=== PATIENT | male | born 1945 | race Caucasian/White ===

== ENCOUNTER 2020-06-06 07:36 | Outpatient (REF) | payer MEDICARE, SELFPAY ==
[2020-06-06 11:37] LABS: Alanine Aminotransferase 30 U/L (0-40); Albumin Level 4.1 g/dL (3.5-5.0); Alkaline Phosphatase 127 U/L (39-117); Aspartate Amino Transferase 24 U/L (5-37); Bilirubin Direct 0.3 mg/dL (0.0-0.5); Bilirubin Total 0.7 mg/dL (0.0-1.0); Cholesterol 111 mg/dL; HDL Cholesterol 28 mg/dL; LDL Cholesterol Calculated 51 mg/dl; Total Protein 6.4 g/dL (6.5-8.0); Triglycerides 160 mg/dL
== END 2020-06-06 07:37 | disposition home or self-care (01) ==
LOC: HO.HMGCLDS 07:36
PROVIDERS: PCP Internal Medicine; Visit Provider Internal Medicine
DX: E78.1 Pure hyperglyceridemia (principal)
CPT/HCPCS: 80061; 80076

== ENCOUNTER 2020-06-23 07:04 | Outpatient (REF) | payer MEDICARE, SELFPAY | END 2020-06-23 07:05 | disposition home or self-care (01) | LOC: HO.LAB 07:04 | PROVIDERS: Visit Provider Internal Medicine | DX: Z20.828 Contact with and (suspected) exposure to other viral communicable diseases (principal) | CPT/HCPCS: C9803; U0003 ==

== ENCOUNTER → 2020-07-23 07:27 | Outpatient (BNVA) | payer MEDICARE, SELFPAY | PROVIDERS: PCP Internal Medicine; Visit Provider Internal Medicine Endocrinology, Diabetes & Metabolism | DX: E13.9 Other specified diabetes mellitus without complications (principal); Z79.4 Long term (current) use of insulin; E78.5 Hyperlipidemia, unspecified; I10 Essential (primary) hypertension; E55.9 Vitamin D deficiency, unspecified | CPT/HCPCS: 82947; 99212 ==

== ENCOUNTER 2020-08-28 08:19 | Outpatient (REF) | payer MEDICARE, SELFPAY ==
[2020-08-28 11:57] LABS: Alanine Aminotransferase 35 U/L (0-40); Anion Gap 12 (12-20); Aspartate Amino Transferase 32 U/L (5-37); Blood Urea Nitrogen 12 mg/dL (9-16); Calcium 9.1 mg/dL (8.4-10.2); Carbon Dioxide 28 mmol/L (22-29); Chloride 106 mmol/L (96-108); Cholesterol 116 mg/dL; Estimated Glomerular Filt Rate > 60; Glucose Fasting 146 mg/dL (60-99); HDL Cholesterol 26 mg/dL; LDL Cholesterol Calculated 42 mg/dl; Potassium 4.3 mmol/L (3.3-5.1); Sodium 142 mmol/L (135-145); Triglycerides 242 mg/dL
== END 2020-08-28 08:20 | disposition home or self-care (01) ==
LOC: HO.HMGCLDS 08:19
PROVIDERS: PCP Internal Medicine; Visit Provider Internal Medicine
DX: I10 Essential (primary) hypertension (principal); E78.5 Hyperlipidemia, unspecified
CPT/HCPCS: 36415; 80048; 80061; 84450; 84460

== ENCOUNTER 2020-09-15 10:02 | Day surgery (SDC) | payer MEDICARE, SELFPAY ==
[2020-09-08 10:57] VITALS: BMI 24.8
--- NOTE | 2020-09-10 16:48 | MHC.SHP ---
Pre-Procedural Eval Section A The patient is an INPATIENT: No The History & Physical has been completed within 30 days and I have reviewed it.: Yes Section B Chief Complaint: Cataract left eye Allergies: Allergies Allergy/AdvReac Type Severity Reaction Status Date / Time codeine [CODEINE] Allergy Intermediate RASH Verified 08/27/20 13:29 nicotine Allergy Intermediate NICOTINE Verified 08/27/20 13:29 PATCH- RASH, hives Penicillins Allergy Intermediate HIVES Verified 08/27/20 13:29 oxycodone [Percocet] Allergy Unknown rash, Verified 08/27/20 13:29 itching meperidine Allergy Itching Verified 09/08/20 10:50 Plan Diagnosis/Plan: Unchanged I have reviewed the history and physical and performed a pertinent physical examination on my patient. No changes have occurred unless specified.
--- NOTE | 2020-09-12 09:16 | P.CONAN_ITS ---
Documented by User: Darcy Ricardo 09/12/20 09:19 HPI - Anesthesia Eval Consult details Narrative: 75yo M for Left Cataract Extraction IOL Insertion No previous cataract PCP cleared PMFSH Active Problems Active Problems: All Active Problems (Updated 09/08/20 @ 10:56 by Becky David) Peripheral vascular disease (Acute) Degenerative disc disease, cervical (Acute) Vitamin D deficiency (Acute) Hypertension (Acute) Dyslipidemia (Acute) long-term (current) use of insulin (Acute) Diabetes-pancreatic exocrine dysfunction syndrome (Acute) Past Medical History Medical History (Updated 09/15/20 @ 11:45 by Lucina Hendrix) Degenerative disc disease, cervical Diabetes-pancreatic exocrine dysfunction syndrome Dizziness of unknown etiology Dyslipidemia 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 Surgical History Surgical History History of endoscopic retrograde cholangiopancreatography History of pancreatic surgery Hx of deep venous thrombosis Hx of hemorrhoidectomy Hx of hernia repair Hx of tonsillectomy Stented coronary artery Social History Social History Alcohol intake: former Smoking Status: Current every day smoker Tobacco Type: Cigarette Cigarettes Per Day: 10 Years Smoked: 50+ Use of substances other than those prescribed or required for medical reasons: No Advance Directives: No Advance Directives Information Provided: No Advance Directives on File: No Meds Allergies Allergy/AdvReac Type Severity Reaction Status Date / Time codeine [CODEINE] Allergy Intermediate RASH Verified 08/27/20 13:29 nicotine Allergy Intermediate NICOTINE Verified 08/27/20 13:29 PATCH- RASH, hives Penicillins Allergy Intermediate HIVES Verified 08/27/20 13:29 oxycodone [Percocet] Allergy Unknown rash, Verified 08/27/20 13:29 itching meperidine Allergy Itching Verified 09/08/20 10:50 Home Medications Medication Instructions Recorded Confirmed Last Taken Type atorvastatin 40 mg tablet 40 mg PO .ONCE A WEEK tab 06/11/20 09/08/20 Unknown History cholecalciferol (vitamin D3) 50 50 mcg PO DAILY 06/11/20 09/08/20 Unknown History mcg (2,000 unit) capsule flu vacc [id number](65yr up)-PF 240 ml IM ONCE 06/11/20 08/27/20 Unknown History mcg/0.7 mL intramuscular syringe fluticasone propionate 50 1 spray INTRANASAL DAILY 06/11/20 09/08/20 Unknown History mcg/actuation nasal spray,suspension lancets #100 ea 06/11/20 08/27/20 Unknown History mifxyp-ldhncngh-baalawz 0 cap PO 06/11/20 08/27/20 Unknown History 24,000-76,000-120,000 unit capsule,delayed rel pen needle, diabetic 32 gauge x #50 ea 06/11/20 08/27/20 Unknown History sucralfate 1 gram tablet 1 g PO TID 06/11/20 09/08/20 Unknown History varicella-zoster glycoE [id number] IM 06/11/20 08/27/20 Unknown History adj(PF) 50 mcg/0.5 mL IM susp, kit aspirin [Aspir-81] 81 mg PO DAILY 09/11/20 09/11/20 Unknown History Exam Exam Date and Time: September 12, 2020 0916 Height,Weight and Vital Signs: Height 5 ft 6 in Weight 69.853 kg Pertinent Lab Results Pertinent Lab Results: Laboratory Tests 12/07/19 08/28/20 07:40 08:23 WBC 7.8 Hgb 14.1 Hct 42.9 Plt Count 291 Sodium 142 Potassium 4.3 Chloride 106 Carbon Dioxide 28 BUN 12 Creatinine 0.87 Assessment and Plan Assessment Anesthesia Assessment: Chart Reviewed Documented by User: Lucian Hendrix 09/15/20 11:45 [facility] Past Medical History Medical History (Updated 09/15/20 @ 11:45 by Lucina Hendrix) Degenerative disc disease, cervical Diabetes-pancreatic exocrine dysfunction syndrome Dizziness of unknown etiology Dyslipidemia 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 Family history of problems with anesthesia: No Surgical History Surgical History History of endoscopic retrograde cholangiopancreatography History of pancreatic surgery Hx of deep venous thrombosis Hx of hemorrhoidectomy Hx of hernia repair Hx of tonsillectomy Stented coronary artery History of Problems with Anesthesia: No Social History Social History Alcohol intake: former Smoking Status: Current every day smoker Tobacco Type: Cigarette Cigarettes Per Day: 10 Years Smoked: 50+ Use of substances other than those prescribed or required for medical reasons: No Advance Directives: No Advance Directives Information Provided: No Advance Directives on File: No Meds Allergies Allergy/AdvReac Type Severity Reaction Status Date / Time codeine [CODEINE] Allergy Intermediate RASH Verified 08/27/20 13:29 nicotine Allergy Intermediate NICOTINE Verified 08/27/20 13:29 PATCH- RASH, hives Penicillins Allergy Intermediate HIVES Verified 08/27/20 13:29 oxycodone [Percocet] Allergy Unknown rash, Verified 08/27/20 13:29 itching meperidine Allergy Itching Verified 09/08/20 10:50 Home Medications Medication Instructions Recorded Confirmed Last Taken Type atorvastatin 40 mg tablet 40 mg PO .ONCE A WEEK tab 06/11/20 09/08/20 Unknown History cholecalciferol (vitamin D3) 50 50 mcg PO DAILY 06/11/20 09/08/20 Unknown History mcg (2,000 unit) capsule flu vacc [id number](65yr up)-PF 240 ml IM ONCE 06/11/20 08/27/20 Unknown History mcg/0.7 mL intramuscular syringe fluticasone propionate 50 1 spray INTRANASAL DAILY 06/11/20 09/08/20 Unknown History mcg/actuation nasal spray,suspension lancets #100 ea 06/11/20 08/27/20 Unknown History xnnkwa-llhngcgg-stscpzh 0 cap PO 06/11/20 08/27/20 Unknown History 24,000-76,000-120,000 unit capsule,delayed rel pen needle, diabetic 32 gauge x #50 ea 06/11/20 08/27/20 Unknown History 5/32 sucralfate 1 gram tablet 1 g PO TID 06/11/20 09/08/20 Unknown History varicella-zoster glycoE vacc-AS01B IM 06/11/20 08/27/20 Unknown History adj(PF) 50 mcg/0.5 mL IM susp kit aspirin [Aspir-81] 81 mg PO DAILY 09/11/20 09/11/20 Unknown History Exam Height,Weight and Vital Signs: Vital Signs Temp Pulse Resp BP Pulse Ox 09/15/20 11:26 96.8 F 64 18 133/62 99 Pertinent Lab Results Pertinent Lab Results: Lab Results 09/15/20 Range/Units 11:28 POC Glucose 160 H (60-115) mg/dL Airway Mallampati Class: II TM Dist: >3cm Neck ROM: Full Loose/Missing/Broken Teeth: Yes (Edentulous) Heart: RRR Lungs: CTAB Assessment and Plan Assessment Anesthesia Assessment: Anesthesia Plan Discussed and Chart Reviewed Final Anesthetic Review NPO: Yes ASA Class: III Final Preanesthetic Review: No Changes in Pt Med Stat, Meds/Allgs Chart Reviewed, Consent Obtained/Reviewed and Anes Risks/Benef Reviewed Patient Risk: Intermediate Procedure Risk: Low Assessment/Block/Sedation in SS: Assess/Block/Sedation-SS Anesthetic Plan Anesthetic Plan: MAC: Disposition: Standard PACU
[2020-09-15 11:26] VITALS: BP 133/62; PULSE 64; RESP 18; TEMP 36; O2SAT 99
[2020-09-15 11:31] LABS: Glucose, Whole Blood 160 mg/dL (60-115)
[2020-09-15] MEDS: Tetracaine HCl/PF 0.5% Oph Sol 4 ML DROPS 1 DROP EYE-LEFT (11:46)
[2020-09-15] MEDS: Tropicamide 1 % Ophth Sol 3 ML BTL 1 DROP EYE-LEFT ×2 (11:48→11:51)
[2020-09-15] MEDS: Phenylephrine HCL 2.5% Oph SoL 2 ML BOTTLE 1 DROP EYE-LEFT ×2 (11:50→11:52)
--- NOTE | 2020-09-15 11:53 | PC.NURSE ---
Dr alexandra bedside. taking pt informed him only had two sets of drops. took pt to or.
--- NOTE | 2020-09-15 12:17 | HO.PNOPHT ---
Ophthalmology Procedure Procedure Date of Service: 09/15/20 Ophthalmology Viscoelastic: Healon Duet Dual Pack Pro Ophthalmology Lenses: TECNIS [id number] (21.5) Procedure Notes: PREOPERATIVE DIAGNOSIS: Decreased visual acuity left eye secondary to cataract POSTOPERATIVE DIAGNOSIS: Same PROCEDURE: Left cataract extraction with intraocular lens insertion, Malyugin Ring SURGEON: Sav Liang M.D. ANESTHESIA: Topical/MAC ESTIMATED BLOOD LOSS: None COMPLICATIONS: None After obtaining informed consent, the patient was brought to the operation room suite and placed in the supine position. After adequate sedation per anesthesia, topical drops of Tetracaine were given to the left eye. The eye was then prepped and draped in the usual sterile fashion. The operating room microscope was then positioned over the operative eye and a lid speculum placed. A paracentesis was created. Viscoelastic was then instilled into the anterior chamber. A three plane incision was then created temporally, utilizing a 2.85 mm keratome. Poor dilation required 0.5ml of MPF Lidocaine with placement of a Malyugin Ring. Capsulotomy forceps were then utilized to create a circular tear capsulotomy. Hydrodissection and hydrodelineation were carried out until adequate mobilization of the nucleus occurred. Phacoemulsification was then utilized to remove the dense central nucleus followed by removal of the cortical material utilizing the automated aspiration irrigation unit. Viscoat elastic was instilled into the posterior capsular bag followed by placement of a posterior chamber intraocular lens without difficulty. The residual Viscoat elastic was then removed utilizing the automated IA machine. The wound was check and found to be watertight. The patient tolerated the procedure well and the lid speculum was removed. Intracameral injection of Vigamox 0.1 mL followed by a subtenon injection of Kenalog-40 0.2 mL were administered. The patient will be seen in the a.m.
[2020-09-15 12:19] VITALS: BP 107/63; PULSE 58; RESP 16; TEMP 36.1; O2SAT 96
== END 2020-09-15 13:07 | disposition home or self-care (01) ==
PROVIDERS: PCP Internal Medicine; Visit Provider Ophthalmology
PROC: (CPT 66985; principal; 2020-09-15 12:10)
DX: H25.12 Age-related nuclear cataract, left eye (principal); I10 Essential (primary) hypertension; E11.9 Type 2 diabetes mellitus without complications; K86.81 Exocrine pancreatic insufficiency; R42 Dizziness and giddiness; Z79.4 Long term (current) use of insulin; Z79.899 Other long term (current) drug therapy; F17.210 Nicotine dependence, cigarettes, uncomplicated; Z88.0 Allergy status to penicillin; Z88.8 Allergy status to other drugs, medicaments and biological substances
CPT/HCPCS: 66984; 82947; J2250; J3010; J3300; V2632

== ENCOUNTER 2020-12-02 07:31 | Outpatient (REF) | payer MEDICARE, SELFPAY ==
[2020-12-02 09:25] LABS: Alanine Aminotransferase 29 U/L (0-40); Aspartate Amino Transferase 54 U/L (5-37); Cholesterol 106 mg/dL; HDL Cholesterol 33 mg/dL; LDL Cholesterol Calculated 46 mg/dl; Triglycerides 137 mg/dL
[2020-12-02 10:06] LABS: Creatinine Urine 191.08 mg/dL; Microalbum/Creatinine Ratio Ur 47.6 ug/mg cr
== END 2020-12-02 07:32 | disposition home or self-care (01) ==
LOC: HO.LAB 07:31
PROVIDERS: PCP Internal Medicine; Visit Provider Internal Medicine Endocrinology, Diabetes & Metabolism
DX: E13.9 Other specified diabetes mellitus without complications (principal); E78.5 Hyperlipidemia, unspecified; I10 Essential (primary) hypertension; E55.9 Vitamin D deficiency, unspecified; Z79.4 Long term (current) use of insulin; Z79.899 Other long term (current) drug therapy
CPT/HCPCS: 36415; 80061; 82043; 82947; 84450; 84460; 99212

== ENCOUNTER 2020-12-19 07:05 | Outpatient (REF) | payer MEDICARE, SELFPAY ==
[2020-12-19 11:42] LABS: Alanine Aminotransferase 36 U/L (0-40); Albumin Level 4.1 g/dL (3.5-5.0); Alkaline Phosphatase 101 U/L (39-117); Aspartate Amino Transferase 50 U/L (5-37); Bilirubin Direct 0.3 mg/dL (0.0-0.5); Bilirubin Total 0.5 mg/dL (0.0-1.0); Total Protein 6.5 g/dL (6.5-8.0)
== END 2020-12-19 07:06 | disposition home or self-care (01) ==
LOC: HO.HMGCLDS 07:05
PROVIDERS: PCP Internal Medicine; Visit Provider Internal Medicine
DX: E78.1 Pure hyperglyceridemia (principal)
CPT/HCPCS: 36415; 80076

== ENCOUNTER → 2021-04-07 07:36 | Outpatient (BNVA) | payer MEDICARE, SELFPAY | PROVIDERS: PCP Internal Medicine; Visit Provider Nurse Practitioner Gerontology | DX: E13.9 Other specified diabetes mellitus without complications (principal); E78.5 Hyperlipidemia, unspecified; E55.9 Vitamin D deficiency, unspecified; I10 Essential (primary) hypertension; Z79.4 Long term (current) use of insulin | CPT/HCPCS: 82947; 99212 ==

== ENCOUNTER 2021-04-17 07:25 | Outpatient (REF) | payer MEDICARE, SELFPAY ==
[2021-04-17 11:25] LABS: MANUAL DIFF FLAG NO
[2021-04-17 11:36] LABS: Basophils Percent Auto 0.4 % (0-2); Eosinophils Absolute Auto 0.1 X10*3/uL (0.0-0.4); Eosinophils Percent Auto 1.4 % (0-4); Hematocrit 35.8 % (42-52); Hemoglobin 11.4 g/dl (14.0-18.0); Imm Gran Abs Auto 0.04 X10*3/uL (0.00-0.03); Imm Gran Pct Auto 0.5 % (0.0-0.4); Lymphocytes Absolute Auto 1.5 X10*3/uL (1.2-4.9); Lymphocytes Percent Auto 20.4 % (20-40); Mean Corpuscular HGB Conc 31.8 g/dl (31.0-36.0); Mean Corpuscular Hemoglobin 30.8 pg (27.0-33.0); Mean Corpuscular Volume 96.8 fL (80-98); Mean Platelet Volume 11.4 fL (9.4-12.4); Monocytes Absolute Auto 0.7 X10*3/uL (0.1-1.2); Monocytes Percent Auto 9.5 % (2-11); NRBC Pct Auto 0.5 /100WBC (0.0-0.2); Neutrophils Percent Auto 67.8 % (45-73); Platelet Count 250 X10*3/uL (160-400); Red Cell Distribution Width 17.8 % (11.0-16.0); White Blood Count 7.4 X10*3/uL (4.8-10.8)
[2021-04-17 12:02] LABS: TSH reflex Free T4 3.24 uIU/mL (0.32-4.0); Vitamin D 25-OH Total 39.5 ng/mL (>30)
[2021-04-17 12:06] LABS: Alanine Aminotransferase 26 U/L (0-40); Aspartate Amino Transferase 31 U/L (5-37); Cholesterol 99 mg/dL; HDL Cholesterol 32 mg/dL; LDL Cholesterol Calculated 41 mg/dl; Triglycerides 131 mg/dL
[2021-04-17 12:35] LABS: Folate 19.2 ng/mL (> or = 4.0); Vitamin B12 803 pg/mL (200-900)
== END 2021-04-17 07:26 | disposition home or self-care (01) ==
LOC: HO.HMGCLDS 07:25
PROVIDERS: PCP Internal Medicine; Visit Provider Internal Medicine
DX: E55.9 Vitamin D deficiency, unspecified (principal); E78.5 Hyperlipidemia, unspecified; R53.83 Other fatigue; T50.B95A Adverse effect of other viral vaccines, initial encounter
CPT/HCPCS: 36415; 80061; 82306; 82607; 82746; 84443; 84450; 84460; 85025

== ENCOUNTER 2021-07-15 07:22 | Outpatient (REF) | payer MEDICARE, SELFPAY ==
[2021-07-15 11:20] LABS: MANUAL DIFF FLAG NO
[2021-07-15 11:30] LABS: Basophils Percent Auto 0.3 % (0-2); Eosinophils Absolute Auto 0.1 X10*3/uL (0.0-0.4); Eosinophils Percent Auto 0.9 % (0-4); Hematocrit 36.2 % (42.0-52.0); Hemoglobin 11.1 g/dl (14.0-18.0); Imm Gran Abs Auto 0.03 X10*3/uL (0.00-0.03); Imm Gran Pct Auto 0.5 % (0.0-0.4); Lymphocytes Absolute Auto 1.5 X10*3/uL (1.2-4.9); Lymphocytes Percent Auto 23.4 % (20-40); Mean Corpuscular HGB Conc 30.7 g/dl (31.0-36.0); Mean Corpuscular Hemoglobin 30.7 pg (27.0-33.0); Mean Corpuscular Volume 100.3 fL (80.0-98.0); Mean Platelet Volume 10.9 fL (9.4-12.4); Monocytes Absolute Auto 0.8 X10*3/uL (0.1-1.2); Monocytes Percent Auto 11.4 % (2-11); NRBC Pct Auto 0.3 /100WBC (0.0-0.2); Neutrophils Absolute Auto 4.2 x10*3/uL (2.0-8.3); Neutrophils Percent Auto 63.5 % (45-73); Platelet Count 200 X10*3/uL (160-400); Red Blood Count 3.61 X10*6/uL (4.60-5.80); Red Cell Distribution Width 18.9 % (11.0-16.0); White Blood Count 6.6 X10*3/uL (4.8-10.8)
[2021-07-15 11:57] LABS: Alanine Aminotransferase 32 U/L (0-40); Albumin Level 3.7 g/dL (3.5-5.0); Alkaline Phosphatase 105 U/L (39-117); Anion Gap 11 (12-20); Aspartate Amino Transferase 40 U/L (5-37); Bilirubin Total 0.5 mg/dL (0.0-1.0); Blood Urea Nitrogen 13 mg/dL (9-16); Carbon Dioxide 26 mmol/L (22-29); Chloride 110 mmol/L (96-108); Cholesterol 104 mg/dL; Estimated Glomerular Filt Rate > 60; Glucose Fasting 120 mg/dL (60-99); HDL Cholesterol 38 mg/dL; Iron 115 mcg/dL (45-160); LDL Cholesterol Calculated 33 mg/dl; Percent Iron Saturation 47 % (15-50); Potassium 4.4 mmol/L (3.3-5.1); Sodium 143 mmol/L (135-145); Total Iron Binding Capacity 244 mcg/dL (228-428); Total Protein 6.1 g/dL (6.5-8.0); Triglycerides 165 mg/dL; Unsaturated Iron Binding 129 ug/dL
[2021-07-15 12:08] LABS: Vitamin D 25-OH Total 23.6 ng/mL (>30)
== END 2021-07-15 07:23 | disposition home or self-care (01) ==
LOC: HO.HMGCLDS 07:22
PROVIDERS: Referring Provider Nurse Practitioner Gerontology; Visit Provider Internal Medicine
DX: E13.9 Other specified diabetes mellitus without complications (principal); E55.9 Vitamin D deficiency, unspecified; D64.9 Anemia, unspecified
CPT/HCPCS: 36415; 80053; 80061; 82306; 83540; 85025

== ENCOUNTER → 2021-07-30 07:18 | Outpatient (BNVA) | payer MEDICARE, SELFPAY | PROVIDERS: PCP Internal Medicine; Visit Provider Nurse Practitioner Gerontology | DX: E13.649 Other specified diabetes mellitus with hypoglycemia without coma (principal); E78.5 Hyperlipidemia, unspecified; I10 Essential (primary) hypertension; E55.9 Vitamin D deficiency, unspecified; R59.0 Localized enlarged lymph nodes; Z79.4 Long term (current) use of insulin | CPT/HCPCS: 82947; 99212 ==

== ENCOUNTER → 2021-08-31 08:04 | Outpatient (BNVA) | payer MEDICARE, SELFPAY | PROVIDERS: PCP Internal Medicine; Visit Provider Registered Nurse Diabetes Educator | DX: E13.9 Other specified diabetes mellitus without complications (principal) | CPT/HCPCS: 99211 ==

== ENCOUNTER 2021-09-01 08:32 | Outpatient (REF) | payer MEDICARE, SELFPAY ==
--- NOTE | ~2021-09-01 | US_ITS ---
EXAMINATION: US SOFT TISSUE NECK CLINICAL INFORMATION: Enlarged lymph nodes COMPARISON: None TECHNIQUE: Ultrasound of the neck soft tissues is performed with high- frequency bravo-scale imaging and color Doppler. FINDINGS: No enlarged lymph nodes are seen. There are small bilateral cervical lymph nodes. Largest lymph node is a left level 2 lymph node. This is normal in size and measures 0.7 cm in transverse dimension. This demonstrates normal ultrasound morphology. There is atherosclerotic disease. US/US soft tiss head and/or neck IMPRESSION: No enlarged lymph nodes seen.
== END 2021-09-01 08:33 | disposition home or self-care (01) ==
LOC: HO.HMGCX 08:32
PROVIDERS: PCP Internal Medicine; Visit Provider Internal Medicine
DX: R59.0 Localized enlarged lymph nodes (principal)
CPT/HCPCS: 76536

== ENCOUNTER 2021-09-03 11:12 | Outpatient (REF) | payer MEDICARE, SELFPAY ==
[2021-09-03 13:57] LABS: Blood Urea Nitrogen 12 mg/dL (9-16); Estimated Glomerular Filt Rate > 60
== END 2021-09-03 11:13 | disposition home or self-care (01) ==
LOC: HO.HMGCLDS 11:12
PROVIDERS: Visit Provider Internal Medicine
DX: R51.9 Headache, unspecified (principal)
CPT/HCPCS: 36415; 82565; 84520

== ENCOUNTER → 2021-09-28 07:59 | Outpatient (BNVA) | payer MEDICARE, SELFPAY | PROVIDERS: PCP Internal Medicine; Visit Provider Registered Nurse Diabetes Educator | DX: E13.9 Other specified diabetes mellitus without complications (principal) | CPT/HCPCS: 99211 ==

== ENCOUNTER → 2021-10-02 07:57 | Outpatient (BNVA) | payer MEDICARE, SELFPAY | PROVIDERS: PCP Internal Medicine; Visit Provider Registered Nurse Diabetes Educator | DX: E13.9 Other specified diabetes mellitus without complications (principal) | CPT/HCPCS: 99211 ==

== ENCOUNTER → 2021-11-03 07:58 | Outpatient (BNVA) | payer MEDICARE, SELFPAY | PROVIDERS: PCP Internal Medicine; Visit Provider Registered Nurse Diabetes Educator | DX: E13.9 Other specified diabetes mellitus without complications (principal) | CPT/HCPCS: 99211 ==

== ENCOUNTER → 2021-11-12 07:23 | Outpatient (BNVA) | payer MEDICARE, SELFPAY | PROVIDERS: PCP Internal Medicine; Visit Provider Nurse Practitioner Gerontology | DX: E10.42 Type 1 diabetes mellitus with diabetic polyneuropathy (principal); E13.9 Other specified diabetes mellitus without complications; E78.5 Hyperlipidemia, unspecified; E55.9 Vitamin D deficiency, unspecified; I10 Essential (primary) hypertension; Z79.4 Long term (current) use of insulin | CPT/HCPCS: 82947; 99212 ==

== ENCOUNTER 2021-12-01 07:17 | Outpatient (REF) | payer MEDICARE, SELFPAY ==
[2021-12-01 11:35] LABS: MANUAL DIFF FLAG NO
[2021-12-01 11:39] LABS: Basophils Percent Auto 0.4 % (0-2); Eosinophils Absolute Auto 0.1 X10*3/uL (0.0-0.4); Eosinophils Percent Auto 1.5 % (0-4); Hematocrit 29.3 % (42.0-52.0); Hemoglobin 9.1 g/dl (14.0-18.0); Imm Gran Abs Auto 0.07 X10*3/uL (0.00-0.03); Lymphocytes Absolute Auto 1.3 X10*3/uL (1.2-4.9); Lymphocytes Percent Auto 18.4 % (20-40); Mean Corpuscular HGB Conc 31.1 g/dl (31.0-36.0); Mean Corpuscular Hemoglobin 30.5 pg (27.0-33.0); Mean Corpuscular Volume 98.3 fL (80.0-98.0); Mean Platelet Volume 11.2 fL (9.4-12.4); Monocytes Absolute Auto 0.8 X10*3/uL (0.1-1.2); NRBC Pct Auto 0.4 /100WBC (0.0-0.2); Neutrophils Absolute Auto 4.9 x10*3/uL (2.0-8.3); Neutrophils Percent Auto 67.7 % (45-73); Platelet Count 241 X10*3/uL (160-400); Red Blood Count 2.98 X10*6/uL (4.60-5.80); Red Cell Distribution Width 19.9 % (11.0-16.0); White Blood Count 7.2 X10*3/uL (4.8-10.8)
[2021-12-01 11:53] LABS: Alanine Aminotransferase 13 U/L (0-40); Anion Gap 12 (12-20); Aspartate Amino Transferase 20 U/L (5-37); Blood Urea Nitrogen 12 mg/dL (9-16); Calcium 8.5 mg/dL (8.4-10.2); Carbon Dioxide 22 mmol/L (22-29); Chloride 111 mmol/L (96-108); Cholesterol 95 mg/dL; Estimated Glomerular Filt Rate > 60; Glucose Fasting 157 mg/dL (60-99); HDL Cholesterol 23 mg/dL; LDL Cholesterol Calculated 47 mg/dl; Potassium 4.3 mmol/L (3.3-5.1); Sodium 141 mmol/L (135-145); Triglycerides 129 mg/dL
[2021-12-01 12:02] LABS: Alanine Aminotransferase 14 U/L (0-40); Albumin Level 3.6 g/dL (3.5-5.0); Alkaline Phosphatase 101 U/L (39-117); Aspartate Amino Transferase 19 U/L (5-37); Bilirubin Direct 0.3 mg/dL (0.0-0.5); Bilirubin Total 0.6 mg/dL (0.0-1.0); Lipase < 4 U/L (8-78); Total Protein 5.7 g/dL (6.5-8.0)
[2021-12-01 12:06] LABS: Amylase 66 U/L (28-100)
[2021-12-01 12:14] LABS: Vitamin D 25-OH Total 35.4 ng/mL (>30)
[2021-12-01 12:30] LABS: Folate 17.8 ng/mL (> or = 4.0); Vitamin B12 588 pg/mL (200-900)
[2021-12-03 11:36] LABS: Alpha Fetoprotein 1.8 ng/mL (<6.1)
== END 2021-12-01 07:18 | disposition home or self-care (01) ==
LOC: HO.HMGCLDS 07:17
PROVIDERS: Absent Provider Internal Medicine; PCP Internal Medicine; Visit Provider Internal Medicine
DX: Z13.89 Encounter for screening for other disorder (principal)
CPT/HCPCS: 36415; 80048; 80061; 80076; 82105; 82150; 82306; 82607; 82746; 83690; 84450; 84460; 85025

== ENCOUNTER 2021-12-01 07:42 | Outpatient (REF) | payer MEDICARE, SELFPAY ==
--- NOTE | ~2021-12-01 | US_ITS ---
EXAMINATION: US ABDOMEN COMPLETE CLINICAL INFORMATION: Right upper quadrant pain. Pancreas insufficiency. COMPARISON: Ultrasound abdomen complete 10/05/2013. CT of the abdomen and pelvis September 2013 TECHNIQUE: Real-time imaging of the abdominal viscera. FINDINGS: PANCREAS: The body and tail of pancreas are normal. The head of pancreas is not seen. ABDOMINAL AORTA: There is evidence of atherosclerotic disease. There is mild dilatation of the distal abdominal aorta measuring 2.8 x 2.9 cm. The proximal and mid abdominal aorta are normal in caliber. INFERIOR VENA CAVA: Visualized portions are normal. LIVER: The liver is normal in size. The liver contour is normal. Liver echotexture is increased. No focal hepatic lesion. There is mild central intrahepatic biliary duct dilatation. GALLBLADDER: Surgically absent. COMMON BILE DUCT: Normal in caliber measuring 0.3 cm in diameter. RIGHT KIDNEY: Normal. No hydronephrosis. No renal calculi or focal parenchymal lesions. The kidney measures 10.8 cm in maximum dimension. LEFT KIDNEY: Normal. No hydronephrosis. No renal calculi or focal parenchymal lesions. The kidney measures 10.4 cm in maximum dimension. SPLEEN: Normal. The spleen measures 11.0 cm in maximum dimension. FREE FLUID: None. US/US abdomen complete IMPRESSION: Echogenic liver. Mild intrahepatic biliary duct dilatation. Normal-appearing body and tail the pancreas. The head of the pancreas is not seen. Previous exams indicate history of prior Whipple procedure. Atherosclerotic disease and dilatation of the distal abdominal aorta measuring 2.8 x 2.9 cm.
== END 2021-12-01 07:43 | disposition home or self-care (01) ==
LOC: HO.HMGCX 07:42
PROVIDERS: PCP Internal Medicine; Visit Provider Internal Medicine
DX: K86.89 Other specified diseases of pancreas (principal); R10.11 Right upper quadrant pain; D64.9 Anemia, unspecified; E55.9 Vitamin D deficiency, unspecified; I10 Essential (primary) hypertension; E78.5 Hyperlipidemia, unspecified
CPT/HCPCS: 36415; 76700; 80048; 80061; 80076; 82105; 82150; 82306; 82607; 82746; 83690; 84450; 84460; 85025

== ENCOUNTER 2021-12-02 09:41 | Outpatient (RCR) | payer MEDICARE, SELFPAY ==
[2021-12-02 09:45] VITALS: BP 178/90; PULSE 82; O2SAT 98
--- NOTE | 2021-12-02 11:37 | MHC.PT.EP ---
[facility] [place] [facility] [place] [facility] [place] Office [address] Leanne Choi [address] [phone] F: [phone] F: [phone] F: [phone] F: [phone] Physical Therapy Plan of Care Date of Evaluation: Date of Surgery: Diagnosis: This is a 76 yo male presenting to skilled PT with a script for vertigo Assessment: This is a 76 yo male presenting to skilled PT with a script for vertigo. Patient reporting that he has been getting dizzy for 16 years since getting his wipple surgery. Dizziness occurs all the time, some days are worst than others. He has not fallen. He describes his symptoms are floating and tipping , blurry vision. He was recently at [facility] where he lost his vision, had increased pains in his head. He reports that he had a recent MRI that he reports was normal. He also reports recent onset of numbness on the L TMJ into the neck. He has hearing aides but they have not been working. He has been on meclizine for 3 months. He has had PT for vertigo 4 times, once he states that they reported he had vertigo, the second time he did not, the third time they dx'd him with orthostatic HTN (none were helpful). He also reports a number of other aliments including aortic claudication which patient reports needs surgery, BLE claudication, change in BP medication which he reports has made him more dizzy; list continues. Examination shows normal oculomotor tests except for ? horizontal saccades, ? head thrust but patient having a hard time with cues to relax during test and impaired cervical ROM. He was (-) for BPPV with on the L edmond-hallpike and then I held the rest of assessment due to symptoms, PT concerns and BP. He demos + for orthostatic hypotension from supine to sit. PT did not have enough time to assess balance at [facility] due to lengthy PMHx however at this time I called PCP to report BP numbers, lac of vestibular correlation with history and assessment and will be placing him on PT hold I recommended follow up with core baker and spoke with his about PT concerns. Frequency and Duration: The patient will be seen Short Term Goals: Custodial Goals: Treatment Plan: Modalities to reduce pain, spasms and effusion. Manual therapy to restore motion and function. Therapeutic exercise to improve strength and flexibility. Neuromuscular re-education for posture and balance. Therapeutic activities to return to functional activities of daily living. Electronically signed by: Reena Metcalf PT Please sign and return to therapist. Thank you for your referral.
--- NOTE | 2022-01-04 17:48 | MHC.PT.DC ---
[facility] [place] Office [place] Office [place] Office [address] Leanne Choi [address] [phone] F: [phone] F: [phone] F: [phone] F: [phone] Physical Therapy Discharge Report Diagnosis: This is a 76 yo male presenting to skilled PT with a script for vertigo Date of Surgery: Date of Evaluation: 12/02/21 Date of Discharge: 01/04/22 Treatments to Date: 1 Cancellations to Date: 0 No Shows to Date: 0 Discharge Status: Discharge Summary: This is a 76 yo male presenting to skilled PT with a script for vertigo. Patient reporting that he has been getting dizzy for 16 years since getting his wipple surgery. Dizziness occurs all the time, some days are worst than others. He has not fallen. He describes his symptoms are floating and tipping , blurry vision. He was recently at [facility] where he lost his vision, had increased pains in his head. He reports that he had a recent MRI that he reports was normal. He also reports recent onset of numbness on the L TMJ into the neck. He has hearing aides but they have not been working. He has been on meclizine for 3 months. He has had PT for vertigo 4 times, once he states that they reported he had vertigo, the second time he did not, the third time they dx'd him with orthostatic HTN (none were helpful). He also reports a number of other aliments including aortic claudication which patient reports needs surgery, BLE claudication, change in BP medication which he reports has made him more dizzy; list continues. Examination shows normal oculomotor tests except for ? horizontal saccades, ? head thrust but patient having a hard time with cues to relax during test and impaired cervical ROM. He was (-) for BPPV with on the L edmond-hallpike and then I held the rest of assessment due to symptoms, PT concerns and BP. He demos + for orthostatic hypotension from supine to sit. PT did not have enough time to assess balance at [facility] due to lengthy PMHx however at this time I called PCP to report BP numbers, lac of vestibular correlation with history and assessment and will be placing him on PT hold I recommended follow up with vocational nurse and spoke with his about PT concerns. Electronically signed by: Reena Metcalf PT Please sign and return to therapist. Thank you for your referral.
== END 2022-01-04 17:49 | disposition home or self-care (01) ==
LOC: HO.PTCHIC 09:41
PROVIDERS: PCP Internal Medicine; Visit Provider Internal Medicine
DX: R42 Dizziness and giddiness (principal)
CPT/HCPCS: 97110; 97162; 97163

== ENCOUNTER → 2022-01-05 08:59 | Outpatient (BNV) | payer MEDICARE, SELFPAY | PROVIDERS: PCP Internal Medicine; Referring Provider Internal Medicine; Visit Provider Internal Medicine | DX: D47.1 Chronic myeloproliferative disease (principal); D64.9 Anemia, unspecified | CPT/HCPCS: 38222; 99204; 99213; 99214; G2211 ==

== ENCOUNTER 2022-01-12 08:44 | Outpatient (REF) | payer MEDICARE, SELFPAY ==
--- NOTE | ~2022-01-12 | CT_ITS ---
EXAMINATION: CT CHEST WITH CONTRAST CLINICAL INFORMATION: Weight loss, cough and smoker. COMPARISON: None TECHNIQUE: Multidetector volumetric CT imaging of the chest was obtained after the administration of 50 mL of Omnipaque 350 intravenous contrast without immediate adverse reactions. Axial MIP volume rendering provided. Sagittal and coronal reformatted images were obtained. This CT examination was performed using dose optimization techniques as appropriate, variously including the following: *Automated exposure control *Adjustment of mA and/or kV according to patient size (this includes techniques or standardized protocols for targeted exams where dose is matched to indication/reason for exam; i.e. extremities or head) *Use of iterative reconstruction technique DLP: 117 mGy-cm FINDINGS: CARBURETOR MECHANIC: Well-inflated lungs. LUNGS: The lungs are well-expanded and clear of acute pneumonic process. Minimal atelectatic changes are seen in the lateral basal segment right lower lobe. There is a subpleural 2 mm nodule right lower lobe axial image 140/9, 2 mm subpleural nodular density left upper lobe axial image 62/9. No additional nodules seen. MEDIASTINUM: Heart size and the great vessels are normal caliber. There is no pericardial effusion. There are coronary artery calcifications present. No abnormal size mediastinal or hilar lymph nodes seen. The central trachea and the bronchi are widely patent. The thyroid lobes are symmetrical and normal. PLEURA: There is no pleural effusion. No pleural mass or thickening. AXILLA : No lymphadenopathy. UPPER ABDOMEN: Visualized liver, spleen, pancreas and adrenal glands unremarkable. OSSEOUS STRUCTURES: Bone windows reveal no lytic or sclerotic process. There is mild ventral spondylosis dorsal spine. CT/CT chest w con IMPRESSION: Small punctate pulmonary nodules as described above. No acute consolidation or mass. No abnormal lymphadenopathy. Minimal atelectatic changes right lower lobe lateral basal segment. Fleischner guidelines were followed.
[2022-01-12] MEDS: iohexoL 350 MG/ML 100 ML INFUS..BTL IV (09:43)
== END 2022-01-12 08:45 | disposition home or self-care (01) ==
LOC: HO.CT 08:44
PROVIDERS: PCP Internal Medicine; Visit Provider Internal Medicine
DX: D64.9 Anemia, unspecified (principal)
CPT/HCPCS: 71260; Q9967

== ENCOUNTER 2022-04-02 09:05 | Outpatient (REF) | payer MEDICARE, SELFPAY | END 2022-04-02 09:06 | disposition home or self-care (01) | LOC: HO.LAB 09:05 | PROVIDERS: PCP Internal Medicine; Visit Provider Internal Medicine Endocrinology, Diabetes & Metabolism | DX: E13.9 Other specified diabetes mellitus without complications (principal); D64.9 Anemia, unspecified | CPT/HCPCS: 82043 ==

== ENCOUNTER 2022-04-20 11:24 | Outpatient (REF) | payer MEDICARE, SELFPAY ==
--- NOTE | ~2022-04-20 | XR_ITS ---
EXAMINATION: XR CHEST CLINICAL INFORMATION: Heart failure COMPARISON: Previous chest CT December 2021 and chest x-ray from 2006 TECHNIQUE: 2 views of the chest were obtained. FINDINGS: The cardiac silhouette is enlarged. There is pulmonary venous redistribution and increased perihilar markings and small bilateral pleural effusions, left greater than right. Findings are suggestive of mild CHF. No pneumothorax. Degenerative changes of the spine. XR/XR chest 2V IMPRESSION: Mild CHF.
== END 2022-04-20 11:25 | disposition home or self-care (01) ==
LOC: HO.HMGCX 11:24
PROVIDERS: PCP Internal Medicine; Visit Provider Internal Medicine
DX: I50.9 Heart failure, unspecified (principal)
CPT/HCPCS: 71046

== ENCOUNTER 2022-04-21 08:00 | Outpatient (REF) | payer MEDICARE, SELFPAY ==
[2022-04-21 14:04] LABS: Hematocrit 29.2 % (42.0-52.0); Hemoglobin 9.2 g/dl (14.0-18.0); Mean Corpuscular HGB Conc 31.5 g/dl (31.0-36.0); Mean Corpuscular Hemoglobin 30.7 pg (27.0-33.0); Mean Corpuscular Volume 97.3 fL (80.0-98.0); Mean Platelet Volume 11.4 fL (9.4-12.4); NRBC Pct Auto 0.2 /100WBC (0.0-0.2); Platelet Count 387 X10*3/uL (160-400); Red Cell Distribution Width 20.5 % (11.0-16.0)
[2022-04-21 14:24] LABS: Alanine Aminotransferase 15 U/L (0-40); Albumin Level 3.4 g/dL (3.5-5.0); Alkaline Phosphatase 96 U/L (39-117); Anion Gap 16 (12-20); Aspartate Amino Transferase 21 U/L (5-37); Bilirubin Direct 0.3 mg/dL (0.0-0.5); Bilirubin Total 0.3 mg/dL (0.0-1.0); Blood Urea Nitrogen 10 mg/dL (9-16); Calcium 8.7 mg/dL (8.4-10.2); Carbon Dioxide 24 mmol/L (22-29); Chloride 106 mmol/L (96-108); Estimated Glomerular Filt Rate 55; Glucose Random 299 mg/dL (60-115); Sodium 141 mmol/L (135-145); Total Protein 5.5 g/dL (6.5-8.0)
[2022-04-21 14:26] LABS: B Type Natriuretic Peptide 1881 pg/mL (<100)
== END 2022-04-21 08:01 | disposition home or self-care (01) ==
LOC: HO.HMGCLDS 08:00
PROVIDERS: PCP Internal Medicine; Visit Provider Internal Medicine
DX: E13.9 Other specified diabetes mellitus without complications (principal); I50.9 Heart failure, unspecified
CPT/HCPCS: 36415; 80048; 80076; 82947; 83880; 85027; 99212

== ENCOUNTER 2022-04-25 13:01 | Inpatient (IN) | payer MEDICARE, SELFPAY ==
--- NOTE | ~2022-04-25 | XR_ITS ---
EXAMINATION: XR CHEST CLINICAL INFORMATION: Shortness of breath COMPARISON: 04/20/2022 TECHNIQUE: 2 views of the chest were obtained. FINDINGS: Lung volumes are symmetric. There are small pleural effusions with adjacent relatively mild bibasilar opacities. Central vasculature is also mildly prominent. Overall appearance of the lungs is similar to 04/20/2022. No appreciable pneumothorax. Cardiac size is within normal limits. Calcification is present at the aortic arch. No acute osseous findings are seen. XR/XR chest 2V IMPRESSION: Small pleural effusions with adjacent mild bibasilar opacities and mild prominence of the central vasculature, similar to 04/20/2022 and suggesting edema in the proper clinical setting.
[2022-04-25 13:07] VITALS: BP 158/79; PULSE 86; RESP 17; TEMP 36.5; O2SAT 97; BMI 23.6
--- NOTE | 2022-04-25 13:13 | ECG_ITS ---
Test Reason : DIFFICULTY BREATHING Blood Pressure : / mmHG Vent. Rate : 082 BPM Atrial Rate : 082 BPM P-R Int : 220 ms QRS Dur : 110 ms QT Int : 424 ms P-R-T Axes : 064 -36 095 degrees QTc Int : 495 ms Poor data quality Sinus rhythm with 1st degree A-V block Left axis deviation Minimal voltage criteria for LVH, may be normal variant ( Dhaval product ) Nonspecific T wave abnormality Abnormal ECG When compared with ECG of 05-JUL-2014 12:54, Nonspecific T wave abnormality now evident in Anterolateral leads QT has lengthened Referred By: Generic ED Physician Electronically Signed By:JOSE PACHECO MD
[2022-04-25 14:31] VITALS: BP 161/81; PULSE 88; RESP 18; O2SAT 97
--- NOTE | 2022-04-25 14:43 | ED.SOB ---
HPI - SOB/Dyspnea General Chief Complaint: Dyspnea Stated Complaint: diff breathing Time Seen by Provider: 04/25/22 14:26 Source: patient Mode of arrival: ambulatory Limitations: no limitations History of Present Illness HPI Narrative: Patient is a 77-year-old male who presents to the emergency department for evaluation of shortness of breath. Patient states he was 1st evaluated at urgent care earlier this week, he was contacted by his primary care provider today who expressed concerns about new onset congestive heart failure and patient was advised to come to the emergency department for evaluation. Overall, he reports that his shortness of breath has been increasingly worsening throughout the week. Reports significant orthopnea, dyspnea on exertion, dry cough. Denies any chest pain, fevers, chills. Patient does report that he was started on a new blood pressure medication approximately 1 week ago, he believes that he started this medication before he started experiencing shortness of breath, does not recall the name of it. Related Data Home Medications Medication Instructions Recorded Confirmed atorvastatin 40 mg tablet 40 mg PO MO 06/11/20 04/25/22 lancets #100 ea 06/11/20 04/02/22 aspirin 81 mg tablet,delayed 81 mg PO DAILY 09/11/20 04/25/22 release jjemap-pwxdsypj-lctbqef 1 cap PO TIDAC 12/01/21 04/25/22 24,000-76,000-120,000 unit capsule,delayed rel (Creon) bisoprolol fumarate 5 mg tablet 2.5 mg PO DAILY 04/02/22 04/25/22 losartan 25 mg tablet 25 mg PO DAILY 04/20/22 04/25/22 flash glucose scanning reader 04/21/22 (FreeStyle Ramiro 2 [place]) flash glucose sensor (FreeStyle 04/21/22 Ramiro 2 Sensor kit) fluticasone propionate 50 1 spray intranasal DAILY PRN 04/25/22 04/25/22 mcg/actuation nasal Allergy Symptoms spray,suspension insulin aspart U-100 100 unit/mL 5 unit subcut BID@1130,1730 04/25/22 04/25/22 (3 mL) subcutaneous pen (Novolog Flexpen U-100 Insulin aspart) insulin aspart U-100 100 unit/mL 8 unit subcut DAILY@0730 04/25/22 04/25/22 (3 mL) subcutaneous pen (Novolog Flexpen U-100 Insulin aspart) insulin degludec 100 unit/mL (3 5 unit subcut DAILY 04/25/22 04/25/22 mL) subcutaneous pen Previous Rx's Medication Instructions Recorded blood sugar diagnostic #300 ea 07/23/20 Diabetic shoes & 3 pair inserts #1 ea 04/07/21 lorazepam 1 mg tablet 0.5 mg PO DAILY PRN anxiety #10 07/29/21 tabs lancets 28 gauge (FreeStyle #200 ea 09/29/21 Lancets) blood sugar diagnostic (FreeStyle #100 ea 10/02/21 Lite Strips) blood-glucose meter (FreeStyle #1 ea 10/02/21 Lite Meter kit) cholecalciferol (vitamin D3) 50 50 mcg PO DAILY #90 caps 10/08/21 mcg (2,000 unit) capsule omeprazole 40 mg capsule,delayed 40 mg PO DAILY #90 caps 01/26/22 release danazol 200 mg capsule 200 mg PO BID #60 caps 03/09/22 albuterol sulfate 90 mcg/actuation 2 puff inhalation Q4H PRN for 04/20/22 aerosol inhaler muscle spasm #18 ea Allergies Allergy/AdvReac Type Severity Reaction Status Date / Time codeine [CODEINE] Allergy Intermediate RASH Verified 04/21/22 08:11 nicotine Allergy Intermediate NICOTINE Verified 04/21/22 08:11 PATCH- RASH, hives Penicillins Allergy Intermediate HIVES Verified 04/21/22 08:11 oxycodone [Percocet] Allergy Unknown rash, Verified 04/21/22 08:11 itching meperidine Allergy Itching Verified 04/21/22 08:11 Review of Systems Review of Systems: Constitutional : No Fever, No Chills ENT/Mouth : No sore throat, No Rhinorrhea, No Swallowing Difficulty Eyes: No Eye Pain, No Swelling, No Redness Cardiovascular : No Chest Pain, positive SOB, positive Orthopnea, no Edema Respiratory : Positive Cough, No Sputum, No Wheezing, positive dyspnea Gastrointestinal : No Nausea, No Vomiting, No Diarrhea, No abdominal Pain, No Hematochezia, No Melena Genitourinary : No Dysuria, No Urinary Frequency, No Hematuria Musculoskeletal : No joint pain, No Myalgias Skin : No Skin Lesions, No rash Neuro : No Weakness, No Numbness, No Dizziness, No Headache Psych : No Anxiety/Panic, No Depression Heme/Lymph: No Bruising, No Lymphadenopathy Endocrine : No Polyuria, No Polydipsia Yes all other systems are reviewed and are negative [facility] Past Medical History Attestation statement: The following information was validated with the patient. 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 Dyslipidemia Eczema of left external ear Fatigue after COVID-19 vaccination GERD (gastroesophageal reflux disease) Headache Hypertension [facility] (current) use of insulin Macrocytic anemia Peripheral vascular disease Positional lightheadedness Tubular adenoma of colon Type 1 diabetes mellitus with diabetic polyneuropathy Visual changes Vitamin D deficiency Surgical History History of endoscopic retrograde cholangiopancreatography History of pancreatic surgery Hx of cataract removal with insertion of prosthetic lens Hx of deep venous thrombosis Hx of hemorrhoidectomy Hx of hernia repair Hx of tonsillectomy Stented coronary artery Family History Family History Father Coronary artery disease Diabetes mellitus Mother No problems noted. Social History Social History Household Members: Spouse Housing: House Alcohol intake: former Patient Tobacco Use Status: Current everyday Tobacco user Tobacco use type: Cigarette Cigarette Packs Per Day: 1 Years Smoked: 50+ e-Cigarette/Vaping Use: Never Used Advance Directives: No Advance Directives Information Provided: No service: No Current occupational status: retired Cognitive needs: No Hearing needs: Yes Vision needs: No Physical Exam Vital Signs: Vital Signs: Last Vital Signs Temp 97.7 F 04/25/22 13:07 Pulse 88 04/25/22 14:31 Resp 18 04/25/22 14:31 BP 161/81 H 04/25/22 14:31 Pulse Ox 97 04/25/22 14:31 O2 Del Method 04/25/22 14:31 BMI result Body Mass Index 23.6 Appearance: Alert.?Oriented to person, place and time. No acute distress.?Normal affect. Eyes: Pupils equal, round and reactive to light.? ENT: Pharynx normal.?? Neck: Normal inspection.? Neck supple.?? CVS: Heart sounds normal. Normal heart rate and rhythm.? Pulses normal.?? Respiratory: No respiratory distress.? Lung sounds with rales bilaterally, diminished at the right lower lobe posteriorly.?? Abdomen: Soft and non-tender. Normoactive bowel sounds. Skin: Skin warm and dry.? Normal skin color.? Extremities: No lower extremity edema.? No calf ttp? Neuro: Moves all extremities spontaneously. Sensation intact bilaterally. CN II-XII intact. No focal neuro deficits. Ambulates with normal steady gait. Course Course Course Narrative: Patient is a 77-year-old male with a past medical history of BPH, type 1 diabetes, dyslipidemia, GERD, hypertension, peripheral vascular disease presenting to the emergency department for evaluation of shortness of breath. Advised by PCP to come to the emergency department with concerns for new onset CHF. Patient was evaluated at urgent care 6 days ago, he was ultimately discharged on prednisone as well as antibiotic and inhalers advised to return with worsening symptoms. Chest x-ray from that visit reveals mild CHF with small bilateral pleural effusions left greater than the right, had BNP 1,881 and leukocytosis of 17.0 Review of patient's medical record indicates new prescription for losartan 04/14/2022 which was to replace the lisinopril, when asked, patient states that he believes this medication switch was due to a cough that he was experiencing with lisinopril. 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 At the time of examination, he has no increased work of breathing while at rest, he is able to speak in short brief sentences. Rales present bilaterally, lung sounds diminished at the right lower lobe. No hypoxia on room air at rest, he is afebrile no tachycardia. Will obtain CBC to evaluate for leukocytosis/ anemia, CMP to evaluate for abnormal electrolytes /abnormal renal function/ abnormal hepatic function, EKG and troponin to evaluate for ischemia/ACS, BNP, Chest x-ray to evaluate for comparisson pulmonary congestion, patient to receive furosemide 40 mg IV. He is likely going to require hospital admission for new onset congestive heart failure. Reevaluation(s) Reevaluation #1: CBC reveals persistent leukocytosis, however improved when compared to prior, currently 15.4, stable anemia. CMP overall unremarkable. Chest x-ray reveals small pleural effusions with mild bibasilar opacities similar to prior obtained 04/20/2022, no significant change. Troponin 36.4, EKG reveals sinus rhythm with first-degree AV block and prolonged QT. BNP 1,541. Spoke with hospitalist Service, Dr. Valdez, patient accepted for admission medicine service for new onset acute congestive heart failure of unknown etiology. Patient and updated on plan of care and agreeable for admission. Time: 15:36 MDM - SOB/Dyspnea Medical Records Attestation: I reviewed the patient's medical records. Lab Data Attestation: I reviewed the patient's lab results. Result diagrams: 04/25/22 15:16 04/25/22 15:16 Labs: Lab Results 04/25/22 04/25/22 04/25/22 Range/Units 15:16 15:16 15:16 WBC 15.4 H (4.8-10.8) X10*3/uL RBC 3.02 L (4.60-5.80) X10*6/uL Hgb 9.1 L (14.0-18.0) g/dl Hct 29.1 L (42.0-52.0) % MCV 96.4 (80.0-98.0) fL MCH 30.1 (27.0-33.0) pg MCHC 31.3 (31.0-36.0) g/dl RDW 19.9 H (11.0-16.0) % Plt Count 294 (160-400) X10*3/uL MPV 10.7 (9.4-12.4) fL Immature Gran % (Auto) 0.8 H (0.0-0.4) % Neut % (Auto) 82.0 H (45-73) % Lymph % (Auto) 7.3 L (20-40) % [place] % (Auto) 9.3 (2-11) % Eos % (Auto) 0.5 (0-4) % Baso % (Auto) 0.1 (0-2) % Lymph # (Auto) 1.1 L (1.2-4.9) X10*3/uL [place] # (Auto) 1.4 H (0.1-1.2) X10*3/uL Eos # (Auto) 0.1 (0.0-0.4) X10*3/uL Baso # (Auto) 0.0 (0.0-0.2) X10*3/uL Abs Immat Gran (auto) 0.13 H (0.00-0.03) X10*3/uL Absolute Neuts (auto) 12.6 H (2.0-8.3) x10*3/uL Absolute Nucleated RBC 0.000 (0.0-0.012) X10*3/uL Nucleated RBC % (auto) 0.0 (0.0-0.2) /100WBC Sodium 140 (135-145) mmol/L Potassium 4.0 (3.3-5.1) mmol/L Chloride 109 H (96-108) mmol/L Carbon Dioxide 23 (22-29) mmol/L Anion Gap 12 (12-20) BUN 18 H D (9-16) mg/dL Creatinine 1.10 (0.5-1.4) mg/dL Estim Creat Clear Calc 52.3 Estimated GFR > 60 Random Glucose 287 H (60-115) mg/dL Calcium 8.2 L (8.4-10.2) mg/dL Total Bilirubin (0.0-1.0) mg/dL Direct Bilirubin (0.0-0.5) mg/dL AST (5-37) U/L ALT (0-40) U/L Alkaline Phosphatase (39-117) U/L Troponin I High Sens 36.4 H (<3.5-35.0) ng/L B-Natriuretic Peptide 1541 H (<100) pg/mL Total Protein (6.5-8.0) g/dL Albumin (3.5-5.0) g/dL Lipase (8-78) U/L COVID-19 (SERG) (Negative) COVID-19 Clin Com Influenza Type A (SAIMA) (Negative) Influenza Type B (SAIMA) (Negative) Influenza A & B Note 04/25/22 04/25/22 04/25/22 Range/Units 15:16 15:16 15:16 WBC (4.8-10.8) X10*3/uL RBC (4.60-5.80) X10*6/uL Hgb (14.0-18.0) g/dl Hct (42.0-52.0) % MCV (80.0-98.0) fL MCH (27.0-33.0) pg MCHC (31.0-36.0) g/dl RDW (11.0-16.0) % Plt Count (160-400) X10*3/uL MPV (9.4-12.4) fL Immature Gran % (Auto) (0.0-0.4) % Neut % (Auto) (45-73) % Lymph % (Auto) (20-40) % [place] % (Auto) (2-11) % Eos % (Auto) (0-4) % Baso % (Auto) (0-2) % Lymph # (Auto) (1.2-4.9) X10*3/uL [place] # (Auto) (0.1-1.2) X10*3/uL Eos # (Auto) (0.0-0.4) X10*3/uL Baso # (Auto) (0.0-0.2) X10*3/uL Abs Immat Gran (auto) (0.00-0.03) X10*3/uL Absolute Neuts (auto) (2.0-8.3) x10*3/uL Absolute Nucleated RBC (0.0-0.012) X10*3/uL Nucleated RBC % (auto) (0.0-0.2) /100WBC Sodium (135-145) mmol/L Potassium (3.3-5.1) mmol/L Chloride (96-108) mmol/L Carbon Dioxide (22-29) mmol/L Anion Gap (12-20) BUN (9-16) mg/dL Creatinine (0.5-1.4) mg/dL Estim Creat Clear Calc Estimated GFR Random Glucose (60-115) mg/dL Calcium (8.4-10.2) mg/dL Total Bilirubin 0.6 (0.0-1.0) mg/dL Direct Bilirubin 0.3 (0.0-0.5) mg/dL AST 26 (5-37) U/L ALT 23 (0-40) U/L Alkaline Phosphatase 89 (39-117) U/L Troponin I High Sens (<3.5-35.0) ng/L B-Natriuretic Peptide (<100) pg/mL Total Protein 5.3 L (6.5-8.0) g/dL Albumin 3.3 L (3.5-5.0) g/dL Lipase < 4 L (8-78) U/L COVID-19 (SERG) Negative (Negative) COVID-19 Clin Com See Note Influenza Type A (SAIMA) Negative (Negative) Influenza Type B (SAIMA) Negative (Negative) Influenza A & B Note See Note Imaging Data Chest x-ray: Radiologist's impression: XR/XR chest 2V IMPRESSION: Small pleural effusions with adjacent mild bibasilar opacities and mild prominence of the central vasculature, similar to 04/20/2022 and suggesting edema in the proper clinical setting. ? ECG Data Attestation: I personally reviewed and interpreted this ECG as follows: ECG interpretation date: 04/25/22 Prior ECG tracings: available for review Interpretation: Rate: 82 Rhythm:? Sinus rhythm with first-degree AV block Moore:? Left axis deviation Normal P waves.? Prolonged ENRIQUE.?? Normal QRS complex.?? ST T wave :??No ST elevation, no ST depression qTC: Prolonged; 495 prior studies:? June 2014 The study has been interpreted contemporaneously by me. Discharge Plan Discharge Clinical Impression: Acute congestive heart failure Patient Disposition: Admitted As Inpatient
[2022-04-25 15:20] LABS: MANUAL DIFF FLAG NO
[2022-04-25] MEDS: Furosemide 40 MG/4 ML VIAL IVPUSH ×2 (15:20→18:10)
[2022-04-25 15:30] LABS: Basophils Percent Auto 0.1 % (0-2); Eosinophils Absolute Auto 0.1 X10*3/uL (0.0-0.4); Eosinophils Percent Auto 0.5 % (0-4); Hematocrit 29.1 % (42.0-52.0); Hemoglobin 9.1 g/dl (14.0-18.0); Imm Gran Abs Auto 0.13 X10*3/uL (0.00-0.03); Imm Gran Pct Auto 0.8 % (0.0-0.4); Lymphocytes Absolute Auto 1.1 X10*3/uL (1.2-4.9); Lymphocytes Percent Auto 7.3 % (20-40); Mean Corpuscular HGB Conc 31.3 g/dl (31.0-36.0); Mean Corpuscular Hemoglobin 30.1 pg (27.0-33.0); Mean Corpuscular Volume 96.4 fL (80.0-98.0); Mean Platelet Volume 10.7 fL (9.4-12.4); Monocytes Absolute Auto 1.4 X10*3/uL (0.1-1.2); Monocytes Percent Auto 9.3 % (2-11); Neutrophils Absolute Auto 12.6 x10*3/uL (2.0-8.3); Platelet Count 294 X10*3/uL (160-400); Red Blood Count 3.02 X10*6/uL (4.60-5.80); Red Cell Distribution Width 19.9 % (11.0-16.0); White Blood Count 15.4 X10*3/uL (4.8-10.8)
[2022-04-25 15:34] LABS: Anion Gap 12 (12-20); Blood Urea Nitrogen 18 mg/dL (9-16); Calcium 8.2 mg/dL (8.4-10.2); Carbon Dioxide 23 mmol/L (22-29); Chloride 109 mmol/L (96-108); Creatinine Clr Calc Pharmacy 52.3; Estimated Glomerular Filt Rate > 60; Glucose Random 287 mg/dL (60-115); Sodium 140 mmol/L (135-145)
[2022-04-25 15:39] LABS: Alanine Aminotransferase 23 U/L (0-40); Albumin Level 3.3 g/dL (3.5-5.0); Alkaline Phosphatase 89 U/L (39-117); Aspartate Amino Transferase 26 U/L (5-37); Bilirubin Direct 0.3 mg/dL (0.0-0.5); Bilirubin Total 0.6 mg/dL (0.0-1.0); Lipase < 4 U/L (8-78); Total Protein 5.3 g/dL (6.5-8.0)
[2022-04-25 15:43] LABS: B Type Natriuretic Peptide 1541 pg/mL (<100); Troponin-I High Sensitivity 36.4 ng/L (<3.5-35.0)
[2022-04-25 15:57] LABS: COVID-19 Test Negative (Negative); IDNOW Serial# 16C4AD1C
[2022-04-25 16:01] LABS: Influenza A Negative (Negative); Influenza B2 Negative (Negative)
--- NOTE | 2022-04-25 16:02 | PM.IMHP ---
History of Present Illness Date of Service: 04/25/22 Chief Complaint: shortness of breath 77-year-old man presented to the ER with complaints of worsening shortness of breath. Proximally a week ago he presented to urgent care clinic and at that time was treated for a respiratory illness and was sent with steroids and inhalers. However it appears that he has had worsening shortness breath since then with orthopnea, dyspnea on exertion and dry cough. He denies chest pain, nausea, vomiting, diarrhea. Chest x-ray showed small pleural effusions with prominence of the central vasculature, BNP 1541, no hypoxia noted. New patient was given IV Lasix in the ER. He be admitted for further management and treatment of acute congestive heart failure with no history in the past. Review of Systems Review of Systems: Denies any recent fever chills or decrease in appetite respiratory see HPI cardiovascular denied chest pain gastrointestinal denies any dysphagia abdominal pain nausea vomiting or diarrhea genitourinary denies any dysuria frequency or hematuria musculoskeletal denies any joint pain or swelling neuropsych denies any weakness or seizures all other systems reviewed are negative [facility] Medical History (Updated 04/26/22 @ 10:32 by Frandy Conti MD) Atherosclerotic cardiovascular disease Benign prostatic hyperplasia Degenerative disc disease, cervical Depression, major, recurrent, moderate 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 Surgical History History of endoscopic retrograde cholangiopancreatography History of pancreatic surgery Hx of cataract removal with insertion of prosthetic lens Hx of deep venous thrombosis Hx of hemorrhoidectomy Hx of hernia repair Hx of tonsillectomy Stented coronary artery Social History Household Members: Spouse Housing: House Alcohol intake: former Patient Tobacco Use Status: Current everyday Tobacco user Tobacco use type: Cigarette Cigarette Packs Per Day: 1 Years Smoked: 50+ e-Cigarette/Vaping Use: Never Used service: No Current occupational status: retired Cognitive needs: No Hearing needs: Yes Vision needs: No Meds Allergies Allergy/AdvReac Type Severity Reaction Status Date / Time codeine [CODEINE] Allergy Intermediate RASH Verified 04/21/22 08:11 nicotine Allergy Intermediate NICOTINE Verified 04/21/22 08:11 PATCH- RASH, hives Penicillins Allergy Intermediate HIVES Verified 04/21/22 08:11 oxycodone [Percocet] Allergy Unknown rash, Verified 04/21/22 08:11 itching meperidine Allergy Itching Verified 04/21/22 08:11 Active Medications: Current Medications Acetaminophen (Acetaminophen 325 Mg Tablet) 650 mg PO Q6H PRN PRN Reason: Pain, Mild (Pain Scale 1-3) Enoxaparin Sodium (Enoxaparin Sodium 40 Mg/0.4 Ml Syringe) 40 mg SUBCUT Q24H KAM Furosemide (Furosemide 40 Mg/4 Ml Vial) 40 mg IVPUSH BID@0900,1800 KAM; Protocol Ondansetron HCl (Ondansetron Hcl 4 Mg/2 Ml Vial) 4 mg IVPUSH Q8H PRN PRN Reason: Nausea and Vomiting Pharmacy Consult (Consult Rx Perform Med Rec) 1 each MISCELLANE ONCE PRN PRN Reason: Consult order Sodium Chloride (0.9 % Sodium Chloride Flush 3 Ml Syringe) 3 ml IVFLUSH QSHIFT [facility] Home Medications Medication Instructions Recorded Confirmed Last Taken Type atorvastatin 40 mg tablet 40 mg PO MO 06/11/20 04/25/22 Unknown History lancets #100 ea 06/11/20 04/02/22 Unknown History aspirin 81 mg tablet,delayed 81 mg PO DAILY 09/11/20 04/25/22 09/14/20 08:00 History release clipip-swrkclvg-frfaxxo 1 cap PO TIDAC 12/01/21 04/25/22 Unknown History 24,000-76,000-120,000 unit capsule,delayed rel (Creon) losartan 25 mg tablet 50 mg PO DAILY 04/20/22 04/26/22 Unknown History flash glucose scanning reader 04/21/22 Unknown History (FreeStyle Ramiro 2 [place]) flash glucose sensor (FreeStyle 04/21/22 Unknown History Ramiro 2 Sensor kit) fluticasone propionate 50 1 spray intranasal DAILY PRN 04/25/22 04/25/22 Unknown History mcg/actuation nasal Allergy Symptoms spray,suspension insulin aspart U-100 100 unit/mL 5 unit subcut BID@1130,1730 04/25/22 04/25/22 Unknown History (3 mL) subcutaneous pen (Novolog Flexpen U-100 Insulin aspart) insulin aspart U-100 100 unit/mL 8 unit subcut DAILY@0730 04/25/22 04/25/22 Unknown History (3 mL) subcutaneous pen (Novolog Flexpen U-100 Insulin aspart) insulin degludec 100 unit/mL (3 5 unit subcut DAILY 04/25/22 04/25/22 Unknown History mL) subcutaneous pen Physical Exam Vital Signs and Narrative: Vital Signs: Last Vital Signs Temp 97.7 F 04/25/22 13:07 Pulse 88 04/25/22 14:31 Resp 18 04/25/22 14:31 BP 161/81 H 04/25/22 14:31 Pulse Ox 97 04/25/22 14:31 O2 Del Method 04/25/22 14:31 BMI result Body Mass Index 23.6 Appearing in no acute distress head is normocephalic atraumatic eyes pupils are PERRLA sclera is anicteric mouth throat mucous membranes are intact and moist neck is supple no lymphadenopathy, no JVD noted lung sounds Mild rales heart regular rate rhythm, clear S1, S2 positive bowel sounds, abdomen is soft, nontender neuro patient is alert x3, no focal deficits Results Labs CBC and Chem 7: 04/26/22 05:49 04/26/22 05:49 Labs: Laboratory Results - last 24 hr 04/25/22 04/25/22 04/25/22 15:16 15:16 15:16 MCV 96.4 MCH 30.1 MCHC 31.3 RDW 19.9 H Plt Count 294 MPV 10.7 Immature Gran % (Auto) 0.8 H Neut % (Auto) 82.0 H Lymph % (Auto) 7.3 L [place] % (Auto) 9.3 Eos % (Auto) 0.5 Baso % (Auto) 0.1 Lymph # (Auto) 1.1 L [place] # (Auto) 1.4 H Eos # (Auto) 0.1 Baso # (Auto) 0.0 Abs Immat Gran (auto) 0.13 H Absolute Neuts (auto) 12.6 H Absolute Nucleated RBC 0.000 Nucleated RBC % (auto) 0.0 Anion Gap 12 Estim Creat Clear Calc 52.3 Estimated GFR > 60 Random Glucose 287 H Calcium 8.2 L Total Bilirubin Direct Bilirubin AST ALT Alkaline Phosphatase Troponin I High Sens 36.4 H B-Natriuretic Peptide 1541 H Total Protein Albumin Lipase COVID-19 (SERG) COVID-19 Clin Com Influenza Type A (SAIMA) Influenza Type B (SAIMA) Influenza A & B Note 04/25/22 04/25/22 04/25/22 15:16 15:16 15:16 MCV MCH MCHC RDW Plt Count MPV Immature Gran % (Auto) Neut % (Auto) Lymph % (Auto) [place] % (Auto) Eos % (Auto) Baso % (Auto) Lymph # (Auto) [place] # (Auto) Eos # (Auto) Baso # (Auto) Abs Immat Gran (auto) Absolute Neuts (auto) Absolute Nucleated RBC Nucleated RBC % (auto) Anion Gap Estim Creat Clear Calc Estimated GFR Random Glucose Calcium Total Bilirubin 0.6 Direct Bilirubin 0.3 AST 26 ALT 23 Alkaline Phosphatase 89 Troponin I High Sens B-Natriuretic Peptide Total Protein 5.3 L Albumin 3.3 L Lipase < 4 L COVID-19 (SERG) Negative COVID-19 Clin Com See Note Influenza Type A (SAIMA) Negative Influenza Type B (SAIMA) Negative Influenza A & B Note See Note Imaging Radiologist's Impressions: Impressions Chest X-Ray 04/25/22 13:52 IMPRESSION: Small pleural effusions with adjacent mild bibasilar opacities and mild prominence of the central vasculature, similar to 04/20/2022 and suggesting edema in the proper clinical setting. Assessment and Plan (1) Atherosclerotic cardiovascular disease: Status: Acute Plan 77-year-old man presented to the ER with complaints shortness breath and dyspnea. Admitted with acute congestive heart failure Acute congestive heart failure, unspecified Unknown etiology at this time BNP 1541 Does not appear to have a history of heart failure Will treat with IV Lasix 40 mg twice daily Cardiology consultation Echocardiogram Monitor on telemetry Strict intake and output, daily weights Leukocytosis Possibly secondary to recent steroid use for presumed respiratory illness Chest x-ray negative for consolidation, symptoms most likely secondary to acute congestive heart failure sign monitor Diabetes mellitus Sliding scale, ADA diet Hypertension Stable blood pressure Continue lisinopril, losartan GERD Continue PPI History of macrocytic anemia Stable Myelofibrosis Follows with Hematology as outpatient DVT prophylaxis with Lovejolenex Attending Dr. Valdez Full code The patient will likely need 2 midnights with treatment of acute congestive heart failure requiring IV diuretics and cardiac follow-up Quality Stroke Does the patient have a stroke diagnosis?: No VTE Prior VTE?: No VTE Risk Level:: Medical - moderate - high VTE Device Contraindication: Treatment Not Indicated VTE Drug Contraindication: N/A - Med Ordered
--- NOTE | 2022-04-25 16:22 | PC.NURSE ---
Pt alert and oriented. IV established, labs drawn and sent. at bedside.
--- NOTE | 2022-04-25 16:38 | PHA.MEDREC ---
Addendum entered by Antonina Davalos RPh 04/26/22 10:49: Spoke with [facility] balance weigher. Patient no longer on bisporolol. The history is patient was put on carvedilol but did not tolerate so he was switched to bisoprolol in February. Patient reported difficulty breathing on the bisoprolol therefore the cardiolgost stopped all beta blockers as he could not tolerate. RN also reports that as of 04/21/22 his losartan dose was increased from 25 mg to 50 mg. Original Note: Pharmacy Consult ? Medication Reconciliation Pharmacy has completed the medication reconciliation. Patient reports he is finished with azithromycin and prednisone. Family member reports both carvedilol and bisoprolol were stopped however bisprolol was more recently filled 03/22/22 Reports lisinopril was replaced with losartan. They also report that danazol was stopped but per Dr. Olivera's most recent note, patient is suppose to be on medication. Will call balance weigher in the morning to determine if patient is still on bisoprolol, as well as confirm all cardiac medicaitons. Antonina Davalos, FloD
[2022-04-25] MEDS: 0.9 % Sodium Chloride Flush 3 ML SYRINGE IVFLUSH (18:09)
[2022-04-25] MEDS: Enoxaparin Sodium 40 MG/0.4 ML SYRINGE SUBCUT (18:09)
[2022-04-25 18:12] VITALS: BP 172/84; PULSE 88; RESP 20; O2SAT 96
[2022-04-25 23:48] VITALS: BP 169/90; PULSE 80; RESP 18; TEMP 36.7; O2SAT 97
[2022-04-26 06:04] LABS: Basophils Percent Auto 0.2 % (0-2); Eosinophils Absolute Auto 0.1 X10*3/uL (0.0-0.4); Eosinophils Percent Auto 1.2 % (0-4); Hematocrit 27.5 % (42.0-52.0); Hemoglobin 8.9 g/dl (14.0-18.0); Imm Gran Abs Auto 0.09 X10*3/uL (0.00-0.03); Imm Gran Pct Auto 0.7 % (0.0-0.4); Lymphocytes Absolute Auto 1.4 X10*3/uL (1.2-4.9); Lymphocytes Percent Auto 11.6 % (20-40); MANUAL DIFF FLAG NO; Mean Corpuscular HGB Conc 32.4 g/dl (31.0-36.0); Mean Corpuscular Volume 92.6 fL (80.0-98.0); Mean Platelet Volume 10.1 fL (9.4-12.4); Monocytes Absolute Auto 1.2 X10*3/uL (0.1-1.2); NRBC Pct Auto 0.3 /100WBC (0.0-0.2); Neutrophils Absolute Auto 9.2 x10*3/uL (2.0-8.3); Neutrophils Percent Auto 76.3 % (45-73); Platelet Count 244 X10*3/uL (160-400); Red Blood Count 2.97 X10*6/uL (4.60-5.80); Red Cell Distribution Width 19.4 % (11.0-16.0); White Blood Count 12.1 X10*3/uL (4.8-10.8)
[2022-04-26 06:33] LABS: Anion Gap 13 (12-20); Blood Urea Nitrogen 14 mg/dL (9-16); Carbon Dioxide 26 mmol/L (22-29); Chloride 107 mmol/L (96-108); Creatinine Clr Calc Pharmacy 63.9; Estimated Glomerular Filt Rate > 60; Glucose Random 116 mg/dL (60-115); Potassium 3.3 mmol/L (3.3-5.1); Sodium 143 mmol/L (135-145)
[2022-04-26 06:39] LABS: B Type Natriuretic Peptide 1930 pg/mL (<100)
--- NOTE | 2022-04-26 07:00 | CA_ITS ---
Transthoracic Echocardiogram Patient (Last, First, Middle): Stuart Mcleod O Gender: Male Date of : 1945 Age: 77 Procedure Date: 04/26/2022 Procedure Type: Transthoracic Echocardiogram Location: ER Height: 167.64 cm Weight: 66.23 kg BSA: 1.75 m2 Heart Rate: 83 bpm BP: 139 / 76 mmHg Block Out Machine Operator: SB Referring MD: Eden Moyer NP Symptoms: CHF Study Quality: Fair ECG Rhythm: Sinus Conclusions: - The left ventricular systolic function is moderately decreased. The visually estimated ejection fraction is between 35-40%. - The inferolateral wall, the apical anterior, apical inferior, and mid anterior segments are hypokinetic. - The basal inferior, apical lateral, and mid anterolateral segments are akinetic. - There is mild calcification of the aortic valve. - There is mild mitral annular calcification. - Mild pulmonary hypertension is present. - There is mild dilatation of the sinuses of Valsalva measuring 4.50 cm and moderate dilatation of the ascending aorta measuring 4.70 cm. Findings Left Ventricle Moderately increased left ventricular cavity size. There is normal left ventricular wall thickness. The left ventricular systolic function is moderately decreased. The visually estimated ejection fraction is between 35 40%. There is evidence of regional wall motion abnormalities. E/E prime ratio is >15, consistent with elevated filling pressures. Evidence suggests grade I (mild) diastolic dysfunction. There is moderate septal and moderate basal asymmetric hypertrophy. LV peak GLS -10.9% (diminished). Wall Motion Rest Echo Findings The inferolateral wall, the apical anterior, apical inferior, and mid anterior segments are hypokinetic. The basal inferior, apical lateral, and mid anterolateral segments are akinetic. Right Ventricle Normal right ventricular cavity size. There is mildly decreased right ventricular systolic function. Atria Both atria are normal in size. Aortic Valve There is a normal trileaflet aortic valve. There is mild calcification of the aortic valve. There is no aortic valve stenosis. There is mild aortic valve regurgitation. Mitral Valve There is mild mitral annular calcification. There is trace mitral valve regurgitation. There is no mitral valve stenosis. Pulmonic Valve The pulmonic valve is likely normal. Tricuspid Valve There is trace tricuspid valve regurgitation. The right ventricular systolic pressure is 40 mmHg. Mild pulmonary hypertension is present. Great Vessels There is mild dilatation of the sinuses of Valsalva measuring 4.50 cm and moderate dilatation of the ascending aorta measuring 4.70 cm. Venous The inferior vena cava is normal in size and collapses greater than 50% with inspiration. Pericardium/Pleural There is no evidence of pericardial effusion. Prior Study Comparison Changes noted compared to prior study dated: 11/26/2010. Decrease in LVEF; new wall motion abnormalities; slight increase in ascending aortic size. Measurements 2D Linear Measurements IVSd: 1.02 0.6-0.9/0.6-1.0 cm LVIDd: 6.32 3.9-5.3/4.2-5.9 cm LVIDd Index: 3.61 2.4-3.2/2.2-3.1 cm/m2 LVIDs: 5.32 2.0-3.6 cm LVPWd: 0.94 0.7-1.1 cm LA Diam: 3.90 2.7-3.8/3.0-4.0 cm LAIDs Index: 2.23 1.5-2.3 cm/m2 LV Mass: 328.69 67-162/88-224 g LV Mass Index: 187.82 43-95/49-115 g/m2 LVOT Diam: 2.40 3.0+(-)1.3 cm 2D Systolic Function EF 4C: 34.30 >55% EF 2C: 39.70 >55% EF BiP: 34.20 >55% Mitral Valve MV Pk E: 1.17 MV PK A: 1.35 MV Decel Time: 149.00 E/A: 0.90 E'Lateral: 11.50 E'Medial: 3.15 E/E' Med: 37.10 E/E' Lat: 10.20 PHT: 44.00 MVA PHT: 5.00 Decel Darke: 7.89 Aortic Valve AoV Pk Woody: 1.89 AoV Mn Woody: 1.20 AoV VTI: 0.35 AoV Pk Grad: 14.00 Aov Mn Grad: 7.00 GARETT Cont.VTI: 2.61 AI Pk Woody: 4.09 AI Darke: 1.70 LVOT LVOT Pk Woody: 1.03 LVOT Mn Woody: 0.66 LVOT VTI: 0.20 LVOT Pk Grad: 4.00 LVOT Mn Grad: 2.00 LVOT Diam: 2.40 LVOT Area: 4.52 Diastolic Function MV Pk E: 1.17 MV Pk A: 1.35 E/A: 0.90 E'Medial: 3.15 E/E' Med: 37.10 E' Laterial: 11.50 E/E' Lat: 10.20 Right Ventricle TAPSE (mm): 30.00 TVS' Woody: 16.20 Tricuspid Valve TR Pk Woody: 3.05 TR Pk Grad: 37.00 RA Press: 3.00 RVSP: 40.00 Great Vessels Aorta Sinus of Valsalva: 4.50 2.0-3.5 cm Ao Asc: 4.70 2.1-3.4 cm Ao Arch: 2.80 Pulmonary Veins Pulm Vein S/D 0.70 Pulmonary Valve PV Pk Woody: 0.72 Peak PV Grad: 2.00 Updated in Other Vendor System with Status of Final Frandy Conti MD electronically signed on 04/26/2022 11:55:07 AM with status of Final
[2022-04-26 07:14] VITALS: BP 176/90; PULSE 85; RESP 19; TEMP 37.1; O2SAT 95
[2022-04-26 07:24] LABS: Glucose, Whole Blood 112 mg/dL (60-115)
[2022-04-26] MEDS: 0.9 % Sodium Chloride Flush 3 ML SYRINGE IVFLUSH ×3 (08:56→23:42)
[2022-04-26] MEDS: Furosemide 40 MG/4 ML VIAL IVPUSH (08:56)
--- NOTE | 2022-04-26 09:03 | PC.NURSE ---
pt alert and oriented, skin pwd, respirations even and unlabored, pt is reporting feeling a little sob, ls diminished on the bases , pt is reporting no pain at this time, vs stable and ns on the monitor
--- NOTE | 2022-04-26 10:26 | PM.CNCAR ---
History of Present Illness History of Present Illness Date of Service: 04/26/22 Chief complaint: CHF Narrative: This is a cardiology consultation regarding shortness of breath. Patient has significant cardiac history generally goes to [facility]. 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 Subsequent stress test from 2017 was abnormal but he is being medically managed. He also has peripheral arterial disease. Ascending aortic aneurysm, 4.5 cm. Autonomic dysfunction. Chronic tobacco use. Not listed to have any congestive heart failure. He states that for the last few days he has not been feeling good. He initially thought he had a flu. [place] congested. Could not cough up as he wanted to. Subsequently, he has been feeling short of breath with any kind of activity. Feels better with rest. No clear anginal-type symptoms. No significant leg swelling. He has since been admitted for further care. Review of Systems Review of Systems: Yes all other systems are reviewed and are negative Constitutional: Constitutional: Reports as per HPI Eyes: Eyes: Reports as per HPI ENT: Reports as per HPI Cardiovascular: Cardiovascular: Reports as per HPI, Denies acrocyanosis, Denies cool extremities, Denies chest pain, Denies leg edema, Denies lightheadedness, Denies palpitations and Reports dyspnea Respiratory: Respiratory: Reports as per HPI, Reports no additional respiratory complaints and Reports dyspnea Gastrointestinal: Gastrointestinal: Reports as per HPI and Reports no additional gastrointestinal complaints Genitourinary: Genitourinary: Reports no additional male genitourinary complaints and Reports as per HPI Musculoskeletal: Musculoskeletal: Reports no additional musculoskeletal complaints and Reports as per HPI Integumentary/Breasts: Skin/Breast: Reports system reviewed and no additional complaints, except as docu Neurologic: Reports system reviewed and no additional complaints, except as documented and Reports as per HPI Psychiatric: Psychiatric: Reports no additional psychiatric complaints and Reports as per HPI Endocrine: Endocrine: Reports no additional endocrine complaints, Reports as per HPI and Denies palpitations Hematologic/Lymphatic: Hematologic/Lymphatic: Reports no additional hematologic/lymphatic complaints and Reports as per HPI Allergic/Immunologic: Allergic/Immunologic: Reports no additional allergic/immunologic complaints and Reports as per HPI [facility] Past Medical History Medical History (Updated 04/26/22 @ 10:32 by Frandy Conti MD) Atherosclerotic cardiovascular disease Benign prostatic hyperplasia Degenerative disc disease, cervical Depression, major, recurrent, moderate 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 Surgical History Surgical History History of endoscopic retrograde cholangiopancreatography History of pancreatic surgery Hx of cataract removal with insertion of prosthetic lens Hx of deep venous thrombosis Hx of hemorrhoidectomy Hx of hernia repair Hx of tonsillectomy Stented coronary artery Social History Social History Household Members: Spouse Housing: House Alcohol intake: former Patient Tobacco Use Status: Current everyday Tobacco user Tobacco use type: Cigarette Cigarette Packs Per Day: 1 Years Smoked: 50+ e-Cigarette/Vaping Use: Never Used Advance Directives: No Advance Directives Information Provided: No service: No Current occupational status: retired Cognitive needs: No Hearing needs: Yes Vision needs: No Meds Allergies Allergy/AdvReac Type Severity Reaction Status Date / Time codeine [CODEINE] Allergy Intermediate RASH Verified 04/21/22 08:11 nicotine Allergy Intermediate NICOTINE Verified 04/21/22 08:11 PATCH- RASH, hives Penicillins Allergy Intermediate HIVES Verified 04/21/22 08:11 oxycodone [Percocet] Allergy Unknown rash, Verified 04/21/22 08:11 itching meperidine Allergy Itching Verified 04/21/22 08:11 Active Medications: Current Medications Acetaminophen (Acetaminophen 325 Mg Tablet) 650 mg PO Q6H PRN PRN Reason: Pain, Mild (Pain Scale 1-3) Enoxaparin Sodium (Enoxaparin Sodium 40 Mg/0.4 Ml Syringe) 40 mg SUBCUT Q24H KAM Last Admin: 04/25/22 18:09 Dose: 40 mg Furosemide (Furosemide 40 Mg/4 Ml Vial) 40 mg IVPUSH BID@0900,1800 KAM; Protocol Last Admin: 04/26/22 08:56 Dose: 40 mg Ondansetron HCl (Ondansetron Hcl 4 Mg/2 Ml Vial) 4 mg IVPUSH Q8H PRN PRN Reason: Nausea and Vomiting Pharmacy Consult (Consult Rx Perform Med Rec) 1 each MISCELLANE ONCE PRN PRN Reason: Consult order Sodium Chloride (0.9 % Sodium Chloride Flush 3 Ml Syringe) 3 ml IVFLUSH QSHIFT [facility] Last Admin: 04/26/22 08:56 Dose: 3 ml Home Medications Medication Instructions Recorded Confirmed Last Taken Type atorvastatin 40 mg tablet 40 mg PO MO 06/11/20 04/25/22 Unknown History lancets #100 ea 06/11/20 04/02/22 Unknown History aspirin 81 mg tablet,delayed 81 mg PO DAILY 09/11/20 04/25/22 09/14/20 08:00 History release [id number] 1 cap PO TIDAC 12/01/21 04/25/22 Unknown History 24,000-76,000-120,000 unit capsule,delayed rel (Creon) bisoprolol fumarate 5 mg tablet 2.5 mg PO DAILY 04/02/22 04/25/22 Unknown History losartan 25 mg tablet 25 mg PO DAILY 04/20/22 04/25/22 Unknown History flash glucose scanning reader 04/21/22 Unknown History (FreeStyle Ramiro 2 Hendricks) flash glucose sensor (FreeStyle 04/21/22 Unknown History Ramiro 2 Sensor kit) fluticasone propionate 50 1 spray intranasal DAILY PRN 04/25/22 04/25/22 Unknown History mcg/actuation nasal Allergy Symptoms spray,suspension insulin aspart U-100 100 unit/mL 5 unit subcut BID@1130,1730 04/25/22 04/25/22 Unknown History (3 mL) subcutaneous pen (Novolog Flexpen U-100 Insulin aspart) insulin aspart U-100 100 unit/mL 8 unit subcut DAILY@0730 04/25/22 04/25/22 Unknown History (3 mL) subcutaneous pen (Novolog Flexpen U-100 Insulin aspart) insulin degludec 100 unit/mL (3 5 unit subcut DAILY 04/25/22 04/25/22 Unknown History mL) subcutaneous pen Physical Exam Vital Signs: Vital Signs: Last Vital Signs Temp 98.7 F 04/26/22 07:14 Pulse 85 10/31/22 07:14 Resp 19 04/26/22 07:14 BP 176/90 H 04/26/22 07:14 Pulse Ox 95 04/26/22 07:14 O2 Del Method 04/26/22 07:14 BMI result Body Mass Index 23.6 Const: General: comfortable and no acute distress Orientation/consciousness: patient oriented x3 HEENT: Other: Unremarkable Head: Yes normal to inspection Neck: Neck: Yes normal visual inspection Chest: Chest palpation & inspection: normal inspection of the chest Resp: Other: Few crackles. Cardio: Palpation: normal PMI Heart sounds: S1 normal heart sound present, S2 normal heart sound present, no gallops, no murmurs and no rubs GI: Palpation (GI): Soft to palpation Back/Spine/Pelvis: Other: unremarkable Skin: General skin exam: no rashes or lesions noted Neuro: General: patient oriented x3 Extrem: General: Yes normal to inspection Psych: Mental Status: mental status grossly normal Objective Labs and Meds Result diagrams: 04/26/22 05:49 04/26/22 05:49 Lab results: Laboratory Results - last 24 hr 04/25/22 04/25/22 04/25/22 15:16 15:16 15:16 WBC 15.4 H RBC 3.02 L Hgb 9.1 L Hct 29.1 L MCV 96.4 MCH 30.1 MCHC 31.3 RDW 19.9 H Plt Count 294 MPV 10.7 Immature Gran % (Auto) 0.8 H Neut % (Auto) 82.0 H Lymph % (Auto) 7.3 L [place] % (Auto) 9.3 Eos % (Auto) 0.5 Baso % (Auto) 0.1 Lymph # (Auto) 1.1 L [place] # (Auto) 1.4 H Eos # (Auto) 0.1 Baso # (Auto) 0.0 Abs Immat Gran (auto) 0.13 H Absolute Neuts (auto) 12.6 H Absolute Nucleated RBC 0.000 Nucleated RBC % (auto) 0.0 Sodium 140 Potassium 4.0 Chloride 109 H Carbon Dioxide 23 Anion Gap 12 BUN 18 H D Creatinine 1.10 Estim Creat Clear Calc 52.3 Estimated GFR > 60 POC Glucose Random Glucose 287 H Calcium 8.2 L Total Bilirubin Direct Bilirubin AST ALT Alkaline Phosphatase Troponin I High Sens 36.4 H B-Natriuretic Peptide 1541 H Total Protein Albumin Lipase COVID-19 (SERG) COVID-19 Clin Com Influenza Type A (SAIMA) Influenza Type B (SAIMA) Influenza A & B Note 04/25/22 04/25/22 04/25/22 15:16 15:16 15:16 WBC RBC Hgb Hct MCV MCH MCHC RDW Plt Count MPV Immature Gran % (Auto) Neut % (Auto) Lymph % (Auto) [place] % (Auto) Eos % (Auto) Baso % (Auto) Lymph # (Auto) [place] # (Auto) Eos # (Auto) Baso # (Auto) Abs Immat Gran (auto) Absolute Neuts (auto) Absolute Nucleated RBC Nucleated RBC % (auto) Sodium Potassium Chloride Carbon Dioxide Anion Gap BUN Creatinine Estim Creat Clear Calc Estimated GFR POC Glucose Random Glucose Calcium Total Bilirubin 0.6 Direct Bilirubin 0.3 AST 26 ALT 23 Alkaline Phosphatase 89 Troponin I High Sens B-Natriuretic Peptide Total Protein 5.3 L Albumin 3.3 L Lipase < 4 L COVID-19 (SERG) Negative COVID-19 Clin Com See Note Influenza Type A (SAIMA) Negative Influenza Type B (SAIMA) Negative Influenza A & B Note See Note 04/26/22 04/26/22 04/26/22 05:49 05:49 05:49 WBC 12.1 H RBC 2.97 L Hgb 8.9 L Hct 27.5 L MCV 92.6 MCH 30.0 MCHC 32.4 RDW 19.4 H Plt Count 244 MPV 10.1 Immature Gran % (Auto) 0.7 H Neut % (Auto) 76.3 H Lymph % (Auto) 11.6 L [place] % (Auto) 10.0 Eos % (Auto) 1.2 Baso % (Auto) 0.2 Lymph # (Auto) 1.4 [place] # (Auto) 1.2 Eos # (Auto) 0.1 Baso # (Auto) 0.0 Abs Immat Gran (auto) 0.09 H Absolute Neuts (auto) 9.2 H Absolute Nucleated RBC 0.040 H Nucleated RBC % (auto) 0.3 H Sodium 143 Potassium 3.3 Chloride 107 Carbon Dioxide 26 Anion Gap 13 BUN 14 Creatinine 0.90 Estim Creat Clear Calc 63.9 Estimated GFR > 60 POC Glucose Random Glucose 116 H D Calcium 8.0 L Total Bilirubin Direct Bilirubin AST ALT Alkaline Phosphatase Troponin I High Sens B-Natriuretic Peptide 1930 H Total Protein Albumin Lipase COVID-19 (SERG) COVID-19 Clin Com Influenza Type A (SAIMA) Influenza Type B (SAIMA) Influenza A & B Note 04/26/22 07:20 WBC RBC Hgb Hct MCV MCH MCHC RDW Plt Count MPV Immature Gran % (Auto) Neut % (Auto) Lymph % (Auto) [place] % (Auto) Eos % (Auto) Baso % (Auto) Lymph # (Auto) [place] # (Auto) Eos # (Auto) Baso # (Auto) Abs Immat Gran (auto) Absolute Neuts (auto) Absolute Nucleated RBC Nucleated RBC % (auto) Sodium Potassium Chloride Carbon Dioxide Anion Gap BUN Creatinine Estim Creat Clear Calc Estimated GFR POC Glucose 112 Random Glucose Calcium Total Bilirubin Direct Bilirubin AST ALT Alkaline Phosphatase Troponin I High Sens B-Natriuretic Peptide Total Protein Albumin Lipase COVID-19 (SERG) COVID-19 Clin Com Influenza Type A (SAIMA) Influenza Type B (SAIMA) Influenza A & B Note Imaging Radiologist's impression: Impressions Chest X-Ray 04/25/22 13:52 IMPRESSION: Small pleural effusions with adjacent mild bibasilar opacities and mild prominence of the central vasculature, similar to 04/20/2022 and suggesting edema in the proper clinical setting. Assessment and Plan (1) Acute diastolic (congestive) heart failure: Status: Acute (2) Uncontrolled hypertension: Status: Acute (3) Atherosclerotic cardiovascular disease: Status: Acute Plan Blood pressure seems quite high at 170 6/90 mm Hg. Cardiac BNP is high at 1930. Slight high sensitivity troponin elevation. Chest x-ray reported to have small pleural effusions, mild bibasilar atelectasis and mild prominent central vasculature, possible edema. Overall, possible acute diastolic heart failure. Last available echocardiogram from [facility], 2020 with LVEF of 55-60%, mild diastolic dysfunction and no hemodynamically significant valve issue. Ascending aortic size was 4.5 cm. Overall, can treat for diastolic heart failure. Blood pressure medications will need to be reconciled in optimized. Probably go up on the losartan/bisoprolol and add additional medications like amlodipine as necessary. We will also get an echocardiogram for reassessment. Will follow up with you. Discussed with Eden Moyer. Procedures Date of Service Date of Service: 04/26/22
[2022-04-26 10:59] VITALS: BP 159/84; PULSE 83; RESP 20; TEMP 36.9; O2SAT 95
--- NOTE | 2022-04-26 11:51 | MHC.CM.PN ---
T/W MET WITH PATIENT AND RHODA (WITH PATIENT PERMISSION). HCP REQUESTED PATIENT AND MADE AWARE THAT IF THEY ARE UNABLE TO LOCATE HCP DOCUMENT, ONE CAN BE COMPLETED HERE. PATIENT RELIES ON A CANE FOR AMBULATION AND PROVIDES TRANSPORTATION. HE REPORTS BEING COVID VACCINATED X 4 AND A FLU SHOT RECENTLY. REFERRAL TO NA TO FOLLOW FOR POSSIBLE DC NEEDS. IMM 04/26 PLACED IN EMERGENCY DEPT [facility]
--- NOTE | 2022-04-26 12:04 | P.PNIM_ITS ---
Subjective Subjective Date of Service: 04/26/22 Review of Systems Follow-up acute congestive heart failure Physical Exam Vital Signs: Vital Signs: Last Vital Signs Temp 98.5 F 04/26/22 10:59 Pulse 83 04/26/22 10:59 Resp 20 04/26/22 10:59 BP 159/84 H 04/26/22 10:59 Pulse Ox 95 04/26/22 10:59 O2 Del Method 04/26/22 10:59 BMI result Body Mass Index 23.6 Appearing in no acute distress lung sounds are clear to auscultation heart regular rate rhythm, clear S1, S2 positive bowel sounds, abdomen is soft, nontender neuro patient is alert x3, no focal deficits Objective Data Active Medications Acetaminophen (Acetaminophen 325 Mg Tablet) 650 mg PO Q6H PRN PRN Reason: Pain, Mild (Pain Scale 1-3) Albuterol Sulfate (Albuterol Sulfate 90 Mcg 8 Gm Inhaler) 2 puff INHALE Q4H PRN PRN Reason: for muscle spasm Lipase/Protease/Amylase (Lipase/Prot/Amylase 24/76/120k 1 Cap Capsule.) 1 cap PO TIDAC [facility] Aspirin (Aspirin Enteric Coated 81 Mg Tablet.) 81 mg PO DAILY [facility] Atorvastatin Calcium (Atorvastatin Calcium 40 Mg Tablet) 40 mg PO MO [facility] Enoxaparin Sodium (Enoxaparin Sodium 40 Mg/0.4 Ml Syringe) 40 mg SUBCUT Q24H [facility] Last Admin: 04/25/22 18:09 Dose: 40 mg Documented By: LARISSA Fluticasone Propionate (Fluticasone Propionate Nasal 16 Gm [place]) 1 spray NOSTRIL-B DAILY PRN PRN Reason: Allergy Symptoms Furosemide (Furosemide 40 Mg/4 Ml Vial) 40 mg IVPUSH BID@0900,1800 [facility]; Protocol Last Admin: 04/26/22 08:56 Dose: 40 mg Documented By: ANA Insulin Human Lispro (Insulin Lispro 100 Unit/Ml 3 Ml Vial) 5 unit SUBCUT BID@1130,1730 [facility] Lorazepam (Lorazepam 0.5 Mg Tablet) 0.5 mg PO DAILY PRN PRN Reason: anxiety Losartan Potassium (Losartan Potassium 50 Mg Tablet) 50 mg PO DAILY [facility]; Protocol Non-Formulary Medication (Insulin Aspart U-100 [Novolog Flexpen U-100 Insulin]) 8 unit subcut DAILY@0730 [facility] Non-Formulary Medication (Insulin Degludec) 5 unit SUBCUT DAILY [facility] Omeprazole (Omeprazole 40 Mg Capsule.Dr) 40 mg PO DAILY@629 [facility] Ondansetron HCl (Ondansetron Hcl 4 Mg/2 Ml Vial) 4 mg IVPUSH Q8H PRN PRN Reason: Nausea and Vomiting Pharmacy Consult (Consult Rx Perform Med Rec) 1 each MISCELLANE ONCE PRN PRN Reason: Consult order Sodium Chloride (0.9 % Sodium Chloride Flush 3 Ml Syringe) 3 ml IVFLUSH QSHIFT [facility] Last Admin: 04/26/22 08:56 Dose: 3 ml Documented By: ANA Vitamin D (Cholecalciferol (Vitamin D3) 25 Mcg Tablet) 50 mcg PO DAILY [facility] Labs CBC & Chem 7: 04/26/22 05:49 04/26/22 05:49 Labs: Laboratory Results - last 24 hr 04/25/22 04/25/22 04/25/22 15:16 15:16 15:16 MCV 96.4 MCH 30.1 MCHC 31.3 RDW 19.9 H Plt Count 294 MPV 10.7 Immature Gran % (Auto) 0.8 H Neut % (Auto) 82.0 H Lymph % (Auto) 7.3 L [place] % (Auto) 9.3 Eos % (Auto) 0.5 Baso % (Auto) 0.1 Lymph # (Auto) 1.1 L [place] # (Auto) 1.4 H Eos # (Auto) 0.1 Baso # (Auto) 0.0 Abs Immat Gran (auto) 0.13 H Absolute Neuts (auto) 12.6 H Absolute Nucleated RBC 0.000 Nucleated RBC % (auto) 0.0 Anion Gap 12 Estim Creat Clear Calc 52.3 Estimated GFR > 60 POC Glucose Random Glucose 287 H Calcium 8.2 L Total Bilirubin Direct Bilirubin AST ALT Alkaline Phosphatase Troponin I High Sens 36.4 H B-Natriuretic Peptide 1541 H Total Protein Albumin Lipase COVID-19 ([facility]ERG) COVID-19 Clin Com Influenza Type A (SAIMA) Influenza Type B (SAIMA) Influenza A & B Note 04/25/22 04/25/22 04/25/22 15:16 15:16 15:16 MCV MCH MCHC RDW Plt Count MPV Immature Gran % (Auto) Neut % (Auto) Lymph % (Auto) [place] % (Auto) Eos % (Auto) Baso % (Auto) Lymph # (Auto) [place] # (Auto) Eos # (Auto) Baso # (Auto) Abs Immat Gran (auto) Absolute Neuts (auto) Absolute Nucleated RBC Nucleated RBC % (auto) Anion Gap Estim Creat Clear Calc Estimated GFR POC Glucose Random Glucose Calcium Total Bilirubin 0.6 Direct Bilirubin 0.3 AST 26 ALT 23 Alkaline Phosphatase 89 Troponin I High Sens B-Natriuretic Peptide Total Protein 5.3 L Albumin 3.3 L Lipase < 4 L COVID-19 (SERG) Negative COVID-19 Clin Com See Note Influenza Type A (SAIMA) Negative Influenza Type B (SAIMA) Negative Influenza A & B Note See Note 04/26/22 04/26/22 04/26/22 05:49 05:49 05:49 MCV 92.6 MCH 30.0 MCHC 32.4 RDW 19.4 H Plt Count 244 MPV 10.1 Immature Gran % (Auto) 0.7 H Neut % (Auto) 76.3 H Lymph % (Auto) 11.6 L [place] % (Auto) 10.0 Eos % (Auto) 1.2 Baso % (Auto) 0.2 Lymph # (Auto) 1.4 [place] # (Auto) 1.2 Eos # (Auto) 0.1 Baso # (Auto) 0.0 Abs Immat Gran (auto) 0.09 H Absolute Neuts (auto) 9.2 H Absolute Nucleated RBC 0.040 H Nucleated RBC % (auto) 0.3 H Anion Gap 13 Estim Creat Clear Calc 63.9 Estimated GFR > 60 POC Glucose Random Glucose 116 H D Calcium 8.0 L Total Bilirubin Direct Bilirubin AST ALT Alkaline Phosphatase Troponin I High Sens B-Natriuretic Peptide 1930 H Total Protein Albumin Lipase COVID-19 (SERG) COVID-19 Clin Com Influenza Type A (SAIMA) Influenza Type B (SAIMA) Influenza A & B Note 04/26/22 07:20 MCV MCH MCHC RDW Plt Count MPV Immature Gran % (Auto) Neut % (Auto) Lymph % (Auto) [place] % (Auto) Eos % (Auto) Baso % (Auto) Lymph # (Auto) [place] # (Auto) Eos # (Auto) Baso # (Auto) Abs Immat Gran (auto) Absolute Neuts (auto) Absolute Nucleated RBC Nucleated RBC % (auto) Anion Gap Estim Creat Clear Calc Estimated GFR POC Glucose 112 Random Glucose Calcium Total Bilirubin Direct Bilirubin AST ALT Alkaline Phosphatase Troponin I High Sens B-Natriuretic Peptide Total Protein Albumin Lipase COVID-19 (SERG) COVID-19 Clin Com Influenza Type A (SAIMA) Influenza Type B (SAIMA) Influenza A & B Note Assessment and Plan (1) Atherosclerotic cardiovascular disease: Status: Acute Plan 77-year-old man presented to the ER with complaints shortness breath and dyspn ea.? Admitted with acute congestive heart failure Acute congestive heart failure, unspecified Unknown etiology at this time BNP 1541 Does not appear to have a history of heart failure initially on Lasix IV 40 mg b.i.d., decrease to 20 mg b.i.d. Echocardiogram EF 35-40% with wma, seen and evaluated by Cardiology, possible plan for transfer to [facility] for cardiac catheterization emily orrow Monitor on telemetry Strict intake and output, daily weights Leukocytosis Possibly secondary to recent steroid use for presumed respiratory illness Chest x-ray negative for consolidation, symptoms most likely secondary to acute congestive heart failure sign monitor Diabetes mellitus Sliding scale, mealtime insulin, ADA diet Hypertension. Elevated blood pressure Losartan increased to 50 mg daily GERD Continue PPI History of macrocytic anemia Stable Myelofibrosis Follows with Hematology as outpatient History of Whipple procedure Continue Creon DVT prophylaxis with Lovenox Attending Dr. Palomino Full code The patient will likely need 2 midnights with treatment of acute congestive heart failure requiring IV diuretics and cardiac follow-up Quality Stroke Does the patient have a stroke diagnosis?: No VTE Prior VTE?: No VTE Risk Level:: Medical - moderate - high VTE Device Contraindication: Treatment Not Indicated VTE Drug Contraindication: N/A - Med Ordered
[2022-04-26 12:32] VITALS: BP 158/83; PULSE 71; RESP 18; O2SAT 96
[2022-04-26] MEDS: Aspirin Enteric Coated 81 MG TABLET.DR PO (12:35)
[2022-04-26] MEDS: Atorvastatin Calcium 40 MG TABLET PO (12:42)
[2022-04-26] MEDS: Losartan Potassium 50 MG TABLET 100 MG PO (12:42)
[2022-04-26 14:34] VITALS: BP 156/73; PULSE 75; RESP 19; TEMP 36.7; O2SAT 96
--- NOTE | 2022-04-26 16:59 | PC.NURSE ---
pt is currently asleep, respirations even and unlabored, in no apparent distress at this time
[2022-04-26] MEDS: Enoxaparin Sodium 40 MG/0.4 ML SYRINGE SUBCUT (17:32)
[2022-04-26 17:35] VITALS: BP 171/89; PULSE 75; RESP 20; O2SAT 96
[2022-04-26 17:43] LABS: Glucose, Whole Blood 230 mg/dL (60-115)
--- NOTE | 2022-04-26 17:46 | PC.NURSE ---
called to give report but no answer at this time
--- NOTE | 2022-04-26 18:07 | PC.NURSE ---
report given to imc rn
[2022-04-26 18:47] VITALS: BP 170/86; PULSE 76; RESP 19; TEMP 37.2
[2022-04-26 19:31] LABS: Glucose, Whole Blood 201 mg/dL (60-115)
[2022-04-26 21:00] VITALS: BMI 23.1
[2022-04-26] MEDS: Furosemide 40 MG/4 ML VIAL 20 MG IVPUSH (21:41)
[2022-04-26] MEDS: Insulin Lispro 100 UNIT/ML 3 ML VIAL SUBCUT (21:42)
[2022-04-26] MEDS: Acetaminophen 325 MG TABLET 650 MG PO (21:42)
[2022-04-27] VITALS: BP 159/79; PULSE 76; RESP 20; TEMP 36.7; O2SAT 94
[2022-04-27 03:46] VITALS: BP 156/79; PULSE 70; RESP 18; TEMP 36.4; O2SAT 97
[2022-04-27 07:17] VITALS: BP 165/94; PULSE 73; RESP 20; TEMP 36.7; O2SAT 93
[2022-04-27 07:18] LABS: Glucose, Whole Blood 124 mg/dL (60-115)
[2022-04-27] MEDS: Cholecalciferol (Vitamin D3) 25 MCG TABLET 50 MCG PO (07:20)
[2022-04-27] MEDS: Losartan Potassium 50 MG TABLET 100 MG PO (07:20)
[2022-04-27] MEDS: Aspirin Enteric Coated 81 MG TABLET.DR PO (07:20)
[2022-04-27] MEDS: Omeprazole 40 MG CAPSULE.DR PO (07:20)
[2022-04-27] MEDS: Lipase/Prot/Amylase 24/76/120K 1 CAP CAPSULE.DR PO ×2 (07:20→11:34)
[2022-04-27] MEDS: Furosemide 40 MG/4 ML VIAL 20 MG IVPUSH (07:20)
[2022-04-27] MEDS: Insulin Glargine,Hum.rec.anlog 100 UNIT/ML 10 ML VIAL SUBCUT (07:29)
--- NOTE | 2022-04-27 09:40 | P.PNCA_ITS ---
Subjective Subjective Date of Service: 04/27/22 Interval history: He states he still feels short of breath. No anginal-type symptoms. Review of Systems Review of Systems Yes all other systems are reviewed and are negative Constitutional: Reports as per HPI Eyes: Reports as per HPI Reports as per HPI Cardiovascular: Reports as per HPI, Denies acrocyanosis, Denies cool extremities, Denies chest pain, Denies leg edema, Denies lightheadedness, Denies palpitations and Denies dyspnea Respiratory: Reports as per HPI, Reports no additional respiratory complaints and Denies dyspnea Gastrointestinal: Reports as per HPI and Reports no additional gastrointestinal complaints Genitourinary: Reports no additional male genitourinary complaints and Reports as per HPI Musculoskeletal: Reports no additional musculoskeletal complaints and Reports as per HPI Skin/Breast: Reports system reviewed and no additional complaints, except as docu Reports system reviewed and no additional complaints, except as documented and Reports as per HPI Psychiatric: Reports no additional psychiatric complaints and Reports as per HPI Endocrine: Reports no additional endocrine complaints, Reports as per HPI and Denies palpitations Hematologic/Lymphatic: Reports no additional hematologic/lymphatic complaints and Reports as per HPI Allergic/Immunologic: Reports no additional allergic/immunologic complaints and Reports as per HPI Physical Exam Vital Signs: Last Vital Signs Temp 98.0 F 04/27/22 07:17 Pulse 73 04/27/22 07:17 Resp 20 04/27/22 07:17 BP 165/94 H 04/27/22 07:17 Pulse Ox 93 04/27/22 07:17 O2 Del Method 04/27/22 07:17 FiO2 95 04/26/22 18:47 BMI result Body Mass Index 23.1 Const General: comfortable and no acute distress Orientation/consciousness: patient oriented x3 HEENT Other: Unremarkable Head: Yes normal to inspection Neck Neck: Yes normal visual inspection Chest Chest palpation & inspection: normal inspection of the chest Resp Auscultation: clear to auscultation bilaterally Cardio Palpation: normal PMI Heart sounds: S1 normal heart sound present, S2 normal heart sound present, no gallops, no murmurs and no rubs GI Palpation (GI): Soft to palpation Back/Spine/Pelvis Other: unremarkable Skin General skin exam: no rashes or lesions noted Neuro General: patient oriented x3 Extrem General: Yes normal to inspection Psych Mental Status: mental status grossly normal Objective Labs and Meds Result diagrams: 04/26/22 05:49 04/26/22 05:49 Lab results: Laboratory Results - last 24 hr 04/25/22 04/26/22 04/26/22 21:12 17:38 19:23 POC Glucose 230 H 201 H Urine Color Cancelled Urine Appearance Cancelled Urine pH Cancelled Ur Specific [place] Cancelled Urine Protein Cancelled Urine Glucose (UA) Cancelled Urine Ketones Cancelled Urine Blood Cancelled Urine Nitrite Cancelled Ur Leukocyte Esterase Cancelled 04/27/22 07:14 POC Glucose 124 H Urine Color Urine Appearance Urine pH Ur Specific [place] Urine Protein Urine Glucose (UA) Urine Ketones Urine Blood Urine Nitrite Ur Leukocyte Esterase Progress Note: A&P Assessment and plan (1) Acute diastolic (congestive) heart failure: Status: Acute (2) Uncontrolled hypertension: Status: Acute (3) Atherosclerotic cardiovascular disease: Status: Acute (4) Ascending aortic aneurysm: Status: Acute Plan Blood pressure seems quite high at 170 6/90 mm Hg. Cardiac BNP is high at 1930. Slight high sensitivity troponin elevation. Chest x-ray reported to have small pleural effusions, mild bibasilar atelectasis and mild prominent central vasculature, possible edema. Echocardiogram from yesterday shows LVEF of 35-40%. Wall motion abnormalities as well as mild pulmonary hypertension. Ascending aortic size was 4.7 cm. Overall, he seems to be new compared to a prior [facility] echocardiogram from last year. Can continue gentle diuretics as long as renal function is stable. He will need to be transferred to [facility] for diagnostic cardiac catheterization. Discussed about this with patient and he is agreeable. Blood pressure is still on the higher side. Losartan dose has been increased. May need additional medications like amlodipine but there is also a history of orthostatic hypotension/syncope with autonomic dysfunction. There is mention of beta-leesa intolerance in [facility] records. Discussed with Eden Moyer. Total time spent including review of data, counseling, documentation, coordination of care including transfer to [facility]-40 minutes. Time Spent With Patient Time: Total time spent is greater than 50% in coordination of care (as documented) at patient's floor/unit and/or counseling patient: 40min. Progress Note: Quality Stroke Does the patient have a stroke diagnosis?: No Procedures Date of Service Date of Service: 04/27/22
[2022-04-27 10:28] LABS: Anion Gap 14 (12-20); Blood Urea Nitrogen 13 mg/dL (9-16); Calcium 8.7 mg/dL (8.4-10.2); Carbon Dioxide 31 mmol/L (22-29); Chloride 102 mmol/L (96-108); Creatinine Clr Calc Pharmacy 59.3; Estimated Glomerular Filt Rate > 60; Glucose Random 158 mg/dL (60-115); Potassium 3.9 mmol/L (3.3-5.1); Sodium 143 mmol/L (135-145)
[2022-04-27 10:35] LABS: B Type Natriuretic Peptide 1838 pg/mL (<100)
[2022-04-27 11:21] VITALS: BP 156/83; PULSE 74; RESP 20; TEMP 36.7; O2SAT 95
[2022-04-27 11:25] LABS: Glucose, Whole Blood 243 mg/dL (60-115)
[2022-04-27] MEDS: Insulin Lispro 100 UNIT/ML 3 ML VIAL SUBCUT ×2 (11:33)
--- NOTE | 2022-04-27 11:34 | PM.DS ---
DS: Providers Provider Date of Service: 04/27/22 Date of admission: 04/25/22 15:58 Primary care physician: Keiry Keller MD Consults: 04/25/22 15:58 Consult to Cardiology Routine Consulting Provider: Davion Fernandez Reason for consultation: CHF Attending physician on discharge: Jaden Palomino Discharging clinician: Eden Moyer DS: Diagnosis Discharge Diagnosis (1) Acute diastolic (congestive) heart failure: Status: Acute (2) Uncontrolled hypertension: Status: Acute (3) Atherosclerotic cardiovascular disease: Status: Acute (4) Ascending aortic aneurysm: Status: Acute DS: Summary Hospital Course Hospital Course: 77-year-old man presented to the ER with complaints of worsening shortness of breath.? Proximally a week ago he presented to urgent care clinic and at that time was treated for a respiratory illness and was sent with steroids and inhalers.? However it appears that he has had worsening shortness breath since then with orthopnea, dyspnea on exertion and dry cough.? He denies chest pain, nausea, vomiting, diarrhea.? Chest x-ray showed small pleural effusions with prominence of the central vasculature, BNP 1541, no hypoxia noted.? New patient was given IV Lasix in the ER.? He be admitted for further management and treatment of acute congestive heart failure with no history in the past. Acute congestive heart failure with reduced ejection fraction BNP 1541 Does not appear to have a history of heart failure initially on Lasix IV 40 mg b.i.d., decrease to 20 mg b.i.d. Echocardiogram EF 35-40% with wma, seen and evaluated by Cardiology, transferred to [facility] for cardiac catheterization Leukocytosis Possibly secondary to recent steroid use for presumed respiratory illness Chest x-ray negative for consolidation, symptoms most likely secondary to acute congestive heart failure Diabetes mellitus with hyperglycemia treated with Sliding scale, mealtime insulin, ADA diet Hypertension.? Elevated blood pressure Losartan increased to 50 mg daily GERD Continue PPI History of macrocytic anemia Stable Myelofibrosis Follows with Hematology as outpatient History of Whipple procedure Continue Creon Time Spent with Patient Time attestation: Total time spent providing and/or coordinating discharge services: Discharge coordination time: Greater than 30 minutes Quality: Safe Use of Opioids Does Pt have an Active Cancer Diagnosis on the Problem List?: No Quality: Stroke Does the patient have a stroke diagnosis?: No Physical Exam Vital Signs: Vital Signs: Last Vital Signs Temp 98.0 F 04/27/22 11:21 Pulse 74 04/27/22 11:21 Resp 20 04/27/22 11:21 BP 156/83 H 04/27/22 11:21 Pulse Ox 95 04/27/22 11:21 O2 Del Method 04/27/22 11:21 FiO2 95 04/26/22 18:47 BMI result Body Mass Index 23.1 Appearing in no acute distress head is normocephalic atraumatic eyes pupils are PERRLA sclera is anicteric mouth throat mucous membranes are intact and moist neck is supple no lymphadenopathy, no JVD noted lung sounds are clear to auscultation heart regular rate rhythm, clear S1, S2 positive bowel sounds, abdomen is soft, nontender neuro patient is alert x3, no focal deficits DS: Data Data Completed and Pending Labs on day of discharge: Laboratory Results - last 24 hr 04/25/22 04/26/22 04/26/22 21:12 17:38 19:23 Sodium Potassium Chloride Carbon Dioxide Anion Gap BUN Creatinine Estim Creat Clear Calc Estimated GFR POC Glucose 230 H 201 H Random Glucose Calcium B-Natriuretic Peptide Urine Color Cancelled Urine Appearance Cancelled Urine pH Cancelled Ur Specific [place] Cancelled Urine Protein Cancelled Urine Glucose (UA) Cancelled Urine Ketones Cancelled Urine Blood Cancelled Urine Nitrite Cancelled Ur Leukocyte Esterase Cancelled 04/27/22 04/27/22 04/27/22 07:14 09:11 09:11 Sodium 143 Potassium 3.9 Chloride 102 Carbon Dioxide 31 H Anion Gap 14 BUN 13 Creatinine 0.97 Estim Creat Clear Calc 59.3 Estimated GFR > 60 POC Glucose 124 H Random Glucose 158 H D Calcium 8.7 D B-Natriuretic Peptide 1838 H Urine Color Urine Appearance Urine pH Ur Specific [place] Urine Protein Urine Glucose (UA) Urine Ketones Urine Blood Urine Nitrite Ur Leukocyte Esterase 04/27/22 11:20 Sodium Potassium Chloride Carbon Dioxide Anion Gap BUN Creatinine Estim Creat Clear Calc Estimated GFR POC Glucose 243 H Random Glucose Calcium B-Natriuretic Peptide Urine Color Urine Appearance Urine pH Ur Specific [place] Urine Protein Urine Glucose (UA) Urine Ketones Urine Blood Urine Nitrite Ur Leukocyte Esterase Discharge Plan Discharge Anticipated Discharge Date/Time: 04/27/22 11:27 Patient Disposition: [facility] Discharge Diagnosis: Acute heart failure with reduced ejection fraction Leukocytosis Referrals: Keiry Keller MD [Primary Care Provider] - 1 Week Discharge Medications: New furosemide 10 mg/mL Solution 20 mg IVPUSH BID@0900,1800 Qty: 40 0RF Protocol: Hold for SBP< HOLD for SBP < : 90 Continued lorazepam 1 mg tablet 0.5 mg PO DAILY PRN (Reason: anxiety) Qty: 10 0RF (DME) lancets [FreeStyle Lancets] 28 gauge misc See Rx Instructions .ROUTE .MEDSUPPLY Qty: 200 11RF Rx Instructions: 4 times a day (DME) FreeStyle Lite Strips Strip See Rx Instructions .ROUTE .MEDSUPPLY Qty: 100 11RF Rx Instructions: As directed three times a day (DME) blood-glucose meter [FreeStyle Lite Meter] Kit See Rx Instructions .ROUTE .MEDSUPPLY Qty: 1 0RF Rx Instructions: As directed 3x/day cholecalciferol (vitamin D3) 50 mcg (2,000 unit) capsule 50 mcg PO DAILY Qty: 90 3RF omeprazole 40 mg capsule,delayed release(DR/EC) 40 mg PO DAILY Qty: 90 0RF (DME) pen needle, diabetic [BD Nydia 2nd Gen Pen Needle] 32 gauge x 5/32 needle See Rx Instructions .Route Qty: 100 5RF Rx Instructions: As directed injects 4X/day aspirin 81 mg Tablet,Delayed Release (Dr/Ec) 81 mg PO DAILY danazol 200 mg Capsule 200 mg PO BID Qty: 60 3RF insulin aspart U-100 [Novolog Flexpen U-100 Insulin] 100 unit/mL (3 mL) insulin pen 5 unit subcut BID@1130,1730 fluticasone propionate 50 mcg/actuation spray,suspension 1 spray intranasal DAILY PRN (Reason: Allergy Symptoms) insulin aspart U-100 [Novolog Flexpen U-100 Insulin] 100 unit/mL (3 mL) insulin pen 8 unit subcut DAILY@0730 insulin degludec 100 unit/mL (3 mL) insulin pen 5 unit subcut DAILY (DME) lancets Misc See Rx Instructions topical TID Qty: 100 Rx Instructions: As directed atorvastatin 40 mg tablet 40 mg PO MO Creon 24,000-76,000 -120,000 unit capsule,delayed release(DR/EC) 1 cap PO TIDAC Rx Instructions: administer with meals and/or snacks losartan 25 mg tablet 50 mg PO DAILY albuterol sulfate 90 mcg/actuation HFA aerosol inhaler 2 puff inhalation Q4H PRN (Reason: for muscle spasm) Qty: 18 2RF (DME) blood sugar diagnostic Strip See Rx Instructions Not Applicable TID Qty: 300 3RF Rx Instructions: 3 times a day (DME) Diabetic shoes & 3 pair inserts Diabetic shoes & 3 pair insert kit See Rx Instructions .ROUTE .MEDSUPPLY Qty: 1 0RF Rx Instructions: as directed (DME) FreeStyle [place]ami[place] 2 Sensor Kit See Rx Instructions .ROUTE Rx Instructions: As directed (DME) FreeStyle Ramiro 2 [place] Misc See Rx Instructions .ROUTE Rx Instructions: As directed Diet: Advance to usual diet Activity on Discharge: As tolerated Stand Alone Forms: Patient Portal Discharge page Care Plan Goals: treatment at tertiary care facility Health Concerns: Acute heart failure with reduced ejection fraction Leukocytosis Plan of Treatment: Transfer to [facility] for cardiac catheterization Assessment: see discharge summary
== END 2022-04-27 13:48 | disposition short-term general hospital (02) | DRG 291 ==
LOC: HO.ED 16:14 → HO.EDOVER 16:29 → HO.IMC 04-26 17:16
PROVIDERS: Nurse Practitioner Family; Admitting Provider Nurse Practitioner Acute Care; Emergency Provider Emergency Medicine; PCP Internal Medicine; Visit Provider Nurse Practitioner Acute Care
DX: I11.0 Hypertensive heart disease with heart failure (principal); I50.31 Acute diastolic (congestive) heart failure; D75.81 Myelofibrosis; I25.10 Atherosclerotic heart disease of native coronary artery without angina pectoris; I71.21 Aneurysm of the ascending aorta, without rupture; E11.65 Type 2 diabetes mellitus with hyperglycemia; F17.210 Nicotine dependence, cigarettes, uncomplicated; Z71.6 Tobacco abuse counseling; Z20.822 Contact with and (suspected) exposure to COVID-19; Z95.1 Presence of aortocoronary bypass graft; Z79.4 Long term (current) use of insulin; Z79.51 Long term (current) use of inhaled steroids; Z79.82 Long term (current) use of aspirin; Z79.899 Other long term (current) drug therapy
CPT/HCPCS: 36415; 71046; 80048; 80076; 82947; 83690; 83880; 84484; 85025; 87502; 87635; 93005; 93306; 99285; J1650; J1940

== ENCOUNTER 2022-05-05 10:03 | Outpatient (REF) | payer MEDICARE, SELFPAY ==
[2022-05-05 11:39] LABS: Appearance Urine Clear; Color Urine Yellow; Glucose Urine UA Negative (Negative); Leukocyte Esterase Urine Negative (Negative); Nitrite Urine Negative (Negative); PH 5.5 (5.0-9.0); UMIC TRIGGER UA YES; Urine Blood Negative (Negative); Urine Ketones Negative (Negative); Urine Protein 30 (1+) mg/dL (Neg-Trace)
[2022-05-05 11:46] LABS: Bacteria Urine None Seen (None Seen); Hyaline Casts Urine 0-2 /LPF (0-2); RBC Urine 0-2 /HPF (0-2); Squamous Epithelial Cell Urine 0-2 /HPF (0-2); WBC Urine 0-5 /HPF (0-5)
[2022-05-05 12:24] LABS: Creatinine Urine 35.89 mg/dL; Microalbum/Creatinine Ratio Ur 955.6 ug/mg cr; Protein/Creatinine Ratio, Ur 1.17 (<0.2); Total Protein Urine Random 42 mg/dL (<12)
[2022-05-05 12:27] LABS: Anion Gap 16 (12-20); Blood Urea Nitrogen 14 mg/dL (9-16); Calcium 8.9 mg/dL (8.4-10.2); Carbon Dioxide 25 mmol/L (22-29); Chloride 108 mmol/L (96-108); Estimated Glomerular Filt Rate > 60; Potassium 4.8 mmol/L (3.3-5.1); Sodium 144 mmol/L (135-145)
[2022-05-05 12:51] LABS: HBS Num1 2.07 mIU/mL (0-7.99); HBc Num1 0.04 S/CO (0.00-0.79); HBsAGNum1 0.24 S/CO (0.00-0.99); Hepatitis B Core Antibody Nonreactive (Nonreactive); Hepatitis B Surface Antigen Negative (Negative); ~HepC Num1 0.08 S/CO (0.00-0.79); ~Hepatitis B Surface Antibody NONREACTIVE (Nonreactive); ~Hepatitis C Antibody Nonreactive (Nonreactive)
[2022-05-06 13:46] LABS: Complement C3 47 mg/dL (82-185)
[2022-05-07 12:31] LABS: Anti Nuclear Antibody Screen NEGATIVE (NEGATIVE)
[2022-05-11 12:36] LABS: Prot Elec - Albumin 3.6 g/dL (3.8-4.8); Prot Elec - Alpha1 0.3 g/dL (0.2-0.3); Prot Elec - Alpha2 0.6 g/dL (0.5-0.9); Prot Elec - Beta 1 0.4 g/dL (0.4-0.6); Prot Elec - Beta 2 0.2 g/dL (0.2-0.5); Prot Elec - Gamma 0.7 g/dL (0.8-1.7); Prot Elec - Total Protein 5.7 g/dL (6.1-8.1)
[2022-05-12 17:37] LABS: Kappa, Serum 159 mg/dL (176-443); Kappa/Lambda Ratio, Serum 1.75 (1.29-2.55); Lambda, Serum 91 mg/dL (91-240)
== END 2022-05-05 10:04 | disposition home or self-care (01) ==
LOC: HO.HMGCLDS 10:03
PROVIDERS: PCP Internal Medicine; Visit Provider Internal Medicine Nephrology
DX: E11.22 Type 2 diabetes mellitus with diabetic chronic kidney disease (principal); N18.31 Chronic kidney disease, stage 3a; R80.1 Persistent proteinuria, unspecified
CPT/HCPCS: 36415; 80051; 81001; 82043; 82310; 82565; 83883; 84156; 84165; 84520; 86038; 86039; 86160; 86704; 86706; 86803; 87340

== ENCOUNTER 2022-08-09 09:29 | Outpatient (REF) | payer MEDICARE, SELFPAY ==
--- NOTE | ~2022-08-09 | US_ITS ---
EXAMINATION: US VENOUS ULTRASOUND WITH DOPPLER LOWER EXTREMITY, RIGHT CLINICAL INFORMATION: Swelling right lower extremity. Assess for occult DVT. Prior history Whipple procedure. Prior history right popliteal and peroneal DVT, 2012. COMPARISON: Right leg venous ultrasound with Doppler 07/10/2012, CT pelvis 10/10/2013. TECHNIQUE: Ultrasound of the deep veins is performed from the hip to the calf with compression sonography and color and pulse Doppler assessment. Spectral analysis with color-flow imaging is performed. FINDINGS: There is normal venous compression and respiratory variation and augmented flow. The visualized common femoral vein, superficial femoral vein, profunda femoral vein, popliteal vein, and the trifurcation region shows no evidence of deep venous thrombosis. There are chronic atherosclerotic calcifications in region of common femoral vein similar to prior imaging. No popliteal fossa cyst. US/US venous duplex LE RT IMPRESSION: No DVT demonstrated in the right lower extremity.
== END 2022-08-09 09:30 | disposition home or self-care (01) ==
LOC: HO.US 09:29
PROVIDERS: PCP Internal Medicine; Visit Provider Internal Medicine
DX: C44.629 Squamous cell carcinoma of skin of left upper limb, including shoulder (principal); R60.0 Localized edema; I82.401 Acute embolism and thrombosis of unspecified deep veins of right lower extremity
CPT/HCPCS: 11402; 11603; 88305; 93971; 99202

== ENCOUNTER 2022-08-09 15:46 | Outpatient (REF) | payer MEDICARE, SELFPAY | END 2022-08-09 15:47 | disposition home or self-care (01) | LOC: HO.LNP 15:46 | PROVIDERS: Visit Provider Surgery | DX: Z13.89 Encounter for screening for other disorder (principal) | CPT/HCPCS: 88305 ==

== ENCOUNTER → 2022-08-19 07:52 | Outpatient (BNVA) | payer MEDICARE, SELFPAY | PROVIDERS: PCP Internal Medicine; Visit Provider Internal Medicine Endocrinology, Diabetes & Metabolism | DX: E13.9 Other specified diabetes mellitus without complications (principal); I10 Essential (primary) hypertension; E55.9 Vitamin D deficiency, unspecified; Z79.4 Long term (current) use of insulin | CPT/HCPCS: 82947; 83036; 99212 ==

== ENCOUNTER 2022-08-20 08:07 | Outpatient (REF) | payer MEDICARE, SELFPAY ==
[2022-08-20 08:17] LABS: MANUAL DIFF FLAG NO
[2022-08-20 08:34] LABS: Basophils Absolute Auto 0.1 X10*3/uL (0.0-0.2); Basophils Percent Auto 0.6 % (0-2); Eosinophils Absolute Auto 0.3 X10*3/uL (0.0-0.4); Eosinophils Percent Auto 2.2 % (0-4); Hemoglobin 9.4 g/dl (14.0-18.0); Imm Gran Pct Auto 1.5 % (0.0-0.4); Lymphocytes Absolute Auto 2.4 X10*3/uL (1.2-4.9); Lymphocytes Percent Auto 17.4 % (20-40); Mean Corpuscular HGB Conc 31.3 g/dl (31.0-36.0); Mean Corpuscular Hemoglobin 28.8 pg (27.0-33.0); Mean Platelet Volume 11.3 fL (9.4-12.4); Monocytes Absolute Auto 1.5 X10*3/uL (0.1-1.2); Monocytes Percent Auto 11.1 % (2-11); NRBC Pct Auto 0.3 /100WBC (0.0-0.2); Neutrophils Absolute Auto 9.1 x10*3/uL (2.0-8.3); Neutrophils Percent Auto 67.2 % (45-73); Platelet Count 367 X10*3/uL (160-400); Red Blood Count 3.26 X10*6/uL (4.60-5.80); Red Cell Distribution Width 19.6 % (11.0-16.0); White Blood Count 13.5 X10*3/uL (4.8-10.8)
[2022-08-20 09:05] LABS: Cholesterol 85 mg/dL; HDL Cholesterol 25 mg/dL; LDL Cholesterol Calculated 45 mg/dl; Triglycerides 79 mg/dL
== END 2022-08-20 08:08 | disposition home or self-care (01) ==
LOC: HO.LAB 08:07
PROVIDERS: Internal Medicine; PCP Internal Medicine; Visit Provider Internal Medicine Endocrinology, Diabetes & Metabolism
DX: D64.9 Anemia, unspecified (principal); E13.9 Other specified diabetes mellitus without complications
CPT/HCPCS: 36415; 80061; 85025

== ENCOUNTER → 2022-08-25 09:14 | Outpatient (BNVA) | payer MEDICARE, SELFPAY | PROVIDERS: PCP Internal Medicine; Visit Provider Surgery | DX: C44.92 Squamous cell carcinoma of skin, unspecified (principal) | CPT/HCPCS: 99212 ==

== ENCOUNTER 2022-09-03 08:29 | Outpatient (REF) | payer MEDICARE, SELFPAY ==
[2022-09-03 08:39] LABS: MANUAL DIFF FLAG NO
[2022-09-03 08:42] LABS: Basophils Percent Auto 0.3 % (0-2); Eosinophils Absolute Auto 0.2 X10*3/uL (0.0-0.4); Eosinophils Percent Auto 2.3 % (0-4); Hematocrit 31.8 % (42.0-52.0); Hemoglobin 10.3 g/dl (14.0-18.0); Imm Gran Abs Auto 0.09 X10*3/uL (0.00-0.03); Lymphocytes Absolute Auto 1.6 X10*3/uL (1.2-4.9); Lymphocytes Percent Auto 18.4 % (20-40); Mean Corpuscular HGB Conc 32.4 g/dl (31.0-36.0); Mean Corpuscular Hemoglobin 29.5 pg (27.0-33.0); Mean Corpuscular Volume 91.1 fL (80.0-98.0); Mean Platelet Volume 10.3 fL (9.4-12.4); Monocytes Percent Auto 11.7 % (2-11); Neutrophils Absolute Auto 5.8 x10*3/uL (2.0-8.3); Neutrophils Percent Auto 66.3 % (45-73); Platelet Count 218 X10*3/uL (160-400); Red Blood Count 3.49 X10*6/uL (4.60-5.80); Red Cell Distribution Width 20.4 % (11.0-16.0); White Blood Count 8.7 X10*3/uL (4.8-10.8)
== END 2022-09-03 08:30 | disposition home or self-care (01) ==
LOC: HO.LAB 08:29
PROVIDERS: Absent Provider Internal Medicine; PCP Internal Medicine; Visit Provider Internal Medicine
DX: D58.9 Hereditary hemolytic anemia, unspecified (principal)
CPT/HCPCS: 36415; 85025

== ENCOUNTER 2022-09-06 07:45 | Outpatient (REF) | payer MEDICARE, SELFPAY ==
--- NOTE | 2022-09-06 11:05 | PFT_ITS ---
FLOWS: 1. FEV1 90% of predicted at 2.30 L. 2. FVC 88% of predicted at 3.13 L. 3. FEV1 to FVC ratio 0.73. 4. No bronchodilator response. LUNG VOLUMES: 1. Total lung capacity 90% of predicted at 5.63 L. 2. Residual volume 108% of predicted at 2.55 L. 3. Slow vital capacity 78% of predicted at 3.08 L. 4. Expiratory reserve volume 113% of predicted at 1.09 L. 5. Diffusion capacity is moderately decreased. IMPRESSION: No obstructive or restrictive ventilatory defect. No bronchodilator response. An isolated defect in diffusion capacity suggests underlying pulmonary edema. Clinical correlation is advised. Markos Fagan MD AP/MODL / [id number]
== END 2022-09-06 07:46 | disposition home or self-care (01) ==
LOC: HO.RESP 07:45
PROVIDERS: PCP Internal Medicine; Visit Provider Internal Medicine
DX: Z87.891 Personal history of nicotine dependence (principal)
CPT/HCPCS: 94060; 94727; 94729

== ENCOUNTER → 2022-11-23 08:33 | Outpatient (BNVA) | payer MEDICARE, SELFPAY | PROVIDERS: PCP Internal Medicine; Visit Provider Internal Medicine Endocrinology, Diabetes & Metabolism | DX: E13.9 Other specified diabetes mellitus without complications (principal); Z79.4 Long term (current) use of insulin | CPT/HCPCS: 82947; 83036; 99212 ==

== ENCOUNTER 2022-11-30 08:20 | Outpatient (REF) | payer MEDICARE, SELFPAY ==
[2022-11-30 12:12] LABS: Alanine Aminotransferase 45 U/L (0-40); Anion Gap 12 (12-20); Aspartate Amino Transferase 61 U/L (5-37); Blood Urea Nitrogen 24 mg/dL (9-16); Calcium 8.4 mg/dL (8.4-10.2); Carbon Dioxide 25 mmol/L (22-29); Chloride 107 mmol/L (96-108); Cholesterol 66 mg/dL; Estimated Glomerular Filt Rate 49; Glucose Fasting 325 mg/dL (60-99); HDL Cholesterol 19 mg/dL; LDL Cholesterol Calculated 30 mg/dl; Potassium 4.1 mmol/L (3.3-5.1); Sodium 140 mmol/L (135-145); Triglycerides 85 mg/dL
[2022-11-30 12:26] LABS: Vitamin D 25-OH Total 29.7 ng/mL (>30)
== END 2022-11-30 08:21 | disposition home or self-care (01) ==
LOC: HO.HMGCLDS 08:20
PROVIDERS: PCP Internal Medicine; Visit Provider Internal Medicine
DX: E78.5 Hyperlipidemia, unspecified (principal); I71.21 Aneurysm of the ascending aorta, without rupture; I25.10 Atherosclerotic heart disease of native coronary artery without angina pectoris
CPT/HCPCS: 36415; 80048; 80061; 82306; 84450; 84460

== ENCOUNTER 2022-11-30 08:30 | Outpatient (AMB) | payer MEDICARE, SELFPAY ==
--- NOTE | 2022-11-30 08:32 | A.OFFPC_ITS ---
<Statement entered by Keiry Keller MD - 10/31/24 15:16> This note has been administratively?closed. Vital Signs 11/30/22 08:33 Height 5 ft 6 in Weight 141 lb BMI 22.8 BP 158/70 H Blood Pressure Location Lt brachial Position Sitting Pulse 63 Pulse Source Pulse Oximeter Pulse Oximetry (%) 97 Oxygen Delivery Method Room Air Intake Visit Reasons: 3 month follow CHF DM Intake Note: Patient here for follow up on CHF and diabetes. Allergies codeine [CODEINE] Allergy (Intermediate, Verified 11/30/22 08:34) RASH nicotine Allergy (Intermediate, Verified 11/30/22 08:34) NICOTINE PATCH- RASH, hives Penicillins Allergy (Intermediate, Verified 11/30/22 08:34) HIVES oxycodone [Percocet] Allergy (Unknown, Verified 11/30/22 08:34) rash, itching meperidine Allergy (Verified 11/30/22 08:34) Itching Tobacco use date assessed: 08/30/22 Fall risk assessment: No Falls in past year Last assessed Fall Risk: 11/30/22 HPI 3 month follow CHF DM HPI Details 77-year-old male with coronary artery disease, sees vascular surgery for his peripheral artery disease with claudication, ascending aortic aneurysm, followed by endocrine for his diabetes-pancreatic exocrine dysfunction syndrome, sees 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 Complains of nocturnal Leg cramps, currently on. magnesium supplements.? 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 Laboratory Tests 10/15/22 11/23/22 11/23/22 10:07 08:45 08:54 WBC Hgb Hct MCV MCH RDW Plt Count Sodium 142 Potassium 4.4 Chloride 112 H Carbon Dioxide 22 Anion Gap 12 BUN 25 H Creatinine 1.61 H Estim Creat Clear Calc 35.2 Estimated GFR 42 Glucose (Clinic) 127 H Random Glucose 201 H Hgb A1c (Clinic) 8.4 H Calcium 8.6 Phosphorus 4.1 Magnesium 1.9 Total Bilirubin 0.5 AST 73 H ALT 60 H Alkaline Phosphata se 82 Lactate Dehydrogen ase 571 H Total Protein 5.9 L Albumin 4.0 11/25/22 08:15 WBC 9.5 Hgb 9.3 L Hct 30.0 L MCV 91.7 MCH 28.4 RDW 21.0 H Plt Count 245 Sodium Potassium Chloride Carbon Dioxide Anion Gap BUN Creatinine Estim Creat Clear Calc Estimated GFR Glucose (Clinic) Random Glucose Hgb A1c (Clinic) Calcium Phosphorus Magnesium Total Bilirubin AST ALT Alkaline Phosphata se Lactate Dehydrogen ase Total Protein Albumin PFSH Medical History (Updated 11/30/22 @ 09:22 by Keiry Keller MD) Acute diastolic (congestive) heart failure Ascending aortic aneurysm Atherosclerotic cardiovascular disease Benign prostatic hyperplasia Cigarette smoker one half pack a day or less Congestive heart failure Degenerative disc disease, cervical Depression, major, recurrent, moderate Diabetes-pancreatic exocrine dysfunction syndrome Dyslipidemia Eczema of left external ear Fatigue after COVID-19 vaccination GERD (gastroesophageal reflux disease) Hemolytic anemia Hypertension detention (current) use of insulin Macrocytic anemia Peripheral vascular disease Positional lightheadedness Squamous cell carcinoma of skin Tubular adenoma of colon Surgical History History of endoscopic retrograde cholangiopancreatography History of pancreatic surgery Hx of cataract removal with insertion of prosthetic lens Hx of deep venous thrombosis Hx of hemorrhoidectomy Hx of hernia repair Hx of tonsillectomy Stented coronary artery Family History Father Coronary artery disease Diabetes mellitus Mother No problems noted. Social History Household Members: Spouse Housing: House Do you presently have visiting nurse or other home services: No Alcohol intake: former Patient Tobacco Use Status: Current someday Tobacco user Tobacco use type: Cigarette Cigarette Packs Per Day: 1 Years Smoked: 50+ Packs Per Year: 0 e-Cigarette/Vaping Use: Never Used service: No Current occupational status: retired Cognitive needs: No Hearing needs: Yes Vision needs: No Questionnaire Thrive Questionnaire Date Thrive assessed: 12/23/21 AUDIT C Alcohol Use Questionnaire (AUDIT-C) 1. How often do you have a drink containing alcohol?: Never 3. How often do you have six or more drinks on one occasion?: Never Total Score: 0 Score Reviewed/Action Taken: No DAVINA-7 AMB Questionnaire DAVINA-7 Date DAVINA - 7 assessed: 04/22/21 Source: Developed by Drs. Noble Lofton, Gali Louise, Hubert Roberts and colleagues, with an educational sabiha from [employer]. Physical exam (Primary Care) Vital Signs: Last Vital Signs Pulse 63 11/30/22 08:33 BP 158/70 H 11/30/22 08:33 Pulse Ox 97 11/30/22 08:33 Oxygen Delivery Method Room Air 11/30/22 08:33 BMI result Body Mass Index 22.8 Tobacco/Smoking Status: Tobacco use Status Tobacco use date assessed 08/30/22 11/30/22 08:37 Patient Tobacco Use Status Current someday Tobacco 11/30/22 08:37 Tobacco use type Cigarette 11/30/22 08:37 e-Cigarette/Vaping Use Never Used 11/30/22 08:37 Thrive Assessment: Date of Thrive Assessment Date Thrive assessed 12/23/21 11/30/22 08:37 Assessment and Plan Assessment & Plan (1) Hemolytic anemia: Comment: Gage negative Code(s): D58.9 - Hereditary hemolytic anemia, unspecified Plan: Followed by hematology (2) Dyslipidemia: Code(s): E78.5 - Hyperlipidemia, unspecified Plan: Continue atorvastatin 40 mg daily (3) Ascending aortic aneurysm: Code(s): I71.21 - Aneurysm of the ascending aorta, without rupture Plan: Followed by vascular surgery (4) Peripheral vascular disease: Comment: Followed by [facility] vascular surgery. Paresthesias lower extremities. Code(s): I73.9 - Peripheral vascular disease, unspecified Plan: Followed by vascular surgery at [facility] (5) Myelofibrosis: Comment: JAK2 mutation positive Code(s): D75.81 - Myelofibrosis Plan: Followed by hematology (6) Diabetes-pancreatic exocrine dysfunction syndrome: Comment: Followed at endocrine clinic Code(s): E13.9 - Other specified diabetes mellitus without complications Plan: Followed by Dr. Huang, reinforced again compliance with taking his medication, advised check his blood sugar before meals, and follow sliding scale coverage showed his insulin, currently on Tresiba decreased to 6 units daily. Advised to reschedule appointment with prosthodontist/educator for follow-up. Reminded that he has an appointment with fur finisher in February 2023 (7) Cigarette smoker one half pack a day or less: Code(s): F17.210 - Nicotine dependence, cigarettes, uncomplicated Plan: Patient strongly advised to quit smoking. Coding Level of Care Code Est Pt Level 4 (32639) Diagnoses Hemolytic anemia D58.9 Dyslipidemia E78.5 Ascending aortic aneurysm I71.21 Peripheral vascular disease I73.9 Myelofibrosis D75.81 Diabetes-pancreatic exocrine dysfunction syndrome E13.9 Cigarette smoker one half pack a day or less F17.210
[2022-11-30 08:33] VITALS: BP 158/70; PULSE 63; O2SAT 97; BMI 22.8
== END 2022-11-30 09:28 | disposition home or self-care (01) ==
LOC: HO.HMGC 08:30
PROVIDERS: PCP Internal Medicine; Visit Provider Internal Medicine
DX: D58.9 Hereditary hemolytic anemia, unspecified (principal); E78.5 Hyperlipidemia, unspecified; I71.21 Aneurysm of the ascending aorta, without rupture; I73.9 Peripheral vascular disease, unspecified; D75.81 Myelofibrosis; E13.9 Other specified diabetes mellitus without complications; F17.210 Nicotine dependence, cigarettes, uncomplicated
CPT/HCPCS: 99499

== ENCOUNTER 2023-01-10 08:08 | Outpatient (AMB) | payer MEDICARE, SELFPAY ==
--- NOTE | 2023-01-10 08:21 | A.OFFVIS_ITS ---
Intake Intake Visit Reasons: DM Allergies codeine [CODEINE] Allergy (Intermediate, Verified 12/30/22 08:12) RASH nicotine Allergy (Intermediate, Verified 12/30/22 08:12) NICOTINE PATCH- RASH, hives Penicillins Allergy (Intermediate, Verified 12/30/22 08:12) HIVES oxycodone [Percocet] Allergy (Unknown, Verified 12/30/22 08:12) rash, itching meperidine Allergy (Verified 12/30/22 08:12) Itching HPI Comprehensive Diabetes Asmnt Most Recent Diabetes Results: Cholesterol 66 mg/dL 11/30/22 HDL Cholesterol 19 mg/dL 11/30/22 Triglycerides 85 mg/dL 11/30/22 Creatinine 1.42 mg/dL (0.5-1.4) H 11/30/22 Blood Urea Nitrogen 24 mg/dL (9-16) H 11/30/22 Sodium 140 mmol/L (135-145) 11/30/22 Potassium 4.1 mmol/L (3.3-5.1) 11/30/22 Chloride 107 mmol/L (96-108) 11/30/22 Carbon Dioxide 25 mmol/L (22-29) 11/30/22 Calcium 8.4 mg/dL (8.4-10.2) 11/30/22 AST 61 U/L (5-37) H 11/30/22 ALT 45 U/L (0-40) H 11/30/22 Total Protein 5.9 g/dL (6.5-8.0) L 10/15/22 Albumin 4.0 g/dL (3.5-5.0) 10/15/22 [facility] Medical History (Updated 11/30/22 @ 09:22 by Keiry Keller MD) Acute diastolic (congestive) heart failure Ascending aortic aneurysm Atherosclerotic cardiovascular disease Benign prostatic hyperplasia Cigarette smoker one half pack a day or less Congestive heart failure Degenerative disc disease, cervical Depression, major, recurrent, moderate Diabetes-pancreatic exocrine dysfunction syndrome Dyslipidemia Eczema of left external ear Fatigue after COVID-19 vaccination GERD (gastroesophageal reflux disease) Hemolytic anemia Hypertension MCC (current) use of insulin Macrocytic anemia Peripheral vascular disease Positional lightheadedness Squamous cell carcinoma of skin Tubular adenoma of colon Surgical History History of endoscopic retrograde cholangiopancreatography History of pancreatic surgery Hx of cataract removal with insertion of prosthetic lens Hx of deep venous thrombosis Hx of hemorrhoidectomy Hx of hernia repair Hx of tonsillectomy Stented coronary artery Family History Father Coronary artery disease Diabetes mellitus Mother No problems noted. Social History Household Members: Spouse Housing: House Do you presently have visiting nurse or other home services: No Alcohol intake: former Patient Tobacco Use Status: Current someday Tobacco user Tobacco use type: Cigarette Cigarette Packs Per Day: 1 Years Smoked: 50+ e-Cigarette/Vaping Use: Never Used service: No Current occupational status: retired Cognitive needs: No Hearing needs: Yes Vision needs: No Assessment & Plan Assessment & Plan (1) Diabetes-pancreatic exocrine dysfunction syndrome: Comment: Followed at endocrine clinic Code(s): E13.9 - Other specified diabetes mellitus without complications Plan: Diabetes self-management education and support participation record Assessment/scale: 1= needs instructed? 2= needs review? 3= comprehend keep point? 4= demonstrates understanding/ competent? NC= Not Covered Topics Learning Objective: Initial visit Initial or post srvc Initial or post srvc Initial or post srvc Initial or post srvc Initial or post srvc Post srvc Comments Pre Edu-assessment/plan Outcome or reassess Outcome or reassess Outcome or reassess Outcome or reassess Outcome or reassess Outcome or reassess Diabetes pathophysiology 1 Healthy eating 2 Being active Taking medication 2 Monitoring glucose 2 Acute complication Chronic complicated Lifestyle and healthy coping 1 Diabetes distress in support 2 ?Diabetes pathophysiology: ?Defined diabetes med identify own type of diabetes; list 3 options for treating diabetes Healthy eating: ?Described effect of type, amount and ?timing of food on blood glucose; list 3 methods for planning meal Being active: ?State effect of exercise on blood glucose level Taking medication: ?State effect of diabetes medications on diabetes; name diabetes medications taking, action and side effects Monitoring glucose: ?Identify recommended blood glucose targets and personal target Acute complication: ?List symptoms and treatment of hyper and hypoglycemia, DKA, sick day guidelines and guidelines for severe weather or situations of crisis and diabetes supply manage Chronic complication: ?To find the relationship of blood glucose levels to long- term complications of diabetes in screening and preventative measures Lifestyle and healthy coping: ?Described lifestyle and healthy coping strategies to rule out diabetes self-management Diabetes to stress and support: ?Recognize Diabetes to stress and be able to identified support options Learning objectives: The patient was provided with verbal and written education on the following topics as outlined below. The patient met all learning objectives and was able to verbalize understanding and provide teach back of education topics discussed . The patient was provided with the opportunity to ask questions and all questions were answered. Patient Assessment Assess patient education level/literacy/barriers Patient questions/concerns, patient lives at home with his , is currently dealing with multiple medical issues which at times reports he finds overwhelming. Patient is currently taking Tresiba 8 units daily NovoLog 6-7 units for large meals 3 units for small meals plus sliding correction scale Patient reports he frequently takes NovoLog dose 30 minutes before meals What is Diabetes? Pathophysiology How the body produces and uses insulin Identify type of DM Risk factors Signs of Diabetes Brief overview of Diabetes Management Monitoring blood sugar Following a meal plan Regular exercise Maintaining a healthy weight Taking medication as needed Members of the care team (PCP, RN, MA, RD, CDE, production machine tender) Blood glucose monitoring When/how often to test Target blood sugar ranges Patient using freestyle Ramiro 2 to test blood sugar Patient's average glucose for the past 2 weeks 260 mg/dL Patient above target 75% Patient at target 24 % Patient below target 1% Introduction to Nutrition Importance of healthy diet in managing DM Diet is personalized to individual preference Review patient?s regular diet/food preferences Who prepares meals/does food shopping/ Dining out?/ Barriers? How diet effects glucose Eating 3 balanced meals a day with small, healthy snacks between meals Review food groups Carbohydrates: What is a carbohydrate/Which food/food groups are considered carbohydrates Effect of carbohydrates on blood glucose Portion sizes Reading food labels Basic carb counting (if applicable per nursing assessment) Plate method Meal planning Recommendations: Follow plate method, consistent carbs and read nutritional labels. Smart Goal:Pt will take Novolog dose 15 mins before meals Patient Response to instructions: Comprehension of Instructions: Fair Readiness to make changes: Contemplation How confident they feel about making changes: fair Patient Instructions: Take Novolog 15 minutes before meals NovoLog 6-7 units for large meals and 3 units for small meals. Novolog Correction scale: 251-300 1 extra units 301-350 2 extra units 351- or more 3 extra units follow up with nurse educator in one month Bring food labels of foods that you eat frequently to next visit Coding Level of Care Code Est Pt Level 1 (26758) Diagnoses Diabetes-pancreatic exocrine dysfunction syndrome E13.9
== END 2023-01-10 09:02 | disposition home or self-care (01) ==
PROVIDERS: PCP Internal Medicine; Visit Provider Registered Nurse Diabetes Educator
DX: E13.9 Other specified diabetes mellitus without complications (principal)

== ENCOUNTER → 2023-01-10 08:08 | Outpatient (BNVA) | payer MEDICARE, SELFPAY | PROVIDERS: PCP Internal Medicine; Visit Provider Registered Nurse Diabetes Educator | DX: E13.9 Other specified diabetes mellitus without complications (principal); K86.81 Exocrine pancreatic insufficiency; Z79.85 Long-term (current) use of injectable non-insulin antidiabetic drugs | CPT/HCPCS: 99211 ==

== ENCOUNTER 2023-02-10 07:59 | Outpatient (AMB) | payer MEDICARE, SELFPAY ==
--- NOTE | 2023-02-10 08:42 | A.OFFVIS_ITS ---
Intake Intake Visit Reasons: DM Allergies codeine [CODEINE] Allergy (Intermediate, Verified 12/30/22 08:12) RASH nicotine Allergy (Intermediate, Verified 12/30/22 08:12) NICOTINE PATCH- RASH, hives Penicillins Allergy (Intermediate, Verified 12/30/22 08:12) HIVES oxycodone [Percocet] Allergy (Unknown, Verified 12/30/22 08:12) rash, itching meperidine Allergy (Verified 12/30/22 08:12) Itching HPI Comprehensive Diabetes Asmnt Most Recent Diabetes Results: Cholesterol 66 mg/dL 11/30/22 HDL Cholesterol 19 mg/dL 11/30/22 Triglycerides 85 mg/dL 11/30/22 Creatinine 1.30 mg/dL (0.5-1.4) 01/26/23 Blood Urea Nitrogen 18 mg/dL (9-16) H 01/26/23 Sodium 140 mmol/L (135-145) 01/26/23 Potassium 4.8 mmol/L (3.3-5.1) 01/26/23 Chloride 107 mmol/L (96-108) 01/26/23 Carbon Dioxide 23 mmol/L (22-29) 01/26/23 Calcium 8.7 mg/dL (8.4-10.2) 01/26/23 AST 38 U/L (5-37) H 01/26/23 ALT 30 U/L (0-40) 01/26/23 Total Protein 5.6 g/dL (6.5-8.0) L 01/26/23 Albumin 3.4 g/dL (3.5-5.0) L 01/26/23 [facility] Medical History Acute diastolic (congestive) heart failure Ascending aortic aneurysm Atherosclerotic cardiovascular disease Benign prostatic hyperplasia Cigarette smoker one half pack a day or less Congestive heart failure Degenerative disc disease, cervical Depression, major, recurrent, moderate Diabetes-pancreatic exocrine dysfunction syndrome Dyslipidemia Eczema of left external ear Fatigue after COVID-19 vaccination GERD (gastroesophageal reflux disease) Hemolytic anemia Hypertension 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 Social History Household Members: Spouse Housing: House Do you presently have visiting nurse or other home services: No Alcohol intake: former Patient Tobacco Use Status: Current someday Tobacco user Tobacco use type: Cigarette Cigarette Packs Per Day: 1 Years Smoked: 50+ e-Cigarette/Vaping Use: Never Used service: No Current occupational status: retired Cognitive needs: No Hearing needs: Yes Vision needs: No Assessment & Plan Assessment & Plan (1) Diabetes-pancreatic exocrine dysfunction syndrome: Comment: Followed at endocrine clinic Code(s): E13.9 - Other specified diabetes mellitus without complications Plan: Diabetes self-management education and support participation record Assessment/scale: 1= needs instructed? 2= needs review? 3= comprehend keep point? 4= demonstrates understanding/ competent? NC= Not Covered Topics Learning Objective: Initial visit Initial or post srvc Initial or post srvc Initial or post srvc Initial or post srvc Initial or post srvc Post srvc Comments Pre Edu-assessment/plan Outcome or reassess Outcome or reassess Outcome or reassess Outcome or reassess Outcome or reassess Outcome or reassess Diabetes pathophysiology 1 3 Healthy eating 2 3 Being active 2 Taking medication 2 3 Monitoring glucose 2 3 Acute complication 1 Chronic complicated 1 Lifestyle and healthy coping 1 Diabetes distress in support 2 ?Diabetes pathophysiology: ?Defined diabetes med identify own type of diabetes; list 3 options for treating diabetes Healthy eating: ?Described effect of type, amount and ?timing of food on blood glucose; list 3 methods for planning meal Being active: ?State effect of exercise on blood glucose level Taking medication: ?State effect of diabetes medications on diabetes; name diabetes medications taking, action and side effects Monitoring glucose: ?Identify recommended blood glucose targets and personal target Acute complication: ?List symptoms and treatment of hyper and hypoglycemia, DKA, sick day guidelines and guidelines for severe weather or situations of crisis and diabetes supply manage Chronic complication: ?To find the relationship of blood glucose levels to long- term complications of diabetes in screening and preventative measures Lifestyle and healthy coping: ?Described lifestyle and healthy coping strategies to rule out diabetes self-management Diabetes to stress and support: ?Recognize Diabetes to stress and be able to identified support options Blood glucose monitoring When/how often to test Target blood sugar ranges Patient using freestyle Ramiro 2 to test blood sugar Patient's average glucose for the past 2 weeks 233 mg/dL Patient above target 70% Patient at target 30% Patient below target 0% Learning objectives: The patient was provided with verbal and written education on the following topics as outlined below. Assess patient education level/literacy/barriers Patient questions/concerns The patient met all learning objectives and was able to verbalize understanding and provide teach back of education topics discussed . The patient was provided with the opportunity to ask questions and all questions were answered. Patient have visit his spouse, reports he is still sometimes waiting till after meals to take mealtime insulin. Especially if pre meal glucose is within target range. Reviewed with patient action of Glad [employer] Have You in the importance of taking before meals. Patient brought in food labels from [employer], reviewed with patient how to read food labels Topics covered in today?s session included: Medications (If applicable) ? Name of medication? Dosing/administration instructions? Mechanism of action? Potential side effects? Potential adverse reaction and appropriate treatment? Review onset, peak, duration Assess for concerns re: insurance coverage, cost, barriers to compliance Insulin/Injectables (If applicable) ? Storage/care of insulin? Injection sites? Site rotation? Onset, peak, duration ? Drawing up insulin? Injecting insulin/other injectables? Sharps disposal Continuous blood glucose monitoring (if applicable) Hypoglycemia and Hyperglycemia ? Signs and symptoms? Causes? Treatment? Preventing hypoglycemia? When to seek medical attention ?Blood glucose targets and how you feel when your blood glucose is in and out of your target ranges. ?Monitoring and knowing your A1C. ?What can make blood glucose go up and down and preventing high and low blood glucose. ?Review of blood sugar targets in expected goal range and outside of expected goal range. ?Problem solving and preventing hyper/hypoglycemia. ?Sick day management of diabetes. ?Using blood sugar results in decision making process in managing diabetes. ?Patient was receptive to information provided and participated in the discussion. Asked?appropriate questions and demonstrated good understanding of the topics discussed.? ? Educational Materials: The patient was provided with the following written educational materials: Target Goal handout Smart Goal Assessment:? Patient will take mealtime insulin 15 minutes before meal ? Pt met goal 50% Continue Smart Goal:Patient will take mealtime insulin 15 minutes before meal Patient Response to instructions: Comprehension of Instructions: Fair Readiness to make changes:? Contemplation How confident they feel about making changes: Fair Patient Instructions: Take Novolog 15 minutes before meals NovoLog 6-7 units for large meals and 3 units for small meals. Novolog Correction scale: 251-300 1 extra units 301-350 2 extra units 351- or more 3 extra units Follow-up with Diabetes Education nurse in 2 months Coding Level of Care Code Est Pt Level 1 (74217) Diagnoses Diabetes-pancreatic exocrine dysfunction syndrome E13.9
== END 2023-02-10 08:46 | disposition home or self-care (01) ==
PROVIDERS: PCP Internal Medicine; Visit Provider Registered Nurse Diabetes Educator
DX: E13.9 Other specified diabetes mellitus without complications (principal)

== ENCOUNTER → 2023-02-10 07:59 | Outpatient (BNVA) | payer MEDICARE, SELFPAY | PROVIDERS: PCP Internal Medicine; Visit Provider Registered Nurse Diabetes Educator | DX: E13.9 Other specified diabetes mellitus without complications (principal); Z79.4 Long term (current) use of insulin | CPT/HCPCS: 99211 ==

== ENCOUNTER 2023-03-17 09:27 | Outpatient (AMB) | payer MEDICARE, SELFPAY ==
--- NOTE | 2023-03-17 09:45 | A.OFFPC_ITS ---
Vital Signs 03/17/23 09:50 Height 5 ft 6 in Weight 139 lb BMI 22.4 BP 145/78 H Blood Pressure Location Lt brachial Position Sitting Pulse 60 Pulse Source Pulse Oximeter Pulse Oximetry (%) 98 Oxygen Delivery Method Room Air Intake Visit Reasons: 3 month follow up Intake Note: patient is here today for his 3 month f/u Allergies codeine [CODEINE] Allergy (Intermediate, Verified 03/22/23 08:34) RASH nicotine Allergy (Intermediate, Verified 03/22/23 08:34) NICOTINE PATCH- RASH, hives Penicillins Allergy (Intermediate, Verified 03/22/23 08:34) HIVES oxycodone [Percocet] Allergy (Unknown, Verified 03/22/23 08:34) rash, itching meperidine Allergy (Verified 03/22/23 08:34) Itching Medication List - Last Reconciled 03/17/23 by Keiry Keller MD albuterol sulfate 90 mcg/actuation 2 puffs inhalation Q4H PRN aspirin 81 mg PO DAILY B [id number] 106 mg iron- 1 mg 1 tab PO DAILY blood sugar diagnostic 3 times a day blood sugar diagnostic (FreeStyle Lite Strips) As directed three times a day blood-glucose meter (FreeStyle Lite Meter kit) As directed 3x/day carvedilol 1 tab PO BID cholecalciferol (vitamin D3) 50 mcg PO DAILY danazol 200 mg PO BID [Diabetic shoes & 3 pair inserts as directed] diphenhydramine HCl 12.5 mg PO BEDTIME PRN flash glucose scanning reader (FreeStyle Ramiro 2 [place]) As directed flash glucose sensor (FreeStyle Ramiro 2 Sensor kit) As directed change every 14 days fluticasone propionate 50 mcg/actuation 1 spray intranasal DAILY PRN insulin aspart U-100 (Novolog FlexPen U-100 Insulin aspart) 3 - 7 units (0.03 - 0.07 mL) subcut TID insulin degludec 8 units (0.08 mL) subcut DAILY lancets As directed [id number] 24,000-76,000 -120,000 unit (Creon) 1 cap PO TIDAC loratadine 10 mg PO DAILY PRN lorazepam 0.5 mg (1/2 x 1 mg) PO DAILY PRN metoprolol succinate ER 12.5 mg PO DAILY omeprazole 40 mg PO DAILY pen needle, diabetic (BD Ultra-Fine Nydia Pen Needle) USE TO INJECT 4 TIMES A DAY DIRECTED torsemide 20 mg PO DAILY valsartan 40 mg PO BID Tobacco use date assessed: 03/17/23 Fall risk assessment: No Falls in past year Last assessed Fall Risk: 03/17/23 Dental Screening Dental Screen Date: 03/17/23 Did you have a dental visit in the last 12 months?: No Did you have a dental problem in the last 6 months where you did not have access to dental care?: No Was dental information given to patient?: No HPI HPI Comments History of Present Illness Details 78-year-old male with peripheral artery disease with claudication, followed by vascular surgery , has coronary artery disease with ascending aortic aneurysm, followed by cardiology, and is being followed by endocrine for his diabetes-pancreatic exocrine dysfunction syndrome, sees 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 Patient states that he has been feeling very anxious lately, unable to relax. [facility] Medical History (Updated 03/17/23 @ 10:15 by Keiry Keller MD) Generalized anxiety disorder Cigarette smoker one half pack a day or less Hemolytic anemia Squamous cell carcinoma of skin Ascending aortic aneurysm Atherosclerotic cardiovascular disease Acute diastolic (congestive) heart failure Congestive heart failure Eczema of left external ear Macrocytic anemia Positional lightheadedness Depression, major, recurrent, moderate Benign prostatic hyperplasia Fatigue after COVID-19 vaccination Tubular adenoma of colon GERD (gastroesophageal reflux disease) Peripheral vascular disease Degenerative disc disease, cervical Hypertension 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 Social History Household Members: Spouse Housing: House Do you presently have visiting nurse or other home services: No Alcohol intake: former Patient Tobacco Use Status: Current someday Tobacco user Tobacco use type: Cigarette Cigarette Packs Per Day: 1 Years Smoked: 50+ e-Cigarette/Vaping Use: Never Used service: No Current occupational status: retired Cognitive needs: No Hearing needs: Yes Vision needs: No Questionnaire PHQ-9 Over the last 2 weeks, how often have you been bothered by any of the following problems? 1. Little interest or pleasure in doing things: not at all 2. Feeling down, depressed, or hopeless: not at all 3. Trouble falling or staying asleep, or sleeping too much: more than half the days 4. Feeling tired or having little energy: several days 5. Poor appetite or overeating: not at all 6. Feeling bad about yourself - or that you are a failure or have let yourself or your family down: not at all 7. Trouble concentrating on things, such as reading the newspaper or watching television: several days 8. Moving or speaking so slowly that other people could have noticed. Or the opposite - being so fidgety or restless that you have been moving around a lot more than usual: several days 9. Thoughts that you would be better off or of hurting yourself in some way: not at all Total score: 5 Depression Screening Interpretation: Negative 42614 - PHQ-9 Billing: Yes Source: Developed by Drs. Noble Lofton, Gali Louise, Hubert Roberts and colleagues, with an educational sabiha from [employer] Thrive Questionnaire Date Thrive assessed: 03/17/23 I am a: Patient What is your living situation today?: I have a steady place to live Within the past 12 months, did the food you bought not last and you didn't have the money to get more?: Never true Within the past 12 months, did you worry whether your food would run out before you got money to buy more?: Never true Do you have trouble paying for medicines?: No Do you have trouble getting transportation to medical appointments?: No Do you have trouble paying your heating and electricity bill?: No Do you have trouble taking care of your child, family member or friend?: No Do you have trouble with day-to-day activities such as bathing, preparing meals, shopping, managing finances, etc.?: No Are you currently unemployed and looking for a job?: No Are you interested in more education?: No Please select the resources that you would like help with: None AUDIT C Alcohol Use Questionnaire (AUDIT-C) 1. How often do you have a drink containing alcohol?: Never Total Score: 0 DAVINA-7 AMB Questionnaire DAVINA-7 Date DAVINA - 7 assessed: 04/22/21 Feeling nervous, anxious, or on edge: 3 = Nearly every day Not being able to stop or control worryin = Nearly every day Worrying too much about different things: 3 = Nearly every day Trouble relaxin = More than half the days Being so restless that it is hard to sit still: 2 = More than half the days Becoming easily annoyed or irritable: 2 = More than half the days Feeling afraid as if something awful might happen: 1 = Several days Total DAVINA-7 score (0-4 normal; 5-9 mild; 10-14 moderate; 15-21 severe): 16 Source: Developed by Drs. Noble Lofton, Gali Louise, Hubert Roberts and colleagues, with an educational sabiha from [employer] DAVINA-7 Assessment Billing DAVINA-7 Assessment Tool: DAVINA-7 Assessment 50425 Review of Systems Const Reports fatigue, Denies headache(s), Reports malaise, Denies weight gain and Denies weight loss Eyes Denies change in vision ENT Denies dysphagia, Reports dizziness (Position), Denies headache(s), Reports hearing loss, Denies nasal congestion, Denies post nasal drip, Denies sinus pain and Denies sore throat Card Denies chest pain, Denies syncope, Denies rapid heart rate, Denies edema, Denies irregular heart rhythm, Reports lightheadedness (Positional) and Reports dyspnea on exertion Resp Denies chest congestion, Denies excessive phlegm production, Denies pain on inspiration, Denies pain with cough and Reports dyspnea on exertion GI Denies abdominal pain, Denies melena, Denies bloating, Denies hematochezia, Denies change in bowel habits, Denies dysphagia, Denies heartburn and Denies nausea Reports no additional complaints Musc Denies joint swelling, Reports stiffness and Denies tingling Neuro Reports burning sensations, Reports dizziness (Position), Denies syncope, Denies headache(s), Denies focal weakness and Denies tingling Psych Reports as per HPI Endo Reports fatigue, Denies polyphagia, Denies polydipsia and Denies polyuria Aaron/Lymph Denies easy bleeding and Denies easy bruising Aller/Immun Reports no additional complaints Physical exam (Primary Care) Vital Signs: Last Vital Signs Pulse 60 03/17/23 09:50 BP 145/78 H 03/17/23 09:50 Pulse Ox 98 03/17/23 09:50 Oxygen Delivery Method Room Air 03/17/23 09:50 BMI result Body Mass Index 22.4 Tobacco/Smoking Status: Tobacco use Status Tobacco use date assessed 03/17/23 03/17/23 09:55 Patient Tobacco Use Status Current someday Tobacco 03/17/23 09:55 Tobacco use type Cigarette 03/17/23 09:55 e-Cigarette/Vaping Use Never Used 03/17/23 09:55 PHQ-9: PHQ-9 Score PHQ-9: Total score 5 03/17/23 10:25 Depression Screening Interpretation: Negative Thrive Assessment: Date of Thrive Assessment Date Thrive assessed 03/17/23 03/17/23 10:25 Const Other: Alert oriented x3, no acute distress noted ambulatory with assistance of a cane Orientation/consciousness: patient oriented x3 HENMT Ears: external ears normal, TM's normal bilaterally, EAC's normal and hearing grossly impaired General nose exam: Normal external nose present and No nasal discharge present Face and sinus: Yes sinuses nontender and Yes face symmetric Mouth: Normal oral and palatal mucosa present and moist mucous membranes Teeth and gingiva: edentulous Eyes General: appearance normal, both eyes and all related structures Neck Other: Supple, no lymphadenopathy, no carotid bruits, thyroid gland nonpalpable Resp Effort & Inspection: normal respiratory effort and able to speak in complete sentences Auscultation: clear to auscultation bilaterally Cardio Other: S1-S2 present regular rate and rhythm Bruits: no abdominal aortic bruits GI Palpation (GI): No Abdominal aortic bruit present, Soft to palpation, nontender, no guarding and no masses Auscultation: normal bowel sounds General: Yes no CVA tenderness Back/Spine/Pelvis Back: no CVA tenderness and No back tenderness Skin General skin exam: no rashes or lesions noted Neuro General: patient oriented x3, moves all extremities, Normal light touch and pain sensation, no focal motor deficits and CN's II-XI intact bilaterally Extrem General: Yes full ROM, Yes no joint enlargement and Yes no clubbing, cyanosis or edema Psych Appearance: grossly normal and well kempt Mental Status: mental status grossly normal Speech and movement: Normal speech and movement present Affect: normal affect Attitude: cooperative Results Reviewed Results Reviewed: SPEC : [id number] TERESA: 11/30/22 STATUS: COMP REQ : [id number] RECD: 11/30/[address]: Keiry Keller MD COMP: 11/30/22 ENTERED: 11/30/[address]: ORDERED: Met Prof Fast, AST, ALT, Lipid Panel, Vitamin D 25-OH Test Result Flag Reference Site Sodium 140 135-145 mmol/L Potassium 4.1 3.3-5.1 mmol/L CL 107 96-108 mmol/L CO2 25 22-29 mmol/L Gap 12 12-20 BUN 24 H 9-16 mg/dL Creat 1.42 H 0.5-1.4 mg/dL EGFR 49 NOTE: For -[place] individuals, multiply the result by 1.210. Chronic Kidney Disease: Estimated GFR < 60 mL/min/1.73m2 Severe Kidney Disease: Estimated GFR < 15 mL/min/1.73m2 FBS 325 H 60-99 mg/dL A fasting glucose of 126 mg/dl or greater on more than one occasion is considered diagnostic of diabetes. CA 8.4 8.4-10.2 mg/dL AST (GOT) 61 H 5-37 U/L ALT (GPT) 45 H 0-40 U/L Triglyceride 85 mg/dL Desirable Triglyceride: less than 150 mg/dL Borderline High Triglyceride 150-199 mg/dL High Triglyceride: 200-499 mg/dL Very High Triglyceride: greater than or equal to 5OO mg/dL Chol 66 mg/dL Desirable Cholesterol: less than 200 mg/dL Borderline High Cholesterol: 200-239 mg/dL High Cholesterol: greater than 239 mg/dL LDL Calculated 30 mg/dl Desirable LDL: less than 100 mg/dL Near Optimal/Above Optimal LDL: 110-129 mg/dL Borderline High LDL: 130-159 mg/dL High LDL: 160-189 mg/dL Very High LDL: greater than or equal to 190 mg/dL HDL 19 mg/dL Desirable HDL: greater than 40 mg/dL Note: This HDL assay may give artificially low results in patients with liver disease. Vit D 25-OH Tot 29.7 >30 ng/mL Health Based Reference Values* < 20 ng/mL Deficient 20-30 ng/mL Insufficient > 30 ng/mL Sufficient Assessment and Plan Assessment & Plan (1) Generalized anxiety disorder: Code(s): F41.1 - Generalized anxiety disorder Plan: Started on buspirone 5 mg per tablet to take 1 tablet twice a day. Discussed symptoms of anxiety. Discussed other ways to relieve stress including : exercise or a massage, Get enough rest, Avoid alcohol, caffeine, nicotine, and illegal drugs which can increase your anxiety level and cause sleep problems. Medications: New buspirone 5 mg PO BID 60 tabs 1RF F41.1 - Generalized anxiety disorder Refilled cholecalciferol (vitamin D3) 50 mcg PO DAILY 90 caps 1RF Coding Level of Care Code Est Pt Level 3 (01015) Diagnoses Generalized anxiety disorder F41.1 Additional Codes DAVINA-7 Assessment Billing - DAVINA-7 Assessment Tool: DAVINA-7 Assessment 62485 ([id number])
[2023-03-17 09:50] VITALS: BP 145/78; PULSE 60; O2SAT 98; BMI 22.4
== END 2023-03-17 12:51 | disposition home or self-care (01) ==
PROVIDERS: PCP Internal Medicine; Visit Provider Internal Medicine
DX: F41.1 Generalized anxiety disorder (principal)
CPT/HCPCS: 99213

== ENCOUNTER 2023-03-22 08:26 | Outpatient (AMB) | payer MEDICARE, SELFPAY ==
--- NOTE | 2023-03-22 08:27 | MHC.OFFVIS ---
Intake Vital Signs 03/22/23 08:30 Height 5 ft 6 in Weight 141 lb 8.588 oz BMI 22.8 BP 142/62 H Blood Pressure Location Lt brachial Position Sitting Pulse 71 Pulse Source Pulse Oximeter Intake Visit Reasons: f/u pancreolytic diabetes/Confirmed Intake Note: Patient presents today to follow up for Pancreolyic Diabetes. 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 Accompanied by: Spouse Allergies codeine [CODEINE] Allergy (Intermediate, Verified 03/22/23 08:34) RASH nicotine Allergy (Intermediate, Verified 03/22/23 08:34) NICOTINE PATCH- RASH, hives Penicillins Allergy (Intermediate, Verified 03/22/23 08:34) HIVES oxycodone [Percocet] Allergy (Unknown, Verified 03/22/23 08:34) rash, itching meperidine Allergy (Verified 03/22/23 08:34) Itching Medication List - Last Reconciled 03/22/23 by Noble Huang MD albuterol sulfate 90 mcg/actuation 2 puffs inhalation Q4H PRN aspirin 81 mg PO DAILY B [id number]-FA 106 mg iron- 1 mg 1 tab PO DAILY blood sugar diagnostic 3 times a day blood sugar diagnostic (FreeStyle Lite Strips) As directed three times a day blood-glucose meter (FreeStyle Lite Meter kit) As directed 3x/day buspirone 5 mg PO BID carvedilol 1 tab PO BID cholecalciferol (vitamin D3) 50 mcg PO DAILY [Diabetic shoes & 3 pair inserts as directed] diphenhydramine HCl 12.5 mg PO BEDTIME PRN flash glucose scanning reader (FreeStyle Ramiro 2 [place]) As directed flash glucose sensor (FreeStyle Ramiro 2 Sensor kit) As directed change every 14 days fluticasone propionate 50 mcg/actuation 1 spray intranasal DAILY PRN insulin aspart U-100 (Novolog FlexPen U-100 Insulin aspart) 3 - 7 units (0.03 - 0.07 mL) subcut TID insulin degludec 8 units (0.08 mL) subcut DAILY lancets As directed [id number] 24,000-76,000 -120,000 unit (Creon) 1 cap PO TIDAC loratadine 10 mg PO DAILY PRN lorazepam 0.5 mg (1/2 x 1 mg) PO DAILY PRN metoprolol succinate ER 12.5 mg PO DAILY omeprazole 40 mg PO DAILY pen needle, diabetic (BD Ultra-Fine Nydia Pen Needle) USE TO INJECT 4 TIMES A DAY DIRECTED torsemide 20 mg PO DAILY valsartan 40 mg PO BID HPI HPI Comments History of Present Illness Details Patient is a 78-year-old male with 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 , HTN, HTN, vitamin-D deficiency. Question of dementia. Micro and macrovascular complications: +neuropathy, +CAD, +PVD Diabetes medications: Tresiba 6 units. NovoLog 6-7 units for large meals and 3 units for small meals. Novolog Correction scale: 251-300 1 extra units 301-350 2 extra units 351- or more 3 extra units Continuous glucose monitoring: C GM is active 97%. Average blood glucose . GM I 8.2 %. Glucose in target range of 70-180, 46%. 53% above range. 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 Complain of spasms in upper and lower extremity Laboratory Tests 12/02/20 04/17/21 07/15/21 08:45 07:32 07:32 Creatinine Estimated GFR Hgb A1c (Clinic) Triglycerides 165 Cholesterol 104 LDL Cholesterol, C alc 33 HDL Cholesterol 38 Vitamin B12 803 25-OH Vitamin D To [place] Microalb/Creat Rat io 47.6 07/15/21 07/30/21 09/03/21 07:32 07:36 11:24 Creatinine 0.91 Estimated GFR > 60 Hgb A1c (Clinic) 6.5 H Triglycerides Cholesterol LDL Cholesterol, C alc HDL Cholesterol Vitamin B12 25-OH Vitamin D To [place] 23.6 Microalb/Creat Rat io 11/12/21 07:44 Creatinine Estimated GFR Hgb A1c (Clinic) 6.8 H Triglycerides Cholesterol LDL Cholesterol, C alc HDL Cholesterol Vitamin B12 25-OH Vitamin D To [place] Microalb/Creat Rat io [facility] Medical History (Updated 03/17/23 @ 10:15 by Keiry Keller MD) Generalized anxiety disorder Cigarette smoker one half pack a day or less Hemolytic anemia Squamous cell carcinoma of skin Ascending aortic aneurysm Atherosclerotic cardiovascular disease Acute diastolic (congestive) heart failure Congestive heart failure Eczema of left external ear Macrocytic anemia Positional lightheadedness Depression, major, recurrent, moderate Benign prostatic hyperplasia Fatigue after COVID-19 vaccination Tubular adenoma of colon GERD (gastroesophageal reflux disease) Peripheral vascular disease Degenerative disc disease, cervical Hypertension Dyslipidemia 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 Social History Household Members: Spouse Housing: House Do you presently have visiting nurse or other home services: No Alcohol intake: former Patient Tobacco Use Status: Current someday Tobacco user Tobacco use type: Cigarette Cigarette Packs Per Day: 1 Years Smoked: 50+ e-Cigarette/Vaping Use: Never Used service: No Current occupational status: retired Cognitive needs: No Hearing needs: Yes Vision needs: No Physical Exam Vital Signs: Last Vital Signs Pulse 71 03/22/23 08:30 BP 142/62 H 03/22/23 08:30 BMI result Body Mass Index 22.8 Absence of Cushingoid features. Absence of acromegalic features. Neck exam reveals nl size thyroid about 15 gms. No thyroid nodules palpable. No carotid bruits present. Lungs CTA. Heart S1 S2, Reg R/R. No M/R/ G. Skin exam reveals absence of vitiligo or acanthosis nigricans. Abdominal exam reveals Soft NT/ND with NA BS. No organomegaly present. Neck Other: . Extrem Other: Visual exam of foot performed. No ulcerations or open lesions. No onchomycosis, no callouses.Pulses 2 + distally Sensation intact to monofilament exam. Vibratory sensation sensed is decreased with 128 Hz tuning fork Results AMB Hemoglobin A1c AMB Hemoglobin A1c 7.3 % Last Edit by Yolanda Reich on 03/22/23 08:56 Results Reviewed Results Reviewed: 03/22/23 08:38 Glucose, Whole Blood Routine Laboratory Last Values Glucose (Clinic) 244 mg/dL (60-115) H 03/22/23 08:38 Assessment & Plan Assessment & Plan (1) Diabetes-pancreatic exocrine dysfunction syndrome: Comment: Followed at endocrine clinic Code(s): E13.9 - Other specified diabetes mellitus without complications Plan: This 78-year-old white male with a history of diabetes status post Whipple procedure being treated with basal-bolus insulin with poor deterioated glycemic control a. He has known microvascular and macrovascular complications namely neuropathy, micro albuminuria, CAD and PVD. HbA1c may not be reflective glycemic control considering anemia. Deteriorated control could be multifactorial including omission of insulin due to memory problems. The plan is to reinforce the patient to take the log insulin 10-15 minutes prior to breakfast. Will increase the NovoLog by 2 units before breakfast and dinner . Patient's ability to manage his blood sugars are somewhat limited by his cognitive ability. His is very helpful but She was not present for the visit today Ideally considering the presence of pancreo lytic diabetes as well as wide fluctuations of blood sugars, patient would benefit from insulin pump like Omnipod or tandem in combination with Dexcom. However, patient is not candidate for pump. He should follow-up with the asthma educator and bring his to future appointments Orders: Orders AMB Hemoglobin A1c Today E13.9 - Other specified diabetes mellitus without complications Coding Level of Care Code Est Pt Level 4 (28080) Diagnoses Diabetes-pancreatic exocrine dysfunction syndrome E13.9
[2023-03-22 08:30] VITALS: BP 142/62; PULSE 71; BMI 22.8
[2023-03-22 08:43] LABS: Glucose, Whole Blood 244 mg/dL (60-115)
== END 2023-03-22 08:55 | disposition home or self-care (01) ==
PROVIDERS: PCP Internal Medicine; Visit Provider Internal Medicine Endocrinology, Diabetes & Metabolism
DX: E13.9 Other specified diabetes mellitus without complications (principal)
CPT/HCPCS: 99214

== ENCOUNTER → 2023-03-22 08:26 | Outpatient (BNVA) | payer MEDICARE, SELFPAY | PROVIDERS: Visit Provider Internal Medicine Endocrinology, Diabetes & Metabolism | DX: E13.9 Other specified diabetes mellitus without complications (principal) | CPT/HCPCS: 82947; 83036; 99212 ==

== ENCOUNTER 2023-05-11 11:11 | Outpatient (AMB) | payer MEDICARE, SELFPAY ==
--- NOTE | 2023-05-11 11:42 | MHC.PC.OV ---
Vital Signs 05/11/23 11:43 Height 5 ft 6 in Weight 133 lb 8 oz BMI 21.5 BP 120/72 Blood Pressure Location Lt brachial Position Sitting Pulse 72 Pulse Source Pulse Oximeter Pulse Oximetry (%) 99 Oxygen Delivery Method Room Air Intake Visit Reasons: 4W FU FOLLOW-UP ANXIETY AFTER STARTING MEDICATION Intake Note: pt is here for a 4 week follow up for anxiety and stopped meds he is not feeling well today and is having a hard time hearing me to go over meds but he did stop buspirone Allergies codeine [CODEINE] Allergy (Intermediate, Verified 12/15/23 11:05) RASH nicotine Allergy (Intermediate, Verified 12/15/23 11:05) NICOTINE PATCH- RASH, hives Penicillins Allergy (Intermediate, Verified 12/15/23 11:05) HIVES oxycodone [Percocet] Allergy (Unknown, Verified 12/15/23 11:05) rash, itching meperidine Allergy (Verified 12/15/23 11:05) Itching Medication List - Last Reconciled 05/11/23 by Keiry Keller MD albuterol sulfate 90 mcg/actuation 2 puffs inhalation Q4H PRN aspirin 81 mg PO DAILY B vikpnga-Q-ntq-Fe-FA 106 mg iron- 1 mg 1 tab PO DAILY blood sugar diagnostic 3 times a day blood sugar diagnostic (FreeStyle Lite Strips) As directed three times a day blood-glucose meter (FreeStyle Lite Meter kit) As directed 3x/day carvedilol 1 tab PO BID cholecalciferol (vitamin D3) 50 mcg PO DAILY cyanocobalamin (vitamin B-12) (Vitamin B-12) 500 mcg PO DAILY [Diabetic shoes & 3 pair inserts as directed] diphenhydramine HCl 12.5 mg PO BEDTIME PRN flash glucose scanning reader (FreeStyle Ramiro 2 [place]) As directed flash glucose sensor (FreeStyle Ramiro 2 Sensor kit) As directed change every 14 days fluticasone propionate 50 mcg/actuation 1 spray intranasal DAILY PRN insulin aspart U-100 (Novolog FlexPen U-100 Insulin aspart) 3 - 7 units (0.03 - 0.07 mL) subcut TID insulin degludec 8 units (0.08 mL) subcut DAILY lancets As directed sdkpeb-xbjjbneq-wonghbv 24,000-76,000 -120,000 unit (Creon) 1 cap PO TIDAC loratadine 10 mg PO DAILY PRN lorazepam 0.5 mg (1/2 x 1 mg) PO DAILY PRN metoprolol succinate ER 12.5 mg PO DAILY omeprazole 40 mg PO DAILY pen needle, diabetic (BD Nydia 2nd Gen Pen Needle) USE TO INJECT 4 TIMES A DAY torsemide 20 mg PO DAILY valsartan 40 mg PO BID Tobacco use date assessed: 03/17/23 Last assessed Fall Risk: 05/11/23 HPI 4W FU FOLLOW-UP ANXIETY AFTER STARTING MEDICATION HPI Details Stuart is here today for follow-up on his generalized anxiety disorder. He started taking buspirone prescribed on last visit 5 mg 1 tablet twice a day, but patient states that he felt dizzy and lightheaded after taking buspirone for several days and stop taking the medication. Patient states his symptoms has resolved. Anxiety attacks comes and goes, states that he has good days and bad days . Does not want to start taking any medicines for it at present time. He also has been complaining of frequent burping and intermittent episodes of nausea over the last several days. [facility] Medical History (Updated 12/18/23 @ 23:40 by Keiry Keller MD) History of upper gastrointestinal bleeding Peripheral neuropathy Iron deficiency anemia Dyspepsia Generalized anxiety disorder Cigarette smoker one half pack a day or less Hemolytic anemia Squamous cell carcinoma of skin Skin lesion of left arm Ascending aortic aneurysm Atherosclerotic cardiovascular disease Acute diastolic (congestive) heart failure Congestive heart failure Eczema of left external ear Macrocytic anemia Positional lightheadedness Depression, major, recurrent, moderate Benign prostatic hyperplasia Fatigue after COVID-19 vaccination Tubular adenoma of colon GERD (gastroesophageal reflux disease) Peripheral vascular disease Degenerative disc disease, cervical Hypertension 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 Social History Household Members: Spouse Housing: House Do you presently have visiting nurse or other home services: No Alcohol intake: former Patient Tobacco Use Status: Current someday Tobacco user Tobacco use type: Cigarette Cigarette Packs Per Day: 1 Years Smoked: 50+ e-Cigarette/Vaping Use: Never Used service: No Current occupational status: retired Cognitive needs: No Hearing needs: Yes Vision needs: No Questionnaire PHQ-9 Over the last 2 weeks, how often have you been bothered by any of the following problems? Depression Screening Interpretation: Negative Depression Screening Done: Yes Source: Developed by Drs. Noble Lofton, Hubert Shirley and colleagues, with an educational sabiha from [employer]. Thrive Questionnaire Date Thrive assessed: 03/17/23 DAVINA-7 AMB Questionnaire DAVINA-7 Date DAVINA - 7 assessed: 05/11/23 Feeling nervous, anxious, or on edge: 1 = Several days Not being able to stop or control worryin = Not at all Worrying too much about different things: 1 = Several days Trouble relaxin = More than half the days Being so restless that it is hard to sit still: 0 = Not at all Becoming easily annoyed or irritable: 0 = Not at all Feeling afraid as if something awful might happen: 0 = Not at all Total DAVINA-7 score (0-4 normal; 5-9 mild; 10-14 moderate; 15-21 severe): 4 Source: Developed by Drs. Noble Lofton, Hubert Shirley and colleagues, with an educational sabiha from [employer]. DAVINA-7 Assessment Billing DAVINA-7 Assessment Tool: DAVINA-7 Assessment 77219 Review of Systems Const Reports fatigue, Denies headache(s) and Reports malaise ENT Denies headache(s), Reports hearing loss, Denies nasal congestion and Denies post nasal drip Card Denies chest pain, Denies syncope, Denies rapid heart rate, Denies edema, Denies irregular heart rhythm and Reports lightheadedness (Positional) Resp Denies chest congestion GI Reports as per HPI, Denies abdominal pain, Denies melena, Denies hematochezia, Denies change in bowel habits and Denies vomiting Reports no additional complaints Musc Reports muscle weakness (In both lower extremities), Reports stiffness and Reports tingling Neuro Denies syncope, Denies headache(s), Reports tingling and Reports paresthesias (in lower extremities ) Psych Reports as per HPI Endo Reports fatigue, Denies polyphagia, Denies polydipsia and Denies polyuria Aaron/Lymph Denies easy bleeding and Denies easy bruising Aller/Immun Reports no additional complaints Physical exam (Primary Care) Vital Signs: Last Vital Signs Pulse 72 05/11/23 11:43 BP 120/72 05/11/23 11:43 Pulse Ox 99 05/11/23 11:43 Oxygen Delivery Method Room Air 05/11/23 11:43 BMI result Body Mass Index 21.5 Tobacco/Smoking Status: Tobacco use Status Tobacco use date assessed 03/17/23 05/11/23 11:51 Patient Tobacco Use Status Current someday Tobacco 05/11/23 11:51 Tobacco use type Cigarette 05/11/23 11:51 e-Cigarette/Vaping Use Never Used 05/11/23 11:51 Depression Screening Interpretation: Negative Thrive Assessment: Date of Thrive Assessment Date Thrive assessed 03/17/23 05/11/23 11:51 Const Other: Alert oriented x 3, accompanied by , no acute distress noted ambulatory with assistance of a cane Orientation/consciousness: patient oriented x3 HENMT Ears: external ears normal and hearing grossly impaired General nose exam: Normal external nose present Face and sinus: Yes face symmetric Mouth: Normal oral and palatal mucosa present and moist mucous membranes Teeth and gingiva: edentulous Eyes General: appearance normal, both eyes and all related structures Neck Other: Supple, no lymphadenopathy, no carotid bruits, thyroid gland nonpalpable Resp Effort & Inspection: normal respiratory effort and able to speak in complete sentences Auscultation: clear to auscultation bilaterally Cardio Other: S1-S2 present regular rate and rhythm Peripheral pulses: other (Unable to palpate dorsalis pedis or posterior tibial pulses in both extremi) GI Palpation (GI): Soft to palpation, nontender, no guarding and no masses Auscultation: normal bowel sounds General: Yes no CVA tenderness Back/Spine/Pelvis Back: no CVA tenderness and No back tenderness Skin General skin exam: no rashes or lesions noted Neuro General: patient oriented x3, moves all extremities, no focal motor deficits and CN's II-XI intact bilaterally Gait exam (Neuro): Antalgic gait present and Assistive device used (cane) Extrem General: Yes full ROM, Yes no joint enlargement and Yes no clubbing, cyanosis or edema Psych Appearance: grossly normal and well kempt Mental Status: mental status grossly normal Speech and movement: Normal speech and movement present Affect: normal affect Attitude: cooperative Assessment and Plan Assessment & Plan (1) Dyspepsia: Code(s): R10.13 - Epigastric pain Plan: Advised to take continue taking Creon and omeprazole. May take an occasional Maalox 10 mL 4 times a day as needed. Prescription also sent for ondansetron 4 mg per tablet to take once a day as needed for episodes of nausea. Going to bland diet, strongly advised to stop smoking cigarettes. Advised follow-up if symptoms persists (2) Generalized anxiety disorder: Code(s): F41.1 - Generalized anxiety disorder Plan: Will hold off on starting any medications for anxiety at present time, patient states at his anxiety comes and goes Medications: New alum-mag hydroxide-simeth 200-200-20 mg/5 mL (Maalox Advanced) administer between meals and at bedtime 10 mL PO QID PRN 3,000 mL 0RF indigestion/nausea ondansetron HCl 4 mg PO Q8H PRN 20 tabs 0RF nausea and vomiting Coding Level of Care Code Est Pt Level 3 (62139) Diagnoses Dyspepsia R10.13 Generalized anxiety disorder F41.1 Additional Codes DAVINA-7 Assessment Billing - DAVINA-7 Assessment Tool: DAVINA-7 Assessment 19985 ([id number])
[2023-05-11 11:43] VITALS: BP 120/72; PULSE 72; O2SAT 99; BMI 21.5
== END 2023-05-11 14:34 | disposition home or self-care (01) ==
PROVIDERS: PCP Internal Medicine; Visit Provider Internal Medicine
DX: R10.13 Epigastric pain (principal); F41.1 Generalized anxiety disorder
CPT/HCPCS: 99213

== ENCOUNTER 2023-07-07 11:32 | Outpatient (REF) | payer SELFPAY ==
--- NOTE | 2023-07-07 12:49 | MHC.AU.HA3 ---
Hearing Instrument Follow-Up- Binaural Date of Visit: 07/07/23 Right Ear: Adarsh, Model, Color, Serial Number: Anne Marie Cannon [id number] SN: [id number] Color: Ronagne Workday Manager Repair Warranty: 10/10/2015 Workday Manager Loss and Damage Warranty: 10/10/2015 Battery Size: 13 Earmold/Dome/CShell/SlimTip:Microsonic Burpg-w-pkqf skeleton Dispensed By: [facility] Date of Fittin07/19/2013 Left Ear: Adarsh, Model, Color, Serial Number: Anne Marie Cannon [id number] SN: [id number] Color: Ronagne Workday Manager Repair Warranty: 10/10/2015 Workday Manager Loss and Damage Warranty: 10/10/2015 Battery Size: 13 Earmold/Dome/CShell/SlimTip: Microsonic Izneq-a-oqdg skeleton Dispensed By: [facility] Date of Fittin07/19/2013 Follow-Up Summary: Stuart reported for the past month his hearing aids have sounded muffled. Tubing extremely hard, discolored, and full of debris. Debris also noted in tone hooks and microphones. Cleaned hearing aids and ear molds. Replaced tone hooks and tubing. Vacuumed microphones. Ran through dehumidifier. Lots of wax/debris also noted in battery compartments - difficulty fully cleaning but able to clean out some build up. A listening check demonstrated hearing aids are amplifying clearly. Stuart noticed immediate improvement in sound quality. Advised of periodic tubing changes as it has been several years since he had an appointment. Also discussed age of his current devices and possibility of upgrading technology. Due to financial concerns, Stuart reported that he cannot pursue new hearing aids at this time. He also reported he has had an updated hearing test at Dr. Holt's office within the past year. Recommendations: Hearing instrument follow-up or maintenance as needed. Please contact our clinic with any questions or concerns. Diagnosis Code(s): Primary Diagnosis: H90.3 Bilateral Sensorineural Hearing Loss Signature: Provider: Karen Martini, [facility]
== END 2023-07-07 11:33 | disposition home or self-care (01) ==
LOC: HO.HAP 11:32
PROVIDERS: Visit Provider Internal Medicine
DX: Z46.1 Encounter for fitting and adjustment of hearing aid (principal); H90.3 Sensorineural hearing loss, bilateral
CPT/HCPCS: 92593; V5267

== ENCOUNTER 2023-07-21 15:14 | Outpatient (AMB) | payer MEDICARE, SELFPAY ==
--- NOTE | 2023-07-21 15:19 | A.OFFVIS_ITS ---
Intake Vital Signs 07/21/23 15:28 Height 5 ft 6 in Weight 137 lb BMI 22.1 BP 173/79 H Blood Pressure Location Rt brachial Position Sitting Pulse 65 Intake Visit Reasons: growth on arm, ? cancer Intake Note: This patient presents for an assessment for growth on arm, rule out carcinoma. Pt c/o; referred by Dr. Olivera, reports x2 growth left arm, reports increasing in size, reports pain and discomfort. Director Marketing Communications Required: No Accompanied by: Spouse Allergies codeine [CODEINE] Allergy (Intermediate, Verified 07/21/23 15:29) RASH nicotine Allergy (Intermediate, Verified 07/21/23 15:29) NICOTINE PATCH- RASH, hives Penicillins Allergy (Intermediate, Verified 07/21/23 15:29) HIVES oxycodone [Percocet] Allergy (Unknown, Verified 07/21/23 15:29) rash, itching meperidine Allergy (Verified 07/21/23 15:29) Itching Medication List - Last Reconciled 07/21/23 by Mo Ceja MD albuterol sulfate 90 mcg/actuation 2 puffs inhalation Q4H PRN alum-mag hydroxide-simeth 200-200-20 mg/5 mL (Maalox Advanced) 10 mL PO QID PRN aspirin 81 mg PO DAILY B ibvjtlb-M-qcd-Fe-FA 106 mg iron- 1 mg 1 tab PO DAILY blood sugar diagnostic 3 times a day blood sugar diagnostic (FreeStyle Lite Strips) As directed three times a day blood-glucose meter (FreeStyle Lite Meter kit) As directed 3x/day carvedilol 1 tab PO BID cholecalciferol (vitamin D3) 50 mcg PO DAILY cyanocobalamin (vitamin B-12) (Vitamin B-12) 500 mcg PO DAILY [Diabetic shoes & 3 pair inserts as directed] diphenhydramine HCl 12.5 mg PO BEDTIME PRN flash glucose scanning reader (FreeStyle Ramiro 2 [place]) As directed flash glucose sensor (FreeStyle Ramiro 2 Sensor kit) As directed change every 14 days fluticasone propionate 50 mcg/actuation 1 spray intranasal DAILY PRN insulin aspart U-100 (Novolog FlexPen U-100 Insulin aspart) 3 - 7 units (0.03 - 0.07 mL) subcut TID insulin degludec 8 units (0.08 mL) subcut DAILY lancets As directed tgueft-pnggtsiv-cxlgloa 24,000-76,000 -120,000 unit (Creon) 1 cap PO TIDAC lisinopril 5 mg PO DAILY loratadine 10 mg PO DAILY PRN lorazepam 0.5 mg (1/2 x 1 mg) PO DAILY PRN metoprolol succinate ER 12.5 mg PO DAILY omeprazole 40 mg PO DAILY ondansetron HCl 4 mg PO Q8H PRN pen needle, diabetic (BD Nydia 2nd Gen Pen Needle) USE TO INJECT 4 TIMES A DAY torsemide 20 mg PO DAILY HPI growth on arm, ? cancer HPI Details He is here because of a skin lesion on the left forearm. He has noticed this for over a month now. He says he tends to scratches and this bleeds easily. He has known chronic anemia and myelofibrosis. [facility] Medical History (Updated 07/21/23 @ 15:37 by Mo Ceja MD) Skin lesion of left arm Former cigarette smoker Dyspepsia Generalized anxiety disorder Cigarette smoker one half pack a day or less Hemolytic anemia Squamous cell carcinoma of skin Ascending aortic aneurysm Atherosclerotic cardiovascular disease Acute diastolic (congestive) heart failure Congestive heart failure Eczema of left external ear Macrocytic anemia Positional lightheadedness Depression, major, recurrent, moderate Benign prostatic hyperplasia Fatigue after COVID-19 vaccination Tubular adenoma of colon GERD (gastroesophageal reflux disease) Peripheral vascular disease Degenerative disc disease, cervical Hypertension 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 Social History Household Members: Spouse Housing: House Do you presently have visiting nurse or other home services: No Alcohol intake: former Patient Tobacco Use Status: Current someday Tobacco user Tobacco use type: Cigarette Cigarette Packs Per Day: 1 Years Smoked: 50+ e-Cigarette/Vaping Use: Never Used service: No Current occupational status: retired Cognitive needs: No Hearing needs: Yes Vision needs: No Review of Systems Const Denies chills and Denies fever(s) Card Denies chest pain and Reports dyspnea on exertion Resp Reports dyspnea on exertion GI Denies abdominal pain Denies difficulty urinating Musc Reports abnormal gait, Reports myalgias and Reports arthralgias Neuro Reports abnormal gait Physical Exam Vital Signs: Last Vital Signs Pulse 65 07/21/23 15:28 BP 173/79 H 07/21/23 15:28 BMI result Body Mass Index 22.1 Const Other: Frail looking, walks with a cane General: comfortable and no acute distress Resp Effort & Inspection: normal respiratory effort Cardio Rate: regular rate GI Palpation (GI): Soft to palpation and not firm Extrem Other: Left forearm with note of a 7 mm elevated skin lesion, with pearly edges, irregular Assessment & Plan Assessment & Plan (1) Skin lesion of left arm: Code(s): L98.9 - Disorder of the skin and subcutaneous tissue, unspecified Plan: This is probably a basal cell carcinoma. He wants to proceed with excision. I explained the technique of excision under local anesthesia. I reviewed the risks including but not limited to bleeding and infections, as well as the benefits and alternatives. He wants to proceed This will be done here in the office on his next visit. Coding Level of Care Code Est Pt Level 3 (10592) Diagnoses Skin lesion of left arm L98.9
[2023-07-21 15:28] VITALS: BP 173/79; PULSE 65; BMI 22.1
== END 2023-07-21 15:48 | disposition home or self-care (01) ==
PROVIDERS: PCP Internal Medicine; Visit Provider Surgery
DX: L98.9 Disorder of the skin and subcutaneous tissue, unspecified (principal)
CPT/HCPCS: 99213

== ENCOUNTER → 2023-07-21 15:14 | Outpatient (BNVA) | payer MEDICARE, SELFPAY | PROVIDERS: PCP Internal Medicine; Visit Provider Surgery | DX: L98.9 Disorder of the skin and subcutaneous tissue, unspecified (principal) | CPT/HCPCS: 99212 ==

== ENCOUNTER 2023-08-01 07:57 | Outpatient (AMB) | payer MEDICARE, SELFPAY ==
[2023-08-01 08:03] VITALS: BP 128/68; PULSE 64; BMI 22.6
--- NOTE | 2023-08-01 08:03 | MHC.OFFVIS ---
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 Patient receives DME supplies through: [employer] Last Diabetic Eye exam: 08/2023 Last Podiatry Visit: 06/2023 Random Glucose: 204 mg/dl HgA1C:7.2% Spinning Doffer Required: No Accompanied by: Self / Same As Patient Allergies codeine [CODEINE] Allergy (Intermediate, Verified 08/01/23 08:06) RASH nicotine Allergy (Intermediate, Verified 08/01/23 08:06) NICOTINE PATCH- RASH, hives Penicillins Allergy (Intermediate, Verified 08/01/23 08:06) HIVES oxycodone [Percocet] Allergy (Unknown, Verified 08/01/23 08:06) rash, itching meperidine Allergy (Verified 08/01/23 08:06) Itching HPI HPI Comments History of Present Illness Details Patient is a 78-year-old male with 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 , HTN, HTN, vitamin-D deficiency. Question of dementia. Micro and macrovascular complications: +neuropathy, +CAD, +PVD Diabetes medications: Tresiba 6 units. NovoLog 8-9 units for large meals and 3 units for small meals. Novolog Correction scale: 251-300 1 extra units 301-350 2 extra units 351- or more 3 extra units Continuous glucose monitoring: C GM is active 96%. Average blood glucose 200. GM I 8.1 %. Glucose in target range of 70-180, 47%. 53% above range. 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 [employer]: goes regularly saw 2 wks ago Dental exam: edentulous Ophthalmology evaluation: has appt in few wks Other specialists: warehouse specialist, vascular surgery, cardiology Complain of spasms in upper and lower extremity Laboratory Tests 12/02/20 04/17/21 07/15/21 08:45 07:32 07:32 Creatinine Estimated GFR Hgb A1c (Clinic) Triglycerides 165 Cholesterol 104 LDL Cholesterol, C alc 33 HDL Cholesterol 38 Vitamin B12 803 25-OH Vitamin D To [place] Microalb/Creat Rat io 47.6 07/15/21 07/30/21 09/03/21 07:32 07:36 11:24 Creatinine 0.91 Estimated GFR > 60 Hgb A1c (Clinic) 6.5 H Triglycerides Cholesterol LDL Cholesterol, C alc HDL Cholesterol Vitamin B12 25-OH Vitamin D To [place] 23.6 Microalb/Creat Rat io 11/12/21 07:44 Creatinine Estimated GFR Hgb A1c (Clinic) 6.8 H Triglycerides Cholesterol LDL Cholesterol, C alc HDL Cholesterol Vitamin B12 25-OH Vitamin D To [place] Microalb/Creat Rat io [facility] Medical History (Updated 07/21/23 @ 15:37 by Mo Ceja MD) Skin lesion of left arm Former cigarette smoker Dyspepsia Generalized anxiety disorder Cigarette smoker one half pack a day or less Hemolytic anemia Squamous cell carcinoma of skin Ascending aortic aneurysm Atherosclerotic cardiovascular disease Acute diastolic (congestive) heart failure Congestive heart failure Eczema of left external ear Macrocytic anemia Positional lightheadedness Depression, major, recurrent, moderate Benign prostatic hyperplasia Fatigue after COVID-19 vaccination Tubular adenoma of colon GERD (gastroesophageal reflux disease) Peripheral vascular disease Degenerative disc disease, cervical Hypertension Dyslipidemia intermediate (current) use of insulin Diabetes-pancreatic exocrine dysfunction syndrome Surgical History Hx of cataract removal with insertion of prosthetic lens Stented coronary artery History of pancreatic surgery Hx of hemorrhoidectomy Hx of deep venous thrombosis Hx of tonsillectomy Hx of hernia repair History of endoscopic retrograde cholangiopancreatography Family History Father Coronary artery disease Diabetes mellitus Mother No problems noted. Social History Household Members: Spouse Housing: House Do you presently have visiting nurse or other home services: No Alcohol intake: former Patient Tobacco Use Status: Current someday Tobacco user Tobacco use type: Cigarette Cigarette Packs Per Day: 1 Years Smoked: 50+ e-Cigarette/Vaping Use: Never Used service: No Current occupational status: retired Cognitive needs: No Hearing needs: Yes Vision needs: No Physical Exam Absence of Cushingoid features. Absence of acromegalic features. Neck exam reveals nl size thyroid about 15 gms. No thyroid nodules palpable. No carotid bruits present. Lungs CTA. Heart S1 S2, Reg R/R. No M/R/ G. Skin exam reveals absence of vitiligo or acanthosis nigricans. Abdominal exam reveals Soft NT/ND with NA BS. No organomegaly present. Neck Other: . Extrem Other: Visual exam of foot performed. No ulcerations or open lesions. No onchomycosis, no callouses.Pulses 2 + distally Sensation intact to monofilament exam. Vibratory sensation sensed is decreased with 128 Hz tuning fork Assessment & Plan Assessment & Plan (1) Diabetes-pancreatic exocrine dysfunction syndrome: Comment: Followed at endocrine clinic Code(s): E13.9 - Other specified diabetes mellitus without complications Plan: This 78-year-old white male with a history of diabetes status post Whipple procedure being treated with basal-bolus insulin with poor deterioated glycemic control a. He has known microvascular and macrovascular complications namely neuropathy, micro albuminuria, CAD and PVD. HbA1c may not be reflective glycemic control considering anemia. Deteriorated control could be multifactorial including omission of insulin due to memory problems. The plan is to reinforce the patient to take the log insulin 10-15 minutes prior to breakfast. Will increase the NovoLog by 2 units before breakfast and dinner . Patient's ability to manage his blood sugars are somewhat limited by his cognitive ability. Ideally considering the presence of pancreo lytic diabetes as well as wide fluctuations of blood sugars, patient would benefit from insulin pump like Omnipod or tandem in combination with Dexcom. However, patient is not candidate for pump. Although his A1c is not optimal, his HbA1c may be at goal considering his comorbidities and age. At this point, patient returned to the care of his primary care provider and returned back to endocrinology should his HbA1c deteriorate to>8.5-9 Coding Level of Care Code Est Pt Level 4 (69653) Diagnoses Diabetes-pancreatic exocrine dysfunction syndrome E13.9
[2023-08-01 08:13] LABS: Glucose, Whole Blood 204 mg/dL (60-115)
== END 2023-08-01 08:23 | disposition home or self-care (01) ==
PROVIDERS: PCP Internal Medicine; Visit Provider Internal Medicine Endocrinology, Diabetes & Metabolism
DX: E13.9 Other specified diabetes mellitus without complications (principal)
CPT/HCPCS: 99214

== ENCOUNTER → 2023-08-01 07:57 | Outpatient (BNVA) | payer MEDICARE, SELFPAY | PROVIDERS: PCP Internal Medicine; Visit Provider Internal Medicine Endocrinology, Diabetes & Metabolism | DX: E13.9 Other specified diabetes mellitus without complications (principal); Z90.411 Acquired partial absence of pancreas | CPT/HCPCS: 82947; 83036; 99212 ==

== ENCOUNTER 2023-08-08 09:33 | Outpatient (REF) | payer MEDICARE, SELFPAY | END 2023-08-08 09:34 | disposition home or self-care (01) | LOC: HO.LNP 09:33 | PROVIDERS: PCP Internal Medicine; Visit Provider Surgery | DX: L98.9 Disorder of the skin and subcutaneous tissue, unspecified (principal) | CPT/HCPCS: 11401; 11402; 88304; 88305 ==

== ENCOUNTER 2023-08-08 09:33 | Outpatient (AMB) | payer MEDICARE, SELFPAY ==
--- NOTE | 2023-08-08 09:36 | MHC.OFFVIS ---
Intake Intake Visit Reasons: Exc skin lesion left forearm Intake Note: This patient presents for in office procedure for excision of skin lesion of the forearm. Pt c/o; reports no changes at this time. Electronic Publications Specialist Required: No Accompanied by: Spouse Allergies codeine [CODEINE] Allergy (Intermediate, Verified 08/08/23 09:58) RASH nicotine Allergy (Intermediate, Verified 08/08/23 09:58) NICOTINE PATCH- RASH, hives Penicillins Allergy (Intermediate, Verified 08/08/23 09:58) HIVES oxycodone [Percocet] Allergy (Unknown, Verified 08/08/23 09:58) rash, itching meperidine Allergy (Verified 08/08/23 09:58) Itching [facility] Medical History (Updated 08/08/23 @ 09:58 by Mo Ceja MD) Skin lesion of left arm Former cigarette smoker Dyspepsia Generalized anxiety disorder Cigarette smoker one half pack a day or less Hemolytic anemia Squamous cell carcinoma of skin Ascending aortic aneurysm Atherosclerotic cardiovascular disease Acute diastolic (congestive) heart failure Congestive heart failure Eczema of left external ear Macrocytic anemia Positional lightheadedness Depression, major, recurrent, moderate Benign prostatic hyperplasia Fatigue after COVID-19 vaccination Tubular adenoma of colon GERD (gastroesophageal reflux disease) Peripheral vascular disease Degenerative disc disease, cervical Hypertension 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 Social History Household Members: Spouse Housing: House Do you presently have visiting nurse or other home services: No Alcohol intake: former Patient Tobacco Use Status: Current someday Tobacco user Tobacco use type: Cigarette Cigarette Packs Per Day: 1 Years Smoked: 50+ e-Cigarette/Vaping Use: Never Used service: No Current occupational status: retired Cognitive needs: No Hearing needs: Yes Vision needs: No Office Procedures Excision Details: He was placed supine. Consent had been given by the patient. The area of the lesion on the left forearm was prepped and draped. Lidocaine 1% was used for local anesthesia. The lesion measured about 8 mm in widest dimension. I made an elliptical incision around the lesion using blade 15. We included grossly negative margins. We carried down the incision through the full-thickness of the skin and subcutaneous fat to excise this entire lesion to include the full-thickness of the skin. I closed the incision with simple interrupted nylon 3-0 sutures. Dressings were applied. The procedure was completed. He tolerated procedure well. There were no immediate complications. There was minimal blood loss. He was given wound care instructions. [id number]/arms/legs 0.6-1cm Procedure code (CPT) selection complete Assessment & Plan Assessment & Plan (1) Skin lesion of left arm: Code(s): L98.9 - Disorder of the skin and subcutaneous tissue, unspecified Plan: Excision was done without complications. He will be seen in the office for removal sutures. Discharge instructions were given. Coding Level of Care Code Procedure Only Diagnoses Skin lesion of left arm L98.9 CPT Codes Trunk/Arms/Legs - CPT: 56820-hsyyz/arms/legs 0.6-1cm ([id number])
== END 2023-08-08 09:58 | disposition home or self-care (01) ==
PROVIDERS: PCP Internal Medicine; Visit Provider Surgery
DX: L28.1 Prurigo nodularis (principal)
CPT/HCPCS: 11402

== ENCOUNTER 2023-08-17 09:19 | Outpatient (AMB) | payer MEDICARE, SELFPAY ==
--- NOTE | 2023-08-17 09:21 | A.OFFVIS_ITS ---
Intake Intake Visit Reasons: S/p exc skin lesion left forearm-in office Intake Note: This patient presents for a post-op follow-up assessment status post excision of skin lesion left forearm. Patient c/o; reports pain left arm, limited ROM. Contractor General Engineering Required: No Accompanied by: Other Relationship Allergies codeine [CODEINE] Allergy (Intermediate, Verified 08/17/23 09:29) RASH nicotine Allergy (Intermediate, Verified 08/17/23 09:29) NICOTINE PATCH- RASH, hives Penicillins Allergy (Intermediate, Verified 08/17/23 09:29) HIVES oxycodone [Percocet] Allergy (Unknown, Verified 08/17/23 09:29) rash, itching meperidine Allergy (Verified 08/17/23 09:29) Itching HPI S/p exc skin lesion left forearm-in office HPI Details He underwent excision of a skin lesion from the left forearm under local anesthesia in the office last 08/08/2023. He tolerated procedure well. He currently denies significant complaints with regards to this. [facility] Medical History Skin lesion of left arm Former cigarette smoker Dyspepsia Generalized anxiety disorder Cigarette smoker one half pack a day or less Hemolytic anemia Squamous cell carcinoma of skin Ascending aortic aneurysm Atherosclerotic cardiovascular disease Acute diastolic (congestive) heart failure Congestive heart failure Eczema of left external ear Macrocytic anemia Positional lightheadedness Depression, major, recurrent, moderate Benign prostatic hyperplasia Fatigue after COVID-19 vaccination Tubular adenoma of colon GERD (gastroesophageal reflux disease) Peripheral vascular disease Degenerative disc disease, cervical Hypertension 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 Social History Household Members: Spouse Housing: House Do you presently have visiting nurse or other home services: No Alcohol intake: former Patient Tobacco Use Status: Current someday Tobacco user Tobacco use type: Cigarette Cigarette Packs Per Day: 1 Years Smoked: 50+ e-Cigarette/Vaping Use: Never Used service: No Current occupational status: retired Cognitive needs: No Hearing needs: Yes Vision needs: No Review of Systems Const Denies chills and Denies fever(s) Physical Exam Const General: comfortable and no acute distress Resp Effort & Inspection: normal respiratory effort Extrem Other: Excision site on the left forearm is well healed, not infected, sutures intact Assessment & Plan Assessment & Plan (1) Skin lesion of left arm: Code(s): L98.9 - Disorder of the skin and subcutaneous tissue, unspecified Plan: Status post excision. His incision is well healed. His sutures were removed. His path report shows prurigo nodularis. I explained to him the benign nature of this pathology. He can follow up on a p.r.n. basis. Coding Level of Care Code Global (35187) Diagnoses Skin lesion of left arm L98.9
== END 2023-08-17 09:34 | disposition home or self-care (01) ==
PROVIDERS: PCP Internal Medicine; Visit Provider Surgery
DX: L98.9 Disorder of the skin and subcutaneous tissue, unspecified (principal)
CPT/HCPCS: 99024

== ENCOUNTER → 2023-08-17 09:19 | Outpatient (BNVA) | payer MEDICARE, SELFPAY | PROVIDERS: PCP Internal Medicine; Visit Provider Surgery | DX: Z48.817 Encounter for surgical aftercare following surgery on the skin and subcutaneous tissue (principal); Z98.890 Other specified postprocedural states | CPT/HCPCS: 99212 ==

== ENCOUNTER 2023-09-12 06:55 | Outpatient (REF) | payer MEDICARE, SELFPAY ==
[2023-09-12 11:06] LABS: Appearance Urine Clear; Color Urine Yellow; Glucose Urine UA Negative (Negative); Leukocyte Esterase Urine Negative (Negative); Nitrite Urine Negative (Negative); Urine Blood Negative (Negative); Urine Ketones Negative (Negative); Urine Protein Negative (Neg-Trace)
[2023-09-12 11:10] LABS: MANUAL DIFF FLAG NO
[2023-09-12 11:12] LABS: Bacteria Urine None Seen (None Seen); Hyaline Casts Urine 0-2 /LPF (0-2); RBC Urine 0-2 /HPF (0-2); Squamous Epithelial Cell Urine 0-2 /HPF (0-2); WBC Urine 0-5 /HPF (0-5)
[2023-09-12 11:28] LABS: Basophils Absolute Auto 0.1 X10*3/uL (0.0-0.2); Basophils Percent Auto 0.5 % (0-2); Eosinophils Absolute Auto 0.1 X10*3/uL (0.0-0.4); Eosinophils Percent Auto 1.3 % (0-4); Hematocrit 35.6 % (42.0-52.0); Hemoglobin 11.3 g/dl (14.0-18.0); Imm Gran Abs Auto 0.29 X10*3/uL (0.00-0.03); Lymphocytes Absolute Auto 1.9 X10*3/uL (1.2-4.9); Lymphocytes Percent Auto 18.9 % (20-40); Mean Corpuscular HGB Conc 31.7 g/dl (31.0-36.0); Mean Corpuscular Hemoglobin 29.1 pg (27.0-33.0); Mean Corpuscular Volume 91.8 fL (80.0-98.0); Mean Platelet Volume 10.7 fL (9.4-12.4); Monocytes Absolute Auto 1.2 X10*3/uL (0.1-1.2); Monocytes Percent Auto 12.2 % (2-11); NRBC Pct Auto 0.3 /100WBC (0.0-0.2); Neutrophils Absolute Auto 6.3 x10*3/uL (2.0-8.3); Neutrophils Percent Auto 64.1 % (45-73); Platelet Count 223 X10*3/uL (160-400); Red Blood Count 3.88 X10*6/uL (4.60-5.80); Red Cell Distribution Width 20.3 % (11.0-16.0); White Blood Count 9.8 X10*3/uL (4.8-10.8)
[2023-09-12 11:46] LABS: Creatinine Urine 69.83 mg/dL; Microalbum/Creatinine Ratio Ur 88.7 ug/mg cr (<30); Protein/Creatinine Ratio, Ur 0.19 (<0.2); Total Protein Urine Random 13 mg/dL (<12)
[2023-09-12 11:54] LABS: Albumin Level 3.1 g/dL (3.5-5.0); Anion Gap 13 (12-20); Blood Urea Nitrogen 13 mg/dL (9-16); Calcium 8.4 mg/dL (8.4-10.2); Carbon Dioxide 27 mmol/L (22-29); Chloride 104 mmol/L (96-108); Estimated Glomerular Filt Rate > 60; Magnesium 1.8 mg/dL (1.6-2.6); Phosphorus 3.8 mg/dL (2.7-4.5); Potassium 4.7 mmol/L (3.3-5.1); Sodium 139 mmol/L (135-145)
[2023-09-12 12:00] LABS: Vitamin D 25-OH Total 15.9 ng/mL (>30)
== END 2023-09-12 06:56 | disposition home or self-care (01) ==
LOC: HO.HMGCLDS 06:55
PROVIDERS: PCP Internal Medicine; Visit Provider Internal Medicine Nephrology
DX: E11.22 Type 2 diabetes mellitus with diabetic chronic kidney disease (principal); N18.31 Chronic kidney disease, stage 3a; R80.1 Persistent proteinuria, unspecified
CPT/HCPCS: 36415; 80051; 81001; 82040; 82043; 82306; 82310; 82565; 82570; 83735; 83970; 84100; 84156; 84520; 85025; 87086

== ENCOUNTER 2023-09-30 09:55 | Outpatient (AMB) | payer MEDICARE, SELFPAY ==
--- NOTE | 2023-09-30 10:00 | A.OFFPC_ITS ---
Vital Signs 09/30/23 10:01 Height 5 ft 6 in Weight 137 lb BMI 22.1 BP 116/64 Blood Pressure Location Rt brachial Position Sitting Pulse 82 Pulse Source Pulse Oximeter Pulse Oximetry (%) 98 Oxygen Delivery Method Room Air Intake Visit Reasons: [facility] HDF bleeding ulcer Allergies codeine [CODEINE] Allergy (Intermediate, Verified 09/30/23 10:40) RASH nicotine Allergy (Intermediate, Verified 09/30/23 10:40) NICOTINE PATCH- RASH, hives Penicillins Allergy (Intermediate, Verified 09/30/23 10:40) HIVES oxycodone [Percocet] Allergy (Unknown, Verified 09/30/23 10:40) rash, itching meperidine Allergy (Verified 09/30/23 10:40) Itching Medication List - Last Reconciled 09/30/23 by Keiry Keller MD albuterol sulfate 90 mcg/actuation 2 puffs inhalation Q4H PRN alum-mag hydroxide-simeth 200-200-20 mg/5 mL (Maalox Advanced) 10 mL PO QID PRN B coyubog-P-rjr-Fe-FA 106 mg iron- 1 mg 1 tab PO DAILY blood sugar diagnostic 3 times a day blood sugar diagnostic (FreeStyle Lite Strips) As directed three times a day blood-glucose meter (FreeStyle Lite Meter kit) As directed 3x/day carvedilol 1 tab PO BID cholecalciferol (vitamin D3) 50 mcg PO DAILY cyanocobalamin (vitamin B-12) (Vitamin B-12) 500 mcg PO DAILY [Diabetic shoes & 3 pair inserts as directed] diphenhydramine HCl 12.5 mg PO BEDTIME PRN flash glucose scanning reader (FreeStyle Ramiro 2 [place]) As directed flash glucose sensor (FreeStyle Ramiro 2 Sensor kit) As directed change every 14 days fluticasone propionate 50 mcg/actuation 1 spray intranasal DAILY PRN insulin aspart U-100 (Novolog FlexPen U-100 Insulin aspart) 3 - 7 units (0.03 - 0.07 mL) subcut TID insulin degludec 8 units (0.08 mL) subcut DAILY lancets As directed ksyrly-[id number]-dninvyi 24,000-76,000 -120,000 unit (Creon) 1 cap PO TIDAC lisinopril 5 mg PO DAILY loratadine 10 mg PO DAILY PRN metoprolol succinate ER 12.5 mg PO DAILY omeprazole 40 mg PO DAILY ondansetron HCl 4 mg PO Q8H PRN pen needle, diabetic (BD Nydia 2nd Gen Pen Needle) USE TO INJECT 4 TIMES A DAY torsemide 20 mg PO DAILY Tobacco use date assessed: 09/30/23 Fall risk assessment: No Falls in past year Last assessed Fall Risk: 09/30/23 Dental Screening Dental Screen Date: 09/30/23 Did you have a dental visit in the last 12 months?: No Was dental information given to patient?: Patient declined HPI [facility] HDF bleeding ulcer HPI Details 78-year-old male with history of chronic alcoholic pancreatitis s/p Whipple, has IDDM, GERD, CAD s/p CONCEPCIÓN to the LAD , with chronic total occlusion of the RCA, HFrEF ( EF 35-40%), ascending aortic aneurysm 4.8 cm stable by echocardiogram as of March 2023, PAD , Peripheral neuropathy, Alcohol use, cigarette smoker, recently admitted at [facility] complaining of abdominal pain and 1 day of melena. Hemoglobin initially was 7.6, received blood transfusion with 1 unit packed RBC. EGD showed marginal ulcer on small- bowel side , visible vessels adjusting recent bleeding, multiple superficial ulcers were also seen. Per GI recommendation to call Interventional Radiology for consult for possible need for embolization, which can be done at as outpatient if state. He was continued on omeprazole and Creon. , continue monitoring hemoglobin hematocrit and transfuse for hemoglobin less than 7. Patient advised to stop smoking , aspirin was held due to high bleeding risk. He has an appointment for follow-up with GI, Dr. Manzo, 11/29/2019, and has a follow-up appointment with Cardiology Dr. Loera on 11/14/2023 at 12:45 pm. With regards to his diabetes mellitus, his latest hemoglobin A1c drawn at endocrine clinic was 7.2% last July 2023, which may not be reflective of glycemic control considering his anemia. Currently on Tresiba 7 units at night, and on sliding scale of NovoLog 3 times a day before meals, and reinforced to take his insulin 10-15 minutes prior to the meal. He has been checking his blood sugar using his freestyle Ramiro and it has usually been running higher in the morning from between 150-170 mg/dL and but would drop to a low of 55 mid morning, only to go up again to the 200s the late afternoon and that before supper. Patient's ability to manage his blood sugars her somewhat limited by his cognitive ability. As per his astronomy teacher, with presence of pancreatic diabetes as well as wide fluctuations of blood sugars, patient would benefit from insulin pump like Omnipod or tandem in combination with Dexcom, however she is not a candidate for the palm. Although his A1c is not optimal his [id number] may be at goal considering his comorbidities and age. He has peripheral neuropathy which he states is better since he started taking gabapentin 100 mg at bedtime. [facility] Medical History History of upper gastrointestinal bleeding Peripheral neuropathy Iron deficiency anemia Skin lesion of left arm Dyspepsia Generalized anxiety disorder Cigarette smoker one half pack a day or less Hemolytic anemia Squamous cell carcinoma of skin Ascending aortic aneurysm Atherosclerotic cardiovascular disease Acute diastolic (congestive) heart failure Congestive heart failure Eczema of left external ear Macrocytic anemia Positional lightheadedness Depression, major, recurrent, moderate Benign prostatic hyperplasia Fatigue after COVID-19 vaccination Tubular adenoma of colon GERD (gastroesophageal reflux disease) Peripheral vascular disease Degenerative disc disease, cervical Hypertension Dyslipidemia 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 Social History Household Members: Spouse Housing: House Do you presently have visiting nurse or other home services: No Alcohol intake: former Patient Tobacco Use Status: Current someday Tobacco user Tobacco use type: Cigarette Cigarette Packs Per Day: 1 Years Smoked: 50+ e-Cigarette/Vaping Use: Never Used service: No Current occupational status: retired Cognitive needs: No Hearing needs: Yes Vision needs: No Questionnaire PHQ-9 Over the last 2 weeks, how often have you been bothered by any of the following problems? 1. Little interest or pleasure in doing things: not at all 2. Feeling down, depressed, or hopeless: not at all 3. Trouble falling or staying asleep, or sleeping too much: more than half the days 4. Feeling tired or having little energy: several days 5. Poor appetite or overeating: not at all 6. Feeling bad about yourself - or that you are a failure or have let yourself or your family down: not at all 7. Trouble concentrating on things, such as reading the newspaper or watching television: several days 8. Moving or speaking so slowly that other people could have noticed. Or the opposite - being so fidgety or restless that you have been moving around a lot more than usual: several days 9. Thoughts that you would be better off or of hurting yourself in some way: not at all Total score: 5 Depression Screening Interpretation: Negative Depression Screening Done: Yes 87366 - PHQ-9 Billing: Yes Source: Developed by Drs. Noble Lofton, Gali Louise, Hubert Roberts and colleagues, with an educational sabiha from [employer]. Thrive Questionnaire Date Thrive assessed: 09/30/23 I am a: Patient What is your living situation today?: I have a steady place to live Within the past 12 months, did the food you bought not last and you didn't have the money to get more?: Never true Within the past 12 months, did you worry whether your food would run out before you got money to buy more?: Never true Do you have trouble paying for medicines?: No Do you have trouble getting transportation to medical appointments?: No Do you have trouble paying your heating and electricity bill?: No Do you have trouble taking care of your child, family member or friend?: No Do you have trouble with day-to-day activities such as bathing, preparing meals, shopping, managing finances, etc.?: No Are you currently unemployed and looking for a job?: No Are you interested in more education?: No Please select the resources that you would like help with: None THRIVE Score: 0 AUDIT C Alcohol Use Questionnaire (AUDIT-C) 1. How often do you have a drink containing alcohol?: Never Total Score: 0 DAVINA-7 AMB Questionnaire DAVINA-7 Date DAVINA - 7 assessed: 09/30/23 Feeling nervous, anxious, or on edge: 1 = Several days Not being able to stop or control worryin = Not at all Worrying too much about different things: 1 = Several days Trouble relaxin = More than half the days Being so restless that it is hard to sit still: 0 = Not at all Becoming easily annoyed or irritable: 0 = Not at all Feeling afraid as if something awful might happen: 0 = Not at all Total DAVINA-7 score (0-4 normal; 5-9 mild; 10-14 moderate; 15-21 severe): 4 Source: Developed by Drs. Noble Lofton, Gali Louise, Hubert Roberts and colleagues, with an educational sabiha from [employer]. DAVINA-7 Assessment Billing DAVINA-7 Assessment Tool: DAVINA-7 Assessment 67156 Review of Systems Const Reports fatigue, Denies headache(s) and Reports malaise Eyes Denies change in vision ENT Denies dysphagia, Denies headache(s), Reports hearing loss, Denies nasal congestion, Denies post nasal drip, Denies sinus pain and Denies sore throat Card Denies chest pain, Denies syncope, Denies rapid heart rate, Denies edema, Denies irregular heart rhythm, Reports lightheadedness (Positional) and Reports dyspnea on exertion Resp Denies chest congestion, Denies excessive phlegm production, Denies pain on inspiration, Denies pain with cough and Reports dyspnea on exertion GI Denies abdominal pain, Denies melena, Denies bloating, Denies hematochezia, Denies change in bowel habits, Denies dysphagia, Denies heartburn and Denies nausea Reports no additional complaints Musc Denies joint swelling, Reports stiffness and Denies tingling Neuro Denies syncope, Denies headache(s), Denies focal weakness, Denies tingling and Reports paresthesias Psych Reports as per HPI Endo Reports fatigue, Denies polyphagia, Denies polydipsia and Denies polyuria Aaron/Lymph Denies easy bleeding and Denies easy bruising Aller/Immun Reports no additional complaints Physical exam (Primary Care) Vital Signs: Last Vital Signs Pulse 82 09/30/23 10:01 BP 116/64 04/05/24 10:01 Pulse Ox 98 09/30/23 10:01 Oxygen Delivery Method Room Air 09/30/23 10:01 BMI result Body Mass Index 22.1 Tobacco/Smoking Status: Tobacco use Status Tobacco use date assessed 09/30/23 09/30/23 10:14 Patient Tobacco Use Status Current someday Tobacco 09/30/23 10:01 Tobacco use type Cigarette 09/30/23 10:01 e-Cigarette/Vaping Use Never Used 09/30/23 10:01 Depression Screening Interpretation: Negative Thrive Assessment: Date of Thrive Assessment Date Thrive assessed 03/17/23 09/30/23 10:01 Const Other: Alert oriented x 3, accompanied by , no acute distress noted ambulatory with assistance of a cane Orientation/consciousness: patient oriented x3 HENMT Ears: external ears normal and hearing grossly impaired General nose exam: Normal external nose present Face and sinus: Yes face symmetric Mouth: Normal oral and palatal mucosa present and moist mucous membranes Teeth and gingiva: edentulous Eyes General: appearance normal, both eyes and all related structures Neck Other: Supple, no lymphadenopathy, no carotid bruits, thyroid gland nonpalpable Resp Effort & Inspection: normal respiratory effort and able to speak in complete sentences Auscultation: clear to auscultation bilaterally Cardio Other: S1-S2 present regular rate and rhythm GI Palpation (GI): Soft to palpation, nontender, no guarding and no masses Auscultation: normal bowel sounds General: Yes no CVA tenderness Back/Spine/Pelvis Back: no CVA tenderness and No back tenderness Skin General skin exam: no rashes or lesions noted Neuro General: patient oriented x3, moves all extremities, Normal light touch and pain sensation, no focal motor deficits and CN's II-XI intact bilaterally Extrem General: Yes full ROM, Yes no joint enlargement and Yes no clubbing, cyanosis or edema Psych Appearance: grossly normal and well kempt Mental Status: mental status grossly normal Speech and movement: Normal speech and movement present Affect: normal affect Attitude: cooperative Assessment and Plan Assessment & Plan (1) Iron deficiency anemia: Code(s): D50.9 - Iron deficiency anemia, unspecified Qualifiers: Iron deficiency anemia type: chronic blood loss Qualified Code(s): D50.0 - Iron deficiency anemia secondary to blood loss (chronic) Plan: Started on ferrous sulfate 325 mg taken once a day. Continue omeprazole, strongly advised to quit smoking. Repeat another CBC and iron profile. Has an appointment for follow-up with Dr. Manzo in November 2023 (2) Peripheral vascular disease: Comment: Followed by [facility] vascular surgery. Paresthesias lower extremities. Code(s): I73.9 - Peripheral vascular disease, unspecified Plan: Followed by [facility] vascular surgery aspirin currently on hold due to GI bleed. Reinforced with patient importance of smoking cessation (3) Hypertension: Code(s): I10 - Essential (primary) hypertension Plan: Continue lisinopril, carvedilol metoprolol and torsemide (4) GERD (gastroesophageal reflux disease): Code(s): K21.9 - Gastro-esophageal reflux disease without esophagitis Plan: Continue with omeprazole 40 mg daily. Follow-up with Dr. Manzo appointment already made for 12/01/2023 (5) Ascending aortic aneurysm: Code(s): I71.21 - Aneurysm of the ascending aorta, without rupture Plan: Followed by cardiology, has an appointment Dr. Crawford (6) Diabetes-pancreatic exocrine dysfunction syndrome: Comment: Followed at endocrine clinic Code(s): E13.9 - Other specified diabetes mellitus without complications Plan: Continue Creon. Latest hemoglobin A1c at 7.2%. Advised to increase Tresiba by 1 unit every 2 days until a maximum of 10 units at bedtime, continue with sliding scale NovoLog insulin with meals. Reinforced importance smoking cessation and following recommended diet. Continue checking blood sugar using freestyle ramiro. (7) Peripheral neuropathy: Code(s): G62.9 - Polyneuropathy, unspecified Plan: Currently on gabapentin 100 mg per capsule taken 1 at bedtime (8) History of upper gastrointestinal bleeding: Code(s): Z87.19 - Personal history of other diseases of the digestive system Plan: Started on ferrous sulfate 325 mg 1 tablet daily. Continue omeprazole. CBC and iron profile ordered today. Has an appointment already scheduled for Dr. Manzo November 30 Orders: Orders IRON PROFILE 09/30/23 D50.9 - Iron deficiency anemia, unspecified Complete Blood Count Auto Diff 09/30/23 D50.9 - Iron deficiency anemia, un specified Medications: New ferrous sulfate 325 mg PO DAILY 30 tabs 5RF D50.9 - Iron deficiency anemia, unspecified Refilled albuterol sulfate 90 mcg/actuation 2 puffs inhalation Q4H PRN 18 ea 5RF For wheezing and bronchospasm Coding Level of Care Code Est Pt Level 4 (97284) Diagnoses Iron deficiency anemia due to chronic blood loss D50.0 Iron deficiency anemia type: chronic blood loss Peripheral vascular disease I73.9 Hypertension I10 GERD (gastroesophageal reflux disease) K21.9 Ascending aortic aneurysm I71.21 Diabetes-pancreatic exocrine dysfunction syndrome E13.9 Peripheral neuropathy G62.9 History of upper gastrointestinal bleeding Z87.19 Additional Codes DAVINA-7 Assessment Billing - DAVINA-7 Assessment Tool: DAVINA-7 Assessment [id number] ([id number])
[2023-09-30 10:01] VITALS: BP 116/64; PULSE 82; O2SAT 98; BMI 22.1
== END 2023-09-30 13:37 | disposition home or self-care (01) ==
PROVIDERS: PCP Internal Medicine; Visit Provider Internal Medicine
DX: I73.9 Peripheral vascular disease, unspecified (principal); I71.21 Aneurysm of the ascending aorta, without rupture; E13.9 Other specified diabetes mellitus without complications; D50.0 Iron deficiency anemia secondary to blood loss (chronic); I10 Essential (primary) hypertension; K21.9 Gastro-esophageal reflux disease without esophagitis; G62.9 Polyneuropathy, unspecified; Z87.19 Personal history of other diseases of the digestive system
CPT/HCPCS: 99214

== ENCOUNTER 2023-12-15 10:38 | Outpatient (AMB) | payer MEDICARE, SELFPAY ==
--- NOTE | 2023-12-15 10:40 | A.OFFPC_ITS ---
Vital Signs 12/15/23 10:42 Height 5 ft 6 in Weight 145 lb BMI 23.4 BP 134/78 Blood Pressure Location Lt brachial Position Sitting Pulse 71 Pulse Source Pulse Oximeter Pulse Oximetry (%) 98 Oxygen Delivery Method Room Air Intake Visit Reasons: HDF pancreatitis [facility] Intake Note: Patient here for HDF-pancreatitis. Allergies codeine [CODEINE] Allergy (Intermediate, Verified 12/15/23 11:05) RASH nicotine Allergy (Intermediate, Verified 12/15/23 11:05) NICOTINE PATCH- RASH, hives Penicillins Allergy (Intermediate, Verified 12/15/23 11:05) HIVES oxycodone [Percocet] Allergy (Unknown, Verified 12/15/23 11:05) rash, itching meperidine Allergy (Verified 12/15/23 11:05) Itching Medication List - Last Reconciled 12/15/23 by Keiry Keller MD Admelog SoloStar U-100 Insulin (insulin lispro) 3 - 5 units (0.03 - 0.05 mL) subcut TID NS albuterol sulfate 90 mcg/actuation 2 puffs inhalation Q4H PRN alum-mag hydroxide-simeth 200-200-20 mg/5 mL (Maalox Advanced) 10 mL PO QID PRN B [id number]-V-dww-Fe-FA 106 mg iron- 1 mg 1 tab PO DAILY blood sugar diagnostic 3 times a day blood sugar diagnostic (FreeStyle Lite Strips) As directed three times a day blood-glucose meter (FreeStyle Lite Meter kit) As directed 3x/day carvedilol 1 tab PO BID cholecalciferol (vitamin D3) 50 mcg PO DAILY cyanocobalamin (vitamin B-12) (Vitamin B-12) 500 mcg PO DAILY [Diabetic shoes & 3 pair inserts as directed] diphenhydramine HCl 12.5 mg PO BEDTIME PRN ferrous sulfate 325 mg PO DAILY flash glucose scanning reader (FreeStyle Ramiro 2 [place]) As directed flash glucose sensor (FreeStyle Ramiro 2 Sensor kit) As directed change every 14 days fluticasone propionate 50 mcg/actuation 1 spray intranasal DAILY PRN gabapentin mg PO insulin degludec 8 units (0.08 mL) subcut DAILY lancets As directed [id number]-[id number]-[id number] 24,000-76,000 -120,000 unit (Creon) 1 cap PO TIDAC lisinopril 5 mg PO DAILY loratadine 10 mg PO DAILY PRN metoprolol succinate ER 12.5 mg PO DAILY omeprazole 40 mg PO DAILY ondansetron HCl 4 mg PO Q8H PRN pen needle, diabetic (BD Nydia 2nd Gen Pen Needle) USE TO INJECT 4 TIMES A DAY torsemide 20 mg PO DAILY Tobacco use date assessed: 09/30/23 Dental Screening Dental Screen Date: 09/30/23 HPI HDF pancreatitis [facility] HPI Details 78-year-old male with history of chronic alcoholic pancreatitis s/p Whipple, has diabetes pancreatic exocrine dysfunction syndrome, GERD, CAD s/p CONCEPCIÓN to the LAD, peripheral vascular disease with chronic total occlusion of the RCA, ascending aortic aneurysm 4.8 cm, peripheral neuropathy, iron deficiency anemia, history upper GI bleed, myelofibrosis, benign prostatic hyperplasia, and depression, here today for hospital follow-up.. He was admitted recently at [facility] for acute on chronic pancreatitis,. Lipase however was not elevated repeat CT abdomen obtained did not show pancreatitis but showed constipation and it looks like patient's abdominal pain is most likely due to constipation. He was then started on laxatives and subsequently was able to pass a bowel movement. He has history of alcoholism has not had a drink in the last 7 years, but just recently stopped smoking cigarettes 3 weeks ago. He is also here today for a mobility exam. Patient is currently applying for power mobility device. He has great difficulty walking with bilateral leg pain, which is progressively getting worse. He currently is being seen by [facility] vascular surgery for his peripheral vascular disease. He walks with an ataxic gait, and has been unable to walk more than 3 or 4 ft without experiencing pain in both lower extremities which she states is on 9 to 1010 in intensity. He has been having recurrent episodes of swelling in both lower extremities, , and has had recurrent episodes of cellulitis. He needs a PMD to use at home to get from his bedroom to the kitchen or the bathroom. He has tried using a cane and a walker, but has had repeated falls due to weakness in both lower extremities , has peripheral neuropathy, gait instability, and has impaired vibratory sense in both feet as well. 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 It is in my opinion that he can safely operate a power mobility device both mentally and physically and is highly motivated to use it in the home. [facility] Medical History (Updated 12/26/23 @ 02:21 by Keiry Keller MD) History of upper gastrointestinal bleeding Peripheral neuropathy Iron deficiency anemia Dyspepsia Generalized anxiety disorder Cigarette smoker one half pack a day or less Hemolytic anemia Squamous cell carcinoma of skin Skin lesion of left arm Ascending aortic aneurysm Atherosclerotic cardiovascular disease Acute diastolic (congestive) heart failure Congestive heart failure Eczema of left external ear Macrocytic anemia Positional lightheadedness Depression, major, recurrent, moderate Benign prostatic hyperplasia Fatigue after COVID-19 vaccination Tubular adenoma of colon GERD (gastroesophageal reflux disease) Peripheral vascular disease Degenerative disc disease, cervical Hypertension Dyslipidemia longterm (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 Social History (Updated 12/26/23 @ 02:11 by Keiry Keller MD) Household Members: Spouse Housing: House Do you presently have visiting nurse or other home services: No Alcohol intake: former Patient Tobacco Use Status: Former Tobacco user Tobacco use type: Cigarette Cigarette Packs Per Day: 1 Years Smoked: 50+ e-Cigarette/Vaping Use: Never Used service: No Current occupational status: retired Cognitive needs: No Hearing needs: Yes Vision needs: No Questionnaire PHQ-9 Over the last 2 weeks, how often have you been bothered by any of the following problems? Depression Screening Interpretation: Negative Depression Screening Done: Yes Source: Developed by Drs. Noble Lofton, Gali Louise, Hubert Roberts and colleagues, with an educational sabiha from [employer]. Thrive Questionnaire Date Thrive assessed: 09/30/23 AUDIT C Alcohol Use Questionnaire (AUDIT-C) 1. How often do you have a drink containing alcohol?: Never (Sober now for the last 7 years) Total Score: 0 DAVINA-7 AMB Questionnaire DAVINA-7 Date DAVINA - 7 assessed: 09/30/23 Source: Developed by Drs. Noble Lofton, Gali Louise, Hubert Roberts and colleagues, with an educational sabiha from [employer]. Review of Systems Const Reports body aches, Reports fatigue, Denies headache(s), Reports malaise and Reports weakness (In both upper and lower extremities) Eyes Denies change in vision ENT Denies dysphagia, Denies headache(s), Reports hearing loss, Denies nasal congestion, Denies post nasal drip, Denies sinus pain and Denies sore throat Card Denies chest pain, Denies syncope, Denies rapid heart rate, Denies edema, Denies irregular heart rhythm, Reports lightheadedness (Positional) and Reports dyspnea on exertion Resp Denies chest congestion, Denies excessive phlegm production, Denies pain on inspiration, Denies pain with cough and Reports dyspnea on exertion GI Reports as per HPI, Denies abdominal pain, Denies melena, Denies bloating, Denies hematochezia, Denies dysphagia, Denies heartburn and Denies nausea Reports no additional complaints Musc Reports abnormal gait, Reports arthralgias (Polyarthralgia), Reports joint swelling (Intermittent), Reports limited range of motion (Decreased range of motion in bilateral hip, knee and ankle joint), Reports muscle weakness, Reports numbness, Reports radiating pain into limb, Reports stiffness and Denies tingling Skin/Breast Denies rash Neuro Reports abnormal gait, Denies syncope, Denies headache(s), Denies focal weakness, Reports numbness, Denies tingling, Reports paresthesias and Reports weakness (In both upper and lower extremities) Psych Reports as per HPI Endo Reports fatigue, Denies polyphagia, Denies polydipsia and Denies polyuria Aaron/Lymph Denies easy bleeding and Denies easy bruising Aller/Immun Reports no additional complaints Physical exam (Primary Care) Vital Signs: Last Vital Signs Pulse 71 12/15/23 10:42 BP 134/78 12/15/23 10:42 Pulse Ox 98 12/15/23 10:42 Oxygen Delivery Method Room Air 12/15/23 10:42 BMI result Body Mass Index 23.4 Tobacco/Smoking Status: Tobacco use Status Tobacco use date assessed 09/30/23 12/15/23 10:42 Patient Tobacco Use Status Current someday Tobacco 12/15/23 10:42 Tobacco use type Cigarette 12/15/23 10:42 e-Cigarette/Vaping Use Never Used 12/15/23 10:42 Depression Screening Interpretation: Negative Thrive Assessment: Date of Thrive Assessment Date Thrive assessed 09/30/23 12/15/23 10:42 Const Other: Alert oriented x 3, accompanied by , no acute distress noted , antalgic gai t ambulatory with assistance of a cane Orientation/consciousness: patient oriented x3 HENMT Ears: external ears normal and hearing grossly impaired General nose exam: Normal external nose present Face and sinus: Yes face symmetric Mouth: Normal oral and palatal mucosa present and moist mucous membranes Teeth and gingiva: edentulous Eyes General: appearance normal, both eyes and all related structures Neck Other: Supple, no lymphadenopathy, no carotid bruits, thyroid gland nonpalpable Resp Effort & Inspection: normal respiratory effort and able to speak in complete sentences Auscultation: clear to auscultation bilaterally Cardio Other: S1-S2 present regular rate and rhythm GI Palpation (GI): Soft to palpation, nontender, no guarding and no masses Auscultation: normal bowel sounds General: Yes no CVA tenderness Back/Spine/Pelvis Back: no CVA tenderness and No back tenderness Skin General skin exam: no rashes or lesions noted Neuro General: patient oriented x3, moves all extremities, no focal motor deficits, CN's II-XI intact bilaterally and decrease sensation to monofilament Cognition (Neuro): normal cognition Gait exam (Neuro): Antalgic gait present and Assisted gait required Motor exam (neuro): Abnormal motor strength present (4-5/5 in both lower extremity and upper extremity) and Tremors during motor activity present (Resting tremors both hands) Extrem Other: Decreased range of motion of both hip joints especially in abduction extension due to pain General: Yes no joint enlargement, Yes pedal edema and Yes venous stasis dermatitis Psych Appearance: grossly normal and well kempt Mental Status: mental status grossly normal Speech and movement: Normal speech and movement present Affect: normal affect Attitude: cooperative Assessment and Plan Assessment & Plan (1) History of acute pancreatitis: Code(s): Z87.19 - Personal history of other diseases of the digestive system Plan: Advised bowel rest, ordered repeat CBC and basic metabolic panel and lipase level. Continue on Creon (2) Constipation: Code(s): K59.00 - Constipation, unspecified Qualifiers: Constipation type: unspecified constipation type Qualified Code(s): K59.00 - Constipation, unspecified Plan: Advised to stay well-hydrated, may take zuwq-[id number]-vfuotcw docusate sodium 200 mg at night (3) Peripheral neuropathy: Code(s): G62.9 - Polyneuropathy, unspecified Qualifiers: Peripheral neuropathy type: polyneuropathy associated with underlying disease Qualified Code(s): G63 - Polyneuropathy in diseases classified elsewhere Plan: Currently on gabapentin, applying for power mobility device (4) Peripheral vascular disease: Comment: Followed by [facility] vascular surgery. Paresthesias lower extremities. Code(s): I73.9 - Peripheral vascular disease, unspecified Plan: Followed by [facility] vascular Service, anticoagulation currently on hold due to recent history of GI bleed. Reinforced importance of getting diabetes mellitus, hypertension hyperlipidemia the good control (5) Diabetes-pancreatic exocrine dysfunction syndrome: Comment: Followed at endocrine clinic Code(s): E13.9 - Other specified diabetes mellitus without complications Plan: Currently on Admelog Solostar 2-5 units 3 times a day for meals and insulin degludec 80 units daily, continue with Creon (6) Myelofibrosis: Comment: JAK2 mutation positive Code(s): D75.81 - Myelofibrosis Plan: Followed by hematology oncology (7) Hypertension: Code(s): I10 - Essential (primary) hypertension Plan: Blood pressure at goal of less than 130/80. Continue metoprolol succinate ER, lisinopril, torsemide and carvedilol. Reinforced importance of following a low sodium diet, getting regular exercise, and lowering stress levels. (8) Ascending aortic aneurysm: Code(s): I71.21 - Aneurysm of the ascending aorta, without rupture Plan: Currently asymptomatic, followed by vascular surgery Orders: Orders Complete Blood Count Auto Diff 12/15/23 Z87.19 - Personal history of other diseases of the digestive system Basic Metabolic Panel 12/15/23 Z87.19 - Personal history of other diseases of the digestive system Lipase 12/15/23 Z87.19 - Personal history of other diseases of the digestive system Coding Level of Care Code Est Pt Level 5 (44060) Complex EM visit Add On G2211 Diagnoses History of acute pancreatitis Z87.19 Constipation, unspecified constipation type K59.00 Constipation type: unspecified constipation type Polyneuropathy associated with underlying disease G63 Peripheral neuropathy type: polyneuropathy associated with underlying disease Peripheral vascular disease I73.9 Diabetes-pancreatic exocrine dysfunction syndrome E13.9 Myelofibrosis D75.81 Hypertension I10 Ascending aortic aneurysm I71.21 Time Spent (min) 45 Comment Detail mobility exam / review of consult report,completion of form
[2023-12-15 10:42] VITALS: BP 134/78; PULSE 71; O2SAT 98; BMI 23.4
== END 2023-12-15 16:45 | disposition home or self-care (01) ==
PROVIDERS: PCP Internal Medicine; Visit Provider Internal Medicine
DX: I73.9 Peripheral vascular disease, unspecified (principal); G63 Polyneuropathy in diseases classified elsewhere; E13.9 Other specified diabetes mellitus without complications; D75.81 Myelofibrosis; I71.21 Aneurysm of the ascending aorta, without rupture; Z87.19 Personal history of other diseases of the digestive system; K59.00 Constipation, unspecified; I10 Essential (primary) hypertension
CPT/HCPCS: 99215; G2211

== ENCOUNTER 2023-12-15 11:20 | Outpatient (REF) | payer MEDICARE, SELFPAY ==
[2023-12-15 13:19] LABS: Basophils Absolute Auto 0.1 X10*3/uL (0.0-0.2); Basophils Percent Auto 0.8 % (0-2); Eosinophils Absolute Auto 0.2 X10*3/uL (0.0-0.4); Eosinophils Percent Auto 1.1 % (0-4); Hematocrit 34.2 % (42.0-52.0); Hemoglobin 11.1 g/dl (14.0-18.0); Imm Gran Abs Auto 0.43 X10*3/uL (0.00-0.03); Imm Gran Pct Auto 2.9 % (0.0-0.4); Lymphocytes Absolute Auto 1.9 X10*3/uL (1.2-4.9); Lymphocytes Percent Auto 12.8 % (20-40); MANUAL DIFF FLAG SCAN; Mean Corpuscular HGB Conc 32.5 g/dl (31.0-36.0); Mean Corpuscular Volume 89.3 fL (80.0-98.0); Monocytes Absolute Auto 1.6 X10*3/uL (0.1-1.2); Monocytes Percent Auto 10.5 % (2-11); Neutrophils Absolute Auto 10.6 x10*3/uL (2.0-8.3); Neutrophils Percent Auto 71.9 % (45-73); Platelet Count 185 X10*3/uL (160-400); Red Blood Count 3.83 X10*6/uL (4.60-5.80); Red Cell Distribution Width 20.2 % (11.0-16.0); SCAN SMEAR FLAG 1; White Blood Count 14.8 X10*3/uL (4.8-10.8)
[2023-12-15 13:50] LABS: SLIDE REVIEW VERIFIED
[2023-12-15 13:56] LABS: Anion Gap 12 (12-20); Blood Urea Nitrogen 7 mg/dL (9-16); Calcium 8.7 mg/dL (8.4-10.2); Carbon Dioxide 29 mmol/L (22-29); Chloride 107 mmol/L (96-108); Estimated Glomerular Filt Rate > 60; Glucose Random 80 mg/dL (60-115); Iron 89 mcg/dL (45-160); Lipase < 4 U/L (8-78); Percent Iron Saturation 50 % (15-50); Potassium 4.3 mmol/L (3.3-5.1); Sodium 144 mmol/L (135-145); Total Iron Binding Capacity 178 mcg/dL (228-428); Unsaturated Iron Binding 89 ug/dL
--- NOTE | 2023-12-22 09:44 | PM.PNNEP ---
Subjective Subjective Date of Service: 12/19/23 Principal diagnosis: CKD 2, Proteinuria Interval history: RTANE patient for years seen today for CKD 2 and Proteinuria Full note available [id number] or [employer] Labs 12/15/23 11:23 12/15/23 11:23 Procedures Date of Service Date of Service: 12/22/23 Assessment & Plan Time Spent With Patient Time: Total time managing care of this patient today ____ minutes.
== END 2023-12-15 11:21 | disposition home or self-care (01) ==
LOC: HO.HMGCLDS 11:20
PROVIDERS: PCP Internal Medicine; Visit Provider Internal Medicine
DX: D50.9 Iron deficiency anemia, unspecified (principal); Z87.19 Personal history of other diseases of the digestive system
CPT/HCPCS: 36415; 80048; 83540; 83690; 85025

== ENCOUNTER 2024-01-26 09:30 | Outpatient (AMB) | payer MEDICARE, SELFPAY ==
--- NOTE | 2024-01-26 09:38 | AM.OFFWIN_ITS ---
Intake Vital Signs 01/26/24 09:39 Height 5 ft 6 in Weight 132 lb BMI 21.3 BP 114/80 Blood Pressure Location Lt brachial Position Sitting Pulse 87 Pulse Source Pulse Oximeter Temp 98.2 F Temp Source Oral Pulse Oximetry (%) 98 Oxygen Delivery Method Room Air Intake Visit Reasons: stomach ache, dizziness, dizziness Intake Note: pt c/o Stomach ache and dizziness, diarrhea, nausea, denies vomiting. Pt also states confused. Started a week ago Patient Tobacco Use Status: Former Tobacco user Allergies codeine [CODEINE] Allergy (Intermediate, Verified 01/26/24 09:39) RASH nicotine Allergy (Intermediate, Verified 01/26/24 09:39) NICOTINE PATCH- RASH, hives Penicillins Allergy (Intermediate, Verified 01/26/24 09:39) HIVES oxycodone [Percocet] Allergy (Unknown, Verified 01/26/24 09:39) rash, itching meperidine Allergy (Verified 01/26/24 09:39) Itching Do you need a note to return to daycare/school/sports/work: No HPI stomach ache, dizziness, dizziness HPI Details This note is constructed using voice recognition software. While every effort has been made to ensure accuracy, software licensing analyst errors may have been included. The patient is a 72 year old male who presents to the clinic today with multiple complaints. He reports that he has had one-week posterior headache with extreme dizziness, lightheadedness, and confusion. He reports the confusion to be more intermittent in nature, but the dizziness and headache are constant. The headache is in the posterior head. He has also developed some abdominal pain with diarrhea, in his also concern for an infection on his right nipple. He denies fever, chills, cough, shortness of breath. He notes that he is currently being treated for cancer, and is also being considered for surgery for claudication, however he has been told that he has a very poor candidate for surgery. He also reports that he has been treated in the past for depression, but he did not like how the medication made him feel, he wishes he was not alive, but he states that he has no desire to hurt himself. [facility] [place] Medical History History of upper gastrointestinal bleeding Peripheral neuropathy Iron deficiency anemia Dyspepsia Generalized anxiety disorder Cigarette smoker one half pack a day or less Hemolytic anemia Squamous cell carcinoma of skin Skin lesion of left arm Ascending aortic aneurysm Atherosclerotic cardiovascular disease Acute diastolic (congestive) heart failure Congestive heart failure Eczema of left external ear Macrocytic anemia Positional lightheadedness Depression, major, recurrent, moderate Benign prostatic hyperplasia Fatigue after COVID-19 vaccination Tubular adenoma of colon GERD (gastroesophageal reflux disease) Peripheral vascular disease Degenerative disc disease, cervical Hypertension 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 Social History Household Members: Spouse Housing: House Do you presently have visiting nurse or other home services: No Alcohol intake: former Patient Tobacco Use Status: Former Tobacco user Tobacco use type: Cigarette Cigarette Packs Per Day: 1 Years Smoked: 50+ e-Cigarette/Vaping Use: Never Used service: No Current occupational status: retired Cognitive needs: No Hearing needs: Yes Vision needs: No Review of Systems Const All systems reviewed & are unremarkable except as noted in HPI and below Physical Exam Vital Signs: Last Vital Signs Temp 98.2 F 01/26/24 09:39 Pulse 87 01/26/24 09:39 BP 114/80 01/26/24 09:39 Pulse Ox 98 01/26/24 09:39 Oxygen Delivery Method Room Air 01/26/24 09:39 BMI result Body Mass Index 21.3 Const General: cooperative, healthy appearing, comfortable, no acute distress and alert Limitations: no limitations Neck Neck: Yes normal visual inspection, Yes full ROM and Yes no lymphadenopathy Resp Effort & Inspection: normal respiratory effort and able to speak in complete sentences Auscultation: clear to auscultation bilaterally Cardio Jugular venous distension: no JVD Palpation: normal PMI Rate: regular rate Heart sounds: S1 normal heart sound present, S2 normal heart sound present, no click, no gallops, no murmurs and no rubs Neuro Other: Appears to have right-sided facial droop, however alert and oriented x3, able to hold a complete conversation with provider. Hand grasps equal bilaterally. Psych Appearance: grossly normal Mental Status: mental status grossly normal Speech and movement: Normal speech and movement present Affect: normal affect Assessment & Plan Assessment & Plan (1) Confusion: Code(s): R41.0 - Disorientation, unspecified Plan: Concerning feature of a 78-year-old male patient in setting of new onset headache with no previously history of headache. Patient appears to be coherent at visit today. Advised patient to be seen by emergency room. Offered EMS an ambulance transportation to the emergency room, but he declined. We discussed this for several minutes, and he continued to declined transportation efforts to the emergency room. He does agree to contact EMS after getting home. Which his will be picking him up to bring him home. (2) Headache: Code(s): R51.9 - Headache, unspecified Qualifiers: Headache type: unspecified Headache chronicity pattern: acute headache Intractability: intractable Qualified Code(s): R51.9 - Headache, unspecified Plan: Given new onset headache with no previous history of headache, and in setting of history of confusion, advised patient to go to the emergency room for evaluation for consideration of stroke. Patient declined transportation by EMS, and instead plans to have his pick him up from here, and he will call EMS from his home. I reviewed my concern for prompt treatment and evaluation with him in the risk of worsening situation which could involve at worst case scenario . Plan See above for full details and plan. Coding Level of Care Code Est Pt Level 4 (55235) Diagnoses Confusion R41.0 Acute intractable headache, unspecified headache type R51.9 Headache type: unspecified Headache chronicity pattern: acute headache Intractability: intractable
[2024-01-26 09:39] VITALS: BP 114/80; PULSE 87; TEMP 36.8; O2SAT 98; BMI 21.3
== END 2024-01-26 11:17 | disposition home or self-care (01) ==
PROVIDERS: PCP Internal Medicine; Visit Provider Registered Nurse
DX: R51.9 Headache, unspecified (principal); R42 Dizziness and giddiness; R41.0 Disorientation, unspecified
CPT/HCPCS: 99214

== ENCOUNTER 2024-03-12 10:29 | Outpatient (AMB) | payer MEDICARE, SELFPAY ==
[2024-03-12 11:02] VITALS: BP 126/82; PULSE 67; O2SAT 97; BMI 21.9
--- NOTE | 2024-03-12 11:02 | MHC.PC.OV ---
Vital Signs 03/12/24 11:02 Height 5 ft 6 in Weight 136 lb BMI 21.9 BP 126/82 Blood Pressure Location Lt brachial Position Sitting Pulse 67 Pulse Source Pulse Oximeter Pulse Oximetry (%) 97 Oxygen Delivery Method Room Air Intake Visit Reasons: Follow-up lipids and diabetes Intake Note: Pt is here today c/o Rt nipple pain Allergies codeine [CODEINE] Allergy (Intermediate, Verified 03/12/24 11:27) RASH nicotine Allergy (Intermediate, Verified 03/12/24 11:27) NICOTINE PATCH- RASH, hives Penicillins Allergy (Intermediate, Verified 03/12/24 11:27) HIVES oxycodone [Percocet] Allergy (Unknown, Verified 03/12/24 11:27) rash, itching meperidine Allergy (Verified 03/12/24 11:27) Itching Medication List - Last Reconciled 03/12/24 by Keiry Keller MD Admelog SoloStar U-100 Insulin (insulin lispro) 3 - 5 units (0.03 - 0.05 mL) subcut TID NS albuterol sulfate 90 mcg/actuation 2 puffs inhalation Q4H PRN B [id number] 106 mg iron- 1 mg 1 tab PO DAILY blood sugar diagnostic 3 times a day blood sugar diagnostic (FreeStyle Lite Strips) As directed three times a day blood-glucose meter (FreeStyle Lite Meter kit) As directed 3x/day carvedilol 1 tab PO BID cholecalciferol (vitamin D3) 50 mcg PO DAILY cyanocobalamin (vitamin B-12) (Vitamin B-12) 500 mcg PO DAILY [Diabetic shoes & 3 pair inserts as directed] ferrous sulfate 325 mg PO DAILY flash glucose scanning reader (FreeStyle Ramiro 2 [place]) As directed flash glucose sensor (FreeStyle Ramiro 2 Sensor kit) As directed change every 14 days fluticasone propionate 50 mcg/actuation 1 spray intranasal DAILY PRN gabapentin TAKE 1 CAPSULE BY MOUTH 3 TIMES A DAY NEEDED FOR MODERATE PAIN lancets As directed [id number] 24,000-76,000 -120,000 unit (Creon) 1 cap PO TIDAC loratadine 10 mg PO DAILY PRN metoprolol succinate ER 12.5 mg PO DAILY omeprazole 40 mg PO DAILY pen needle, diabetic (BD Nydia 2nd Gen Pen Needle) USE TO INJECT 4 TIMES A DAY sucralfate 1 g PO BID torsemide 20 mg PO Q2D Tresiba FlexTouch U-100 (insulin degludec) 8 units (0.08 mL) subcut DAILY NS Tobacco use date assessed: 03/12/24 Fall risk assessment: No Falls in past year Last assessed Fall Risk: 03/12/24 Dental Screening Dental Screen Date: 03/12/24 Did you have a dental visit in the last 12 months?: No Did you have a dental problem in the last 6 months where you did not have access to dental care?: No Was dental information given to patient?: Patient declined HPI Follow-up lipids and diabetes HPI Details 78-year-old male with history of chronic alcoholic pancreatitis s/p Whipple, has diabetes pancreatic exocrine dysfunction syndrome, GERD, CAD s/p CONCEPCI[place]N to the LAD, peripheral vascular disease with chronic total occlusion of the RCA, ascending aortic aneurysm 4.8 cm, peripheral neuropathy, anemia of chronic disease, history upper GI bleed, myelofibrosis, benign prostatic hyperplasia, and depression, here today for follow-up on his diabetes and lipids. He was last seen by endocrine clinic 08/01/2023 , continued on Tresiba , now at 8 units daily and Insulin Lispro 3-5 units before breakfast and dinner .Patient's ability to manage his blood sugars are somewhat limited by his cognitive ability. Ideally considering the presence of pancreolytic diabetes as well as wide fluctuations of blood sugars, patient would benefit from insulin pump like Omnipod or tandem in combination with Dexcom. However, patient is not candidate for pump. Although his A1c is not optimalat 7.2 % 08/01/23, his HbA1c may be at goal considering his comorbidities and age. His last fasting lipid levels were in November of 2022, with normal findings except for very low HDL cholesterol at 19. He is currently not any medications for this at present. [facility] Medical History (Updated 03/18/24 @ 04:17 by Keiry Keller MD) Anemia in CKD (chronic kidney disease) History of upper gastrointestinal bleeding Peripheral neuropathy Dyspepsia Generalized anxiety disorder Cigarette smoker one half pack a day or less Hemolytic anemia Squamous cell carcinoma of skin Skin lesion of left arm Ascending aortic aneurysm Atherosclerotic cardiovascular disease Acute diastolic (congestive) heart failure Congestive heart failure Eczema of left external ear Macrocytic anemia Positional lightheadedness Depression, major, recurrent, moderate Benign prostatic hyperplasia Fatigue after COVID-19 vaccination Tubular adenoma of colon GERD (gastroesophageal reflux disease) Peripheral vascular disease Degenerative disc disease, cervical Hypertension 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 Social History Household Members: Spouse Housing: House Do you presently have visiting nurse or other home services: No Alcohol intake: former Patient Tobacco Use Status: Former Tobacco user Tobacco use type: Cigarette Cigarette Packs Per Day: 1 Years Smoked: 50+ e-Cigarette/Vaping Use: Never Used service: No Current occupational status: retired Cognitive needs: No Hearing needs: Yes Vision needs: No Questionnaire Thrive Questionnaire Date Thrive assessed: 09/30/23 DAVINA-7 AMB Questionnaire DAVINA-7 Date DAVINA - 7 assessed: 09/30/23 Source: Developed by Drs. Noble Lofton, Gali Louise, Hubert Roberts and colleagues, with an educational sabiha from [employer]. Review of Systems Const Denies headache(s) and Reports malaise Eyes Denies change in vision ENT Denies dysphagia, Denies headache(s), Reports hearing loss, Denies nasal congestion, Denies post nasal drip, Denies sinus pain and Denies sore throat Card Denies chest pain, Denies syncope, Denies rapid heart rate, Denies irregular heart rhythm and Reports lightheadedness (Positional) Resp Denies chest congestion, Denies excessive phlegm production, Denies pain on inspiration and Denies pain with cough GI Denies abdominal pain, Denies melena, Denies bloating, Denies hematochezia, Denies dysphagia, Denies heartburn and Denies nausea Reports no additional complaints Musc Reports abnormal gait, Reports arthralgias (Polyarthralgia), Reports joint swelling (Intermittent), Reports limited range of motion (Decreased range of motion in bilateral hip, knee and ankle joint), Reports numbness, Reports radiating pain into limb, Reports stiffness and Reports tingling Skin/Breast Denies rash Neuro Reports abnormal gait, Denies syncope, Denies headache(s), Denies focal weakness, Reports numbness, Reports tingling and Reports paresthesias Psych Reports as per HPI Endo Denies polyphagia, Denies polydipsia and Denies polyuria Aaron/Lymph Denies easy bleeding and Denies easy bruising Aller/Immun Reports no additional complaints Physical exam (Primary Care) Vital Signs: Last Vital Signs Pulse 67 03/12/24 11:02 BP 126/82 03/12/24 11:02 Pulse Ox 97 03/12/24 11:02 Oxygen Delivery Method Room Air 03/12/24 11:02 BMI result Body Mass Index 21.9 Tobacco/Smoking Status: Tobacco use Status Tobacco use date assessed 03/12/24 03/12/24 11:05 Patient Tobacco Use Status Former Tobacco user 03/12/24 11:05 Tobacco use type Cigarette 03/12/24 11:05 e-Cigarette/Vaping Use Never Used 03/12/24 11:05 Thrive Assessment: Date of Thrive Assessment Date Thrive assessed 09/30/23 03/12/24 11:05 Const Other: Alert oriented x 3, accompanied by , no acute distress noted , antalgic gait ambulatory with assistance of a cane Orientation/consciousness: patient oriented x3 [facility] Ears: external ears normal and hearing grossly impaired General nose exam: Normal external nose present Face and sinus: Yes face symmetric Mouth: Normal oral and palatal mucosa present and moist mucous membranes Teeth and gingiva: edentulous Eyes General: appearance normal, both eyes and all related structures Neck Other: Supple, no lymphadenopathy, no carotid bruits, thyroid gland nonpalpable Resp Effort & Inspection: normal respiratory effort and able to speak in complete sentences Auscultation: clear to auscultation bilaterally Cardio Other: S1-S2 present regular rate and rhythm GI Palpation (GI): Soft to palpation, nontender, no guarding and no masses Auscultation: normal bowel sounds General: Yes no CVA tenderness Back/Spine/Pelvis Back: no CVA tenderness and No back tenderness Skin General skin exam: no rashes or lesions noted Neuro General: patient oriented x3, moves all extremities, no focal motor deficits, CN's II-XI intact bilaterally and decrease sensation to monofilament Cognition (Neuro): normal cognition Gait exam (Neuro): Antalgic gait present and Assisted gait required Motor exam (neuro): Abnormal motor strength present (4-5/5 in both lower extremity and upper extremity) and Tremors during motor activity present (Resting tremors both hands) Extrem Other: Decreased range of motion of both hip joints especially in abduction extension due to pain General: Yes no joint enlargement and Yes pedal edema Psych Appearance: grossly normal and well kempt Mental Status: mental status grossly normal Speech and movement: Normal speech and movement present Affect: normal affect Attitude: cooperative Assessment and Plan Assessment & Plan (1) Diabetes-pancreatic exocrine dysfunction syndrome: Code(s): E13.9 - Other specified diabetes mellitus without complications Plan: Continue with current dose of Tresiba and insulin lispro, reinforced importance of following recommended diet, continued smoking cessation . Fasting labs ordered to recheck hemoglobin A1c, basic metabolic panel and lipid (2) Dyslipidemia: Code(s): E78.5 - Hyperlipidemia, unspecified Plan: Last fasting lipids were within normal limits except for low HDL cholesterol, currently not on statin will repeat another fasting lipid panel (3) Peripheral vascular disease: Comment: Followed by [facility] vascular surgery. Paresthesias lower extremities. Code(s): I73.9 - Peripheral vascular disease, unspecified Plan: Followed by [facility] vascular surgery, Dr Patel, who recently saw patient, and advised no intervention on his blood vessels as it would not improve the leg swelling, and likely would even make it worse. He was scheduled follow-up with her again in 6 months and to have a repeat ERVIN (4) Myelofibrosis: Comment: JAK2 mutation positive Code(s): D75.81 - Myelofibrosis Plan: Currently followed by Hematology Clinic, was tried on danazol 200 mg p.o. b.i.d. for hemolytic anemia. This has been discontinued as he had no response. He is now receiving Procrit every 2-3 weeks. (5) History of upper gastrointestinal bleeding: Comment: seen on recent EGD done 08/2023 at [facility] with normal esophagus and gastric ulcers noted Code(s): Z87.19 - Personal history of other diseases of the digestive system Plan: EGD at [facility] done 08/2023 showed presence of gastric ulcers, patient taken off aspirin and currently on sucralfate 1 g twice a day and omeprazole 40 mg daily Orders: Orders Alanine Aminotransferase 04/27/24 D50.0 - Iron deficiency anemia secondary to blood loss (chronic), D64.9 - Anemia, unspecified, E13.9 - Other specified diabetes mellitus without complications, E78.5 - Hyperlipidemia, unspecified, I73.9 - Peripheral vascular disease, unspecified Aspartate Amino Transferase 04/27/24 D50.0 - Iron deficiency anemia secondary to blood loss (chronic), D64.9 - Anemia, unspecified, E13.9 - Other specified diabetes mellitus without complications, E78.5 - Hyperlipidemia, unspecified, I73.9 - Peripheral vascular disease, unspecified Hemoglobin A1c 04/27/24 D50.0 - Iron deficiency anemia secondary to blood loss (chronic), D64.9 - Anemia, unspecified, E13.9 - Other specified diabetes mellitus without complications, E78.5 - Hyperlipidemia, unspecified, I73.9 - Peripheral vascular disease, unspecified Basic Metabolic Panel Fasting 04/27/24 D50.0 - Iron deficiency anemia secondary to blood loss (chronic), D64.9 - Anemia, unspecified, E13.9 - Other specified diabetes mellitus without complications, E78.5 - Hyperlipidemia, unspecified, I73.9 - Peripheral vascular disease, unspecified Lipid Panel 04/27/24 D50.0 - Iron deficiency anemia secondary to blood loss (chronic), D64.9 - Anemia, unspecified, E13.9 - Other specified diabetes mellitus without complications, E78.5 - Hyperlipidemia, unspecified, I73.9 - Peripheral vascular disease, unspecified Vitamin D 25-OH Total 04/27/24 D50.0 - Iron deficiency anemia secondary to blood loss (chronic), D64.9 - Anemia, unspecified, E13.9 - Other specified diabetes mellitus without complications, E78.5 - Hyperlipidemia, unspecified, I73.9 - Peripheral vascular disease, unspecified Coding Level of Care Code Est Pt Level 4 (81278) Complex EM visit Add On G2211 Diagnoses Diabetes-pancreatic exocrine dysfunction syndrome E13.9 Dyslipidemia E78.5 Peripheral vascular disease I73.9 Myelofibrosis D75.81 History of upper gastrointestinal bleeding Z87.19
== END 2024-03-12 11:58 | disposition home or self-care (01) ==
PROVIDERS: PCP Internal Medicine; Visit Provider Internal Medicine
DX: E13.9 Other specified diabetes mellitus without complications (principal); E78.5 Hyperlipidemia, unspecified; I73.9 Peripheral vascular disease, unspecified; D75.81 Myelofibrosis; Z87.19 Personal history of other diseases of the digestive system

== ENCOUNTER → 2024-03-12 10:29 | Outpatient (BNVA) | payer MEDICARE, SELFPAY | PROVIDERS: PCP Internal Medicine; Visit Provider Internal Medicine | DX: E13.9 Other specified diabetes mellitus without complications (principal); E78.5 Hyperlipidemia, unspecified; I73.9 Peripheral vascular disease, unspecified; D75.81 Myelofibrosis; Z87.19 Personal history of other diseases of the digestive system | CPT/HCPCS: 99212 ==

== ENCOUNTER 2024-05-08 07:19 | Outpatient (REF) | payer MEDICARE, SELFPAY | END 2024-05-08 07:20 | disposition home or self-care (01) | LOC: HO.MRI 07:19 | PROVIDERS: PCP Internal Medicine; Visit Provider Internal Medicine | DX: M54.50 Low back pain, unspecified (principal); G63 Polyneuropathy in diseases classified elsewhere; R26.2 Difficulty in walking, not elsewhere classified | CPT/HCPCS: 72148 ==

== ENCOUNTER 2024-05-09 11:31 | Outpatient (REF) | payer MEDICARE, SELFPAY ==
--- NOTE | ~2024-05-09 | US_ITS ---
EXAMINATION: US ABDOMEN COMPLETE CLINICAL INFORMATION: Question hepatosplenomegaly. COMPARISON: Ultrasound abdomen complete 12/01/2021. CT abdomen and pelvis 10/10/2013. Ultrasound abdomen complete 10/05/2013. TECHNIQUE: Real-time imaging of the abdominal viscera. FINDINGS: PANCREAS: Pancreas not visualized obscured by bowel gas. ABDOMINAL AORTA: Dilatation of the aorta, borderline aneurysmal roughly 3 cm. INFERIOR VENA CAVA: Visualized portions are normal. LIVER: The liver is normal in size. The liver contour is normal. Increased echogenicity of the liver parenchyma, this can be seen in the setting of hepatic steatosis or liver parenchymal disease. No focal hepatic lesion. There is no intrahepatic biliary duct dilatation seen. GALLBLADDER: Surgically absent. COMMON BILE DUCT: Normal in caliber measuring 0.4 cm in diameter. RIGHT KIDNEY: Normal. No hydronephrosis. No renal calculi or focal parenchymal lesions. The kidney measures 11.1 cm in maximum dimension. LEFT KIDNEY: Normal. No hydronephrosis. No renal calculi or focal parenchymal lesions. The kidney measures 11.1 cm in maximum dimension. SPLEEN: Engorged vessels around the splenic hilum likely varices. The spleen enlarged measures 13 cm in maximum dimension. FREE FLUID: None. US/US abdomen complete IMPRESSION: 1. Splenomegaly. 2. Engorged vessels around the splenic hilum likely varices. 3. Increased echogenicity of the liver parenchyma, this can be seen in the setting of hepatic steatosis or liver parenchymal disease. 4. Borderline aneurysmal dilatation of the aorta 3 cm. Follow-up ultrasound in 3 years recommended. 5. Pancreas not visualized obscured by bowel gas. Electronically signed by: Kishore Rios MD 05/13/2024 07:19 PM EST
== END 2024-05-09 11:32 | disposition home or self-care (01) ==
LOC: HO.US 11:31
PROVIDERS: PCP Internal Medicine; Visit Provider Internal Medicine
DX: R16.2 Hepatomegaly with splenomegaly, not elsewhere classified (principal); D75.81 Myelofibrosis
CPT/HCPCS: 76700

== ENCOUNTER 2024-05-14 09:54 | Outpatient (AMB) | payer MEDICARE, SELFPAY ==
[2024-05-14 10:12] VITALS: BP 168/86; PULSE 70; BMI 22.4
--- NOTE | 2024-05-14 10:12 | MHC.OFFVIS ---
Vital Signs 05/14/24 10:12 Height 5 ft 6 in Weight 138 lb 14.259 oz BMI 22.4 BP 168/86 H Blood Pressure Location Rt brachial Position Sitting Pulse 70 Intake Visit Reasons: 2 growths on side of eye Intake Note: This patient presents for x2 skin lesion on side of eye. Pt c/o; reports multiple skin lesion on left side of eye, reports lesions are painful. 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 Accompanied by: Spouse Allergies codeine [CODEINE] Allergy (Intermediate, Verified 05/14/24 10:20) RASH nicotine Allergy (Intermediate, Verified 05/14/24 10:20) NICOTINE PATCH- RASH, hives Penicillins Allergy (Intermediate, Verified 05/14/24 10:20) HIVES oxycodone [Percocet] Allergy (Unknown, Verified 05/14/24 10:20) rash, itching meperidine Allergy (Verified 05/14/24 10:20) Itching Medication List - Last Reconciled 05/14/24 by Mo Ceja MD Admelog SoloStar U-100 Insulin (insulin lispro) 3 - 5 units (0.03 - 0.05 mL) subcut TID NS albuterol sulfate 90 mcg/actuation 2 puffs inhalation Q4H PRN B [id number]-[id number]-Fe-FA 106 mg iron- 1 mg 1 tab PO DAILY blood sugar diagnostic 3 times a day blood sugar diagnostic (FreeStyle Lite Strips) As directed three times a day blood-glucose meter (FreeStyle Lite Meter kit) As directed 3x/day carvedilol 1 tab PO BID cholecalciferol (vitamin D3) 50 mcg PO DAILY cyanocobalamin (vitamin B-12) (Vitamin B-12) 500 mcg PO DAILY [Diabetic shoes & 3 pair inserts as directed] ferrous sulfate 325 mg PO DAILY flash glucose scanning reader (FreeStyle Ramiro 2 [place]) As directed flash glucose sensor (FreeStyle Ramiro 2 Sensor kit) As directed change every 14 days fluticasone propionate 50 mcg/actuation 1 spray intranasal DAILY PRN gabapentin TAKE 1 1 capsule in a.m. and then 1 capsule at noon and then 3 capsules or 300 mg at bedtime lancets As directed [id number] 24,000-76,000 -120,000 unit (Creon) 1 cap PO TIDAC loratadine 10 mg PO DAILY PRN metoprolol succinate ER 12.5 mg PO DAILY omeprazole 40 mg PO DAILY pen needle, diabetic (BD Nydia 2nd Gen Pen Needle) USE TO INJECT 4 TIMES A DAY sucralfate 1 g PO BID torsemide 20 mg PO Q2D Tresiba FlexTouch U-100 (insulin degludec) 8 units (0.08 mL) subcut DAILY NS HPI HPI 2 growths on side of eye: Details: He has 2 lesions on the temporal area into the left eye that he wants removed. He said that he has had this for a few months now and this has been bothering him with discomfort. [facility] Medical History (Updated 05/14/24 @ 10:36 by Mo Ceja MD) Skin lesion of cheek Difficulty walking Anemia in CKD (chronic kidney disease) History of upper gastrointestinal bleeding Peripheral neuropathy Dyspepsia Generalized anxiety disorder Cigarette smoker one half pack a day or less Hemolytic anemia Squamous cell carcinoma of skin Skin lesion of left arm Ascending aortic aneurysm Atherosclerotic cardiovascular disease Acute diastolic (congestive) heart failure Congestive heart failure Eczema of left external ear Macrocytic anemia Positional lightheadedness Depression, major, recurrent, moderate Benign prostatic hyperplasia Fatigue after COVID-19 vaccination Tubular adenoma of colon GERD (gastroesophageal reflux disease) Peripheral vascular disease Degenerative disc disease, cervical Hypertension Dyslipidemia 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 Social History Household Members: Spouse Housing: House Do you presently have visiting nurse or other home services: No Alcohol intake: former Patient Tobacco Use Status: Former Tobacco user Tobacco use type: Cigarette Cigarette Packs Per Day: 1 Years Smoked: 50+ e-Cigarette/Vaping Use: Never Used service: No Current occupational status: retired Cognitive needs: No Hearing needs: Yes Vision needs: No Review of Systems Const Denies chills and Denies fever(s) Card Denies chest pain at rest and Reports dyspnea on exertion Resp Reports dyspnea on exertion GI Denies abdominal pain Physical Exam Vital Signs: Last Vital Signs Pulse 70 05/14/24 10:12 BP 168/86 H 05/14/24 10:12 BMI result Body Mass Index 22.4 Const General: comfortable and no acute distress HEENT Other: On the left temporal area in the left eye is note of 2 lesions adjacent to each other. Once it appears to be cystic induration, about 4 mm. The other 1 is a dermatitic area, with flaking, about 4 mm as well. Assessment & Plan Assessment & Plan (1) Skin lesion of cheek: Code(s): L98.9 - Disorder of the skin and subcutaneous tissue, unspecified Category: Medical Plan: He wants these lesions removed. These are both adjacent to each other so these may be in 1 specimen. I explained the technique of excision under local anesthesia. I reviewed the risks, benefits and alternatives. He has given consent. This will be done on his next visit in the office. Coding Level of Care Code Est Pt Level 3 (47011) Diagnoses Skin lesion of cheek L98.9
== END 2024-05-14 10:36 | disposition home or self-care (01) ==
PROVIDERS: PCP Internal Medicine; Visit Provider Surgery
DX: L98.9 Disorder of the skin and subcutaneous tissue, unspecified (principal)
CPT/HCPCS: 99213

== ENCOUNTER → 2024-05-14 09:54 | Outpatient (BNVA) | payer MEDICARE, SELFPAY | PROVIDERS: PCP Internal Medicine; Visit Provider Surgery | DX: L98.9 Disorder of the skin and subcutaneous tissue, unspecified (principal) | CPT/HCPCS: 99212 ==

== ENCOUNTER 2024-05-21 13:50 | Outpatient (REF) | payer MEDICARE, SELFPAY | END 2024-05-21 13:51 | disposition home or self-care (01) | LOC: HO.LNP 13:50 | PROVIDERS: PCP Internal Medicine; Visit Provider Surgery | DX: C44.329 Squamous cell carcinoma of skin of other parts of face (principal) | CPT/HCPCS: 11641; 88304; 88305; 99212 ==

== ENCOUNTER 2024-05-21 13:50 | Outpatient (AMB) | payer MEDICARE, SELFPAY ==
--- NOTE | 2024-05-21 13:54 | A.OFFVIS_ITS ---
Vital Signs 05/21/24 13:57 Height 5 ft 6 in Weight 138 lb 14.259 oz BMI 22.4 Intake Visit Reasons: excision 2 growths on side of eye Intake Note: Office procedure: excision x2 lesion left temporal area Epic Cadence Analyst Required: No Accompanied by: Self / Same As Patient Allergies codeine [CODEINE] Allergy (Intermediate, Verified 05/21/24 13:54) RASH nicotine Allergy (Intermediate, Verified 05/21/24 13:54) NICOTINE PATCH- RASH, hives Penicillins Allergy (Intermediate, Verified 05/21/24 13:54) HIVES oxycodone [Percocet] Allergy (Unknown, Verified 05/21/24 13:54) rash, itching meperidine Allergy (Verified 05/21/24 13:54) Itching HPI HPI excision 2 growths on side of eye: Details: He is here for excision of 2 lesions on the left cheek near the left eye adjacent to each other. 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 Skin lesion of left arm Ascending aortic aneurysm Atherosclerotic cardiovascular disease Acute diastolic (congestive) heart failure Congestive heart failure Eczema of left external ear Macrocytic anemia Positional lightheadedness Depression, major, recurrent, moderate Benign prostatic hyperplasia Fatigue after COVID-19 vaccination Tubular adenoma of colon GERD (gastroesophageal reflux disease) Peripheral vascular disease Degenerative disc disease, cervical Hypertension 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 Social History Household Members: Spouse Housing: House Do you presently have visiting nurse or other home services: No Alcohol intake: former Patient Tobacco Use Status: Former Tobacco user Tobacco use type: Cigarette Cigarette Packs Per Day: 1 Years Smoked: 50+ e-Cigarette/Vaping Use: Never Used service: No Current occupational status: retired Cognitive needs: No Hearing needs: Yes Vision needs: No Physical Exam Vital Signs: BMI result Body Mass Index 22.4 Office Procedures Excision Details: She was in reclining position. There were 2 lesions adjacent to each other on the left eye. One was an elevated keratotic lesion, about 4 mm and adjacent to this was a cystic lesion probably about 4 mm as well. The area was prepped and draped. Lidocaine 1% was used for local anesthesia. I made an elliptical incision on the skin surrounding these 2 lesions with a blade 15. This was carried down through the full-thickness of the skin and part of the subcutaneous fat. The area excised was about 1 cm in diameter. I closed the incision with full-thickness nylon 5 0 simple interrupted sutures. Dressings were applied. The procedure was completed. He tolerated the procedure well. There were no immediate complications. There was minimal blood loss [id number] face/ear/eyelid/nose/lip/mucous membrane 0.6cm-1cm Procedure code (CPT) selection complete Assessment & Plan Assessment & Plan (1) Skin lesion of cheek: Code(s): L98.9 - Disorder of the skin and subcutaneous tissue, unspecified Category: Medical Plan: Excision of 2 lesions was done under local anesthesia. He was given wound care instructions. He will be seen in the office next week for removal of sutures. Coding Level of Care Code Global (63920) Diagnoses Skin lesion of cheek L98.9 CPT Codes Face/Ear/Eyelid/Nose/Lip/Mucous Membrane - CPT: 77163-[id number] face/ear/eyelid/nose/lip/mucous membrane 0.6cm-1cm ([id number])
[2024-05-21 13:57] VITALS: BMI 22.4
== END 2024-05-21 14:42 | disposition home or self-care (01) ==
PROVIDERS: PCP Internal Medicine; Visit Provider Surgery
DX: L98.9 Disorder of the skin and subcutaneous tissue, unspecified (principal); C44.320 Squamous cell carcinoma of skin of unspecified parts of face
CPT/HCPCS: 11641; 99024

== ENCOUNTER 2024-05-31 08:42 | Outpatient (AMB) | payer MEDICARE, SELFPAY ==
--- NOTE | 2024-05-31 09:15 | MHC.OFFVIS ---
Vital Signs 05/31/24 09:22 Height 5 ft 6 in Weight 138 lb 14.259 oz BMI 22.4 Intake Visit Reasons: suture removal Intake Note: This patient presents for suture removal status post excision x2 skin lesions of cheek. Pt c/o; reports no complaints. Leak Patcher Required: No Accompanied by: Self / Same As Patient Allergies codeine [CODEINE] Allergy (Intermediate, Verified 05/31/24 09:23) RASH nicotine Allergy (Intermediate, Verified 05/31/24 09:23) NICOTINE PATCH- RASH, hives Penicillins Allergy (Intermediate, Verified 05/31/24 09:23) HIVES oxycodone [Percocet] Allergy (Unknown, Verified 05/31/24 09:23) rash, itching meperidine Allergy (Verified 05/31/24 09:23) Itching HPI HPI suture removal: Details: He underwent excision of a lesion on the left cheek 2 weeks ago under local anesthesia. He is here for removal sutures. He denies significant complaints. 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 Skin lesion of left arm Ascending aortic aneurysm Atherosclerotic cardiovascular disease Acute diastolic (congestive) heart failure Congestive heart failure Eczema of left external ear Macrocytic anemia Positional lightheadedness Depression, major, recurrent, moderate Benign prostatic hyperplasia Fatigue after COVID-19 vaccination Tubular adenoma of colon GERD (gastroesophageal reflux disease) Peripheral vascular disease Degenerative disc disease, cervical Hypertension 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 Social History Household Members: Spouse Housing: House Do you presently have visiting nurse or other home services: No Alcohol intake: former Patient Tobacco Use Status: Former Tobacco user Tobacco use type: Cigarette Cigarette Packs Per Day: 1 Years Smoked: 50+ e-Cigarette/Vaping Use: Never Used service: No Current occupational status: retired Cognitive needs: No Hearing needs: Yes Vision needs: No Physical Exam Vital Signs: BMI result Body Mass Index 22.4 Const General: comfortable and no acute distress HEENT Other: Excision site is well healed, not infected, sutures intact Assessment & Plan Assessment & Plan (1) Squamous cell carcinoma of skin: Code(s): C44.92 - Squamous cell carcinoma of skin, unspecified Category: Medical Plan: Status post excision of a skin lesion on the left cheek. The skin lesion turns out to be squamous cell carcinoma. Margins are negative. There was an adjacent epidermal cyst His incision is well healed. His sutures were removed. He can follow up on a p.r.n. basis. Coding Level of Care Code Global (25061) Diagnoses Squamous cell carcinoma of skin C44.92
[2024-05-31 09:22] VITALS: BMI 22.4
== END 2024-05-31 09:31 | disposition home or self-care (01) ==
PROVIDERS: PCP Internal Medicine; Visit Provider Surgery
DX: C44.92 Squamous cell carcinoma of skin, unspecified (principal)
CPT/HCPCS: 99024

== ENCOUNTER → 2024-05-31 08:42 | Outpatient (BNVA) | payer MEDICARE, SELFPAY | PROVIDERS: PCP Internal Medicine; Visit Provider Surgery | DX: Z48.02 Encounter for removal of sutures (principal); C44.329 Squamous cell carcinoma of skin of other parts of face | CPT/HCPCS: 99212 ==

== ENCOUNTER 2024-06-15 08:52 | Outpatient (AMB) | payer MEDICARE, SELFPAY ==
--- NOTE | 2024-06-15 09:01 | HO.SPINEOV ---
Vital Signs 06/15/24 09:02 Height 5 ft 6 in Weight 130 lb BMI 21.0 Intake Visit Reasons: LBP Intake Note: Mr. Mcleod is here today c/o neck pain that radiates down the arms and legs Medical Receptionist Medical Assistant Required: No Allergies codeine [CODEINE] Allergy (Intermediate, Verified 06/15/24 09:02) RASH nicotine Allergy (Intermediate, Verified 06/15/24 09:02) NICOTINE PATCH- RASH, hives Penicillins Allergy (Intermediate, Verified 06/15/24 09:02) HIVES oxycodone [Percocet] Allergy (Unknown, Verified 06/15/24 09:02) rash, itching meperidine Allergy (Verified 06/15/24 09:02) Itching Physical Exam Vital Signs: BMI result Body Mass Index 21.0 Assessment & Plan Assessment & Plan (1) Peripheral vascular disease with claudication: Code(s): I73.9 - Peripheral vascular disease, unspecified Category: Medical Plan Dear colleague On 06/15/2024, I saw Stuart Mcleod, self-referred patient with a chief complaint of bilateral leg pain. HPI: This 79-year-old male, who recently lost his , comes in the office complaining of pain in his calves with walking and standing. Sitting down improves the symptoms. He has a very extensive medical history, which makes him a poor surgical candidate. I asked him about vascular claudication surgery that was planned according to the notes. He stated that the surgeon is too afraid to operate on him as he might on the operative table. He tells me he has diabetes, chronic heart failure, diabetic neuropathy, COPD , myeloproliferative disease with the anemia. In addition to the leg complaints he has dizziness and balance problems. He ambulates with a cane. He is seen by a neurologist for the symptoms and there maybe a component of cervical stenosis. He saw Dr. Garcia 2 years ago who apparently offered him some type of decompression. On exam, the patient is hard of hearing. Cranial nerves are intact. There is no atrophy of the hand musculature. No dexterity loss. Absent reflexes. Hypoesthesia of the hands and distal part of the legs. No pathological reflexes. Radiological Studies: MRI of the lumbar spine done at [facility] on 05/08/2024 show no signs of lumbar spinal stenosis. Impression/Plan: I do not see any signs of lumbar spinal stenosis that can explain the pain down his legs and therefore I think the symptoms are primarily caused by vascular insufficiency. As far as the neck concerns, I do not have any imaging for review but clinical exam is not that worrisome. We also have to take into account that he has diabetic neuropathy which is a good cause for balance problems and therefore I think even if a surgical decompression of the cervical spine is done, his balance problems may persist. Not to mentioned that he is a poor surgical candidate. He fully understood my explanation. Thank you for allowing me to participate in your patients care. total time spent was 50 minutes in counseling ,coordination of plan, personal review of imaging, surgical decision making and subsequent plan Kimo Raedr MD, PhD Spine Fellowship Trained Neurosurgeon Director, [facility] Coding Level of Care Code New Pt Level 4 (59398) Diagnoses Peripheral vascular disease with claudication I73.9
[2024-06-15 09:02] VITALS: BMI 21.0
== END 2024-06-15 09:36 | disposition home or self-care (01) ==
PROVIDERS: PCP Internal Medicine; Visit Provider Neurological Surgery
DX: I73.9 Peripheral vascular disease, unspecified (principal)
CPT/HCPCS: 99204

== ENCOUNTER → 2024-06-15 08:52 | Outpatient (BNVA) | payer MEDICARE, SELFPAY | PROVIDERS: PCP Internal Medicine; Visit Provider Neurological Surgery | DX: I73.9 Peripheral vascular disease, unspecified (principal); M54.2 Cervicalgia | CPT/HCPCS: 99202 ==

== ENCOUNTER 2024-07-26 13:08 | Outpatient (AMB) | payer MEDICARE, SELFPAY ==
[2024-07-26 13:43] VITALS: BP 134/70; PULSE 73; RESP 12; TEMP 36.2; O2SAT 100; BMI 22.1
--- NOTE | 2024-07-26 13:43 | MHC.PC.OV ---
Vital Signs 07/26/24 13:43 Height 5 ft 6 in Weight 137 lb BMI 22.1 BP 134/70 Blood Pressure Location Rt brachial Position Sitting Respiration 12 Pulse 73 Pulse Source Pulse Oximeter Temp 97.2 F Temp Source Oral Pulse Oximetry (%) 100 Oxygen Delivery Method Room Air Intake Visit Reasons: Follow-up Check Up Allergies codeine [CODEINE] Allergy (Intermediate, Verified 07/26/24 14:19) RASH nicotine Allergy (Intermediate, Verified 07/26/24 14:19) NICOTINE PATCH- RASH, hives Penicillins Allergy (Intermediate, Verified 07/26/24 14:19) HIVES oxycodone [Percocet] Allergy (Unknown, Verified 07/26/24 14:19) rash, itching meperidine Allergy (Verified 07/26/24 14:19) Itching Medication List - Last Reconciled 07/26/24 by Keiry Keller MD Admelog SoloStar U-100 Insulin (insulin lispro) 3 - 5 units (0.03 - 0.05 mL) subcut TID NS albuterol sulfate 90 mcg/actuation 2 puffs inhalation Q4H PRN B [id number] 106 mg iron- 1 mg 1 tab PO DAILY blood sugar diagnostic 3 times a day blood sugar diagnostic (FreeStyle Lite Strips) As directed three times a day blood-glucose meter (FreeStyle Lite Meter kit) As directed 3x/day carvedilol 1 tab PO BID cholecalciferol (vitamin D3) 50 mcg PO DAILY cyanocobalamin (vitamin B-12) (Vitamin B-12) 500 mcg PO DAILY [Diabetic shoes & 3 pair inserts as directed] ferrous sulfate 325 mg PO DAILY flash glucose scanning reader (FreeStyle [place] 2 [place]) As directed flash glucose sensor (FreeStyle Ramiro 2 Sensor kit) As directed change every 14 days fluticasone propionate 50 mcg/actuation 1 spray intranasal DAILY PRN gabapentin TAKE 1 1 capsule in a.m. and 1-2 capsules at bedtime insulin degludec (Tresiba FlexTouch U-100 insulin) 7 units subcut DAILY lancets As directed [id number] 24,000-76,000 -120,000 unit (Creon) 1 cap PO TIDAC loratadine 10 mg PO DAILY PRN metoprolol succinate ER 12.5 mg PO DAILY omeprazole 40 mg PO DAILY pen needle, diabetic (BD Nydia 2nd Gen Pen Needle) USE TO INJECT 4 TIMES A DAY sucralfate 1 g PO BID torsemide 20 mg PO Q2D Tobacco use date assessed: 07/26/24 Fall risk assessment: No Falls in past year Last assessed Fall Risk: 07/26/24 Dental Screening Dental Screen Date: 07/26/24 Did you have a dental visit in the last 12 months?: No Did you have a dental problem in the last 6 months where you did not have access to dental care?: No Was dental information given to patient?: No HPI Follow-up Check Up HPI Details Stuart is here today for follow-up on his diabetes mellitus. He is currently on Tresiba 7 units at night and takes had below on a sliding scale usually giving himself of 5-7 units 3 times a day before meals. His passed recently, and now has his nephew living with him and taking care of him. He is currently on gabapentin 100 mg in the morning and takes 100-200 mg at bedtime , which has been helping with controlling his neuropathy. He was recently seen and evaluated by Neurosurgery last month for complaint of low back pain and neck pain. MRI of lumbar spine done 05/08/2024 reviewed which did not show any evidence of lumbar stenosis. As per Dr. Rader, there was no signs of lumbar spinal stenosis that can explain the pain down his legs and therefore he thinks the symptoms are primarily caused by vascular insufficiency. As far as the neck concerns, clinical exam was not that worrisome. No surgical intervention is going to be helpful at this point, and this was fully explained to the patient that time. 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 Skin lesion of left arm Ascending aortic aneurysm Atherosclerotic cardiovascular disease Acute diastolic (congestive) heart failure Congestive heart failure Eczema of left external ear Macrocytic anemia Positional lightheadedness Depression, major, recurrent, moderate Benign prostatic hyperplasia Fatigue after COVID-19 vaccination Tubular adenoma of colon GERD (gastroesophageal reflux disease) Peripheral vascular disease Degenerative disc disease, cervical Hypertension 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 Social History Household Members: Spouse Housing: House Do you presently have visiting nurse or other home services: No Alcohol intake: former Patient Tobacco Use Status: Former Tobacco user Tobacco use type: Cigarette Cigarette Packs Per Day: 1 Years Smoked: 50+ e-Cigarette/Vaping Use: Never Used service: No Current occupational status: retired Cognitive needs: No Hearing needs: Yes Vision needs: No Questionnaire Thrive Questionnaire Date Thrive assessed: 09/30/23 DAVINA-7 AMB Questionnaire DAVINA-7 Date DAVINA - 7 assessed: 09/30/23 Source: Developed by Drs. Noble Lofton, Gali Louise, Hubert Roberts and colleagues, with an educational sabiha from [employer]. Review of Systems Const Denies headache(s) ENT Denies headache(s), Reports hearing loss, Denies nasal congestion, Denies post nasal drip, Denies sinus pain and Denies sore throat Card Denies chest pain, Denies syncope, Denies rapid heart rate, Denies irregular heart rhythm and Reports lightheadedness (Positional) Resp Denies chest congestion, Denies excessive phlegm production, Denies pain on inspiration and Denies pain with cough GI Denies abdominal pain, Denies melena, Denies hematochezia, Denies heartburn and Denies nausea Reports no additional complaints Musc Reports abnormal gait, Reports arthralgias (Polyarthralgia), Reports stiffness and Reports tingling Skin/Breast Denies rash Neuro Reports abnormal gait, Denies syncope, Denies headache(s), Denies focal weakness, Reports tingling and Reports paresthesias Endo Denies polyphagia, Denies polydipsia and Denies polyuria Aaron/Lymph Denies easy bleeding and Denies easy bruising Aller/Immun Reports no additional complaints Physical exam (Primary Care) Vital Signs: Last Vital Signs Temp 97.2 F 07/26/24 13:43 Pulse 73 07/26/24 13:43 Resp 12 07/26/24 13:43 BP 134/70 07/26/24 13:43 Pulse Ox 100 07/26/24 13:43 Oxygen Delivery Method Room Air 07/26/24 13:43 BMI result Body Mass Index 22.1 Tobacco/Smoking Status: Tobacco use Status Tobacco use date assessed 07/26/24 07/26/24 13:49 Patient Tobacco Use Status Former Tobacco user 07/26/24 13:49 Tobacco use type Cigarette 07/26/24 13:49 e-Cigarette/Vaping Use Never Used 07/26/24 13:49 Thrive Assessment: Date of Thrive Assessment Date Thrive assessed 09/30/23 07/26/24 13:49 Const Orientation/consciousness: patient oriented x3 HENMT Ears: external ears normal and hearing grossly impaired General nose exam: Normal external nose present Face and sinus: Yes face symmetric Mouth: Normal oral and palatal mucosa present and moist mucous membranes Teeth and gingiva: edentulous Neck Other: Supple, no lymphadenopathy, no carotid bruits, thyroid gland nonpalpable Resp Effort & Inspection: normal respiratory effort and able to speak in complete sentences Auscultation: clear to auscultation bilaterally Cardio Other: S1-S2 present regular rate and rhythm GI Palpation (GI): Soft to palpation, nontender, no guarding and no masses Auscultation: normal bowel sounds General: Yes no CVA tenderness Back/Spine/Pelvis Back: no CVA tenderness and No back tenderness Skin General skin exam: no rashes or lesions noted Neuro General: patient oriented x3, moves all extremities, no focal motor deficits, CN's II-XI intact bilaterally and decrease sensation to monofilament Cognition (Neuro): normal cognition Gait exam (Neuro): Assisted gait required Extrem General: Yes no joint enlargement, Yes no pedal edema and Yes no calf tenderness Results AMB Hemoglobin A1c AMB Hemoglobin A1c 6.6 % Last Edit by Cassandra Pena CMA on 07/26/24 14:27 Results Reviewed Results Reviewed: Laboratory Last Values Hgb A1c (Clinic) 6.6 % (4.0-6.0) H 07/26/24 14:22 Coding Level of Care Code Est Pt Level 4 (20541) Complex EM visit Add On G2211 Diagnoses Diabetes-pancreatic exocrine dysfunction syndrome E13.9 Polyneuropathy associated with underlying disease G63 Peripheral neuropathy type: polyneuropathy associated with underlying disease Assessment & Plan Assessment & Plan (1) Diabetes-pancreatic exocrine dysfunction syndrome: Code(s): E13.9 - Other specified diabetes mellitus without complications Category: Medical Plan: On Tresiba and Admelog continued on same dose. Hemoglobin A1c today is 6.6% (2) Peripheral neuropathy: Code(s): G62.9 - Polyneuropathy, unspecified Category: Medical Qualifiers: Peripheral neuropathy type: polyneuropathy associated with underlying disease Qualified Code(s): G63 - Polyneuropathy in diseases classified elsewhere Plan: Currently stable controlled on gabapentin 100 mg in the morning and 1-200 mg at bedtime. Orders: Orders Aspartate Amino Transferase 10/25/24 E78.5 - Hyperlipidemia, unspecified, G63 - Polyneuropathy in diseases classified elsewhere, I10 - Essential (primary) hypertension, I73.9 - Peripheral vascular disease, unspecified Basic Metabolic Panel Fasting 10/25/24 E78.5 - Hyperlipidemia, unspecified, G63 - Polyneuropathy in diseases classified elsewhere, I10 - Essential (primary) hypertension, I73.9 - Peripheral vascular disease, unspecified Lipid Panel 10/25/24 E78.5 - Hyperlipidemia, unspecified, G63 - Polyneuropathy in diseases classified elsewhere, I10 - Essential (primary) hypertension, I73.9 - Peripheral vascular disease, unspecified Vitamin B12 and Folate 10/25/24 E78.5 - Hyperlipidemia, unspecified, G63 - Polyneuropathy in diseases classified elsewhere, I10 - Essential (primary) hypertension, I73.9 - Peripheral vascular disease, unspecified AMB Hemoglobin A1c Today E13.9 - Other specified diabetes mellitus without complications Hemoglobin A1c 10/25/24 E78.5 - Hyperlipidemia, unspecified, G63 - Polyneuropathy in diseases classified elsewhere, I10 - Essential (primary) hypertension, I73.9 - Peripheral vascular disease, unspecified Alanine Aminotransferase 10/25/24 E78.5 - Hyperlipidemia, unspecified, G63 - Polyneuropathy in diseases classified elsewhere, I10 - Essential (primary) hypertension, I73.9 - Peripheral vascular disease, unspecified Vitamin D 25-OH Total 10/25/24 E78.5 - Hyperlipidemia, unspecified, G63 - Polyneuropathy in diseases classified elsewhere, I10 - Essential (primary) hypertension, I73.9 - Peripheral vascular disease, unspecified Medications: Changed From Tresiba FlexTouch U-100 (insulin degludec) 8 units (0.08 mL) subcut DAILY 15 mL 5RF NS To insulin degludec (Tresiba FlexTouch U-100 insulin) 7 units subcut DAILY From gabapentin TAKE 1 1 capsule in a.m. and then 1 capsule at noon and then 3 capsules or 300 mg at bedtime 150 caps 0RF To gabapentin TAKE 1 1 capsule in a.m. and 1-2 capsules at bedtime
--- OUTSIDE RECORDS SUMMARY | 2024-07-26 16:56 | XMS_ITS ---
Author Organization [facility] Address [address] [place] [address] Care Team Providers Care Mid Level Java Developer Name Role Phone Krishna HAAS, Keiry Ingram Primary Care Provider Un available Arden Lezama Unavailable [phone] Allergies Allergen (clinical drug ingredient) Drug/Non Drug Allergy documented on EMR Reaction Allergy Type Onset Date Status ciprofloxacin Cipro hives Drug Allergy Act shade metronidazole Flagyl hives Drug Allergy Act shade Levaquin hives Drug Allergy Active acetaminophen / oxycodone Percocet hives Drug Allergy Active Percodan hives Drug Allergy Active Shrimp Flavor hives Drug Allergy Act shade codeine Codeine itchy Drug Allergy Active nicotine Nicotine hives Drug Allergy Active Penicillin itchy Drug Allergy Active Shellfish (FN) Shellfish-derived Products hives Drug Allergy Active REASON FOR VISIT At Risk Footcare Medications Medication SIG (Take, Route, Frequency, Duration) Notes Start Date End Date Status Ammonium Lactate 12 % 1 application to affected area Externally to feet Twice a day for 30 days Active Grazyna 4-12.5 MG/5ML 5 ml as needed Orall y every 4 hrs Not-Taking NovoLOG FlexPen 100 UNIT/ML Subcutaneous Not-Taking Lisinopril 2.5 MG 1 tablet Orally Once a day Not-Taking Extra Depth Orthopedic Shoes (1 Pair) with Customized Heat Molded Multidensity Innersoles (3 Pair) as directed Dx: IDDM/Polyneuropathy (E10.42), Hammertoe Foot Deformity (M20.41,M20.42), Preulcerative Skin Lesion(s) (L85.1) 03/27/2024 Active Gabapentin 100 MG 1 capsule Orally Thr ee times a day Active ASO Ankle/Foot Stablizing AFO As directed Wear Daily for as needed 12/12/2018 Active Vitamin D Active Vitamin B 12 Active Tresiba FlexTouch 100 UNIT/ML Subcutaneous Active Omeprazole 20 MG 1 capsule Orally Onc e a day for 30 day(s) Active Meclizine HCl 25 MG as directed Orally O nce a day Active NovoLOG 6UNITS Activ e LORazepam PRN Active Furosemide Active Fludrocortisone Acetate 0.1 MG Orally Active Creon 00932-44415 UNIT Orally Active Carvedilol Active Atorvastatin Calcium 40 MG 2 Orally 3 times a week Acti ve Ativan 0.5 MG 1 tablet at bedtime as needed Orally Once a day Active Social History Tobacco Use: Social History Observation Description Date Details (start date - stop date) Current Smoker 07/13/1960 - NA Tobacco use other than smoking: Question Answer Notes Are you an other tobacco user? No Tobacco Control (Standard) Question Answer Notes Tobacco use: Current smoker When did you start smoking? 07/13/1960 How often do you smoke cigarettes? Every day How many cigarettes a day do you smoke? 21-30 How soon after you wake up d o you smoke your first cigarette? Within 5 minutes Are you interested in quitting? Thinking about q uitting Additional Findings: Tobacco user Modera te cigarette smoker (10-19 cigs/day) AUDIT-C (Standard) Question Answer Notes Did you have a drink containing alcohol in the p ast year? No Points 0 Interpretation Negative Vital Signs Height 5 ft 6 in in 07/10/2024 Weight 132 lbs 07/10/2024 BMI 21.3 kg/m2 07/10/2024 Blood pressure systolic 128 mm Hg 07/10/19 25 Blood pressure diastolic 80 mm Hg 025 Procedures Procedure Date Ordered Date Performed Result Body Sit e 71504-IIHSDQU NAIL, 6 OR MORE 07/10/2024 N/A 78832-BLEN SKIN LESIONS, 2 TO 4 07/10/2024 N/A Encounters Encounter Location Date Provider Diagnosis [facility] [place] [address] [place] [address] 07/10/2024 Arden Lezama Type 1 diabetes mellitus with diabetic polyneuropathy E10.42 and Tinea unguium B35.1 Assessments Encounter Date Diagnosis (ICD Code) Assessment Notes Treatment Notes Treatment Clinical Notes Section Notes 07/10/2024 Type 1 diabetes mellitus with diabetic polyneuropathy (ICD-10 - E10.42) 07/10/2024 Tinea unguium (ICD-10 - B35.1) Plan Of Treatment Pending Test Test Name Order Date 70427-QWSSLKF NAIL, 6 OR MORE 07/10/2024 32100-TQXG SKIN LESIONS, 2 TO 4 07/10/19 25 Next Appt Details Follow Up: prn, Reason: Provider Name:Arden Lezama , 10/16/2024 09:30:00 AM, [address] [place] [address], [phone], Procedure Notes * Category Sub-Category Detail Notes Debride Nail 6-10 Nail debridement Due to the cl inical pathology outlined in the exam findings, performance of this nail treatment is medically necessary as its management by an unskilled/untrained nonprofessional would put this patients foot and overall health at risk. Therefore, debridement to affected nail(s), as described in exam ( TA, T1, T2, T3, T4, T5, T6, T7, T8, T9), was performed exclusively by the physician of record to reduce/remove overall nail length, girth, thickness, subungual debris, and necrotic tissue, by manual and/or electrical means through the use of a nail nipper and/or dremel-type jewel bearing grinder, to a more viable healthy nail plate or bed tissue 6-10 nails in total. Silver nitrate was used for any petechial bleeding as necessary. Definitive antifungal treatment options, both pharmaceutical and surgical, have been reviewed and discussed with the patient. The patient solely prefers the use of intermittent/as needed professional debridement services for their nail condition and understands the need for additional periodic treatments to maintain effectiveness in symptomatic relief - 69580 Keratoma Treatment Parring or Cutting o f Benign Hyperkeratotic Lesion(s) (-56) 2-4 Lesions - Due to the at risk nature of the patients medical condition as documented in the exam findings, performance of this keratoderma treatment is medically necessary as its management by an unskilled/untrained nonprofessional would put this patients foot and overall health at risk. Therefore, the benign hyperkeratotic lesions, ( 4) in total, locations as stated and described in the exam ( Medial, IPJ, TA, Medial, IPJ, T5, SUB MET (s), 1, B/L), were pared, and/or cut utilizing a sterile 15 blade, tissue nippers, and/or power dremel instrumentation by the physician of record - 54805 Progress Notes * Stuart MCLEOD ODOB:[birth year] (79 yo M)Acc No.[id number]:07/10/2024 Progress Note Patient:?Stuatr MCLEOD Provider:?Arden Lezama DPM :1945???Age:79 Y???Sex:Male Tesfaye e:07/10/2024 Address:[address] [place] [address] [id number] Pcp:Divina Polanco Subjective: * Chief Complaints: * ???At Risk Footcare * HPI: ???At Risk footcare:?Pt States Last PCP Visit:?Date?03/12/2024 * ROS:?General/Constitutional:?Nausea?denies.?Vomiting?denies.?Hunger Thirst?denies.?Loss appetite?denies.?Chills?denies.?Fatigue?denies.?Fever?denies.?Night Sweats?denies.?Unexplained weight loss?denies.?Ophthalmologic:?Blurred vision?denies.?Red eye?denies.?HEENTM:?Dentures?denies.?Dizziness?denies.?Glasses/contacts?denies.?Retinopathy?den ies.?Blurred/double vision?denies.?TMJ?denies.?Discharge/drainage?denies.?Implants?denies.?Hard of hearing denies.?Difficulty chewing/swallowing/speaking?denies.?Nose bleeds?denies.?Sore mouth?denies.?Swollen glands?denies.?Respiratory:?On O xygen?denies.?Pneumonia/pleurisy?denies.?Bronchitis?denies.?Emphysema?denies.?Co ughing?denies.?Cough blood?denies.?Shortness of breath?denies.?Wheezing?denies.?Cardiovascular:?Pacemaker?denies.?MVP?denies.?WPW?denies.?CHF?denies.?Heart attack?denies.?Septal defect?denies.?Rapid beat?denies.?Chest pain ?denies.?Atrial Fib.?denies.?Murmur/Palpitations?denies.?Gastrointestinal:?Hemorrhoids?denies.?Stomach/Abdominal pain?denies.?Dark blood stool?denies.?Irritable bowel ?denies.?Constipation?denies.?Diarrhea?denies.?Vomiting?denies.?Hematology:?Swelling?denies.?Bruising??admits, on aspirin.?Bleeding problem??admits, on anticoagulants.?Genitourinary:?Blood urine?denies.?Frequent/Painfu/urination/bladder control?denies.?Kidney stones?denies.?Infection (UTI)?denies.?Nephropathy?denies.?Musculoskeletal:?Hammertoes?admits.?Bunions?denies.?Scoliosis/kyphosis?denies.?Patient complaining of?back pain.?Muscle cramps / walking?denies.?Generalized aches and pains?admits.?Weakness?denies.?Integ.:?Tariq?denies.?Scars?denies.?Corns/calluses?admits.?Ingrown nails?admits.?Painful nails?denies.?Rashes?denies.?Neurologic:?Difficulty sleeping?denies.?Bipolar?denies.?Brain disorder?denies.?Balance t rouble?admits.?Confusion?denies.?Fainting/blackouts?denies.?Headache?denies.?Kings mors?denies.? * Medical History:? * Surgical History:?eriberto henao ocedure 2010hemorrhoidectomy 06/2014stent put in 06/12/2016cataract surgery left 08/2020, * Hospitalization/Major Diagno stic Procedure:?Patient went to [facility] ER for DVT. 06/2012Patient went to [facility] ER by ambulance after a fall hit his head. 03/09/2013 blood transfussion due to rectal bleeding 07/08/2017[facility]-reaction to medication- 3 day stay 2019[facility] ER-went blind in eyes test taken unknown cause/went to Ophthalmologists 4 days 09/08/21[facility]- congestive heart failure 5 days 1 day at [facility] then transferred to [facility] -congestive heart failure 6 days - Ulcer - Blockage - Pneumonia 07/02/2024 * Family History:?Mother: dece ased.?Father: , poor circulation, diagnosed with Diabetic - NIDDM, Unspecified heart disease.? * Social History:?Tobacco Use:?Tobacco use other than smoking?Are you an other tobacco user??No ?Tobacco Control (Standard)?Tobacco use:?Current smoker ?When did you start smoking??07/13/1960 ?How often do you smoke cigarettes??Every day ?How many cigarettes a day do you smoke??21-30 ?How soon after you wake up do you smoke your first cigarette??Within 5 minutes ?Are you interested in quitting??Thinking about quitting ?Additional Findings: Tobacco user?Moderate cigarette smoker (10-19 cigs/day) ???Drugs/Alcohol:?Drugs?Have you used drugs other than those for medical reasons in the past 12 months??No ???Drug/Alcohol:?AUDIT-C (Standard)?Did you have a drink containing alcohol in the past year??No ?Points?0 ?Interpretation?Negative * Medications:?TakingAmmonium Lactate 12 % Cream 1 application to affected area Externally to feet Twice a day Ativan 0.5 MG Tablet 1 tablet at bedtime as needed Orally Once a day Atorvastatin Calcium 40 MG Tablet 2 Orally 3 times a week Carvedilol Creon 99469-78750 UNIT Capsule Delayed Release Particles Orally Fludrocortisone Acetate 0.1 MG Tablet Orally Furosemide LORazepam PRN NovoLOG 6UNITS Meclizine HCl 25 MG Tablet Chewable as directed Orally Once a day Omeprazole 20 MG Capsule Delayed Release 1 capsule Orally Once a day Tresiba FlexTouch 100 UNIT/ML Solution Pen-injector Subcutaneous Vitamin B 12 Vitamin D ASO Ankle/Foot Stablizing AFO As directed Wear Daily Gabapentin 100 MG Capsule 1 capsule Orally Three times a day Extra Depth Orthopedic Shoes (1 Pair) with Customized Heat Molded Multidensity Innersoles (3 Pair) as directed Dx: IDDM/Polyneuropathy (E10.42), Hammertoe Foot Deformity (M20.41,M20.42), Preulcerative Skin Lesion(s) (L85.1) Taking Ammonium Lactate 12 % Cream 1 application to affected area Externally to feet Twice a day Taking Ativan 0.5 MG Tablet 1 tablet at bedtime as needed Orally Once a day Taking Atorvastatin Calcium 40 MG Tablet 2 Orally 3 times a week Taking Carvedilol Taking Creon 56182-18358 UNIT Capsule Delayed Release Particles Orally Taking Fludrocortisone Acetate 0.1 MG Tablet Orally Taking Furosemide Taking LORazepam PRN Taking NovoLOG 6UNITS Taking Meclizine HCl 25 MG Tablet Chewable as directed Orally Once a day Taking Omeprazole 20 MG Capsule Delayed Release 1 capsule Orally Once a day Taking Tresiba FlexTouch 100 UNIT/ML Solution Pen-injector Subcutaneous Taking Vitamin B 12 Taking Vitamin D Taking ASO Ankle/Foot Stablizing AFO As directed Wear Daily Taking Gabapentin 100 MG Capsule 1 capsule Orally Three times a day Taking Extra Depth Orthopedic Shoes (1 Pair) with Customized Heat Molded Multidensity Innersoles (3 Pair) as directed Dx: IDDM/Polyneuropathy (E10.42), Hammertoe Foot Deformity (M20.41,M20.42), Preulcerative Skin Lesion(s) (L85.1) Not-Taking/PRNLisinopril 2.5 MG Tablet 1 tablet Orally Once a day NovoLOG FlexPen 100 UNIT/ML Solution Pen-injector Subcutaneous Grazyna 4-12.5 MG/5ML Syrup 5 ml as needed Orally every 4 hrs Medication List reviewed and reconciled with the patientNot-Taking/PRN Lisinopril 2.5 MG Tablet 1 tablet Orally Once a day Not-Taking/PRN NovoLOG FlexPen 100 UNIT/ML Solution Pen-injector Subcutaneous Not-Taking/PRN Grazyna 4-12.5 MG/5ML Syrup 5 ml as needed Orally every 4 hrs Medication List reviewed and reconciled with the patient * Allergies:?Cipro: hivesLevaq uin: hivesFlagyl: hivesShrimp Flavor: hivesCodeine: itchyPercodan: hivesShellfish-derived Products: hivesNicotine: hivesPenicillin: itchyPercocet: hivesyes[Allergies Verified] Objective: * Vitals:?Ht: 5 ft 6 in, Wt:13 2, BMI: 21.3, Shoe size:8.5W, BP:128/80mm Hg, BS:126, Wt-k.87 kg. * ???Past Orders: ???Lab:HEMOGLOBIN A1C (GLYCO HEMOGLOBIN) (Order Date - 07/10/2024) (Collection Date & Time - 03/27/2024 03:58 PM) ? Value Reference Range ?HEMOGLOBIN A1C % (HH) 7.5 * Examination: ???Ophthalmology Referral: ?DIABETES EYE EXAM?Neurological: ?SENSORY:?Neurological exam demonstrates, reduced light touch sensation, reduced sharp/dull discrimination , reduced vibration sensation, in a stocking fashion, at Forefoot, B/L, 5.07 monofilament test performed at plantar aspects of 5 varied sites per foot, shows sensation, reduced, B/L, Pt still relates, tingling, pins and needles sensation, shooting sensation, paresthesia, especially in the evening, B/L.?Nails: ?NAILS are:?Elongated, overgrown, dystrophic, lytic, greater than 3mm thick, discolored and friable with crumbly malodorous subungual debris , TA, T1, T2, T3, T4, T5, T6, T7, T8, T9.?Dermatologic: ?SKIN FINDINGS:?Skin exam reveals Keratotic lesion(s) located at, Medial, IPJ, TA, Medial, IPJ, T5, SUB MET (s), 1, B/L .? Assessment: * Assessment: 1.?Type 1 diabetes mellitus with diabetic polyneuropathy - E10.42 (Primary)???2.?Tinea unguium - B35.1??? Plan: * Treatment: * Procedures:?Debride Nail 6-10:?Nail debridement?Due to the clinical pathology outlined in the exam findings, performance of this nail treatment is medically necessary as its management by an unskilled/untrained nonprofessional would put this patients foot and overall health at risk. Therefore, debridement to affected nail(s), as described in exam ( TA, T1, T2, T3, T4, T5, T6, T7, T8, T9), was performed exclusively by the physician of record to reduce/remove overall nail length, girth, thickness, subungual debris, and necrotic tissue, by manual and/or electrical means through the use of a nail nipper and/or dremel-type jewel bearing grinder, to a more viable healthy nail plate or bed tissue 6- 10 nails in total. Silver nitrate was used for any petechial bleeding as necessary. Definitive antifungal treatment options, both pharmaceutical and surgical, have been reviewed and discussed with the patient. The patient solely prefers the use of intermittent/as needed professional debridement services for their nail condition and understands the need for additional periodic treatments to maintain effectiveness in symptomatic relief - 80592.?Keratoma Treatment:?Parring or Cutting of Benign Hyperkeratotic Lesion(s)?(-56) 2-4 Lesions - Due to the at risk nature of the patients medical condition as documented in the exam findings, performance of this keratoderma treatment is medically necessary as its management by an unskilled/untrained nonprofessional would put this patients foot and overall health at risk. Therefore, the benign hyperkeratotic lesions, ( 4) in total, locations as stated and described in the exam (?Medial,?IPJ,?TA,?Medial,?IPJ,?T5,?SUB MET (s),?1,?B/L), were pared, and/or cut utilizing a sterile 15 blade, tissue nippers, and/or power dremel instrumentation by the physician of record - 33767.? * Procedure Codes:?34689 DEBRI DE NAIL, 6 OR MORE, Modifiers: XS 43768 TRIM SKIN LESIONS, 2 TO 4, Modifiers: XS * Follow Up:?prn * Images: * Sign off status: Completed true * Provider:?Arden Lezama DPM Date:?2024 Generated for Silva liang/Jovan/Aaronsmitting on:?07/26/2024 04:56 PM EST History and Physical Notes * HPI (History of Present Illness) Category Sub-Category Detail Notes Category Not es At Risk footcare Pt States Last PCP Visit: Date: Examination Category Sub-Category Detail Notes Category Not es Neurological SENSORY: Neurological exa m demonstrates, reduced light touch sensation, reduced sharp/dull discrimination , reduced vibration sensation, in a stocking fashion, at Forefoot, B/L, 5.07 monofilament test performed at plantar aspects of 5 varied sites per foot, shows sensation, reduced, B/L, Pt still relates, tingling, pins and needles sensation, shooting sensation, paresthesia, especially in the evening, B/L Dermatologic SKIN FINDINGS: Skin exam reveal s Keratotic lesion(s) located at, Medial, IPJ, TA, Medial, IPJ, T5, SUB MET (s), 1, B/L Ophthalmology Referral DIABETES EYE EXAM Procedu re Performed:: Yes ?Date of Exam Performed: 02/28/2024 Diabetic Retinopathy Screening:: Yes Findings of Diabetic Eye Exam:: 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
--- OUTSIDE RECORDS SUMMARY | 2024-07-26 16:56 | XMS_ITS | Clinical Summary ---
Author Organization [facility] Address [address] [place] [address] Phone Care Team Providers Care Paginator Name Role Phone Shannon Keller MD Primary Care Provider [phone] Allergies Active Allergy Reactions Criticality Noted Date Comments Codeine Itching 05/03/2022 Levofloxacin Hives 05/03/2022 Pt. broke out into hives 5-6 days after starting tx with combination of levaquin and flagyl. Unknown whether this was a drug reaction or allergic reaction to something else. Meclizine Other (see comments) 12/19/2023 Metronidazole Hives 05/03/2022 Pt. broke out into hives 5-6 days after starting tx with combination of levaquin and flagyl. Unknown whether this was a drug reaction or allergic reaction to something else. Nicotine Hives 05/03/2022 Oxycodone-Acetaminophen Hives 05/03/2022 Penicillin G Hives 05/03/2022 Medications albuterol HFA (PROVENTIL HFA;VENTOLIN HFA) 108 (90 Base) MCG/ACT inhaler 2 PUFF INHALED EVERY 4 HOURS NEEDED FOR FOR MUSCLE SPASM 2 Active omeprazole (PriLOSEC) [address] capsule Take by mouth 1 (one) time each day 2 Active acetaminophen (TYLENOL) 325 MG tablet Take by mouth every 6 (six) hours if needed for mild pain Active Cholecalciferol (PA Vitamin D-3) 50 MCG (1999 UT) capsule Take by mouth Active Insulin Degludec 100 UNIT/ML solution Inject 7 Units under the skin Active loratadine (CLARITIN) 10 MG tablet Take 10 mg by mouth 1 (one) time each day Active LORazepam (ATIVAN) 0.5 MG tablet Take 0.5 mg by mouth every 6 (six) hours if needed for anxiety Active torsemide (DEMADEX) 20 MG tablet Take 20 mg by mouth in the morning and 20 mg in the evening. Active metoprolol tartrate 25 MG tablet Take 25 mg by mouth 1 (one) time each day Take half a tab twice a day Active docusate sodium (COLACE) 100 MG capsule Take 100 mg by mouth in the morning and 100 mg in the evening. Active ferrous sulfate 325 (65 Fe) MG tablet Take 325 mg by mouth 1 (one) time each day with breakfast Active gabapentin (NEURONTIN) 100 MG capsule Take 100 mg by mouth in the morning and 100 mg in the evening and 100 mg before bedtime. Active insulin lispro protamine-insul in lispro (HumaLOG 75-25) (75-25) 100 UNIT/ML suspension Inject 100 Units under the skin in the morning and 100 Units in the evening. Inject before meals. Active lisinopril 5 MG tablet Take 5 mg by mouth 1 (one) time each day Active Active Problems Problem Noted Date Diagnosed Date Chronic kidney disease, stage 2 (mild) 4 Stage 3a chronic kidney disease 02/24/2023 Anemia in chronic kidney disease 02/24/2023 Diabetes mellitus 05/03/2022 Proteinuria 05/03/2022 Gastroesophageal reflux disease 05/03/2022 Essential (primary) hypertension 05/03/2022 Chronic kidney disease, stage 2 (mild) 2 Type 2 diabetes mellitus wit h diabetic chronic kidney disease 05/03/2022 Immunizations Name Administration Dates Next Due Pfizer SARS-COV-2 11/12/2021,03/31/2021,10/01/19 21,09/08/2020 SARS-CoV-2, Unspecified 03/19/2022,11/12/2021 Family History Medical History Relation Comments Diabetes Father Relation Status Comments Father Mother Social History Tobacco Use Types Packs/Day Years Used Date Smoking Tobacco: Former Cigarettes Tobacco Cessation:Counseling Given: Not Answered Alcohol Use Standard Drinks/Week Comments Not Currently 0 (1 standard drink = 0.6 oz pur e alcohol) Sex and Gender Information Value Date Recorded Sex Assigned at Not on file Legal Sex Male 8:05 AM EDT Gender Identity Not on file Sexual Orientation Not on file Last Filed Vital Signs Vital Sign Reading Time Taken Comments Blood Pressure 139/64 12/19/2023 2:53 PM EDT Pulse 88 12/19/2023 2:53 PM EDT Temperature - - Respiratory Rate - - Oxygen Saturation 99% 12/19/2023 2:53 PM EDT Inhaled Oxygen Concentration - - Weight 61.5 kg (135 lb 9.6 oz) 12/19/2023 2:53 P M EDT Height - - Body Mass Index - - Plan of Treatment Upcoming Encounters Date Type Department Care Team (Late st Contact Info) Description 12/31/2024 1:30 PM EDT Office Visit [facility] [address] [place] [address] Gabino Esposito MD [address] [facility] [address] [place] [address] Health Maintenance Due Date Last Done Comments Pneumococcal Vaccine: 65+ Ye ars (1 of 2 - PCV) 1951 Diabetes: Ophthalmology Exam 05/03/2022 Diabetes: Pedal Pulse Checked 05/03/2022 Diabetes: Sensory Foot Exam 05/03/2022 Diabetes: Visual Foot Exam 05/03/2022 Diabetes: Hemoglobin A1C 06/16/2022 03/17/2022 Influenza Vaccine (#1) 2024 Hepatitis B Vaccine Aged Out No longe r eligible based on patient's age to complete this topic Procedures Procedure Name Priority Date/Time Associated Diagnosis Comments EXT RESULT ENTRY Routine 03/17/2022 from Last 3 Months or Most Recently Relevant to Health Maintenance Results * EXT RESULT ENTRY (03/17/2022) Hemoglobin A1C 5.8 4.0 - 6.0 03/17/2022 Historical Provider LAB BLOOD ORDERABLES Yas l Result from Last 3 Months or Most Recently Relevant to Health Maintenance Insurance MEDICARE [facility] MEDICARE [facility] Care Teams Paginator Relationship Specialty Start Date End Date Shannon Keller MD [address] [place] [address] PCP - General Internal Medicine 04/13/22
--- OUTSIDE RECORDS SUMMARY | 2024-07-26 16:57 | XMS_ITS | Encounter Summary ---
Author Organization [facility] Address [address] [facility] [address] [place] [address] Phone Care Team Providers Care Opener Tender Name Role Phone Shannon Keller MD Primary Care Provider [phone] Encounter Details Date Type Department Care Team (Late st Contact Info) Description 01/25/2024 Office Communication [facility] [address] [facility] [address] [place] [address] Gabino Esposito MD [address] [facility] [address] [place] [address] Social History Tobacco Use Types Packs/Day Years Used Date Smoking Tobacco: Former Cigarettes Alcohol Use Standard Drinks/Week Comments Not Currently 0 (1 standard drink = 0.6 oz pur e alcohol) Sex and Gender Information Value Date Recorded Sex Assigned at Not on file Legal Sex Male 8:05 AM EDT Gender Identity Not on file Sexual Orientation Not on file documented as of this encounter Miscellaneous Notes * Telephone Encounter - Gabino Esposito MD - 01/25/2024 8:58 AM EDT Here again a 24 hr ABPM done 01/02 and yet I saw the PT 12/19/23 --so I billed it under the 12/19/23 date--is this ok Appreciate your looking intoi what is best way to do this documented in this encounter Plan of Treatment Upcoming Encounters Date Type Department Care Team (Late st Contact Info) Description 12/31/2024 1:30 PM EDT Office Visit [facility] [address] [place] [address] Gabino Esposito MD [address] [facility] [address] [place] [address] documented as of this encounter Visit Diagnoses Not on filedocumented in this encounter Care Teams Opener Tender Relationship Specialty Start Date End Date Shannon Keller [place] [address] PCP - General Internal Medicine 04/13/22 documented as of this encounter
--- OUTSIDE RECORDS SUMMARY | 2024-07-26 16:57 | XMS_ITS ---
Author Organization [facility] Address [address] [place] [address] Care Team Providers Care Shank Cementer Hand Name Role Phone Krishna HAAS, Keiry Primary Care Provider Noble Cr [phone] ALLERGIES Allergen (clinical drug ingredient) Drug/Non Drug Allergy documented on EMR Reaction Allergy Type Onset Date Status Penicillin Unknown Drug Allergy Active Percodan Unknown Drug Allergy Active acetaminophen / oxycodone Percocet Unknown Drug Allergy Active meclizine Meclizine HCl Unknown Drug Allergy Act shade codeine Codeine Sulfate Unknown Drug Allergy A ctive REASON FOR VISIT patient presents today for bleeding ulcers MEDICATIONS Medication SIG (Take, Route, Frequency, Duration) Notes Start Date End Date Status Carafate 1 GM 1 tablet on an empty stomach Orally Twice a day 30 to 60 minutes before breakfast and dinner for 90 days Please review with patient as to how to use before meals and so as not to interfere with any of his other meds. Thank 11/30/2023 Active Loratadine 10 MG TAKE 1 TABLET BY MOUTH EVERY DAY NEEDED FOR ALLERGIC SYMPTOMS Oral for 90 Active Admelog SoloStar 100 UNIT/ML Subcutaneous for 90 Active Gabapentin 100 MG Oral for 30 Active Torsemide 20 MG TAKE 2 TABLETS BY MOUTH EVERY DAY Oral for 90 Active Metoprolol Succinate ER 25 MG Oral for 90 Active Vitamin D3 50 MCG (1999 UT) TAKE 1 CAPSULE BY MOUTH EVERY DAY Oral for 90 Active Tresiba FlexTouch 100 UNIT/ML 4 units as directed Subcutaneous once a day Active Creon 68213-98128 UNIT Take 2 capsules 15-30 minutes before a meal and 2 capsules during the meal, take 1 capsule with a snack Orally Four or five times a day for 30 days Active Lisinopril 5 MG TAKE 1 TABLET BY MOUTH EVERY DAY Oral for 90 Active Albuterol Sulfate HFA 108 (90 Base) MCG/ACT 2 puffs as needed Inhalation every 6 hrs Active Vitamin B Complex Ac tive Vitamin B12 Active tylenol Active Iron (Ferrous Sulfate) 325 (65 Fe) MG 1 tablet Orally Three times a Week for 30 day(s) Active Omeprazole 40 MG 1 tablet 30 minutes before morning meal Orally Once a day Active SOCIAL HISTORY Tobacco Use: Social History Observation Description Date Details (start date - stop date) Current Smoker NA - NA Sex Assigned At : Social History Observation Description Sex Assigned At Unknown Tobacco Use/Smoking Question Answer Notes Patient is a current smoker How often do you smoke cigarettes? every day How many cigarettes a day do you smoke? 11-20 How soon after you wake up d o you smoke your first cigarette? 6-30 minutes Are you interested in quitting? Thinking about q uitting Alcohol Screen Question Answer Notes Did you have a drink containing alcohol in the p ast year? No Points 0 Interpretation Negative PROBLEMS Problem Type ICD Code Onset Dates Problem Status W/U Status Risk SNOMED Code Notes Problem UGI bleed (K92.2) Active confirmed Gastrointestina l hemorrhage (44456207) VITAL SIGNS BMI 21.92 kg/m2 11/29/2023 Blood pressure systolic 00 mm Hg 11/29/19 24 Blood pressure diastolic 00 mm Hg 024 Height 67 in 11/29/2023 Weight 140 lbs 11/29/2023 Encounters Encounter Location Date Provider Diagnosis [facility] [address] [facility] [address] [place] [address] 11/29/2023 Noble Manzo Anastomotic ulcer K28.9 and UGI bleed K92.2 ASSESSMENTS Encounter Date Diagnosis Assessment Notes Treatment Notes Treatment Clinical Notes 11/29/2023 Anastomotic ulcer (ICD-10 - K28.9) Avoid all aspirins, NSAIDs like Ibuprofen, Advil, etc. You can only use Tylenol. Continue Iron and Omeprazole. I will send a new prescription over for your stomach to review with the pharmacist to see if you can take this with your other medicines 11/29/2023 UGI bleed (ICD-10 - K92.2) PLAN OF TREATMENT Medication Medication Name Sig Start Date Stop Date Notes Carafate 1 GM 1 tablet on an empty stomach Orally Twice a day 30 to 60 minutes before breakfast and dinner for 90 days 11/30/2023 Please review with patient as to how to use before meals and so as not to interfere with any of his other meds. Thank Treatment Notes Assessment Notes Anastomotic ulcer Avoid all aspirins, NSAIDs like Ibuprofen, Advil, etc. You can only use Tylenol. Continue Iron and Omeprazole. I will send a new prescription over for your stomach to review with the pharmacist to see if you can take this with your other medicines Next Appt Details Follow Up: 1 Year, Reason: Provider Name:Noble Manzo , 11/29/2024 09:00:00 AM, [address] [place] [address], [address], [place], [address], Progress Notes * Examination Category Sub-Category Detail Notes General Examination GENERAL APPEARANCE: pleasant , alert, male in no distress HEAD: EYES: sclera non-icteric EARS: NOSE: THROAT: NECK/THYROID: no cervical lymphade nopathy, neck supple HEART: S1, S2 normal CHEST: LUNGS: clear to auscultatio n bilaterally ABDOMEN: normal bowel sounds, no guarding or rigidity, no guarding or rigidity, no masses palpable, soft, nontender, nondistended NEUROLOGIC: alert and oriented SKIN: nonjaundiced, no spi chan angiomata EXTREMITIES: Mild pretibial edema PERIPHERAL PULSES: BACK: BREASTS: MUSCULOSKELETAL: MALE GENITOURINARY: LYMPH NODES: RECTAL EXAM: FEMALE GENITOURINARY: ORAL CAVITY: mucosa moist
--- OUTSIDE RECORDS SUMMARY | 2024-07-26 16:57 | XMS_ITS | Patient Health Record ---
Author Organization [facility] Address [address] [place] [address] Care Team Providers Care Enterprise Cloud Architect Name Role Phone Krishna HAAS, Keiry Primary Care Provider Noble Cr [phone] ALLERGIES Allergen (clinical drug ingredient) Drug/Non Drug Allergy documented on EMR Reaction Allergy Type Onset Date Status Penicillin Unknown Drug Allergy Active Percodan Unknown Drug Allergy Active acetaminophen / oxycodone Percocet Unknown Drug Allergy Active meclizine Meclizine HCl Unknown Drug Allergy Act shade codeine Codeine Sulfate Unknown Drug Allergy A ctive REASON FOR REFERRAL No Information MEDICATIONS Medication SIG (Take, Route, Frequency, Duration) Notes Start Date End Date Status Admelog SoloStar 100 UNIT/ML Subcutaneous for 90 Active Gabapentin 100 MG Oral for 30 Active Vitamin D3 50 MCG (1999 UT) TAKE 1 CAPSULE BY MOUTH EVERY DAY Oral for 90 Active Tresiba FlexTouch 100 UNIT/ML 4 units as directed Subcutaneous once a day Active Lisinopril 5 MG TAKE 1 TABLET BY MOUTH EVERY DAY Oral for 90 Active tylenol Active Torsemide 20 MG TAKE 2 TABLETS BY MOUTH EVERY DAY Oral for 90 Active Carafate 1 GM 1 tablet on an empty stomach Orally Twice a day 30 to 60 minutes before breakfast and dinner for 90 days Please review with patient as to how to use before meals and so as not to interfere with any of his other meds. Thank 11/30/2023 Active Iron (Ferrous Sulfate) 325 (65 Fe) MG 1 tablet Orally Three times a Week for 30 day(s) Active Metoprolol Succinate ER 25 MG Oral for 90 Active Omeprazole 40 MG 1 tablet 30 minutes before morning meal Orally Once a day Active Albuterol Sulfate HFA 108 (90 Base) MCG/ACT 2 puffs as needed Inhalation every 6 hrs Active Vitamin B Complex Ac tive Vitamin B12 Active Loratadine 10 MG TAKE 1 TABLET BY MOUTH EVERY DAY NEEDED FOR ALLERGIC SYMPTOMS Oral for 90 Active Creon 39386-09705 UNIT TAKE 2 CAPSULES BY MOUITH 15-30MIN BEFORE MEAL AND 1 CAP 15-30MIN BEFORE A SNACK *ONLY* for 30 Active IMMUNIZATIONS Vaccine Route Administration Date Status Comme nts Influenza Unknown 02/25/2017 Administered Influenza Unknown 04/27/2018 Administered Influenza Unknown 02/25/2021 Administered SOCIAL HISTORY Tobacco Use: Social History Observation [...] W/U Status Risk SNOMED Code Notes Problem Encounter for screening for malignant neoplasm of colon (Z12.11) Active confirmed 617708415 Problem History of adenomatous polyp of colon (Z86.010) Active confirmed 964198788 Problem Weight loss (R63.4) Active confirmed 62465796 Problem 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 403349984 Problem Intestinal malabsorption, 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) Active confirmed 41754265 Problem Anastomotic ulcer (K28.9) Active confirmed 645230508 Problem UGI bleed (K92.2) Active confirmed Gastrointestina l hemorrhage (29997130) Problem Alcoholic cirrhosis of liver (K70.30) Active confirmed Alcoholic cir rhosis of liver (180438931) Problem Abdominal pain, RUQ (R10.11) Active confirmed Right upper quadrant pain (446553668) Problem Pancreatic insufficiency (K86.89) Active confirmed 40190645 VITAL SIGNS Blood pressure diastolic 00 mm Hg 11/29/2023 Height 67 in 11/29/2023 Blood pressure systolic 00 mm Hg 11/29/2023 Weight 140 lbs 11/29/2023 BMI 21.92 kg/m2 11/29/2023 Encounters Encounter Location Date Provider Diagnosis [facility] [address] [facility] [address] [place] [address] 07/26/2023 Noble Manzo [facility] [address] [facility] [address] [place] [address] 11/29/2023 Noble Manzo Anastomotic ulcer K28.9 and UGI bleed K92.2 [facility] [address] [facility] [address] [place] [address] 09/26/2023 Noble Manzo ASSESSMENTS Encounter Date Diagnosis Assessment Notes Treatment [...] bleed (ICD-10 - K92.2) PLAN OF TREATMENT Pending Test Test Name Order Date LIVER PROFILE 11/17/2021 CBC w DIFF 11/17/2021 ALPHA-FETOPROTEIN,TUMOR MARKER 2 US ABD 11/17/2021 Amylase 11/17/2021 Lipase 11/17/2021 Future Test Test Name Order Date UPPER GI ENDOSCOPY 10/26/2013 COLONOSCOPY 10/26/2013 COLONOSCOPY 03/09/2019 Next Appt Details Provider Name:Noble Manzo , 11/29/2024 09:00:00 AM, [address] [place] [address], [address], [place], [address], Insurance Providers Payer Name Payer Address Payer Phone Subscriber Number Group Number Insured Name Patient Relationship to Insured Coverage Start Date Coverage End Date MEDICARE OF [place] [address] [place] [address] [id number] ANITA MONROE Self - patient is the insured MED[employer] ATTN CLAIMS [address] [place] [address] [id number] ANITA MONROE Self - patient is the insured MEDICAL (GENERAL) HISTORY Medical History History ICD Code Colonoscopy 09-03-1998--hyperplastic poly ps GERD with Goins's esophagus-last EGD w asin 2006--no dysplasia-small HH History of bleeding ulcers > 30 yrs ago Diverticulitis 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 Loera EGD--12/2013--normal small bowel biopsies --no celiac disease-no esophagitis Colonoscopy 06/2013---small t ubular adenomas, diverticulosis, no colitis---biopises neg for microscopic colitis Colonoscopy 07/2019 revealed a small tubular adenoma removed from the cecum, several nonbleeding angiodysplasias in the cecum, and a hyperplastic polyp removed from the ascending colon Pancreatic insufficiency due to his previous Whipple procedure and previous alcohol abuse.... Pancreatic enzyme replacement for chronic diarrhea--as of the 10/2021 OV he is on 4 of the 24,000-76,000 Creon capsules with each meal which has helped his diarrhea improve significantly CHF Negative abdominal ultrasound in November of 2021 Chronic anemia Upper GI bleed in September 024-hospitalized at [facility]. His upper endoscopy revealed some nonbleeding gastric remnant ulcers and erosions, as well as an anastomotic ulcer with a visible vessel that was treated with epinephrine and a clip. He was on a baby aspirin at that time which was subsequently stopped, Surgical History Surgery Date(Month/Year) Whipple procedure in 2010 for chronic pa ncreatitis Umbilical hernia repair Lumbar disc surgery Hand surgery CCY Hemorrhoids with Dr. Ceja in 2014
--- OUTSIDE RECORDS SUMMARY | 2024-07-26 16:57 | XMS_ITS ---
Author Organization [facility] Address [address] [place] [address] Care Team Providers Care Desk Top Publisher Name Role Phone Krishna HAAS, Keiry Ingram Primary Care Provider Un available Arden Lezama Unavailable [phone] Encounters Encounter Location Date Provider Diagnosis [address] [address] 07/03/2024 Arden Lezama Plan Of Treatment Next Appt Details Provider Name:Arden Lezama , 10/16/2024 09:30:00 AM, [address] [place] [address], [address], Progress Notes * Stuart MCLEOD ODOB:[birth year] (79 yo M)Acc No.[id number]:07/03/2024 Progress Note Patient:?Stuart MCLEOD Provider:?Arden Lezama DPM :1945???Age:79 Y???Sex:Male Tesfaye e:07/03/2024 Address:[address] [place] [address] [place], [id number] Pcp:Divina Polanco Subjective: * Chief Complaints: * ??? * Medical History:? Objective: * Vitals:? Assessment: Plan: * Treatment: * Images: * The named appointment provid er may or may not be the originator of this progress note, and it is not deemed complete until electronically signed by the appointment provider. Sign off status: Pending * Provider:?Arden Lezama DPM Date:?2024 Generated for Silva liang/Jovan/Valerio on:?07/26/2024 04:56 PM EST
--- OUTSIDE RECORDS SUMMARY | 2024-07-26 16:57 | XMS_ITS ---
Author Organization [facility] Address [address] [place] [address] Care Team Providers Care Concert Singer Name Role Phone Krishna HAAS, Keiry Primary Care Provider Noble Cr [phone] REASON FOR VISIT bleeding ulcers Encounters Encounter Location Date Provider Diagnosis [facility] [address] [place] [address] 09/26/2023 Noble Manzo PLAN OF TREATMENT Next Appt Details Provider Name:Noble Manzo , 11/29/2024 09:00:00 AM, [address] [facility], [address], [place], [address],
--- OUTSIDE RECORDS SUMMARY | 2024-07-26 16:57 | XMS_ITS ---
Author Organization [facility] Address [address] [place] [address] Care Team Providers Care Gambreler Name Role Phone Krishna HAAS, Keiry Primary Care Provider Noble Cr Unavailable [phone] REASON FOR VISIT Patient presents today for pancreatic issuficiency Encounters Encounter Location Date Provider Diagnosis [facility] [address] [place] [address] [address] [place] [address] 07/26/2023 Noble Manzo PLAN OF TREATMENT Next Appt Details Provider Name:Noble Manzo , 11/29/2024 09:00:00 AM, [address] [facility], [address], [place], [address],
--- OUTSIDE RECORDS SUMMARY | 2024-07-26 16:57 | XMS_ITS ---
Author Organization [facility] Address [address] [place] [address] Care Team Providers Care Court Crier Name Role Phone Krishna HAAS, Keiry Ingram Primary Care Provider Un available Arden Lezama Unavailable [phone] REASON FOR VISIT cx appt 07/03/24 Encounters Encounter Location Date Provider Diagnosis [address] [address] 07/02/2024 Arden Lezama Plan Of Treatment Next Appt Details Provider Name:Arden Lezama , 10/16/2024 09:30:00 AM, [address] [place], [address], Progress Notes * Stuart MCLEOD ODOB:[birth year] (79 yo M)Acc No.[id number]:07/02/2024 Patient:?Stuart MCLEOD :1945???Age:79 Y???Sex:Male Address:[address] [place] [address], [address] * true * Date:? Generated for Printi ng/Faxing/eTransmitting on:?07/26/2024 04:57 PM EST
--- OUTSIDE RECORDS SUMMARY | 2024-07-26 16:57 | XMS_ITS | Patient Health Record ---
Author Organization [facility] Address [address] [place] [address] Care Team Providers Care Portable Trackman Name Role Phone Krishna HAAS, Keiry Ingram Primary Care Provider Un available Arden Lezama Unavailable [phone] Allergies Allergen (clinical drug ingredient) Drug/Non Drug [...] (FN) Shellfish-derived Products hives Drug Allergy Active Results Component Value Reference Range Notes HEMOGLOBIN A1C (GLYCOHEMOGLO BIN) Reviewed date:07/10/2024 04:14:18 PM Interpretation: Performing Lab: Notes/Report: HEMOGLOBIN A1C % (HH) 7.5 HEMOGLOBIN A1C (GLYCOHEMOGLO BIN) Reviewed date:07/10/2024 03:59:17 PM Interpretation: Performing Lab: Notes/Report: HEMOGLOBIN A1C % (HH) 7.5 HEMOGLOBIN A1C (GLYCOHEMOGLO BIN) Reviewed date:03/27/2024 09:05:51 AM Interpretation: Performing Lab: Notes/Report: TOTAL HEMOGLOBIN (HGBA1C) 7.5 Reason For Referral No Information Medications Medication SIG (Take, Route, Frequency, Duration) Notes Start Date End Date Status Fludrocortisone Acetate 0.1 MG Orally Active Creon 00488-10634 UNIT Orally Active Gabapentin 100 MG 1 capsule Orally Thr ee times a day Active Carvedilol Active ASO Ankle/Foot Stablizing AFO As directed Wear Daily for as needed 12/12/2018 Active Atorvastatin Calcium 40 MG 2 Orally 3 times a week Acti ve Vitamin D Active Ativan 0.5 MG 1 tablet at bedtime as needed Orally Once a day Active Vitamin B 12 Active Ammonium Lactate 12 % 1 application to affected area Externally to feet Twice a day for 30 days Active Tresiba FlexTouch 100 UNIT/ML Subcutaneous Active Omeprazole 20 MG 1 capsule Orally Onc e a day for 30 day(s) Active Meclizine HCl 25 MG as directed Orally O nce a day Active NovoLOG 6UNITS Activ e Grazyna 4-12.5 MG/5ML 5 ml as needed Orall y every 4 hrs Not-Taking LORazepam PRN Active NovoLOG FlexPen 100 UNIT/ML Subcutaneous Not-Taking Furosemide Active Lisinopril 2.5 MG 1 tablet Orally Once a day Not-Taking Extra Depth Orthopedic Shoes (1 Pair) with Customized Heat Molded Multidensity Innersoles (3 Pair) as directed Dx: IDDM/Polyneuropathy (E10.42), Hammertoe Foot Deformity (M20.41,M20.42), Preulcerative Skin Lesion(s) (L85.1) 03/27/2024 Active Immunizations Vaccine Route Administration Date Status Comme nts COVID-19 Pfizer BioNTech Vaccine Unknown 03/27/2022 Administered 1st 09/08/2020 2nd 09/30/2020 3rd 03/31/2021 Influenza Unknown 07/08/2015 Administered Influenza Unknown 05/10/2016 Administered Influenza Unknown 03/09/2017 Administered Influenza Unknown 06/13/2018 Administered Influenza Unknown 05/09/2019 Administered Influenza Unknown 03/27/2022 Administered Influenza Unknown 02/25/2023 Administered Pneumococcal Unknown 03/08/2016 Administered Social History Tobacco Use: Social History Observation [...] ast year? No Points 0 Interpretation Negative Problems Problem Type SNOMED Code ICD Code Onset Dates Problem Status W/U Status Risk Notes Problem Acquired hammer toe of right foot (4984273587473923 ) Other hammer toe(s) (acquired), right foot (M20.41) Active confirmed Response to treatment, Improvemen t Problem Acquired hammer toe of left foot (7592400750740573 ) Other hammer toe(s) (acquired), left foot (M20.42) Active confirmed Response to treatment, Improvemen t Problem Polyneuropathy due to diabetes mellitus type I (142383678) Type 1 diabetes mellitus with diabetic polyneuropathy (E10.42) Active confirmed Vital Signs Blood pressure diastolic 80 mm Hg 07/10/2024 Height 5 ft 6 in in 07/10/2024 Blood pressure systolic 128 mm Hg 07/10/2024 Weight 132 lbs 07/10/2024 BMI 21.3 kg/m2 07/10/2024 Procedures Procedure Date Ordered Date Performed Result Body Sit e 12339-AALPTWC NAIL, 6 OR MORE 10/11/2023 N/A 68639-RIVB SKIN LESIONS, 2 TO 4 10/11/2023 N/A 62959-HBAKPYA NAIL, 6 OR MORE 01/03/2024 N/A 07620-Ytedibxd Plate 01/03/2024 N/A 75569-RPJE SKIN LESIONS, 2 TO 4 01/03/2024 N/A 82682-XHOWWOM NAIL, 6 OR MORE 03/27/2024 N/A 67561-Zqxmvikx Plate 03/27/2024 N/A 97680-QNHP SKIN LESIONS, 2 TO 4 03/27/2024 N/A 74528-ZHPKEHS NAIL, 6 OR MORE 07/10/2024 N/A 04233-WUGX SKIN LESIONS, 2 TO 4 07/10/2024 N/A Encounters Encounter Location Date Provider Diagnosis [facility] [address] [place] [address] 10/11/2023 Arden Lezama Type 1 diabetes mellitus with diabetic polyneuropathy E10.42 ; Tinea unguium B35.1 and Muscle cramp, nocturnal R25.[address] [address] 01/03/2024 Arden Lezama Type 1 diabetes mellitus with diabetic polyneuropathy E10.42 ; Tinea unguium B35.1 and Ingrown nail L60.[address] [address] 03/27/2024 Arden Lezama Type 1 diabetes mellitus with diabetic polyneuropathy E10.42 ; Tinea unguium B35.1 ; Ingrown nail L60.0 ; Other hammer toe(s) (acquired), right foot M20.41 and Other hammer toe(s) (acquired), left foot M20.[address] [address] 07/10/2024 Arden Lezama Type 1 diabetes mellitus with diabetic polyneuropathy E10.42 and Tinea unguium B35.[address] [address] 07/02/2024 Arden Lezama Assessments Encounter Date Diagnosis (ICD Code) Assessment Notes Treatment Notes Treatment Clinical Notes Section Notes 10/11/2023 Type 1 diabetes mellitus with diabetic polyneuropathy (ICD-10 - E10.42) 01/03/2024 Type 1 diabetes mellitus with diabetic polyneuropathy (ICD-10 - E10.42) 01/03/2024 Tinea unguium (ICD-10 - B35.1) 03/27/2024 Type 1 diabetes mellitus with diabetic polyneuropathy (ICD-10 - E10.42) 03/27/2024 Tinea unguium (ICD-10 - B35.1) 07/10/2024 Type 1 diabetes mellitus with diabetic polyneuropathy (ICD-10 - E10.42) 07/10/2024 Tinea unguium (ICD-10 - B35.1) 03/27/2024 Ingrown nail (ICD-10 - L60.0) 01/03/2024 Ingrown nail (ICD-10 - L60.0) 10/11/2023 Tinea unguium (ICD-10 - B35.1) 03/27/2024 Other hammer toe(s) (acquired), right foot (ICD-10 - M20.41) Patient Educated with: DIABETIC FOOT CARE INSTRUCTIONS. pdf (DIABETIC FOOT CARE INSTRUCTIONS. pdf) 03/27/2024 Other hammer toe(s) (acquired), left foot (ICD-10 - M20.42) 10/11/2023 Muscle cramp, nocturnal (ICD-10 - R25.2) Plan Of Treatment Pending Test Test Name Order Date Hemoglobin A1c 10/29/2014 Hemoglobin A1c 08/08/2015 79734-YXBAQQE NAIL, 6 OR MORE 05/09/2015 25532-JLLNQJM NAIL, 6 OR MORE 11/11/2015 65267-VCQTUZZ NAIL, 6 OR MORE 08/08/2015 35745-PPVYUAG NAIL, 6 OR MORE 03/12/2016 71767-AJTJTPY NAIL, 6 OR MORE 05/28/2016 44622-FBZZHSG NAIL, 6 OR MORE 08/27/2016 08714-CWVJPZR NAIL, 6 OR MORE 12/31/2016 64651-JVAVNLL NAIL, 6 OR MORE 04/08/2017 71168-SDLAQNH NAIL, 6 OR MORE 07/12/2017 49027-WOOZZVH NAIL, 6 OR MORE 10/11/2017 03558-TIITRFE NAIL, 6 OR MORE 02/03/2018 52559-RFCONNQ NAIL, 6 OR MORE 06/13/2018 49459-UPUFRTC NAIL, 6 OR MORE 09/12/2018 46087-QLMHOGA NAIL, 6 OR MORE 12/12/2018 71740-HXKVINF NAIL, 6 OR MORE 03/20/2019 48630-JKTEDKP NAIL, 6 OR MORE 07/06/2019 53191-GAPZJHD NAIL, 6 OR MORE 10/30/2019 52903-NQNGTVU NAIL, 6 OR MORE 01/29/2020 01482-HLUQVYM NAIL, 6 OR MORE 05/02/2020 89066-BYQSETO NAIL, 6 OR MORE 08/01/2020 50015-WHZUHNA NAIL, 6 OR MORE 10/31/2020 19454-NIPUJLE NAIL, 6 OR MORE 01/09/2021 98999-YLQKUYD NAIL, 6 OR MORE 04/03/2021 61559-IEFOAPZ NAIL, 6 OR MORE 07/03/2021 44867-LRGFUPW NAIL, 6 OR MORE 09/15/2021 01341-TUEKKOP NAIL, 6 OR MORE 12/01/2021 98580-XHCHQIQ NAIL, 6 OR MORE 02/23/2022 20055-NFRUXKO NAIL, 6 OR MORE 05/28/2022 50640-LUXGHUZ NAIL, 6 OR MORE 09/07/2022 94196-BCYVHON NAIL, 6 OR MORE 12/03/2022 43649-DWVYMQR NAIL, 6 OR MORE 02/15/2023 11052-RAFYCLH NAIL, 6 OR MORE 05/06/2023 19259-CCVXJUN NAIL, 6 OR MORE 07/12/2023 48901-ZEWDLGY NAIL, 6 OR MORE 10/11/2023 37362-PDDVISF NAIL, 6 OR MORE 01/03/2024 84964-FRKLQGT NAIL, 6 OR MORE 03/27/2024 45645-WGDTXCV NAIL, 6 OR MORE 07/10/2024 29539-YDNYYPN NAIL, 1-5 01/31/2015 65688-ATEIIPK NAIL, -04/26/2014 81181-GUIGKAB NAIL, -10/29/2014 50525-OOKTWXQ NAIL, -03/19/2011 41334-QRRPOMW NAIL, -07/23/2011 16450-ULLAMPV NAIL, -10/22/2011 83679-EVVSZQC NAIL, -03/07/2012 77695-VJDTWLS NAIL, -05/23/2012 42412-XDIFLXK NAIL, -08/11/2012 17857-CSGGIZV NAIL, -11/03/2012 88513-CUBKRBK NAIL, -03/23/2013 48266-HUAOPCM NAIL, -07/06/2013 40975-KIRMYIS NAIL, -09/25/2013 04237-WOKDRRS NAIL, -01/01/2014 63016-YNUDCLJ NAIL, -07/30/2014 21629-Eypvnmia Plate 07/30/2014 95541-Vpdfdagz Plate 05/23/2012 77377-Typoumue Plate 07/23/2011 84192-Tqiivqir Plate 03/19/2011 60959-Bflwcuys Plate 11/11/2015 21905-Rfgzsbob Plate 12/31/2016 52330-Kvsbjicp Plate 04/08/2017 12072-Vlpuhdrv Plate 08/27/2016 87765-Wuoshkig Plate 08/08/2015 28383-Hecaycas Plate 12/01/2021 25959-Cyrbkexm Plate 09/15/2021 17839-Nvqshmsx Plate 07/03/2021 85973-Eppqvarr Plate 04/03/2021 48349-Srbsbfad Plate 01/09/2021 46615-Upltpqey Plate 10/31/2020 96042-Bdjobwvw Plate 08/01/2020 80859-Maafelvr Plate 05/02/2020 02363-Htmepogg Plate 01/29/2020 26742-Vjtimtnz Plate 10/30/2019 45228-Fnpcuonq Plate 07/06/2019 23579-Gajcufnc Plate 03/20/2019 92115-Olvhkwaj Plate 09/12/2018 64333-Uejmqrcl Plate 06/13/2018 69361-Ojztqmjm Plate 12/12/2018 86502-Aepjgays Plate 02/03/2018 59859-Xiwfgulf Plate 03/27/2024 89836-Izfmayob Plate 05/06/2023 83373-Jrsvoaki Plate 01/03/2024 39843-Jvoyrgbt Plate 07/12/2023 12794-Nchfoaov Plate 12/03/2022 25040-Wezgocqk Plate 09/07/2022 46534-Dlqnbcrc Plate 05/28/2022 08064-Fjpqlcdp Plate 02/23/2022 04701-Qhzkdajw Plate Each Additional 03/2018 68137-Gnhbfdsd Plate Each Additional 26095-Iwotqbif Plate Each Additional 41603-Yxqbwwou Plate Each Additional 18498-Zvymibwi Plate Each Additional 10940-Cxswljdv Plate Each Additional 03/2020 17889-Ykfikgbq Plate Each Additional 10/2019 96622-Atogkhvt Plate Each Additional 09/2019 18030-Fvpsylxu Plate Each Additional 11/2019 58052-Twfktche Plate Each Additional 10/2020 13586-Qrwlhonh Plate Each Additional 12/2020 11088-Sbkuzppb Plate Each Additional 76100-Gcdabdhg Plate Each Additional 01/2021 60036-Efktvnjy Plate Each Additional 12/2021 98103-Vcgefzvs Plate Each Additional 46712-Mipwsakz Plate Each Additional 12/2021 28130-Xyxlxbkx Plate Each Additional 05/2016 18308-Scphweni Plate Each Additional 35837-ALST SKIN LESIONS, 2 TO 4 11/11/19 16 96547-STQR SKIN LESIONS, 2 TO 4 05/09/20 15 98956-WCHH SKIN LESIONS, 2 TO 4 08/08/19 16 62955-VZEC SKIN LESIONS, 2 TO 4 10/30/19 15 47344-YSMJ SKIN LESIONS, 2 TO 4 04/26/20 14 90255-CFOH SKIN LESIONS, 2 TO 4 02/01/20 15 95579-YPAE SKIN LESIONS, 2 TO 4 03/12/20 16 68007-OMCJ SKIN LESIONS, 2 TO 4 08/28/19 17 03105-DJIX SKIN LESIONS, 2 TO 4 05/28/20 16 88997-WTLM SKIN LESIONS, 2 TO 4 01/01/20 17 49133-QXTQ SKIN LESIONS, 2 TO 4 04/08/20 17 00416-VHVT SKIN LESIONS, 2 TO 4 07/12/19 18 20876-JTXQ SKIN LESIONS, 2 TO 4 07/23/19 12 88940-QPUK SKIN LESIONS, 2 TO 4 10/22/19 12 16384-MCIW SKIN LESIONS, 2 TO 4 03/07/20 12 03588-IHDK SKIN LESIONS, 2 TO 4 03/19/20 11 88579-TZOU SKIN LESIONS, 2 TO 4 05/23/20 12 63027-LAGH SKIN LESIONS, 2 TO 4 07/30/19 15 63244-TACC SKIN LESIONS, 2 TO 4 01/02/20 14 87601-AERD SKIN LESIONS, 2 TO 4 09/26/19 14 21133-OMZH SKIN LESIONS, 2 TO 4 07/06/19 14 60973-ROLN SKIN LESIONS, 2 TO 4 03/23/20 13 62336-RCAS SKIN LESIONS, 2 TO 4 11/04/19 13 35831-CHLX SKIN LESIONS, 2 TO 4 08/11/19 13 50801-TTZS SKIN LESIONS, 2 TO 4 12/02/19 22 89224-CMCB SKIN LESIONS, 2 TO 4 09/16/19 22 57106-ZXDO SKIN LESIONS, 2 TO 4 07/03/19 22 92111-FZYY SKIN LESIONS, 2 TO 4 04/03/20 21 58442-THAW SKIN LESIONS, 2 TO 4 01/10/20 42830-HBLT SKIN LESIONS, 2 TO 4 11/01/19 07663-YOUE SKIN LESIONS, 2 TO 4 08/01/19 30383-KAJN SKIN LESIONS, 2 TO 4 05/02/20 55703-KWWF SKIN LESIONS, 2 TO 4 01/29/20 74683-LREG SKIN LESIONS, 2 TO 4 10/30/19 48959-EOON SKIN LESIONS, 2 TO 4 07/06/19 28278-JQEW SKIN LESIONS, 2 TO 4 03/20/20 19 51601-BNIW SKIN LESIONS, 2 TO 4 09/13/19 83480-EYAC SKIN LESIONS, 2 TO 4 12/13/19 97521-ELMI SKIN LESIONS, 2 TO 4 06/13/20 19054-AXVC SKIN LESIONS, 2 TO 4 02/04/20 18 81561-ONEW SKIN LESIONS, 2 TO 4 10/12/19 71163-ATAD SKIN LESIONS, 2 TO 4 02/24/20 45143-TKHX SKIN LESIONS, 2 TO 4 05/28/20 67449-MICJ SKIN LESIONS, 2 TO 4 09/08/19 23 21253-BRVC SKIN LESIONS, 2 TO 4 12/04/19 64629-KOMX SKIN LESIONS, 2 TO 4 07/12/19 24 48704-NVWL SKIN LESIONS, 2 TO 4 10/11/19 24 42556-XQZP SKIN LESIONS, 2 TO 4 05/06/20 23 79710-QNPY SKIN LESIONS, 2 TO 4 02/16/20 52855-PDCF SKIN LESIONS, 2 TO 4 01/03/20 96897-IENJ SKIN LESIONS, 2 TO 4 03/27/20 47936-KXIX SKIN LESIONS, 2 TO 4 07/10/19 37090-PEEL NAIL(S) 08/11/2012 59225-ULOU NAIL(S) 11/03/2012 72787-CTPB NAIL(S) 03/23/2013 77590-RSPG NAIL(S) 07/06/2013 26319-JRZF NAIL(S) 09/25/2013 50373-VNVY NAIL(S) 01/01/2014 27627-KAAT NAIL(S) 07/30/2014 01572-CJVT NAIL(S) 05/23/2012 70312-ZYYS NAIL(S) 03/07/2012 47827-JLLQ NAIL(S) 07/23/2011 37319-WERK NAIL(S) 10/22/2011 94295-QTVT NAIL(S) 03/19/2011 23442-VVOK NAIL(S) 01/31/2015 76690-CRHU NAIL(S) 04/26/2014 63543-WYXL NAIL(S) 10/29/2014 Next Appt Details Provider Name:Arden Lezama , 10/16/2024 09:30:00 AM, [address] [place], [address], Insurance Providers Payer Name Payer Address Payer Phone Subscriber Number Group Number Insured Name Patient Relationship to Insured Coverage Start Date Coverage End Date Medicare National Govt [employer] [address] [place] [address] [id number] Stuart Alvarado Self - patient is the insured 2 [employer] [address] [place] [address] [id number] Stuart Alvarado Self - patient is the insured Medical (General) History Medical History History ICD Code transfusions mumps measles chicken pox gall bladder problems vertigo reflux deep vein thrombosis Cataracts type II diabetes Cancer - Leukemia Congestive heart failure Surgical History Surgery Date(Month/Year) whipple procedure 2010 hemorrhoidectomy 06/2014 stent put in 06/12/2016 cataract surgery left 08/2020, Hospitalization History Reason Date(Month/Year) [facility] Pneumonia 07/02[facility]2024 [facility]2023 [facility] [place] [facility] [place] [place] 6 days 09/13 [place] [facility] [place] [place] 5 [place] [facility] [place] [facility] [place]2022 [facility] [place]-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 03/09/2013 [place] [facility] [place]. 06/2012
== END 2024-07-26 14:30 | disposition home or self-care (01) ==
PROVIDERS: PCP Internal Medicine; Visit Provider Internal Medicine
DX: E13.9 Other specified diabetes mellitus without complications (principal)

== ENCOUNTER → 2024-07-26 13:08 | Outpatient (BNVA) | payer MEDICARE, SELFPAY | PROVIDERS: PCP Internal Medicine; Visit Provider Internal Medicine | DX: E13.9 Other specified diabetes mellitus without complications (principal); G63 Polyneuropathy in diseases classified elsewhere | CPT/HCPCS: 83036; 99212 ==

== ENCOUNTER 2024-11-29 07:50 | Outpatient (REF) | payer MEDICARE, SELFPAY ==
--- OUTSIDE RECORDS SUMMARY | 2024-11-29 07:53 | XMS_ITS | Clinical Summary ---
Author Organization [facility] Address [address] [place] [address] Phone Care Team Providers Care Peanut Picker Name Role Phone Shannon Keller MD Primary Care Provider [phone] Allergies Active Allergy Reactions Criticality Noted Date [...] h diabetic chronic kidney disease 05/03/2022 Immunizations Immunization Administration Dates Next Due Pfizer SARS-COV-2 11/12/2021,03/31/2021,10/01/19 [...] Visit [facility] [address] [place] [address] Gabino Esposito MD [address] [facility] [address] [place] [address] Health Maintenance Due Date Last Done Comments Pneumococcal Vaccine: 50+ Ye ars (1 of 2 - PCV) 1966 Diabetes: Ophthalmology Exam 05/03/2022 Diabetes: Pedal Pulse Checked 05/03/2022 Diabetes: Sensory Foot Exam 05/03/2022 Diabetes: Visual Foot Exam 05/03/2022 Diabetes: Hemoglobin A1C 06/16/2022 03/17/2022 Influenza Vaccine (Season Ended) 2025 Hepatitis B Vaccine Aged Out No longe r eligible based on patient's age to complete this topic Procedures Procedure Name Priority Date/Time Associated Diagnosis Comments EXT RESULT ENTRY Routine 03/17/2022 from Last 3 Months or Most Recently Relevant to Health Maintenance Results * EXT RESULT ENTRY (03/17/2022) Hemoglobin A1C 5.8 4.0 - 6.0 03/17/2022 us Historical Provider LAB BLOOD ORDERABLES Yas l Result from Last 3 Months or Most Recently Relevant to Health Maintenance Insurance Medicare [facility] Medicare [facility] Care Teams Peanut Picker Relationship Specialty Start Date End Date Shannon Keller MD [address] [place] [address] PCP - General Internal Medicine 04/13/22
[2024-11-29 10:43] LABS: Estimated Average Glucose 163 mg/dL; Hemoglobin A1c % 7.3 % (<6.0)
[2024-11-29 10:59] LABS: Alanine Aminotransferase 19 U/L (0-40); Anion Gap 10 (12-20); Aspartate Amino Transferase 64 U/L (5-37); Blood Urea Nitrogen 8 mg/dL (9-16); Calcium 8.5 mg/dL (8.4-10.2); Carbon Dioxide 31 mmol/L (22-29); Chloride 106 mmol/L (96-108); Cholesterol 61 mg/dL (<200); Estimated Glomerular Filt Rate > 60; Glucose Fasting 141 mg/dL (60-99); HDL Cholesterol 22 mg/dL (>40); LDL Cholesterol Calculated 27 mg/dL (<100); Potassium 4.5 mmol/L (3.3-5.1); Sodium 142 mmol/L (135-145); Triglycerides 63 mg/dL (<150)
[2024-11-29 11:08] LABS: Vitamin D 25-OH Total 12.5 ng/mL (>30)
[2024-11-29 11:32] LABS: Folate 13.1 ng/mL (> or = 4.0); Vitamin B12 > 2000 pg/mL (200-900)
== END 2024-11-29 07:51 | disposition home or self-care (01) ==
LOC: HO.HMGCLDS 07:50
PROVIDERS: PCP Internal Medicine; Visit Provider Internal Medicine
DX: B37.81 Candidal esophagitis (principal); K57.92 Diverticulitis of intestine, part unspecified, without perforation or abscess without bleeding; K52.9 Noninfective gastroenteritis and colitis, unspecified; D50.0 Iron deficiency anemia secondary to blood loss (chronic); I73.9 Peripheral vascular disease, unspecified; E78.5 Hyperlipidemia, unspecified; E13.42 Other specified diabetes mellitus with diabetic polyneuropathy; I10 Essential (primary) hypertension
CPT/HCPCS: 36415; 80048; 80061; 82306; 82607; 82746; 83036; 84450; 84460; 96127; 99212

== ENCOUNTER 2024-11-29 08:04 | Outpatient (AMB) | payer MEDICARE, SELFPAY ==
[2024-11-29 08:09] VITALS: BP 120/72; PULSE 75; RESP 14; TEMP 36.4; O2SAT 97; BMI 21.3
--- NOTE | 2024-11-29 08:09 | A.OFFPC_ITS ---
Vital Signs 11/29/24 08:09 Height 5 ft 6 in Weight 132 lb BMI 21.3 BP 120/72 Blood Pressure Location Lt brachial Position Sitting Respiration 14 Pulse 75 Pulse Source Pulse Oximeter Temp 97.5 F Temp Source Oral Pulse Oximetry (%) 97 Oxygen Delivery Method Room Air Intake Visit Reasons: [facility] fungus esophageal Gastroenterology Nurse Required: No Accompanied by: Self / Same As Patient Allergies codeine [CODEINE] Allergy (Intermediate, Verified 11/29/24 08:09) RASH nicotine Allergy (Intermediate, Verified 11/29/24 08:09) NICOTINE PATCH- RASH, hives Penicillins Allergy (Intermediate, Verified 11/29/24 08:09) HIVES oxycodone [Percocet] Allergy (Unknown, Verified 11/29/24 08:09) rash, itching meperidine Allergy (Verified 11/29/24 08:09) Itching Tobacco use date assessed: 07/26/24 Fall risk assessment: No Falls in past year Last assessed Fall Risk: 11/29/24 Dental Screening Dental Screen Date: 07/26/24 HPI HPI Comments History of Present Illness Details 79-year-old male with a past medical his tory of DM 2, CAD, PAD, tobacco use disorder, HTN, HLD, prior alcohol use, AAA stable at 4.6 cm and recurrent pancreatitis status post Whipple procedure who presented to the emergency department at [facility] on November 20 complaining of acute left lower quadrant and periumbilical pain and was admitted for acute diverticulitis and proctocolitis. During his admission, it was found he had Ximena esophagitis. Patient was discharge on November 23 with Keflex, metronidazole and fluconazole. He is here today to follow up on the diverticulitis, labile blood sugars during his hospital admission and the Ximena esophagitis. 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 Today, he tells me [facility] changed his sliding scale and he doesn't feel it's working well. He was discharged by Dr Huagn and was referred to [facility] Endo but he does not want to go to them. He says he eats well, feels he can only do so much and will manage it with his PCP. He reports blood glucose this AM was 107 - reports they are typically between 100-200. He just lost his 6 months ago. He has been taking his antibiotics, as prescribed. He has been taking the fluconazole, as prescirbed. Reports improvement in his abdominal pain with some soft stools so he stopped taking a stool softener. He takes Creon every day but stops when he starts getting constipated. He denies fevers, nausea, vomiting or diarrhea. He has a follow up with Dr Manzo at 9am today. [facility] Medical History Skin lesion of cheek Difficulty walking Anemia in CKD (chronic kidney disease) History of upper gastrointestinal bleeding Peripheral neuropathy Dyspepsia Generalized anxiety disorder Cigarette smoker one half pack a day or less Hemolytic anemia Squamous cell carcinoma of skin Skin lesion of left arm Ascending aortic aneurysm Atherosclerotic cardiovascular disease Acute diastolic (congestive) heart failure Congestive heart failure Eczema of left external ear Macrocytic anemia Positional lightheadedness Depression, major, recurrent, moderate Benign prostatic hyperplasia Fatigue after COVID-19 vaccination Tubular adenoma of colon GERD (gastroesophageal reflux disease) Peripheral vascular disease Degenerative disc disease, cervical Hypertension Dyslipidemia 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 Social History Household Members: Spouse Housing: House Do you presently have visiting nurse or other home services: No Alcohol intake: former Patient Tobacco Use Status: Former Tobacco user Tobacco use type: Cigarette Cigarette Packs Per Day: 1 Years Smoked: 50+ Packs Per Year: 0 e-Cigarette/Vaping Use: Never Used service: No Current occupational status: retired Cognitive needs: No Hearing needs: Yes Vision needs: No Questionnaire PHQ-9 Over the last 2 weeks, how often have you been bothered by any of the following problems? 1. Little interest or pleasure in doing things: not at all 2. Feeling down, depressed, or hopeless: not at all 3. Trouble falling or staying asleep, or sleeping too much: more than half the days 4. Feeling tired or having little energy: several days 5. Poor appetite or overeating: not at all 6. Feeling bad about yourself - or that you are a failure or have let yourself or your family down: not at all 7. Trouble concentrating on things, such as reading the newspaper or watching television: several days 8. Moving or speaking so slowly that other people could have noticed. Or the opposite - being so fidgety or restless that you have been moving around a lot more than usual: several days 9. Thoughts that you would be better off or of hurting yourself in some way: not at all Total score: 5 Depression Screening Interpretation: Negative Depression Screening Done: Yes 65855 - PHQ-9 Billing: Yes Source: Developed by Drs. Noble Lofton, Gali Louise, Hubert Roberts and colleagues, with an educational sabiha from [employer]. Thrive Questionnaire Date Thrive assessed: 11/29/24 I am a: Patient What is your living situation today?: I have a steady place to live Within the past 12 months, did the food you bought not last and you didn't have the money to get more?: Never true Within the past 12 months, did you worry whether your food would run out before you got money to buy more?: Never true Do you have trouble paying for medicines?: No Do you have trouble getting transportation to medical appointments?: No Do you have trouble paying your heating and electricity bill?: No Do you have trouble taking care of your child, family member or friend?: No Do you have trouble with day-to-day activities such as bathing, preparing meals, shopping, managing finances, etc.?: No Are you currently unemployed and looking for a job?: No Are you interested in more education?: No Please select the resources that you would like help with: None Currently or been in a relationship where the following occur: I choose not to answer THRIVE Score: 0 AUDIT C Alcohol Use Questionnaire (AUDIT-C) 1. How often do you have a drink containing alcohol?: Never 3. How often do you have six or more drinks on one occasion?: Never Total Score: 0 Score Reviewed/Action Taken: Yes DAVINA-7 AMB Questionnaire DAVINA-7 Date DAVINA - 7 assessed: 11/29/24 Feeling nervous, anxious, or on edge: 1 = Several days Not being able to stop or control worryin = Not at all Worrying too much about different things: 1 = Several days Trouble relaxin = More than half the days Being so restless that it is hard to sit still: 0 = Not at all Becoming easily annoyed or irritable: 0 = Not at all Feeling afraid as if something awful might happen: 0 = Not at all Total DAVINA-7 score (0-4 normal; 5-9 mild; 10-14 moderate; 15-21 severe): 4 Source: Developed by Drs. Noble Lofton, Gali Louise, Hubert Roberts and colleagues, with an educational sabiha from [employer]. DAVINA-7 Assessment Billing DAVINA-7 Assessment Tool: DAVINA-7 Assessment 37815 Review of Systems Const All systems reviewed & are unremarkable except as noted in HPI and below Physical exam (Primary Care) Vital Signs: Last Vital Signs Temp 97.5 F 11/29/24 08:09 Pulse 75 11/29/24 08:09 Resp 14 11/29/24 08:09 BP 120/72 11/29/24 08:09 Pulse Ox 97 11/29/24 08:09 Oxygen Delivery Method Room Air 11/29/24 08:09 BMI result Body Mass Index 21.3 Tobacco/Smoking Status: Tobacco use Status Tobacco use date assessed 07/26/24 11/29/24 08:18 Patient Tobacco Use Status Former Tobacco user 11/29/24 08:18 Tobacco use type Cigarette 11/29/24 08:18 e-Cigarette/Vaping Use Never Used 11/29/24 08:18 PHQ-9: PHQ-9 Score PHQ-9: Total score 5 11/29/24 08:38 Depression Screening Interpretation: Negative Thrive Assessment: Date of Thrive Assessment Date Thrive assessed 11/29/24 11/29/24 08:18 Currently or been in a relationship where the following occur: I choose not to answer Const General: cooperative, healthy appearing, comfortable, no acute distress and well developed Orientation/consciousness: patient oriented x3 Limitations: no limitations HENMT Head: Yes normal to inspection Ears: hearing grossly normal bilaterally General nose exam: Normal external nose present Face and sinus: Yes normal facial exam Eyes General: appearance normal, both eyes and all related structures Neck Neck: Yes normal visual inspection and Yes full ROM Resp Effort & Inspection: normal respiratory effort and able to speak in complete sentences Auscultation: clear to auscultation bilaterally Cardio Rate: regular rate Rhythm: regular rhythm Heart sounds: normal S1 and S2 GI Inspection: Yes normal to inspection Palpation (GI): Soft to palpation and Tenderness to palpation present (GI) (with deep palpation only) in the epigastrum, in the RLQ and in the RUQ Skin General skin exam: no rashes or lesions noted Neuro General: patient oriented x3 Extrem General: Yes normal to inspection Coding Level of Care Code Est Pt Level 4 (12852) Diagnoses Diverticulitis K57.92 Proctocolitis K52.9 Ximena esophagitis B37.81 Additional Codes DAVINA-7 Assessment Billing - DAVINA-7 Assessment Tool: DAVINA-7 Assessment 73537 ([id number]) PHQ-9 - 80608 - PHQ-9 Billing: Yes ([id number]) Assessment & Plan Assessment & Plan (1) Diverticulitis: Code(s): K57.92 - Diverticulitis of intestine, part unspecified, without perforation or abscess without bleeding Category: Medical Plan: Patient to continue taking his Keflex and metronidazole. Has follow up with his GI doctor, Dr. Manzo, today at 09:00. Also did labs this morning which are currently pending. (2) Proctocolitis: Code(s): K52.9 - Noninfective gastroenteritis and colitis, unspecified Category: Medical Plan: Patient to continue taking his Keflex and metronidazole. Has follow up with his GI doctor, Dr. Manzo, today at 09:00. Also did labs this morning which are currently pending. (3) Ximena esophagitis: Code(s): B37.81 - Candidal esophagitis Category: Medical Plan: Patient to continue fluconazole. Is aware he has a follow-up upper endoscopy on December 31 at noon at [facility].
== END 2024-11-29 08:48 | disposition home or self-care (01) ==
LOC: HO.HMCC 08:05
PROVIDERS: PCP Internal Medicine; Visit Provider Physician Assistant
DX: K57.92 Diverticulitis of intestine, part unspecified, without perforation or abscess without bleeding (principal); K52.9 Noninfective gastroenteritis and colitis, unspecified; B37.81 Candidal esophagitis

== ENCOUNTER 2024-12-14 08:15 | Outpatient (AMB) | payer MEDICARE, SELFPAY ==
--- NOTE | 2024-12-14 08:18 | AM.OFFWIN_ITS ---
Intake Vital Signs 12/14/24 08:19 Height 5 ft 6 in Weight 132 lb BMI 21.3 BP 122/74 Blood Pressure Location Rt brachial Position Sitting Pulse 76 Pulse Source Pulse Oximeter Temp 97.8 F Temp Source Oral Pulse Oximetry (%) 96 Intake Visit Reasons: EP-neck pain Patient Tobacco Use Status: Former Tobacco user Allergies codeine (CODEINE) Allergy (Intermediate, Verified 12/14/24 08:20) RASH nicotine Allergy (Intermediate, Verified 12/14/24 08:20) NICOTINE PATCH- RASH, hives Penicillins Allergy (Intermediate, Verified 12/14/24 08:20) HIVES oxycodone (Percocet) Allergy (Unknown, Verified 12/14/24 08:20) rash, itching meperidine Allergy (Verified 12/14/24 08:20) Itching Do you need a note to return to daycare/school/sports/work: No HPI EP-neck pain HPI Details This is a 79-year-old male patient who presents to the walk-in clinic today with report of chronic neck pain and related arm symptoms. He states that he has had workup for cervical spine issues previously, and was offered surgery by Dr. Garcia at [facility] about 5 years ago, however ultimately declined the surgery. He states that over the last year, his neck pain has worsened, and has also has radiation of symptoms down arms he had numbness in both of his hands, particularly the lateral aspect. He has an upcoming appointment with Dr. Crews at [facility] on 01/11, and was told he should get a new x-ray prior to this visit. He takes magnesium and gabapentin for the neuropathies. He states he can not take NSAIDs as he had previously had Whipple surgery/GI issues. Does have Tylenol at home but does not take this. Reports his neck pain is a constant ache, greater on the right side. [facility] Medical History Skin lesion of cheek Difficulty walking Anemia in CKD (chronic kidney disease) History of upper gastrointestinal bleeding Peripheral neuropathy Dyspepsia Generalized anxiety disorder Cigarette smoker one half pack a day or less Hemolytic anemia Squamous cell carcinoma of skin Skin lesion of left arm Ascending aortic aneurysm Atherosclerotic cardiovascular disease Acute diastolic (congestive) heart failure Congestive heart failure Eczema of left external ear Macrocytic anemia Positional lightheadedness Depression, major, recurrent, moderate Benign prostatic hyperplasia Fatigue after COVID-19 vaccination Tubular adenoma of colon GERD (gastroesophageal reflux disease) Peripheral vascular disease Degenerative disc disease, cervical Hypertension Dyslipidemia 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 Social History Household Members: Spouse Housing: House Do you presently have visiting nurse or other home services: No Alcohol intake: former Patient Tobacco Use Status: Former Tobacco user Tobacco use type: Cigarette Cigarette Packs Per Day: 1 Years Smoked: 50+ e-Cigarette/Vaping Use: Never Used service: No Current occupational status: retired Cognitive needs: No Hearing needs: Yes Vision needs: No Review of Systems Const All systems reviewed & are unremarkable except as noted in HPI and below Physical Exam Vital Signs: Last Vital Signs Temp 97.8 F 12/14/24 08:19 Pulse 76 12/14/24 08:19 BP 122/74 12/14/24 08:19 Pulse Ox 96 12/14/24 08:19 BMI result Body Mass Index 21.3 Const General: cooperative and no acute distress HEENT Head: Yes normal to inspection and Yes normocephalic Neck Neck: Yes no lymphadenopathy Resp Effort & Inspection: normal respiratory effort Auscultation: clear to auscultation bilaterally Cardio Rate: regular rate Rhythm: regular rhythm Back/Spine/Pelvis Other: negative spurlings Cervical Spine: pain with cervical ROM (Particularly flexion/extension) Skin General skin exam: no rashes or lesions noted Neuro General: moves all extremities Motor exam (neuro): Abnormal motor strength present (terminal operations supervisor strength 4/5 b/l) Extrem General: Yes capillary refill normal and Yes no clubbing, cyanosis or edema Psych Appearance: grossly normal Mental Status: mental status grossly normal Speech and movement: Normal speech and movement present Assessment & Plan Assessment & Plan (1) Cervical radiculopathy: Code(s): M54.12 - Radiculopathy, cervical region Plan: This patient has a known cervical radiculopathy and previous workup with [place] [facility] at [facility], offering him surgery about 5 years ago, however patient declined. He is seeing Dr. Rader next month for another evaluation, as his neck pain and radiculopathy has worsened, and he may be ready to undergo surgery if he is still a candidate. He was told that he would need updated x-ray films, which I have ordered of the cervical spine. We discussed that in the interim, he can continue to take his magnesium, gabapentin, and can take Tylenol p.r.n.. All questions were answered and patient verbalizes understanding and agrees to plan. He is looking forward to his appointment in December with Dr. Rader. In the meantime, should he need to be seen, he can certainly follow up here or with his PCP. Orders: Orders XR cervical spine 2V Today M54.12 - Radiculopathy, cervical region Coding Level of Care Code Est Pt Level 4 (65354) Diagnoses Cervical radiculopathy M54.12
[2024-12-14 08:19] VITALS: BP 122/74; PULSE 76; TEMP 36.6; O2SAT 96; BMI 21.3
--- OUTSIDE RECORDS SUMMARY | 2024-12-14 08:20 | XMS_ITS | Clinical Summary ---
Author Organization [facility] Address [address] [place] [address] Phone Care Team Providers Care Hair Salon Manager Name Role Phone Shannon Keller MD Primary Care Provider [phone] Allergies Active Allergy Reactions Criticality Noted Date [...] [facility] [address] [place] [address] Gabino Esposito MD [address] [facility] [address] [place] [address] Health Maintenance Due Date Last [...] Recently Relevant to Health Maintenance Insurance Medicare [facility] Medicare [facility] Care Teams Hair Salon Manager Relationship Specialty Start Date End Date Shannon Keller MD [address] [place] [address] PCP - General Internal Medicine 04/13/22
== END 2024-12-14 08:59 | disposition home or self-care (01) ==
PROVIDERS: PCP Internal Medicine; Visit Provider Nurse Practitioner Family
DX: M54.12 Radiculopathy, cervical region (principal)

== ENCOUNTER 2024-12-14 08:15 | Outpatient (REF) | payer MEDICARE, SELFPAY ==
--- NOTE | ~2024-12-14 | XR_ITS ---
EXAMINATION: XR CERVICAL SPINE CLINICAL INFORMATION: M54.12 - Radiculopathy, cervical region COMPARISON: X-ray dated November 21, 2014 is not available on PACS system. Correlated to MRI dated May 21, 2019. TECHNIQUE: AP, lateral and atlantoodontoid views. FINDINGS: Multilevel marginal osteophyte formation and endplate sclerosis decreased intervertebral disc height and subchondral cyst formation C3 C7 more pronounced at C5-6. Incomplete ankylosis C5-6. No acute cortical disruption. Questionable grade 1 anterolisthesis C2-3 and C3-4 on a degenerative basis. Osteopenia versus osteoporosis. No lytic or blastic lesions. Levoconvex curvature which could be related to positioning. Edentulous. XR/XR cervical spine 2V IMPRESSION: Multilevel cervical spondylosis C3 C7 with questionable grade 1 anterolisthesis C2-3 and C3-4 levels. Osteopenia versus osteoporosis. Electronically signed by: Itz Rubalcava MD 12/14/2024 09:20 AM EDT
== END 2024-12-14 08:16 | disposition home or self-care (01) ==
LOC: HO.HMGCX 08:15
PROVIDERS: PCP Internal Medicine; Visit Provider Nurse Practitioner Family
DX: M54.12 Radiculopathy, cervical region (principal)
CPT/HCPCS: 72040; 99212

== ENCOUNTER → 2024-12-14 09:01 | Outpatient (BNV) | payer MEDICARE, SELFPAY | PROVIDERS: PCP Internal Medicine; Visit Provider Radiology Diagnostic Radiology | DX: M43.12 Spondylolisthesis, cervical region (principal) | CPT/HCPCS: 72040 ==

== ENCOUNTER → 2024-12-20 23:59 | Outpatient (BNV) | payer MEDICARE, SELFPAY | PROVIDERS: PCP Internal Medicine; Visit Provider Internal Medicine | DX: K57.92 Diverticulitis of intestine, part unspecified, without perforation or abscess without bleeding (principal); E11.65 Type 2 diabetes mellitus with hyperglycemia; I11.0 Hypertensive heart disease with heart failure | CPT/HCPCS: G0180 ==

== ENCOUNTER 2025-01-04 09:09 | Outpatient (AMB) | payer MEDICARE, SELFPAY ==
--- OUTSIDE RECORDS SUMMARY | 2024-12-31 13:30 | XMS_ITS | Encounter Summary ---
Author Organization [facility] Address [address] [address] Phone Care Team Providers Care Entertainment Centre Manager Name Role Phone Shannon Keller MD Primary Care Provider [phone] Encounter Details Date Type Department Care Team (Late st Contact Info) Description 12/31/2024 1:30 PM EDT [facility] Visit [facility] [address] [place] [address] Gabino Esposito MD [address] [phone] Stage 3a chronic kidney disease (HCC) (Primary Dx); Chronic kidney disease, stage 2 (mild) Social History Tobacco Use Types Packs/Day Years [...] on file documented as of this encounter Last Filed Vital Signs Vital Sign Reading Time Taken Comments Blood Pressure 100/59 12/31/2024 1:41 PM EDT Pulse 66 12/31/2024 1:41 PM EDT Temperature - - Respiratory Rate - - Oxygen Saturation 97% 12/31/2024 1:41 PM EDT Inhaled Oxygen Concentration - - Weight 58.3 kg (128 lb 9.6 oz) 12/31/2024 1:41 P M EDT Height - - Body Mass Index - - documented in this encounter Patient Instructions * Patient Instructions* Gabino Esposito MD - 12/31/2024 1:30 PM EDT Sodium and Your CKD Diet: How to Spice Up Your Cooking What is sodium? Sodium is a mineral found naturally in foods and is the major part of table salt. What are the effects of eating too much sodium? When your kidneys are not healthy, extra sodium and fluid build up in your body. This can cause swollen ankles, puffiness, a rise in blood pressure, shortness of breath, and/or fluid around your heart and lungs. See the following table for suggestions on how to reduce sodium in your diet. LIMIT THE [AMOUNT OF... FOOD TO LIMIT BECAUSE OF THEIR HIGH SODIUM CONTENT ACCEPTABLE SUBSTITUTES SALT & SALT SEASONINGS Table salt Seasoning salt Garlic salt Onion salt Celery salt Lemon pepper Lite salt Meat tenderizer Bouillon cubes Flavor enhancers Fresh garlic, fresh onion, garlic powder, onion powder, black [pepper, lemon juice, low-sodium/salt-free seasoning blends, vinegar SALTY FOODS Barbecue sauce Steak sauce Soy sauce Teriaky sauce Oyster sauce Salted Snacks such as Crackers Potato chips [place] chips Pretzels Tortilla chips Nuts Popcorn [place] seeds Homemade or low- sodium sauces and salad dressings; Vinegar, dry mustard, unsalted popcorn, pretzels, tortilla or corn chips Cured Foods Ham Salt pork Maldonado Sauerkraut Pickles, pickle relish Lox & Encarnacion Olives Fresh beef, veal, pork, poultry, fish, eggs [place] MEATS Hot Dogs Cold cuts, deli meats Pastrami Sausage Corned beef Spam Low-salt deli meats PROCESSED FOODS Buttermilk Cheese Canned: Soups Tomato products Vegetable juices Canned vegetables Convenience Foods such as: TV Dinners Canned raviolis [place] Macaroni & Cheese Spaghetti Frozen prepared foods Fast foods Natural cheese (1-2 oz Per week) Homemade or liliam,1- sodium soups, canned food without added salt Homemade casseroles without added salt, made with fresh or raw vegetables, fresh meat, jack, pasta, or unsalted canned vegetables Some salt or sodium is needed for body water balance. But when your kidneys lose the ability to control sodium and water balance, you may experience the following: thirst fluid gain high blood pressure discomfort during dialysis By using less sodium in your diet, you can control these problems. Hints to keep your sodium intake down Cook with herbs and spices instead of salt. (Refer to Spice Up Your Cooking section for further suggestions.) Read food labels and choose those foods low in sodium. Avoid salt substitutes and specialty low-sodium foods made with salt substitutes because they are high in potassium. When eating out, ask for meat or fish without salt. Ask for gravy or sauce on the side; these may contain large amounts of salt and should be used in small amounts . Limit use of canned, processed and frozen foods. Some information about reading labels Understanding the terms: Sodium Free - Only a trivial amount of sodium per serving. Very Low Sodium - 35 mg or less per serving. Low Sodium - 140 mg or less per serving. Reduced Sodium - Foods in which the level of sodium is reduced by 25%. Light or Lite in Sodium - Foods in which the sodium is reduced by at least 50% . Simple rule of thumb : If salt is listed in the first five ingredients, the item is probably too high in sodium to use. All food labels now have milligrams (mg) of sodium listed. Follow these steps when reading the sodiwn information on the label: 1. Know how much sodium you are allowed each day. Remember that there are 1000 milligrams (mg) in 1gram. For [id number], if your diet prescription is 2 grams of sodium , your limit is 2000 milligrams per day. Consider the sodium value or other food to be eaten during the day. 2. Look at the package label. Check the serving size. Nutrition values are expressed per dane g. How does this compare to your total daily allowance? If the sodium level is 500 mg or more per serving, the item is not a good choice. 3. Compare labels of similar products. Select the lowest sodium level for the same serving size. How to Spice Up Your Cooking Giving up salt does not mean giving up flavor. Learn to season your food with herbs and spices. Be creative and experiment for a new and exciting flavor. What kinds of spices and herbs should I use instead of salt to add flavor? Try the following spices with the foods listed. Allspice: Use with beef, fish, beets, cabbage, canots, peas, fruit. Basil: Use with beef, pork, most vegetables. Guthrie Orrtanna: Use with beef, pork, most vegetables. Ovett: Use with beef, pork, green beans, cauliflower, cabbage, beets, asparagus, and in dips and marinades. Cardamom: Use with fruit and in baked goods. Ortiz: Use with beef, chicken, pork, fish, green beans, carrots and in marinades. Dill: Use with beef, chicken, green beans, cabbage, carrots, peas and in dips. Anjelica: Use with beef, chicken, pork, green beans, cauliflower and eggplant. Marjoram: Use with beef, chicken, pork, green beans, cauliflower and eggplant. Zunilda: Use with chicken, pork, cauliflower, peas and in marinades. Thyme: Use with beef, chicken, pork, fish, green beans, beets and carrots. Thomas: Use with chicken, pork, eggplant and in dressing. Tarragon: Use with fish, chicken, asparagus, beets, cabbage, cauliflower and in marinades. Tips for cooking with herbs and spices Purchase spices and herbs in small amounts . When they sit on the shelf for years they lose their flavor. Use no more than ?? teaspoon of dried spice (?? of fresh) per pound of meat. Add ground spices to food about 15 minutes before the end of the cooking period. Add whole spices to food at least one hour before the end of the cooking period. Combine herbs with oil or butter, set for 30 minutes to bring out their flavor, then brush on foodswhile they cook, or brush meat with oil and sprinkle herbs one hour before coolcing. Crush dried herbs before adding to foods. Can I use salt substitutes? Caution! If you are told to limit potassium in your diet, be very cautious about using salt substitutes because most of them contain some form of potassium. Check with your doctor or dietitian beforeusing and salt substitute. Sherrill and create your own seasoning containing those spices that you like. If you would like to become a volunteer and find out more about what's happening where you live, contact your local [facility] Affiliate. No NSAIDS - Do not take non-steroidal anti-inflammatory medications (NSAIDS) such as Ibuprofen (Advil, Motrin, etc), Naproxen (Aleve, etc), Celecoxib (Celebrex) or Ketoprofen. These common arthritis medications can cause permanent kidney damage or worsen your kidney damage. For mild occasional pain, Acetaminophen (Tylenol, etc) is safe for your kidneys. Blood pressure monitoring education: Monitor home blood pressure values after sitting for 5 minutes with back and arm support. Keep a log. Bring your log and blood pressure cuff to your next visit. documented in this encounter Plan of Treatment Upcoming Encounters Date Type Department Care Team (Late st Contact Info) Description 01/06/2026 1:00 PM EDT Office Visit [facility] [address] [place] [phone] Gabino Esposito MD [address] [facility] [address] [place] [id number] Scheduled Orders Name Type Priority Associated Diagnoses Orde r Schedule Renal Function Panel Lab Routine Stage 3a chronic kidney disease (HCC) Chronic kidney disease, stage 2 (mild) Expected: 12/31/2024, Expires: 01/31/2026 Urinalysis with microscopic Lab Routine Stage 3a chronic kidney disease (HCC) Chronic kidney disease, stage 2 (mild) Expected: 12/31/2024, Expires: 01/31/2026 Urine Albumin / Creatinine Ratio Lab Routine Stage 3a chronic kidney disease (HCC) Chronic kidney disease, stage 2 (mild) Expected: 12/31/2024, Expires: 01/31/2026 Protein, Total, Random Urine w/Creatinine (Protein/Creat Ratio) Lab Routine Stage 3a chronic kidney disease (HCC) Chronic kidney disease, stage 2 (mild) Expected: 12/31/2024, Expires: 01/31/2026 CBC Lab Routine Stage 3a chronic kidney disease (HCC) Chronic kidney disease, stage 2 (mild) Expected: 12/31/2024, Expires: 01/31/2026 documented as of this encounter Procedures Procedure Name Priority Date/Time Associated Diagnosis Comments ALT EXT LABS Routine 12/25/2024 ALT EXT LABS Routine 12/24/2024 documented in this encounter Results * (ABNORMAL) ALT EXT LABS (12/25/2024) WBC 14.7(A) 3.3 - 10.0 10*3/ML Red Blood Cell Count 3.27 Hemoglobin 9.8(A) 13.5 - 17.5 Hematocrit 30.0(A) 41.0 - 53.0 Platelets 193 150 - 399 10*3/UL 12/25/2024 Historical Provider LAB BLOOD ORDERABLES Yas l Result * (ABNORMAL) ALT EXT LABS (12/24/2024) WBC 14.7(A) 3.3 - 10.0 10*3/ML Red Blood Cell Count 3.27 Hemoglobin 9.8(A) 13.5 - 17.5 Hematocrit 30.0(A) 41.0 - 53.0 Platelets 193 150 - 399 10*3/UL 12/24/2024 [facility] Provider MD LAB BLOOD ORDERABLES Yas l Result documented in this encounter Visit Diagnoses Diagnosis Stage 3a chronic kidney disease (HCC)- Primary Chronic kidney disease, stage 2 (mild) documented in this encounter Care Teams Entertainment Centre Manager Relationship Specialty Start Date End Date Shannon Keller MD [address] [place] [address] PCP - General Internal Medicine 04/13/22 documented as of this encounter
--- NOTE | 2025-01-04 09:07 | A.OFFPC_ITS ---
Intake Visit Reasons: Diabetes follow-up Intake Note: Pt is having a telehealth visit for his DM CP #[phone] Allergies codeine (CODEINE) Allergy (Intermediate, Verified 01/04/25 09:38) RASH nicotine Allergy (Intermediate, Verified 01/04/25 09:38) NICOTINE PATCH- RASH, hives Penicillins Allergy (Intermediate, Verified 01/04/25 09:38) HIVES oxycodone (Percocet) Allergy (Unknown, Verified 01/04/25 09:38) rash, itching meperidine Allergy (Verified 01/04/25 09:38) Itching Medication List - Last Reconciled 01/04/25 by Keiry Keller MD Admelog SoloStar U-100 Insulin (insulin lispro) 3 - 5 units (0.03 - 0.05 mL) subcut TID NS albuterol sulfate 90 mcg/actuation 2 puffs inhalation Q4H PRN B [id number] 106 mg iron- 1 mg 1 tab PO DAILY blood sugar diagnostic 3 times a day blood sugar diagnostic (FreeStyle Lite Strips) As directed three times a day blood-glucose meter (FreeStyle Lite Meter kit) As directed 3x/day carvedilol 1 tab PO BID cholecalciferol (vitamin D3) 50 mcg PO DAILY cyanocobalamin (vitamin B-12) (Vitamin B-12) 500 mcg PO DAILY [Diabetic shoes & 3 pair inserts as directed] diphenhydramine HCl 25 mg PO Q4H PRN flash glucose scanning reader (FreeStyle Ramiro 2 Joshua) As directed flash glucose sensor (FreeStyle Ramiro 2 Sensor kit) As directed change every 14 days fluticasone propionate 50 mcg/actuation 1 spray intranasal DAILY PRN gabapentin 100 mg PO TID PRN insulin degludec (Tresiba FlexTouch U-100 insulin) 7 units subcut DAILY lancets As directed [id number] 24,000-76,000 -120,000 unit (Creon) 1 cap PO TIDAC loratadine 10 mg PO DAILY PRN metoprolol succinate ER 12.5 mg PO DAILY omeprazole 40 mg PO DAILY pen needle, diabetic (BD Nydia 2nd Gen Pen Needle) USE TO INJECT 4 TIMES A DAY sennosides (senna) 8.6 mg PO BID PRN sucralfate 1 g PO BID torsemide 20 mg PO Q2D Tobacco use date assessed: 01/04/25 Fall risk assessment: No Falls in past year Last assessed Fall Risk: 01/04/25 Dental Screening Dental Screen Date: 01/04/25 Did you have a dental visit in the last 12 months?: No Did you have a dental problem in the last 6 months where you did not have access to dental care?: No Was dental information given to patient?: Patient declined HPI Diabetes follow-up HPI Details - The patient is a 79-year-old male with diabetes-pancreatic exocrine dysfunction syndrome here today for his follow-up. - The patient has been using a Acacia s glucose monitor (CGM) for diabetes management, compliant with its use, and has been waiting to get his prescription refilled. - The patient reports occasional episode s of hypoglycemia, with blood sugar levels dropping below 60 mg/dL, often waking him at night. He manages his hypoglycemic episodes by consuming food when low blood sugar is anticipated, such as eating when levels are 89 mg/dL to prevent further drops. - Current insulin regimen includes Admel og, administered 3 times a day before meals, and Triceba, administered as 7 units at night. - The patient reports that his blood sug ar is typically 150 mg/dL in the morning and 200 mg/dL in the afternoon after meals. 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 Skin lesion of left arm Ascending aortic aneurysm Atherosclerotic cardiovascular disease Acute diastolic (congestive) heart failure Congestive heart failure Eczema of left external ear Macrocytic anemia Positional lightheadedness Depression, major, recurrent, moderate Benign prostatic hyperplasia Fatigue after COVID-19 vaccination Tubular adenoma of colon GERD (gastroesophageal reflux disease) Peripheral vascular disease Degenerative disc disease, cervical Hypertension Dyslipidemia 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 Social History Household Members: Spouse Housing: House Do you presently have visiting nurse or other home services: No Alcohol intake: former Patient Tobacco Use Status: Former Tobacco user Tobacco use type: Cigarette Cigarette Packs Per Day: 1 Years Smoked: 50+ e-Cigarette/Vaping Use: Never Used service: No Current occupational status: retired Cognitive needs: No Hearing needs: Yes Vision needs: No Questionnaire Thrive Questionnaire Date Thrive assessed: 11/29/24 DAVINA-7 AMB Questionnaire DAVINA-7 Date DAVINA - 7 assessed: 11/29/24 Source: Developed by Drs. Noble Lofton, Gali Louise, Hubert Roberts and colleagues, with an educational sabiha from [employer]. Review of Systems Const All systems reviewed & are unremarkable except as noted in HPI and below Card Denies chest pain, Denies rapid heart rate, Denies irregular heart rhythm and Reports claudication GI Reports no additional complaints Endo Reports no additional complaints Physical exam (Primary Care) Tobacco/Smoking Status: Tobacco use Status Tobacco use date assessed 01/04/25 01/04/25 09:08 Patient Tobacco Use Status Former Tobacco user 01/04/25 09:08 Tobacco use type Cigarette 01/04/25 09:08 e-Cigarette/Vaping Use Never Used 01/04/25 09:08 Thrive Assessment: Date of Thrive Assessment Date Thrive assessed 11/29/24 01/04/25 09:08 Telehealth Telehealth Telehealth Platform: [facility] Location of provider rendering services: practice address Location of patient: address on file Patient Identification confirmed using: Name, : Yes Telehealth method: video Patient verbally consented to treatment: Yes Patient verbally consented to billing insurance company: Yes Patient informed of any privacy concerns related to visit: Yes Minutes spent on Phone/Video with Pt.: 20 Results Reviewed Results Reviewed: Name: Stuart Mcleod Age/Sex: 79/M : 1945 Unit#: [id number] Attend Dr: Keiry Keller MD Re11/29/24 Status: DEP REF Location: [facility] Disch: SPEC : [id number] TERESA: 11/29/24 STATUS: COMP REQ : [id number] RECD: 11/29/24-[address]: Keiry Keller MD COMP: 11/29/24 ENTERED: 11/29/[address] [facility] [address]: ORDERED: Met Prof Fast, AST, ALT, Lipid Panel, Vitamin D 25-OH Test Result Flag Reference Sodium 142 135-145 mmol/L Potassium 4.5 3.3-5.1 mmol/L CL 106 96-108 mmol/L CO2 31 H 22-29 mmol/L Gap 10 L 12-20 BUN 8 L 9-16 mg/dL Creat 0.96 0.5-1.4 mg/dL eGFR > 60 Chronic Kidney Disease: Estimated GFR < 60 mL/min/1.73m2 Severe Kidney Disease: Estimated GFR < 15 mL/min/1.73m2 FBS 141 H 60-99 mg/dL A fasting glucose of 126 mg/dl or greater on more than one occasion is considered diagnostic of diabetes. CA 8.5 8.4-10.2 mg/dL AST (GOT) 64 H 5-37 U/L ALT (GPT) 19 0-40 U/L Triglyceride 63 <150 mg/dL Desirable Triglyceride: less than 150 mg/dL Borderline High Triglyceride 150-199 mg/dL High Triglyceride: 200-499 mg/dL Very High Triglyceride: greater than or equal to 5OO mg/dL Cholesterol 61 <200 mg/dL Desirable Cholesterol: less than 200 mg/dL Borderline High Cholesterol: 200-239 mg/dL High Cholesterol: greater than 239 mg/dL LDL Calculated 27 <100 mg/dL Desirable LDL: less than 100 mg/dL Near Optimal/Above Optimal LDL: 110-129 mg/dL Borderline High LDL: 130-159 mg/dL High LDL: 160-189 mg/dL Very High LDL: greater than or equal to 190 mg/dL HDL 22 L >40 mg/dL Desirable HDL: greater than 40 mg/dL Note: This HDL assay may give artificially low results in patients with liver disease. Vitamin D 25-OH 12.5 L >30 ng/mL Health Based Reference Values* < 20 ng/mL Deficient 20-30 ng/mL Insufficient > 30 ng/mL Sufficient Laboratory Tests 07/26/24 11/29/24 14:22 07:57 Estimat Average Glucose 163 Hgb A1c (Clinic) 6.6 H Hemoglobin A1c % 7.3 H Coding Level of Care Code Tele Est Pt Level 4 (27141) Diagnoses Diabetes-pancreatic exocrine dysfunction syndrome E13.9 Assessment & Plan Assessment & Plan (1) Diabetes-pancreatic exocrine dysfunction syndrome: Code(s): E13.9 - Other specified diabetes mellitus without complications Category: Medical Plan: Currently on Admelog by sliding scale coverage and on Tresiba, continue on same dose. Has been using freestyle Ramiro which she states has been helping him with controlling his diabetes mellitus, needs refills. The plan includes ensuring the patient continues to use the continuous glucose monitor CGM) for effective diabetes management. The patient should monitor blood sugar levels closely, especially in the morning, and adjust food intake to prevent hypoglycemia. The insulin regimen will continue with Admelog and Triceba as currently prescribed, with adjustments based on blood sugar readings. The patient is advised to maintain regular follow-up appointments to monitor diabetes management and adjust treatment as necessary.He also has been seen by esol teacher and reminded to get yearly diabetes retinopathy screening. He does see Podiatry on a regular basis Patient was informed and verbally consented to the use of an ambient scribe for clinic note documentation during this visit.
--- OUTSIDE RECORDS SUMMARY | 2025-01-04 09:23 | XMS_ITS | Patient Health Record ---
Author Organization [facility] Address [address] [place] [address] Care Team Providers Care Delivery Specialist Name Role Phone Krishna HAAS, Keiry Ingram Primary Care Provider Un available Arden Lezama Unavailable [phone] Allergies Allergen (clinical drug ingredient) Drug/Non Drug [...] Range Notes HEMOGLOBIN A1C (GLYCOHEMOGLO BIN) Reviewed date:10/16/2024 09:41:13 AM Interpretation: Performing Lab: Notes/Report: HEMOGLOBIN A1C % (HH) 7.5 HEMOGLOBIN A1C (GLYCOHEMOGLO BIN) Reviewed date:07/10/2024 03:59:17 PM Interpretation: Performing Lab: Notes/Report: HEMOGLOBIN A1C % (HH) 7.5 Reason For Referral No Information Medications Medication SIG (Take, Route, Frequency, Duration) Notes Start Date End Date Status NovoLOG 6UNITS Activ e Creon 35635-91588 UNIT Orally Active Gabapentin 100 MG 1 capsule Orally Thr ee times a day Active Fludrocortisone Acetate 0.1 MG Orally Active Extra Depth Orthopedic Shoes (1 Pair) with Customized Heat Molded Multidensity Innersoles (3 Pair) as directed Dx: IDDM/Polyneuropathy (E10.42), Hammertoe Foot Deformity (M20.41,M20.42), Preulcerative Skin Lesion(s) (L85.1) 03/27/2024 Active Furosemide Active Lisinopril 2.5 MG 1 tablet Orally Once a day Not-Taking LORazepam PRN Active NovoLOG FlexPen 100 UNIT/ML Subcutaneous Not-Taking Ammonium Lactate 12 % 1 application to affected area Externally to feet Twice a day; Duration: 30 days Active Tresiba FlexTouch 100 UNIT/ML Subcutaneous Active Ativan 0.5 MG 1 tablet at bedtime as needed Orally Once a day Active Vitamin B 12 Active Atorvastatin Calcium 40 MG 2 Orally 3 times a week Acti ve Vitamin D Active Carvedilol Active ASO Ankle/Foot Stablizing AFO As directed Wear Daily; Duration: as needed 12/12/2018 Active Grazyna 4-12.5 MG/5ML 5 ml as needed Orall y every 4 hrs Not-Taking Meclizine HCl 25 MG as directed Orally O nce a day Active Omeprazole 20 MG 1 capsule Orally Onc e a day; Duration: 30 day(s) Active Immunizations Vaccine Route Administration Date Status [...] Problem Acquired hammer toe of right foot ([id number] ) Other hammer toe(s) (acquired), right foot (M20.41) Active confirmed Response to treatment, Improvemen t Problem Other hammer toe(s) (acquired), left foot (M20.42) Active confirmed Response to treatment, Improvemen t Problem Polyneuropathy due to diabetes mellitus type I (469753136) Type 1 diabetes mellitus with diabetic polyneuropathy (E10.42) Active confirmed Vital Signs Blood pressure diastolic 60 mm Hg 10/16/2024 Height 5 ft 6 in in 10/16/2024 Blood pressure systolic 128 mm Hg 10/16/2024 Weight 124 lbs 10/16/2024 BMI 20.01 kg/m2 10/16/2024 Procedures Procedure Date Ordered Date Performed Result Body Sit e 49152-IGSDCMN NAIL, 6 OR MORE 03/27/2024 N/A 93009-Uafayzzr Plate 03/27/2024 N/A 17181-BYRO SKIN LESIONS, 2 TO 4 03/27/2024 N/A 39948-VQMESLF NAIL, 6 OR MORE 07/10/2024 N/A 05618-COTJ SKIN LESIONS, 2 TO 4 07/10/2024 N/A 70615-KSIHFOX NAIL, 6 OR MORE 10/16/2024 N/A 45169-RKTC SKIN LESIONS, 2 TO 4 10/16/2024 N/A Encounters Encounter Location Date Provider Diagnosis [facility] [address] 03/27/2024 Arden Lezama Type 1 diabetes mellitus with diabetic polyneuropathy E10.42 ; Tinea unguium B35.1 ; Ingrown nail L60.0 ; Other hammer toe(s) (acquired), right foot M20.41 and Other hammer toe(s) (acquired), left foot M20.[facility] [address] 07/10/2024 Arden Lezama Type 1 diabetes mellitus with diabetic polyneuropathy E10.42 and Tinea unguium B35.1 [facility] [address] [place] [address] 10/16/2024 Ardendenver SpencerTeja Type 1 diabetes mellitus with diabetic polyneuropathy E10.42 and Tinea unguium B35.[address] [address] 07/02/2024 Arden Lezama Assessments Encounter Date Diagnosis (ICD Code) Assessment Notes Treatment Notes Treatment Clinical Notes Section Notes 07/10/2024 Type 1 diabetes mellitus with diabetic polyneuropathy (ICD-10 - E10.42) 07/10/2024 Tinea unguium (ICD-10 - B35.1) 10/16/2024 Type 1 diabetes mellitus with diabetic polyneuropathy (ICD-10 - E10.42) 10/16/2024 Tinea unguium (ICD-10 - B35.1) 03/27/2024 Type 1 diabetes mellitus with diabetic polyneuropathy (ICD-10 - E10.42) 03/27/2024 Tinea unguium (ICD-10 - B35.1) 03/27/2024 Ingrown nail (ICD-10 - L60.0) 03/27/2024 Other hammer toe(s) (acquired), right foot (ICD-10 - M20.41) Patient Educated with: DIABETIC FOOT CARE INSTRUCTIONS. pdf (DIABETIC FOOT CARE INSTRUCTIONS. pdf) 03/27/2024 Other hammer toe(s) (acquired), left foot (ICD-10 - M20.42) Plan Of Treatment Pending Test Test Name Order Date Hemoglobin A1c 10/29/2014 Hemoglobin A1c 08/08/2015 15949-WDUJLBW NAIL, 6 OR MORE 05/09/2015 82088-OZMKEBK NAIL, 6 OR MORE 11/11/2015 91392-OHSNFZF NAIL, 6 OR MORE 08/08/2015 01867-NVKGRBH NAIL, 6 OR MORE 03/12/2016 94009-MZLPCER NAIL, 6 OR MORE 05/28/2016 80859-GSMVLCJ NAIL, 6 OR MORE 08/27/2016 04005-UPPQPJR NAIL, 6 OR MORE 12/31/2016 45732-SFQAUYZ NAIL, 6 OR MORE 04/08/2017 00892-KBJWMKW NAIL, 6 OR MORE 07/12/2017 23244-WHQXFUW NAIL, 6 OR MORE 10/11/2017 78158-ZVIDMIT NAIL, 6 OR MORE 02/03/2018 45912-LNFYHWL NAIL, 6 OR MORE 06/13/2018 42494-DRWOPJW NAIL, 6 OR MORE 09/12/2018 02926-OMNYWQM NAIL, 6 OR MORE 12/12/2018 56997-HCKJIUT NAIL, 6 OR MORE 03/20/2019 82942-FSNCMAN NAIL, 6 OR MORE 07/06/2019 25761-BUDOBIU NAIL, 6 OR MORE 10/30/2019 22763-DGOGCXG NAIL, 6 OR MORE 01/29/2020 43873-NWWCEMY NAIL, 6 OR MORE 05/02/2020 95938-RACHIUN NAIL, 6 OR MORE 08/01/2020 04066-QFXZTIX NAIL, 6 OR MORE 10/31/2020 41197-IADUUIZ NAIL, 6 OR MORE 01/09/2021 57434-WTDNRLL NAIL, 6 OR MORE 04/03/2021 84266-FOFTUBQ NAIL, 6 OR MORE 07/03/2021 39179-NBDFWHN NAIL, 6 OR MORE 09/15/2021 56627-NMJDETD NAIL, 6 OR MORE 12/01/2021 46318-ZWJYDKP NAIL, 6 OR MORE 02/23/2022 88079-IOFOMJV NAIL, 6 OR MORE 05/28/2022 73590-CSWUYPZ NAIL, 6 OR MORE 09/07/2022 87578-YEMIYRL NAIL, 6 OR MORE 12/03/2022 37159-ZEVUIXH NAIL, 6 OR MORE 02/15/2023 82899-FOJOXRO NAIL, 6 OR MORE 05/06/2023 19423-EAROZUU NAIL, 6 OR MORE 07/12/2023 71222-CSKAQEQ NAIL, 6 OR MORE 10/11/2023 92108-FMREPLM NAIL, 6 OR MORE 01/03/2024 65088-JUXQCKC NAIL, 6 OR MORE 03/27/2024 22979-CGAGCPI NAIL, 6 OR MORE 07/10/2024 35768-GWNICNP NAIL, 6 OR MORE 10/16/2024 63125-BZLSJGB NAIL, 1-5 01/31/2015 88812-SYUNESC NAIL, 1-5 04/26/2014 63712-XQMFMQB NAIL, 1-5 10/29/2014 85181-MCZLQKH NAIL, 07-0103/19/2011 65153-DMVOTRI NAIL, 07-0107/23/2011 27960-ZRVSTZQ NAIL, 07-0110/22/2011 12027-UYHETBC NAIL, 07-0103/07/2012 85513-XCEQCBK NAIL, 07-0105/23/2012 30817-RTEIFVB NAIL, 07-0108/11/2012 30879-KVHCDLE NAIL, 07-0111/03/2012 72473-GVJXQHS NAIL, 07-0103/23/2013 80914-QJPMZWJ NAIL, 07-0107/06/2013 14696-GSSDYQK NAIL, 07-0109/25/2013 02781-VJVQWIB NAIL, 07-0101/01/2014 85905-OIXJAQG NAIL, 07-0107/30/2014 84122-Zeptfmbf Plate 07/30/2014 12855-Bykmjtft Plate 05/23/2012 40539-Gsredbos Plate 07/23/2011 03590-Uvjzdknz Plate 03/19/2011 23312-Jhcovrsn Plate 11/11/2015 89579-Piqlzjtu Plate 12/31/2016 04986-Ipxiwaso Plate 04/08/2017 12840-Gqdnszoi Plate 08/27/2016 37847-Tssjpqhq Plate 08/08/2015 33195-Tnmlqjbv Plate 12/01/2021 37132-Hthomayh Plate 09/15/2021 11624-Dxsrkgbv Plate 07/03/2021 30190-Koyreojb Plate 04/03/2021 48823-Ykbtbbhl Plate 01/09/2021 84364-Plzxawvg Plate 10/31/2020 25412-Ovlustcr Plate 08/01/2020 89445-Mfsoxeed Plate 05/02/2020 27013-Yquhioln Plate 01/29/2020 79063-Wflshuvw Plate 10/30/2019 20669-Bvmfickz Plate 07/06/2019 33845-Irvoktab Plate 03/20/2019 22796-Vjwszuzi Plate 09/12/2018 07936-Gzxoviyz Plate 06/13/2018 92599-Mpizjnbu Plate 12/12/2018 78554-Yowhxmrp Plate 02/03/2018 03646-Jxwbelss Plate 03/27/2024 93575-Iumqekia Plate 05/06/2023 53730-Wtyddvog Plate 01/03/2024 08590-Ytznmijy Plate 07/12/2023 81696-Icdacrty Plate 12/03/2022 21093-Pueerkxl Plate 09/07/2022 48174-Sjhzdytz Plate 05/28/2022 03898-Gguilrvb Plate 02/23/2022 45013-Vegpupqr Plate Each Additional 03/2018 08168-Aelpizyp Plate Each Additional 20374-Xkepeibl Plate Each Additional 83329-Domhapeo Plate Each Additional 17213-Ybzobuea Plate Each Additional 71595-Vulgeknk Plate Each Additional 03/2020 68880-Rlzofgfi Plate Each Additional 10/2019 31621-Qitvojhz Plate Each Additional 09/2019 70471-Dhskxelu Plate Each Additional 11/2019 63766-Qjdlyjzv Plate Each Additional 10/2020 02518-Vxryuczf Plate Each Additional 12/2020 60901-Vcybkegx Plate Each Additional 73711-Zvnswsru Plate Each Additional 01/2021 96623-Zjlabztu Plate Each Additional 12/2021 83733-Omqfzmpk Plate Each Additional 86599-Ekiszeez Plate Each Additional 12/2021 95757-Issjekkz Plate Each Additional 05/2016 83420-Xmbtsjyp Plate Each Additional 44808-SNKR SKIN LESIONS, 2 TO 4 11/11/19 16 46269-QMUN SKIN LESIONS, 2 TO 4 05/09/20 15 95663-VLYY SKIN LESIONS, 2 TO 4 08/08/19 16 52778-XDFX SKIN LESIONS, 2 TO 4 10/30/19 15 94262-PLYC SKIN LESIONS, 2 TO 4 04/26/20 14 45095-OYAK SKIN LESIONS, 2 TO 4 02/01/20 15 33099-AYJS SKIN LESIONS, 2 TO 4 03/12/20 16 81315-JPML SKIN LESIONS, 2 TO 4 08/28/19 17 30317-XDRZ SKIN LESIONS, 2 TO 4 05/28/20 16 85243-YTOI SKIN LESIONS, 2 TO 4 01/01/20 17 08744-FICV SKIN LESIONS, 2 TO 4 04/08/20 17 53051-HSKT SKIN LESIONS, 2 TO 4 07/12/19 18 73673-QMTW SKIN LESIONS, 2 TO 4 07/23/19 12 89414-VBII SKIN LESIONS, 2 TO 4 10/22/19 12 20066-XAAD SKIN LESIONS, 2 TO 4 03/07/20 12 62929-FTTE SKIN LESIONS, 2 TO 4 03/19/20 11 26552-BTMB SKIN LESIONS, 2 TO 4 05/23/20 12 62986-FEJM SKIN LESIONS, 2 TO 4 07/30/19 15 77487-NKOD SKIN LESIONS, 2 TO 4 01/02/20 14 99535-RFPL SKIN LESIONS, 2 TO 4 09/26/19 14 58417-DETF SKIN LESIONS, 2 TO 4 07/06/19 14 12882-TWDE SKIN LESIONS, 2 TO 4 03/23/20 13 26716-TATA SKIN LESIONS, 2 TO 4 11/04/19 13 44796-BRZO SKIN LESIONS, 2 TO 4 08/11/19 13 56363-MTLO SKIN LESIONS, 2 TO 4 12/02/19 22 82300-SFTV SKIN LESIONS, 2 TO 4 09/16/19 22 11542-IWQT SKIN LESIONS, 2 TO 4 07/03/19 22 47354-TVRO SKIN LESIONS, 2 TO 4 04/03/20 21 84602-EIGL SKIN LESIONS, 2 TO 4 01/10/20 21 15070-SWEI SKIN LESIONS, 2 TO 4 11/01/19 21 95277-YQFQ SKIN LESIONS, 2 TO 4 08/01/19 21 00160-JQNI SKIN LESIONS, 2 TO 4 05/02/20 20 72687-FEYW SKIN LESIONS, 2 TO 4 01/29/20 20 38682-UVSV SKIN LESIONS, 2 TO 4 10/30/19 20 37341-ZZKJ SKIN LESIONS, 2 TO 4 07/06/19 20 27153-JGNQ SKIN LESIONS, 2 TO 4 03/20/20 19 94332-SIJU SKIN LESIONS, 2 TO 4 09/13/19 19 27956-MBZL SKIN LESIONS, 2 TO 4 12/13/19 19 80178-DWEV SKIN LESIONS, 2 TO 4 06/13/20 18 08958-UCSO SKIN LESIONS, 2 TO 4 02/04/20 18 13559-DJCS SKIN LESIONS, 2 TO 4 10/12/19 18 70498-UJCD SKIN LESIONS, 2 TO 4 02/24/20 22 99608-CTSS SKIN LESIONS, 2 TO 4 05/28/20 03556-HUKU SKIN LESIONS, 2 TO 4 09/08/19 23 72530-GBKH SKIN LESIONS, 2 TO 4 12/04/19 23 36223-PHVB SKIN LESIONS, 2 TO 4 07/12/19 24 63478-KQTD SKIN LESIONS, 2 TO 4 10/11/19 24 57634-DLRY SKIN LESIONS, 2 TO 4 05/06/20 23 11767-ADLO SKIN LESIONS, 2 TO 4 02/16/20 23 90504-ZZRC SKIN LESIONS, 2 TO 4 01/03/20 24 31827-XCCB SKIN LESIONS, 2 TO 4 03/27/20 24 89389-JWLD SKIN LESIONS, 2 TO 4 07/10/19 25 08295-WIBP SKIN LESIONS, 2 TO 4 10/17/19 25 30315-PIAY NAIL(S) 08/11/2012 30727-VMLZ NAIL(S) 11/03/2012 25323-BXMJ NAIL(S) 03/23/2013 86537-TVHF NAIL(S) 07/06/2013 95284-YHYT NAIL(S) 09/25/2013 89371-GRES NAIL(S) 01/01/2014 05571-YMMX NAIL(S) 07/30/2014 82916-CEFL NAIL(S) 05/23/2012 11468-CIMY NAIL(S) 03/07/2012 74397-UXDT NAIL(S) 07/23/2011 40002-LYKG NAIL(S) 10/22/2011 18016-GVAY NAIL(S) 03/19/2011 33116-WSAP NAIL(S) 01/31/2015 98148-EHXG NAIL(S) 04/26/2014 79993-XQEH NAIL(S) 10/29/2014 Next Appt Details Provider Name:Arden Lezama , 01/11/2025 01:30:00 PM, [address] [place], [address], Insurance Providers Payer Name Payer Address Payer Phone Subscriber Number Group Number Insured Name Patient Relationship to Insured Coverage Start Date Coverage End Date Medicare National Govt [facility] [address] [place] [address] [id number] Stuart Alvarado Self - patient is the insured 2 [employer] [facility] [address] [place] [address] [id number] Stuart Alvarado Self - patient is the insured Medical (General) History Medical History History ICD Code transfusions mumps measles chicken pox gall bladder problems vertigo reflux deep vein thrombosis Cataracts type II diabetes Cancer - Leukemia Congestive heart failure Surgical History Surgery Date(Month/Year) whipple procedure 2009 hemorrhoidectomy 06/2014 stent put in 06/12/2016 cataract surgery left 08/2020, Hospitalization History Reason Date(Month/Year) [facility] [place] Pneumonia/ flu 08/2024 [facility]- Pneumonia 07/02/2024 [facility]- Blockage 11/2023 [facility] [place] Ulcer 09/2023 [facility] [place]congestive heart failure 6 days 09/13 22 [facility] [place] [place] congestive heart fa ilure 5 days 1 day at [facility] [place] then transferred to [facility] [place] 04/2022 [facility] [place] ER-went blind in eyes te st taken unknown cause/went to Ophthalmologists 4 days 09/08/21 [facility] [place]-reaction to medication- 3 day stay [facility] [place] blood transfussion due to rectal ble eding 07/08/2017 Patient went to [facility] ER by ambulance after a fall hit his head. 03/09/2013 Patient went to [facility] [place] ER for DVT. 06/2012
--- OUTSIDE RECORDS SUMMARY | 2025-01-04 09:23 | XMS_ITS | Patient Health Record ---
Author Organization [facility] Address [address] [place] [address] Care Team Providers Care Firefighter Name Role Phone Krishna HAAS, Keiry Primary Care Provider Noble Cr [phone] Allergies Allergen (clinical drug ingredient) Drug/Non Drug Allergy documented on EMR Reaction Allergy Type Onset Date Status Penicillin Unknown Drug Allergy Active Percodan Unknown Drug Allergy Active acetaminophen / oxycodone Percocet Unknown Drug Allergy Active meclizine Meclizine HCl Unknown Drug Allergy Act shade codeine Codeine Sulfate Unknown Drug Allergy A ctive Reason For Referral No Information Medications Medication SIG (Take, Route, Frequency, Duration) Notes Start Date End Date Status Loratadine 10 MG TAKE 1 TABLET BY MOUTH EVERY DAY NEEDED FOR ALLERGIC SYMPTOMS Oral for 90 Active Torsemide 20 MG TAKE 2 TABLETS BY MOUTH EVERY DAY Oral for 90 Active Admelog SoloStar 100 UNIT/ML Subcutaneous for 90 Active Gabapentin 100 MG Oral for 30 Active Creon 96217-19537 UNIT TAKE 2 CAPSULES BY MOUITH 15-30MIN BEFORE MEAL AND 1 CAP 15-30MIN BEFORE A SNACK *ONLY* for 30 Active Metoprolol Succinate ER 25 MG Oral for 90 Active Carafate 1 GM 1 tablet on an empty stomach Orally Twice a day 30 to 60 minutes before breakfast and dinner for 90 days Please review with patient as to how to use before meals and so as not to interfere with any of his other meds. Thank 11/30/2023 Active Vitamin B Complex Ac tive Omeprazole 40 MG 1 tablet 30 minutes before morning meal Orally Once a day Active Vitamin B12 Active tylenol Active Tresiba FlexTouch 100 UNIT/ML 4 units as directed Subcutaneous once a day Active Lisinopril 5 MG TAKE 1 TABLET BY MOUTH EVERY DAY Oral for 90 Active Albuterol Sulfate HFA 108 (90 Base) MCG/ACT 2 puffs as needed Inhalation every 6 hrs Active Vitamin D3 50 MCG (2000 UT) TAKE 1 CAPSULE BY MOUTH EVERY DAY Oral for 90 Active Immunizations Vaccine Route Administration Date Status Comme nts Influenza Unknown 02/25/2017 Administered Influenza Unknown 04/27/2018 Administered Influenza Unknown 02/25/2021 Administered Social History Tobacco Use: Social History Observation Description Date Details (start date - stop date) Current Smoker NA - NA Tobacco Use/Smoking Question Answer Notes Patient is [...] ast year? No Points 0 Interpretation Negative Section Notes: Smoker 1 ppd; still drinking 1 pint QD Smoker 1 ppd; still drinking 1/2 bottle of wine once a week. Smoker 1 ppd; still drinking occ. 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 Problem 91478866 Intestinal malabsorption, 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) Active confirmed Problem 495669151 Anastomotic ulcer (K28.9) Active confirmed Problem Gastrointestinal hemorrhage (25615399) UGI bleed (K92.2) Active confirmed Problem Alcoholic cirrhosis of liver (146735045) Alcoholic cirrhosis of liver (K70.30) Active confirmed Problem Right upper quadrant pain (953982960) Abdominal pain, RUQ (R10.11) Active confirmed Problem Gastroesophageal reflux disease (771820283) GERD (gastroesophagea l reflux disease) (K21.9) Active confirmed Problem 35121114 Pancreatic insufficiency (K86.89) Active confirmed Problem Candidiasis of the esophagus (49149511) Candidiasis, esophageal (B37.81) Active confirmed Vital Signs Blood pressure diastolic 77 mm Hg 11/29/2024 Height 67 in 11/29/2024 Blood pressure systolic 111 mm Hg 11/29/2024 Weight 134 lbs 11/29/2024 BMI 20.99 kg/m2 11/29/2024 Encounters Encounter Location Date Provider Diagnosis [facility] [address] [place] [address] 11/29/2024 Noble Manzo Alcohol-induced chronometer assembler and adjuster dionte pancreatitis K86.0 ; Pancreatic insufficiency K86.89 ; Weight loss R63.4 ; Candidiasis, esophageal B37.81 and GERD (gastroesophageal reflux disease) K21.9 Assessments Encounter Date Diagnosis (ICD Code) Assessment Notes Treatment Notes Treatment Clinical Notes Section Notes 11/29/2024 Alcohol-induced chronic pancreatitis (ICD-10 - K86.0) Overall, Anita appears reasonably well considering everything he has been through in the past and over the last few months. It does seem that he is clinically improving with the treatment for his described Ximena esophagitis. I did advise him to follow-up with the GI doctor at [facility] at this time in regard to the next upper endoscopy. I will try to obtain records as needed. I did advise him to continue his PPI and sucralfate in regard to the previous history of the upper GI bleed from the anastomotic ulcer. He will continue his Creon for the history of pancreatic insufficiency and will adjust it as needed if he becomes constipated. Given his age and comorbidities I do not think a colonoscopy is required at this time. If things remain stable he will see me in 1 year for follow-up office visit. I did advise him to contact me in the interim if he has any problems or questions I can be of assistance with. Anita was comfortable with this plan. Thank you again for allowing me to participate in Anita's care. I shall continue to keep you advised of his progress. 11/29/2024 Pancreatic insufficiency (ICD-10 - K86.89) Continue Creon with meals Overall, Anita appears reasonably well considering everything he has been through in the past and over the last few months. It does seem that he is clinically improving with the treatment for his described Ximena esophagitis. I did advise him to follow-up with the GI doctor at [facility] at this time in regard to the next upper endoscopy. I will try to obtain records as needed. I did advise him to continue his PPI and sucralfate in regard to the previous history of the upper GI bleed from the anastomotic ulcer. He will continue his Creon for the history of pancreatic insufficiency and will adjust it as needed if he becomes constipated. Given his age and comorbidities I do not think a colonoscopy is required at this time. If things remain stable he will see me in 1 year for follow-up office visit. I did advise him to contact me in the interim if he has any problems or questions I can be of assistance with. Aniat was comfortable with this plan. Thank you again for allowing me to participate in Anita's care. I shall continue to keep you advised of his progress. 11/29/2024 Weight loss (ICD-10 - R63.4) Overall, Anita appears reasonably well considering everything he has been through in the past and over the last few months. It does seem that he is clinically improving with the treatment for his described Ximena esophagitis. I did advise him to follow-up with the GI doctor at [facility] at this time in regard to the next upper endoscopy. I will try to obtain records as needed. I did advise him to continue his PPI and sucralfate in regard to the previous history of the upper GI bleed from the anastomotic ulcer. He will continue his Creon for the history of pancreatic insufficiency and will adjust it as needed if he becomes constipated. Given his age and comorbidities I do not think a colonoscopy is required at this time. If things remain stable he will see me in 1 year for follow-up office visit. I did advise him to contact me in the interim if he has any problems or questions I can be of assistance with. Anita was comfortable with this plan. Thank you again for allowing me to participate in Anita's care. I shall continue to keep you advised of his progress. 11/29/2024 Candidiasis, esophageal (ICD-10 - B37.81) Finish the medication for the fungus infection in the esophagus and follow up with the GI doctor at [facility] for the next endoscopy Overall, Anita appears reasonably well considering everything he has been through in the past and over the last few months. It does seem that he is clinically improving with the treatment for his described Ximena esophagitis. I did advise him to follow-up with the GI doctor at [facility] at this time in regard to the next upper endoscopy. I will try to obtain records as needed. I did advise him to continue his PPI and sucralfate in regard to the previous history of the upper GI bleed from the anastomotic ulcer. He will continue his Creon for the history of pancreatic insufficiency and will adjust it as needed if he becomes constipated. Given his age and comorbidities I do not think a colonoscopy is required at this time. If things remain stable he will see me in 1 year for follow-up office visit. I did advise him to contact me in the interim if he has any problems or questions I can be of assistance with. Anita was comfortable with this plan. Thank you again for allowing me to participate in Anita's care. I shall continue to keep you advised of his progress. 11/29/2024 GERD (gastroesophageal reflux disease) (ICD-10 - K21.9) Need path from [facility] upper endo in 07/2024, and the upper endo and path reports from end of 10/2024 Overall, Anita appears reasonably well considering everything he has been through in the past and over the last few months. It does seem that he is clinically improving with the treatment for his described Ximena esophagitis. I did advise him to follow-up with the GI doctor at [facility] at this time in regard to the next upper endoscopy. I will try to obtain records as needed. I did advise him to continue his PPI and sucralfate in regard to the previous history of the upper GI bleed from the anastomotic ulcer. He will continue his Creon for the history of pancreatic insufficiency and will adjust it as needed if he becomes constipated. Given his age and comorbidities I do not think a colonoscopy is required at this time. If things remain stable he will see me in 1 year for follow-up office visit. I did advise him to contact me in the interim if he has any problems or questions I can be of assistance with. Anita was comfortable with this plan. Thank you again for allowing me to participate in Anita's care. I shall continue to keep you advised of his progress. Plan Of Treatment Pending Test Test Name Order Date LIVER PROFILE 11/17/2021 CBC w DIFF 11/17/2021 ALPHA-FETOPROTEIN,TUMOR MARKER 2 US ABD 11/17/2021 Amylase 11/17/2021 Lipase 11/17/2021 Future Test Test Name Order Date UPPER GI ENDOSCOPY 10/26/2013 COLONOSCOPY 10/26/2013 COLONOSCOPY 03/09/2019 Next Appt Details Provider Name:Noble Manzo , 12/03/2025 09:10:00 AM, [address] [place] [address], [address], [place], [address], Insurance Providers Payer Name Payer Address Payer Phone Subscriber Number Group Number Insured Name Patient Relationship to Insured Coverage Start Date Coverage End Date MEDICARE OF [place] [address] [place] [address] [id number] ANITA MONROE Self - patient is the insured MEDEX ATTN CLAIMS [address] [place] [address] [phone] [id number] ANITA MONROE Self - patient is the insured Medical (General) History Medical History History ICD Code Colonoscopy 09-03-1998--hyperplastic poly ps GERD with Goins's esophagus-last EGD w asin 2006--no dysplasia-small HH History of bleeding ulcers > 30 yrs ago Diverticulitis 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 Loera EGD--12/2013--normal small bowel biopsies --no celiac disease-no esophagitis Colonoscopy 06/2013- -small t ubular adenomas, diverticulosis, no colitis- -biopises neg for microscopic colitis Colonoscopy 07/2019 revealed [...] Upper GI bleed in September 024-hospitalized at [facility]. His upper endoscopy revealed some nonbleeding gastric remnant ulcers and erosions, as well as an anastomotic ulcer with a visible vessel that was treated with epinephrine and a clip. He was on a baby aspirin at that time which was subsequently stopped, Ximena esophagitis - - hosp italizations at [facility] in 2024 for pneumonia and what he reports as fungal esophagitis. He underwent an upper endoscopy in July and October 2024 at [facility]. Myelofibrosis-Dr. Olivera Surgical History Surgery Date(Month/Year) Hemorrhoids with Dr. 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
== END 2025-01-04 09:59 | disposition home or self-care (01) ==
LOC: HO.HMCC 09:09
PROVIDERS: PCP Internal Medicine; Visit Provider Internal Medicine
DX: E13.9 Other specified diabetes mellitus without complications (principal)

== ENCOUNTER 2025-01-09 14:52 | Outpatient (AMB) | payer MEDICARE, SELFPAY ==
[2025-01-09 14:58] VITALS: BMI 19.7
--- NOTE | 2025-01-09 14:58 | A.SPINEOV_ITS ---
Vital Signs 01/09/25 14:58 Height 5 ft 6 in Weight 122 lb BMI 19.7 Intake Visit Reasons: cervical stenosis Intake Note: Mr. Gonzalez is here today c/o neck pain. Primary Counselor Required: No Allergies codeine (CODEINE) Allergy (Intermediate, Verified 01/09/25 14:58) RASH nicotine Allergy (Intermediate, Verified 01/09/25 14:58) NICOTINE PATCH- RASH, hives Penicillins Allergy (Intermediate, Verified 01/09/25 14:58) HIVES oxycodone (Percocet) Allergy (Unknown, Verified 01/09/25 14:58) rash, itching meperidine Allergy (Verified 01/09/25 14:58) Itching Physical Exam Vital Signs: BMI result Body Mass Index 19.7 Assessment & Plan Assessment & Plan (1) Neck pain: Code(s): M54.2 - Cervicalgia Category: Medical Plan Dear colleague, On 01/09/2025 I saw Stuart Mcleod for evaluation of his cervical spine. I previously saw him for lumbar degenerative changes and at that time we discussed that he would not be a surgical candidate due to his poor overall health. He comes back to discuss his cervical spine. He wants to see if he is a surgical candidate. He states that a doctors told him that he had a block responsible for his dizziness. I assume this is a block in 1 of the main arteries going to the brain. When asking what he wants to have treated from his neck he states the neck pain and cracking. I told him that there is no surgery to treat that symptom. On exam, he is not myelopathic. In summary, this patient is suffering from neck pain and possibly a vascular blockage. Imaging is not required as he is not a surgical candidate. I discharged him further follow-up. I spent 25 minutes in his consult for exam and answering questions. Kimo Rader MD, PhD Spine Fellowship Trained Neurosurgeon Director, [facility] Coding Level of Care Code Est Pt Level 3 (71701) Diagnoses Neck pain M54.2
--- OUTSIDE RECORDS SUMMARY | 2025-01-09 15:23 | XMS_ITS | Clinical Summary ---
Author Organization [facility] Address [address] [place] [address] Phone Care Team Providers Care Buffing Turner And Counter Name Role Phone Shannon Keller MD Primary Care Provider [phone] Allergies Active Allergy Reactions Criticality Noted Date [...] wit h diabetic chronic kidney disease 05/03/2022 Encounters Date Type Department Care Team Description 12/31/2024 1:30 PM EDT Office Visit [facility] [address] [place] [address] Gabino Esposito MD Stage 3a chronic kidney disease (HCC) (Primary Dx); Chronic kidney disease, stage 2 (mild) from Last 3 Months Immunizations Immunization Administration Dates Next Due Pfizer [...] Visit [facility] [address] [place] [address] Gabino Esposito MD [address] [place] [address] Health Maintenance Due Date Last Done Comments Pneumococcal Vaccine: 50+ Ye ars (1 of 2 - PCV) 1964 Diabetes: Ophthalmology Exam 05/03/2022 Diabetes: Pedal Pulse Checked 05/03/2022 Diabetes: Sensory Foot Exam 05/03/2022 Diabetes: Visual Foot Exam 05/03/2022 Diabetes: Hemoglobin A1C 06/16/2022 03/17/2022 Influenza Vaccine (#1) 2025 Hepatitis B Vaccine Aged Out No longe r eligible based on patient's age to complete this topic Procedures Procedure Name Priority Date/Time Associated Diagnosis Comments ALT EXT LABS Routine 12/25/2024 ALT EXT LABS Routine 12/24/2024 EXT RESULT ENTRY Routine 03/17/2022 from Last 3 Months or Most Recently Relevant to Health Maintenance Results * (ABNORMAL) ALT EXT LABS (12/25/2024) Only the most recent of2 resultswithin the time period is included. WBC 14.7(A) 3.3 - 10.0 10*3/ML Red Blood Cell Count 3.27 Hemoglobin 9.8(A) 13.5 - 17.5 Hematocrit 30.0(A) 41.0 - 53.0 Platelets 193 150 - 399 10*3/UL 12/25/2024 Historical Provider MD LAB BLOOD ORDERABLES Yas l Result * EXT RESULT ENTRY (03/17/2022) Hemoglobin A1C 5.8 4.0 - 6.0 03/17/2022 Historical Provider MD LAB BLOOD ORDERABLES Yas l Result from Last 3 Months or Most Recently Relevant to Health Maintenance Insurance Medicare [facility] Medicare [facility] Care Teams Buffing Turner And Counter Relationship Specialty Start Date End Date Shannon Keller MD [address] [place] [address] PCP - General Internal Medicine 04/13/22
--- OUTSIDE RECORDS SUMMARY | 2025-01-09 15:23 | XMS_ITS | Patient Health Record ---
Author Organization [facility] Address [address] [place] [address] Care Team Providers Care Ground Instructor Advanced Name Role Phone Krishna HAAS, Keiry Primary Care Provider Noble Cr [phone] Allergies Allergen (clinical drug ingredient) Drug/Non Drug Allergy documented on EMR Reaction Allergy Type Onset Date Status Percodan Unknown Drug Allergy Active acetaminophen / oxycodone Percocet Unknown Drug Allergy Active meclizine Meclizine HCl Unknown Drug Allergy Act shade codeine Codeine Sulfate Unknown Drug Allergy A ctive Penicillin Unknown Drug Allergy Active Reason For Referral No Information Medications Medication [...] 100 MG Oral for 30 Active Creon 03288-91355 UNIT TAKE 2 CAPSULES BY MOUITH 15-30MIN [...] Problem Status W/U Status Risk Notes Problem 222417268 Encounter for screening for malignant neoplasm of colon (Z12.11) Active confirmed Problem 256207525 History of adenomatous polyp of colon (Z86.010) Active confirmed Problem 51378182 Weight loss (R63.4) Active confirmed Problem 789195187 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 Problem 38875499 Intestinal malabsorption, 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) Active confirmed Problem 944803504 Anastomotic ulcer (K28.9) Active confirmed Problem Gastrointestinal hemorrhage (35368743) UGI bleed (K92.2) Active confirmed Problem Alcoholic cirrhosis of liver (442920619) Alcoholic cirrhosis of liver (K70.30) Active confirmed Problem Right upper quadrant pain (944836058) Abdominal pain, RUQ (R10.11) Active confirmed Problem Gastroesophageal reflux disease (426322241) GERD (gastroesophagea l reflux disease) (K21.9) Active confirmed Problem 69929612 Pancreatic insufficiency (K86.89) Active confirmed Problem Candidiasis of the esophagus (83935914) Candidiasis, esophageal (B37.81) Active confirmed Vital Signs Blood pressure diastolic 77 mm Hg 11/29/2024 Height 67 in 11/29/2024 Blood pressure systolic 111 mm Hg 11/29/2024 Weight 134 lbs 11/29/2024 BMI 20.99 kg/m2 11/29/2024 Encounters Encounter Location Date Provider Diagnosis [facility] [address] [place] [address] 11/29/2024 Noble Manzo Alcohol-induced dulite machine bluer dionte pancreatitis K86.0 ; Pancreatic insufficiency K86.89 [...] to follow-up with the GI doctor at [facility] at this time in regard to the [...] to follow-up with the GI doctor at [facility] at this time in regard to the [...] to follow-up with the GI doctor at [facility] at this time in regard to the [...] follow up with the GI doctor at [facility] for the next endoscopy Overall, Anita appears reasonably well considering everything he has been through in the past and over the last few months. It does seem that he is clinically improving with the treatment for his described Ximena esophagitis. I did advise him to follow-up with the GI doctor at [facility] at this time in regard to the [...] disease) (ICD-10 - K21.9) Need path from [facility] upper endo in 07/2024, and the upper endo and path reports from end of 10/2024 Overall, Anita appears reasonably well considering everything he has been through in the past and over the last few months. It does seem that he is clinically improving with the treatment for his described Ximena esophagitis. I did advise him to follow-up with the GI doctor at [facility] at this time in regard to the [...] Provider Name:Noble Manzo , 12/03/2025 09:10:00 AM, [address] [place] [address], [address], [place], [address], Insurance Providers Payer Name Payer Address Payer Phone Subscriber Number Group Number Insured Name Patient Relationship to Insured Coverage Start Date Coverage End Date MEDICARE OF [place] [address] [place] [address] [id number] ANITA MONROE Self - patient is the insured MED[employer] ATTN CLAIMS [address] [place] [address] [phone] [id number] ANITA MONROE Self - patient is the insured Medical (General) History Medical History History ICD Code Colonoscopy 09-03-1998--hyperplastic poly ps GERD with Goins's esophagus-last EGD w asin 2006--no dysplasia-small HH History of bleeding ulcers > 30 yrs ago Diverticulitis 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 His upper endoscopy revealed some nonbleeding gastric remnant ulcers and erosions, as well as an anastomotic ulcer with a visible vessel that was treated with epinephrine and a clip. He was on a baby aspirin at that time which was subsequently stopped, Ximena esophagitis - - hosp italizations at [facility] in 2024 for pneumonia and what he reports as fungal esophagitis. He underwent an upper endoscopy in July and October 2024 at [facility]. Myelofibrosis-Dr. Olivera Surgical History Surgery Date(Month/Year) Hemorrhoids with Dr. 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
--- OUTSIDE RECORDS SUMMARY | 2025-01-09 15:24 | XMS_ITS | Patient Health Record ---
Author Organization [facility] Address [address] [place] [address] Care Team Providers Care Top Inventory Control Executive Name Role Phone Krishna HAAS, Keiry Ingram Primary Care Provider Un available Arden Lezama Unavailable [phone] Allergies Allergen (clinical drug ingredient) Drug/Non Drug [...] Date Status NovoLOG 6UNITS Activ e Creon 08181-75333 UNIT Orally Active Gabapentin 100 MG 1 [...] Problem Acquired hammer toe of right foot ([id number] ) Other hammer toe(s) (acquired), right foot (M20.41) Active confirmed Response to treatment, Improvemen t Problem Other hammer toe(s) (acquired), left foot (M20.42) Active confirmed Response to treatment, Improvemen t Problem Polyneuropathy due to diabetes mellitus type I (764793493) Type 1 diabetes mellitus with diabetic polyneuropathy (E10.42) Active confirmed Vital Signs Blood pressure diastolic 60 mm Hg 10/16/2024 Height 5 ft 6 in in 10/16/2024 Blood pressure systolic 128 mm Hg 10/16/2024 Weight 124 lbs 10/16/2024 BMI 20.01 kg/m2 10/16/2024 Procedures Procedure Date Ordered Date Performed Result Body Sit e 56412-SJPNIWC NAIL, 6 OR MORE 03/27/2024 N/A 59167-Zalzkjyo Plate 03/27/2024 N/A 22204-DUBQ SKIN LESIONS, 2 TO 4 03/27/2024 N/A 12295-PDILZLE NAIL, 6 OR MORE 07/10/2024 N/A 78816-XKZW SKIN LESIONS, 2 TO 4 07/10/2024 N/A 99971-ZYUAFKS NAIL, 6 OR MORE 10/16/2024 N/A 84665-MKHB SKIN LESIONS, 2 TO 4 10/16/2024 N/A Encounters Encounter Location Date Provider Diagnosis [facility] [address] 03/27/2024 Arden Lezama Type 1 diabetes mellitus with diabetic polyneuropathy E10.42 ; Tinea unguium B35.1 ; Ingrown nail L60.0 ; Other hammer toe(s) (acquired), right foot M20.41 and Other hammer toe(s) (acquired), left foot M20.[address] [facility] [address] 07/10/2024 Arden Lezama Type 1 diabetes mellitus with diabetic polyneuropathy E10.42 [address] Tinea [address]ium B35.1 [facility] [address] [place] [address] 10/16/2024 Ardendenver SpencerTeja Type 1 diabetes mellitus with diabetic polyneuropathy E10.42 and Tinea unguium B35.[address] [address] 07/02/2024 Arden Lezama Assessments Encounter Date Diagnosis [...] Date Hemoglobin A1c 10/29/2014 Hemoglobin A1c 08/08/2015 74204-JFDXWZQ NAIL, 6 OR MORE 05/09/2015 61665-CLIXABV NAIL, 6 OR MORE 11/11/2015 37900-FLMUFBW NAIL, 6 OR MORE 08/08/2015 34275-EZLEOWF NAIL, 6 OR MORE 05/28/2016 86225-MJMKJNU NAIL, 6 OR MORE 08/27/2016 41290-HBJETPS NAIL, 6 OR MORE 12/31/2016 66751-HWXSQBV NAIL, 6 OR MORE 10/11/2017 16043-QGUTEYZ NAIL, 6 OR MORE 02/03/2018 15998-UUIMEJH NAIL, 6 OR MORE 06/13/2018 18801-XGNTAUS NAIL, 6 OR MORE 09/12/2018 23697-NGUXKBD NAIL, 6 OR MORE 12/12/2018 75345-PBXZHQV NAIL, 6 OR MORE 03/20/2019 98789-KAVOQNE NAIL, 6 OR MORE 07/06/2019 47905-BCECCNN NAIL, 6 OR MORE 10/30/2019 91971-OHZONSK NAIL, 6 OR MORE 01/29/2020 38130-PCPQFGU NAIL, 6 OR MORE 05/02/2020 84326-VIPIKTY NAIL, 6 OR MORE 08/01/2020 64985-JLMQYKO NAIL, 6 OR MORE 10/31/2020 44661-UXYWZAJ NAIL, 6 OR MORE 01/09/2021 95434-XLMAPJP NAIL, 6 OR MORE 04/03/2021 17330-UQNVBWH NAIL, 6 OR MORE 09/15/2021 60617-ZFYEFNH NAIL, 6 OR MORE 12/01/2021 24957-RKNOKKC NAIL, 6 OR MORE 02/23/2022 39678-GJUTENN NAIL, 6 OR MORE 05/28/2022 32506-HXIOLHI NAIL, 6 OR MORE 09/07/2022 60576-IKUFGNA NAIL, 6 OR MORE 12/03/2022 82106-WJAFUBB NAIL, 6 OR MORE 02/15/2023 85043-OVFJYBF NAIL, 6 OR MORE 05/06/2023 69492-FBPFLFQ NAIL, 6 OR MORE 07/12/2023 50219-JKMZCTP NAIL, 6 OR MORE 10/11/2023 74646-KOIIZRH NAIL, 6 OR MORE 01/03/2024 02185-DZJZKJG NAIL, 6 OR MORE 03/27/2024 02780-PYRXQJA NAIL, 6 OR MORE 07/10/2024 78850-YXXXNHQ NAIL, 6 OR MORE 07/03/2021 87129-HXDOEYT NAIL, 6 OR MORE 10/16/2024 57608-YFQMCLF NAIL, 6 OR MORE 07/12/2017 06007-ABHUZHP NAIL, 6 OR MORE 04/08/2017 92380-CDSGQEJ NAIL, 6 OR MORE 03/12/2016 30158-PYISIZA NAIL, 1-5 03/23/2013 64424-EVPULUE NAIL, 1-5 08/11/2012 41743-AZOKVYG NAIL, 1-5 07/23/2011 75747-RRJLUCH NAIL, -01/31/2015 51394-GCYOGJC NAIL, 07-0104/26/2014 63752-HQVXGCK NAIL, 07-0110/29/2014 46372-SOSDVCU NAIL, 07-0109/25/2013 63984-LHBKDKS NAIL, 07-0101/01/2014 32121-TSRVIBS NAIL, 07-0107/30/2014 90271-CZFKOQC NAIL, 07-0103/19/2011 26976-WQIDATS NAIL, 07-0110/22/2011 95373-OHBTXLA NAIL, 07-0103/07/2012 37080-XCLIAVG NAIL, 07-0105/23/2012 81780-EKDAUXT NAIL, 07-0111/03/2012 32430-BRGJSZS NAIL, 07-0107/06/2013 24478-Lzzqvzfb Plate 05/23/2012 42867-Mvhekyxf Plate 03/19/2011 08505-Mfqizmrd Plate 07/30/2014 26847-Hqvtzejj Plate 09/12/2018 01732-Aqzhxzsx Plate 02/03/2018 42838-Ndldpmsq Plate 06/13/2018 86729-Hkevjflm Plate 12/31/2016 64172-Vpyipnur Plate 08/27/2016 33152-Qowpvxzf Plate 08/08/2015 95661-Wmmmqwuu Plate 11/11/2015 29488-Gavmxquf Plate 07/12/2023 05103-Ossxieoo Plate 12/12/2018 01684-Qyuromey Plate 05/06/2023 96920-Sixebzcy Plate 12/03/2022 99171-Fgkxxgxn Plate 09/07/2022 33855-Ihenvuuf Plate 05/28/2022 80326-Bjhzxyoj Plate 02/23/2022 29732-Mytrjztd Plate 12/01/2021 39121-Swiwgcas Plate 09/15/2021 01209-Zeuyuiro Plate 04/03/2021 23448-Kfmgonjv Plate 01/09/2021 87188-Snvduwhf Plate 10/31/2020 55926-Skgjamfz Plate 08/01/2020 69031-Shfpzujw Plate 05/02/2020 09012-Kdobehva Plate 01/29/2020 22815-Aetglqwv Plate 10/30/2019 52320-Ftvgzatt Plate 07/06/2019 74077-Exjuaxju Plate 03/20/2019 16660-Jxqkidrl Plate 07/23/2011 24646-Uccysajf Plate 01/03/2024 56794-Qesxhgla Plate 04/08/2017 21645-Rmnydqgj Plate 07/03/2021 93915-Rvsapxvn Plate 03/27/2024 84823-Nkuolzlj Plate Each Additional 12/2021 31491-Hyxxdukz Plate Each Additional 56997-Wudallmf Plate Each Additional 03/2020 18606-Qycuowxt Plate Each Additional 10/2019 40404-Sbszurkh Plate Each Additional 09/2019 09763-Wfcgavoq Plate Each Additional 11/2019 52329-Sumiejoo Plate Each Additional 10/2020 38392-Cchzjawl Plate Each Additional 12/2020 84587-Olgrbysq Plate Each Additional 95273-Kfagpqjc Plate Each Additional 01/2021 32238-Awbpfcpt Plate Each Additional 03464-Sitmwtad Plate Each Additional 12/2021 98770-Bywzzain Plate Each Additional 48800-Kpnfocox Plate Each Additional 05/2016 60334-Kktcmzxs Plate Each Additional 03/2018 09195-Mxgjktkx Plate Each Additional 48724-Xgrrzqai Plate Each Additional 15697-Tgcbhvnh Plate Each Additional 39663-IBJD SKIN LESIONS, 2 TO 4 09/13/19 19 94224-RWER SKIN LESIONS, 2 TO 4 12/13/19 19 11910-YDZO SKIN LESIONS, 2 TO 4 06/13/20 18 35876-FVGI SKIN LESIONS, 2 TO 4 02/04/20 18 48404-PDAZ SKIN LESIONS, 2 TO 4 10/12/19 18 19914-ZDGJ SKIN LESIONS, 2 TO 4 05/28/20 16 60643-ZTTF SKIN LESIONS, 2 TO 4 01/01/20 17 47307-MSQW SKIN LESIONS, 2 TO 4 08/28/19 17 80291-KITB SKIN LESIONS, 2 TO 4 11/11/19 16 65122-TEBA SKIN LESIONS, 2 TO 4 05/09/20 15 01839-ZVHU SKIN LESIONS, 2 TO 4 08/08/19 16 86937-IQJA SKIN LESIONS, 2 TO 4 07/30/19 15 33224-QKGV SKIN LESIONS, 2 TO 4 01/02/20 14 94291-VUGY SKIN LESIONS, 2 TO 4 09/26/19 14 01774-GAXC SKIN LESIONS, 2 TO 4 10/30/19 15 91878-TARH SKIN LESIONS, 2 TO 4 04/26/20 14 89625-UDCW SKIN LESIONS, 2 TO 4 02/01/20 15 35640-IPKE SKIN LESIONS, 2 TO 4 03/07/20 12 94761-MBVW SKIN LESIONS, 2 TO 4 10/22/19 12 91619-AKYH SKIN LESIONS, 2 TO 4 03/19/20 11 90702-QKAP SKIN LESIONS, 2 TO 4 05/23/20 12 24466-XFDF SKIN LESIONS, 2 TO 4 07/06/19 14 97496-LGQL SKIN LESIONS, 2 TO 4 11/04/19 13 97627-HMRF SKIN LESIONS, 2 TO 4 12/02/19 31965-RGOV SKIN LESIONS, 2 TO 4 02/24/20 22 55425-ZTPF SKIN LESIONS, 2 TO 4 05/28/20 09648-ODLN SKIN LESIONS, 2 TO 4 09/16/19 94886-QVFI SKIN LESIONS, 2 TO 4 04/03/20 21 63339-NCUQ SKIN LESIONS, 2 TO 4 09/08/19 23 65984-CXZA SKIN LESIONS, 2 TO 4 12/04/19 23 36108-GQCL SKIN LESIONS, 2 TO 4 05/06/20 23 31275-LJKX SKIN LESIONS, 2 TO 4 02/16/20 23 01888-RJIS SKIN LESIONS, 2 TO 4 07/12/19 24 50433-JMZE SKIN LESIONS, 2 TO 4 01/03/20 24 94622-SDEK SKIN LESIONS, 2 TO 4 10/11/19 24 67673-SFJU SKIN LESIONS, 2 TO 4 01/10/20 36488-RSZX SKIN LESIONS, 2 TO 4 11/01/19 12509-VANG SKIN LESIONS, 2 TO 4 08/01/19 62368-LAWI SKIN LESIONS, 2 TO 4 05/02/20 10498-WDAJ SKIN LESIONS, 2 TO 4 01/29/20 60836-TMFB SKIN LESIONS, 2 TO 4 10/30/19 65373-WXKQ SKIN LESIONS, 2 TO 4 07/06/19 72871-PGAJ SKIN LESIONS, 2 TO 4 03/20/20 19 75153-HMVX SKIN LESIONS, 2 TO 4 07/03/19 22 70460-WMTI SKIN LESIONS, 2 TO 4 07/12/19 18 59890-WTUP SKIN LESIONS, 2 TO 4 03/27/20 24 98351-ACFV SKIN LESIONS, 2 TO 4 07/10/19 25 29345-DREY SKIN LESIONS, 2 TO 4 03/12/20 16 54186-PIYK SKIN LESIONS, 2 TO 4 04/08/20 17 71230-HQXV SKIN LESIONS, 2 TO 4 10/17/19 25 72985-WBPD SKIN LESIONS, 2 TO 4 07/23/19 12 46538-SMMB SKIN LESIONS, 2 TO 4 08/11/19 13 84419-YJBX SKIN LESIONS, 2 TO 4 03/23/20 13 95496-OMMJ NAIL(S) 03/23/2013 16236-WRKU NAIL(S) 08/11/2012 94054-NPNK NAIL(S) 07/23/2011 93493-FZHD NAIL(S) 11/03/2012 54239-OARL NAIL(S) 07/06/2013 71385-TSIK NAIL(S) 05/23/2012 61877-DAMY NAIL(S) 10/22/2011 05147-QUVO NAIL(S) 03/07/2012 31418-ADCH NAIL(S) 03/19/2011 26266-ASGQ NAIL(S) 01/31/2015 27533-VQKD NAIL(S) 04/26/2014 19200-ADOZ NAIL(S) 10/29/2014 63468-XFMT NAIL(S) 09/25/2013 49406-SHSW NAIL(S) 01/01/2014 86200-IYBT NAIL(S) 07/30/2014 Next Appt Details Provider Name:Arden Lezama , 01/11/2025 01:30:00 PM, [address] [place], [address], Insurance Providers Payer Name Payer Address Payer Phone Subscriber Number Group Number Insured Name Patient Relationship to Insured Coverage Start Date Coverage End Date Medicare National [facility] [address] [place] [address] [id number] Stuart Alvarado Self - patient is the insured 2 [employer] [address] [place] [address] [id number] Stuart Alvarado Self - patient is the insured Medical (General) History Medical History History ICD Code transfusions mumps measles chicken pox gall bladder problems vertigo reflux deep vein thrombosis Cataracts type II diabetes Cancer - Leukemia Congestive heart failure Surgical History Surgery Date(Month/Year) whipple procedure 2009 hemorrhoidectomy 06/2014 stent put in 06/12/2016 cataract surgery left 08/2020, Hospitalization History Reason Date(Month/Year) [facility]- Pneumonia/ flu 08/2024 [facility]- Pneumonia 07/02/2024 [facility]- Blockage 11/2023 [facility]- Ulcer 09/2023 [facility]-congestive heart failure 6 days 09/13 22 [facility]- congestive heart fa ilure 5 days 1 day at [facility] then transferred to [facility] 04/2022 [facility] ER-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 03/09/2013 Patient went to [facility] ER for DVT. 06/2012
== END 2025-01-09 15:24 | disposition home or self-care (01) ==
LOC: HO.HNS 14:52
PROVIDERS: PCP Internal Medicine; Visit Provider Neurological Surgery
DX: M54.2 Cervicalgia (principal)
CPT/HCPCS: 99213

== ENCOUNTER → 2025-01-09 14:52 | Outpatient (BNVA) | payer MEDICARE, SELFPAY | PROVIDERS: PCP Internal Medicine; Visit Provider Neurological Surgery | DX: M54.2 Cervicalgia (principal) | CPT/HCPCS: 99212 ==

== ENCOUNTER 2025-03-27 13:46 | Outpatient (AMB) | payer MEDICARE, SELFPAY ==
--- NOTE | 2025-03-27 14:33 | MHC.PC.OV ---
Vital Signs 03/27/25 14:43 Height 5 ft 6 in Weight 125 lb BMI 20.2 BP 100/60 Blood Pressure Location Rt brachial Position Sitting Respiration 17 Pulse 91 Pulse Source Pulse Oximeter Temp 97.5 F Temp Source Oral Pulse Oximetry (%) 100 Oxygen Delivery Method Room Air Intake Visit Reasons: HDF/[place] detention Intake Note: Pt is here today for his [facility] [place] Required: No Allergies codeine (CODEINE) Allergy (Intermediate, Verified 04/06/25 22:39) RASH nicotine Allergy (Intermediate, Verified 04/06/25 22:39) NICOTINE PATCH- RASH, hives Penicillins Allergy (Intermediate, Verified 04/06/25 22:39) HIVES oxycodone (Percocet) Allergy (Unknown, Verified 04/06/25 22:39) rash, itching meperidine Allergy (Verified 04/06/25 22:39) Itching Medication List - Last Reconciled 03/27/25 by Keiry Keller MD Admelog SoloStar U-100 Insulin (insulin lispro) 3 - 5 units (0.03 - 0.05 mL) subcut TID NS albuterol sulfate 90 mcg/actuation 2 puffs inhalation Q4H PRN B [id number] 106 mg iron- 1 mg 1 tab PO DAILY blood sugar diagnostic 3 times a day blood sugar diagnostic (FreeStyle Lite Strips) As directed three times a day blood-glucose meter (FreeStyle Lite Meter kit) As directed 3x/day carvedilol 1 tab PO BID cholecalciferol (vitamin D3) 50 mcg PO DAILY cyanocobalamin (vitamin B-12) (Vitamin B-12) 500 mcg PO DAILY [Diabetic shoes & 3 pair inserts as directed] flash glucose scanning reader (FreeStyle Ramiro 2 [place]) As directed flash glucose sensor (FreeStyle Ramiro 2 Sensor kit) As directed change every 14 days fluticasone propionate 50 mcg/actuation 1 spray intranasal DAILY PRN gabapentin 100 mg PO TID PRN insulin degludec (Tresiba FlexTouch U-100 insulin) 7 units subcut DAILY lancets As directed [id number] 24,000-76,000 -120,000 unit (Creon) 1 cap PO TIDAC loratadine 10 mg PO DAILY PRN metoprolol succinate ER 12.5 mg PO DAILY omeprazole 40 mg PO DAILY pen needle, diabetic (BD Nydia 2nd Gen Pen Needle) USE TO INJECT 4 TIMES A DAY sennosides (senna) 8.6 mg PO BID PRN sucralfate 1 g PO BID torsemide 20 mg PO Q2D Tobacco use date assessed: 03/27/25 Fall risk assessment: No Falls in past year Last assessed Fall Risk: 03/27/25 Dental Screening Dental Screen Date: 03/27/25 Did you have a dental visit in the last 12 months?: No Did you have a dental problem in the last 6 months where you did not have access to dental care?: No Was dental information given to patient?: Patient declined HPI HDF/[facility] HPI Details 80-year-old male with past medical history significant for pancreatic cancer, diabetes-pancreatic exocrine dysfunction syndrome, history of congestive heart failure myelofibrosis, hypertension, hyperlipidemia, history of PTSD, and 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 He was admitted 03/08/2025 at [facility] where he presented with right upper quadrant abdominal pain, accompanied by nausea, unable to hold food or drink down.. No obvious source of labs done showing no evidence of pancreatitis, no significant white blood cell count elevation and stable H&H. CT of abdomen and pelvis did not show any acute findings. Patient has been off her bra all throughout. History that conservatively with IV fluids, pain ultimately resolving. At present he states that he is feeling better, able to tolerate small frequent meals, afebrile, with no nausea or vomiting reported. 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 Skin lesion of left arm Ascending aortic aneurysm Atherosclerotic cardiovascular disease Acute diastolic (congestive) heart failure Congestive heart failure Eczema of left external ear Macrocytic anemia Positional lightheadedness Depression, major, recurrent, moderate Benign prostatic hyperplasia Fatigue after COVID-19 vaccination Tubular adenoma of colon GERD (gastroesophageal reflux disease) Peripheral vascular disease Degenerative disc disease, cervical Hypertension Dyslipidemia longterm (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 Social History Household Members: Spouse Housing: House Do you presently have visiting nurse or other home services: No Alcohol intake: former Patient Tobacco Use Status: Former Tobacco user Tobacco use type: Cigarette Cigarette Packs Per Day: 1 Years Smoked: 50+ e-Cigarette/Vaping Use: Never Used service: No Current occupational status: retired Cognitive needs: No Hearing needs: Yes Vision needs: No Questionnaire PHQ-9 Over the last 2 weeks, how often have you been bothered by any of the following problems? 1. Little interest or pleasure in doing things: not at all 2. Feeling down, depressed, or hopeless: not at all 3. Trouble falling or staying asleep, or sleeping too much: not at all 4. Feeling tired or having little energy: not at all 5. Poor appetite or overeating: not at all 6. Feeling bad about yourself - or that you are a failure or have let yourself or your family down: not at all 7. Trouble concentrating on things, such as reading the newspaper or watching television: not at all 8. Moving or speaking so slowly that other people could have noticed. Or the opposite - being so fidgety or restless that you have been moving around a lot more than usual: not at all 9. Thoughts that you would be better off or of hurting yourself in some way: not at all Total score: 0 Depression Screening Interpretation: Negative Depression Screening Done: Yes Source: Developed by Drs. Noble Lofton, Gali Louise, Hubert Roberts and colleagues, with an educational sabiha from [employer]. Thrive Questionnaire Date Thrive assessed: 11/29/24 I am a: Parent/Caregiver What is your living situation today?: I choose not to answer this question Within the past 12 months, did the food you bought not last and you didn't have the money to get more?: I choose not to answer this question Within the past 12 months, did you worry whether your food would run out before you got money to buy more?: I choose not to answer this question Do you have trouble paying for medicines?: I choose not to answer this question Do you have trouble getting transportation to medical appointments?: I choose not to answer this question Do you have trouble paying your heating and electricity bill?: I choose not to answer this question Do you have trouble taking care of your child, family member or friend?: I choose not to answer this question Do you have trouble with day-to-day activities such as bathing, preparing meals, shopping, managing finances, etc.?: I choose not to answer this question Are you currently unemployed and looking for a job?: I choose not to answer this question Are you interested in more education?: I choose not to answer this question Please select the resources that you would like help with: None Currently or been in a relationship where the following occur: I choose not to answer THRIVE Score: 0 AUDIT C Alcohol Use Questionnaire (AUDIT-C) 1. How often do you have a drink containing alcohol?: Never Total Score: 0 DAVINA-7 AMB Questionnaire DAVINA-7 Date DAVINA - 7 assessed: 11/29/24 Feeling nervous, anxious, or on edge: 0 = Not at all Not being able to stop or control worryin = Not at all Worrying too much about different things: 0 = Not at all Trouble relaxin = Not at all Being so restless that it is hard to sit still: 0 = Not at all Becoming easily annoyed or irritable: 0 = Not at all Feeling afraid as if something awful might happen: 0 = Not at all Total DAVINA-7 score (0-4 normal; 5-9 mild; 10-14 moderate; 15-21 severe): 0 Source: Developed by Drs. Noble Lofton, Hubert Shirley and colleagues, with an educational sabiha from [employer]. Review of Systems Const All systems reviewed & are unremarkable except as noted in HPI and below Card Denies chest pain, Denies rapid heart rate, Denies irregular heart rhythm and Reports claudication GI Reports no additional complaints Reports no additional complaints Endo Reports no additional complaints Physical exam (Primary Care) Vital Signs: Last Vital Signs Temp 97.5 F 03/27/25 14:43 Pulse 91 03/27/25 14:43 Resp 17 03/27/25 14:43 BP 100/60 03/27/25 14:43 Pulse Ox 100 03/27/25 14:43 Oxygen Delivery Method Room Air 03/27/25 14:43 BMI result Body Mass Index 20.2 Tobacco/Smoking Status: Tobacco use Status Tobacco use date assessed 03/27/25 03/27/25 14:35 Patient Tobacco Use Status Former Tobacco user 03/27/25 14:35 Tobacco use type Cigarette 03/27/25 14:35 e-Cigarette/Vaping Use Never Used 03/27/25 14:35 PHQ-9: PHQ-9 Score PHQ-9: Total score 0 04/01/25 02:47 Depression Screening Interpretation: Negative Thrive Assessment: Date of Thrive Assessment Date Thrive assessed 11/29/24 03/27/25 14:35 Currently or been in a relationship where the following occur: I choose not to answer Const General: comfortable, no acute distress and Physically active Orientation/consciousness: patient oriented x3 HENMT Head: Yes normal to inspection General nose exam: Normal external nose present Face and sinus: Yes normal facial exam Eyes General: appearance normal, both eyes and all related structures Neck Neck: Yes normal visual inspection and Yes full ROM Resp Effort & Inspection: normal respiratory effort and able to speak in complete sentences Auscultation: clear to auscultation bilaterally Cardio Rate: regular rate Rhythm: regular rhythm Heart sounds: normal S1 and S2 GI Inspection: Yes normal to inspection Palpation (GI): Soft to palpation and Tenderness to palpation present (GI) (with deep palpation only) in the epigastrum, in the RLQ and in the RUQ Skin General skin exam: no rashes or lesions noted Neuro General: patient oriented x3 Extrem General: Yes normal to inspection Coding Level of Care Code Est Pt Level 4 (71581) Complex EM visit Add On G2211 Diagnoses Diabetes-pancreatic exocrine dysfunction syndrome E13.9 Dyslipidemia E78.5 Peripheral vascular disease with claudication I73.9 Assessment & Plan Assessment & Plan (1) Diabetes-pancreatic exocrine dysfunction syndrome: Code(s): E13.9 - Other specified diabetes mellitus without complications Category: Medical Plan: Ordered a comprehensive metabolic panel, vitamin-D level hemoglobin A1c microalbumin in urine and vitamin-D, B12 and folic acid levels. Continued on insulin minutes bone redo 5 units 3 times a day before meals, Tresiba 7 units daily and reinforced importance of adhering to recommended diet. Continued on Creon (2) Dyslipidemia: Code(s): E78.5 - Hyperlipidemia, unspecified Category: Medical Plan: Fasting lipid panel ordered. (3) Peripheral vascular disease with claudication: Code(s): I73.9 - Peripheral vascular disease, unspecified Category: Medical Plan: Continue aspirin 81 mg daily, followed by [facility] vascular clinic. Reinforced importance of getting blood pressure, diabetes levels and cholesterol levels well controlled. Orders: Orders Comprehensive [place]. Panel Fast 2 Weeks E13.9 - Other specified diabetes mellitus without complications, I73.9 - Peripheral vascular disease, unspecified, E78.5 - Hyperlipidemia, unspecified Vitamin D 25-OH Total 2 Weeks E13.9 - Other specified diabetes mellitus without complications, I73.9 - Peripheral vascular disease, unspecified, E78.5 - Hyperlipidemia, unspecified Microalbumin, Random (w Creat) 2 Weeks E13.9 - Other specified diabetes mellitus without complications, I73.9 - Peripheral vascular disease, unspecified, E78.5 - Hyperlipidemia, unspecified Lipid Panel 2 Weeks E13.9 - Other specified diabetes mellitus without complications, I73.9 - Peripheral vascular disease, unspecified, E78.5 - Hyperlipidemia, unspecified Vitamin B12 and Folate 2 Weeks E13.9 - Other specified diabetes mellitus without complications, I73.9 - Peripheral vascular disease, unspecified, E78.5 - Hyperlipidemia, unspecified Hemoglobin A1c 2 Weeks E13.9 - Other specified diabetes mellitus without complications, I73.9 - Peripheral vascular disease, unspecified, E78.5 - Hyperlipidemia, unspecified
[2025-03-27 14:43] VITALS: BP 100/60; PULSE 91; RESP 17; TEMP 36.4; O2SAT 100; BMI 20.2
== END 2025-03-27 15:26 | disposition home or self-care (01) ==
LOC: HO.HMCC 13:47
PROVIDERS: PCP Internal Medicine; Visit Provider Internal Medicine
DX: E13.9 Other specified diabetes mellitus without complications (principal); E78.5 Hyperlipidemia, unspecified; I73.9 Peripheral vascular disease, unspecified

== ENCOUNTER → 2025-03-27 13:46 | Outpatient (BNVA) | payer MEDICARE, SELFPAY | PROVIDERS: PCP Internal Medicine; Visit Provider Internal Medicine | DX: K21.9 Gastro-esophageal reflux disease without esophagitis (principal); I73.9 Peripheral vascular disease, unspecified; E13.9 Other specified diabetes mellitus without complications; E78.5 Hyperlipidemia, unspecified | CPT/HCPCS: 96127; 99212 ==

== ENCOUNTER 2025-04-01 15:55 | Outpatient (REF) | payer MEDICARE, SELFPAY ==
--- OUTSIDE RECORDS SUMMARY | 2024-07-03 04:45 | XMS_ITS ---
Author Organization [facility] Address [address] [place] [address] Care Team Providers Care Commercial Driver Name Role Phone Krishna HAAS, Keiry Ingram Primary Care Provider Un available Arden Lezama Unavailable [phone] Encounters Encounter Location Date Provider Diagnosis [address] [address] 07/03/2024 Arden Lezama Plan Of Treatment Next Appt Details Provider Name:Arden Lezama , 04/19/2025 09:30:00 AM, [address] [place], [address], Progress Notes * Stuart MCLEOD ODOB:[birth year] (80 yo M)Acc No.[id number]:07/03/2024 Progress Note Patient: Shannon LOUISDacia Stuart Kathy Provider: Florentin Lezama DPM :1945 A ge:79 Y S ex:Male Date:07/03/2024 Address:[address] [place] [address] [place], [id number] Pcp:Divina Polanco Subjective: * Chief Complaints: * [...] 07/03/2024 Generated for Silva liang/Jovan/Valerio on: 1 06:14 PM EDT
--- OUTSIDE RECORDS SUMMARY | 2025-01-11 09:30 | XMS_ITS ---
Author Organization [facility] Address [address] [facility] [place] [address] Care Team Providers Care Pushcart Peddler Name Role Phone Krishna HAAS, Keiry Ingram Primary Care Provider Un available Arden Lezama Unavailable [phone] Allergies Allergen (clinical drug ingredient) Drug/Non Drug [...] Status LORazepam PRN Active Carvedilol Active Creon 95874-50000 UNIT Orally Active Fludrocortisone Acetate 0.1 MG [...] Active Encounters Encounter Location Date Provider Diagnosis [facility] [address] [address] 01/11/2025 Arden Lezama Plan Of Treatment Next Appt Details Provider Name:Arden Lezama , 04/19/2025 09:30:00 AM, [address] [place] [address], [phone], Progress Notes * Stuart MCLEOD ODOB:[birth year] (80 yo M)Acc No.[id number]:01/11/2025 Progress Note Patient: Stuart CONNER Provider: Florentin Lezama DPM :1945 A ge:79 Y S ex:Male Date:01/11/2025 Address:[address] [place], [place] [address] Pcp:Divina Polanco Subjective: * Chief Complaints: * [...] week , Taking Carvedilol , Taking Creon 95090-[address] UNIT Capsule Delayed Release Particles Orally , [...] 0 01/11/2025 Generated for Silva liang/Jovan/Valerio on: 1 06:14 PM EDT
--- NOTE | ~2025-04-01 | US_ITS ---
EXAMINATION: US TRIPLEX LOWER EXTREMITY, LEFT CLINICAL INFORMATION: left foot and calf tenderness; r/o DVT, Recent prolonged hospitalization at [facility] COMPARISON: None available. TECHNIQUE: Color-flow triplex imaging with spectral analysis and compression Doppler were performed on the left lower extremity. FINDINGS: Respiratory variation, normal compression and augmented flow are noted throughout the left lower extremity. The visualized common femoral vein, superficial femoral vein, profunda femoral vein, popliteal vein and midcalf peroneal and posterior tibial venous segments show no evidence of deep venous thrombosis. Linear echogenic material is noted in the deep wall of the mid thigh femoral vein and popliteal vein. There is posterior acoustic shadowing. Moderate calcified plaque is present in the left common femoral artery and monophasic arterial waveform. US/US venous duplex LE LT IMPRESSION: No evidence of acute deep venous thrombosis involving the left lower extremity. 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 Electronically signed by: Alvarez Mckeon MD 04/01/2025 04:57 PM EDT
--- OUTSIDE RECORDS SUMMARY | 2025-04-01 18:14 | XMS_ITS | Patient Health Record ---
Author Organization [facility] Address [address] [place] [address] Care Team Providers Care Perioperative Educator Name Role Phone Krishna HAAS, Keiry Ingram Primary Care Provider Un available Teja, Arden Unavailable [phone] Allergies Allergen (clinical drug ingredient) Drug/Non Drug [...] (HH) 7.5 HEMOGLOBIN A1C (GLYCOHEMOGLO BIN) Reviewed date:01/15/2025 03:25:09 PM Interpretation: Performing Lab: Notes/Report: HEMOGLOBIN A1C % (HH) 7.5 Reason For Referral No Information Medications Medication SIG (Take, Route, Frequency, Duration) Notes Start Date End Date Status Carvedilol Active Atorvastatin Calcium 40 MG 2 Orally 3 times a week Acti ve Vitamin D Active Ativan 0.5 MG 1 tablet at bedtime as needed Orally Once a day Active Vitamin B 12 Active Ammonium Lactate 12 % 1 application Externally to affected areas of dry skin to feet except for between the toes Twice a day; Duration: 30 days Active Tresiba FlexTouch 100 UNIT/ML Subcutaneous Active Omeprazole 20 MG 1 capsule Orally Onc e a day; Duration: 30 day(s) Active Meclizine HCl 25 MG as directed Orally O nce a day Active NovoLOG 6UNITS Activ e Grazyna 4-12.5 MG/5ML 5 ml as needed Orall y every 4 hrs Not-Taking LORazepam PRN Active NovoLOG FlexPen 100 UNIT/ML Subcutaneous Not-Taking Furosemide Active Lisinopril 2.5 MG 1 tablet Orally Once a day Not-Taking Fludrocortisone Acetate 0.1 MG Orally Active Extra Depth Orthopedic Shoes (1 Pair) with Customized Heat Molded Multidensity Innersoles (3 Pair) as directed Dx: IDDM/Polyneuropathy (E10.42), Hammertoe Foot Deformity (M20.41,M20.42), Preulcerative Skin Lesion(s) (L85.1) 03/27/2024 Active Creon 52082-51493 UNIT Orally Active Gabapentin 100 MG 1 capsule Orally Thr ee times a day Active ASO Ankle/Foot Stablizing AFO As directed Wear Daily; Duration: as needed 12/12/2018 Active Immunizations Vaccine Route Administration Date Status Comme nts Influenza Unknown 07/08/2015 Administered Influenza Unknown 05/10/2016 Administered Influenza Unknown 03/09/2017 Administered Influenza Unknown 06/13/2018 Administered Influenza Unknown 05/09/2019 Administered Influenza Unknown 03/27/2022 Administered Influenza Unknown 02/25/2023 Administered Influenza Unknown 03/27/2024 Administered Pneumococcal Unknown 03/08/2016 Administered COVID-19 Pfizer BioNTech Vaccine Unknown 03/27/2022 Administered 1st 09/08/2020 2nd 09/30/2020 3rd 03/31/2021 Social History Tobacco Use: Social History Observation [...] Problem Acquired hammer toe of right foot (6871440602962931 ) Other hammer toe(s) (acquired), right foot (M20.41) Active confirmed Response to treatment, Improvemen t Problem Acquired hammer toe of left foot (1275217218353745 ) Other hammer toe(s) (acquired), left foot (M20.42) Active confirmed Response to treatment, Improvemen t Problem Polyneuropathy due to diabetes mellitus type I (590610125) Type 1 diabetes mellitus with diabetic polyneuropathy (E10.42) Active confirmed Vital Signs Blood pressure diastolic 60 mm Hg 01/15/2025 Height 5 ft 6 in in 01/15/2025 Blood pressure systolic 126 mm Hg 01/15/2025 Weight 124 lbs 01/15/2025 BMI 20.01 kg/m2 01/15/2025 Procedures Procedure Date Ordered Date Performed Result Body Sit e 11834-WQQGHZB NAIL, 6 OR MORE 07/10/2024 N/A 55932-HUQV SKIN LESIONS, 2 TO 4 07/10/2024 N/A 11548-IVQMOSS NAIL, 6 OR MORE 10/16/2024 N/A 66439-WQFV SKIN LESIONS, 2 TO 4 10/16/2024 N/A 99921-ECSZHGW NAIL, 6 OR MORE 01/15/2025 N/A 41321-Mmexikac Plate 01/15/2025 N/A 29588-YTVU SKIN LESIONS, 2 TO 4 01/15/2025 N/A Encounters Encounter Location Date Provider Diagnosis [facility] [address] [address] 07/10/2024 Arden Lezama Type 1 diabetes mellitus with diabetic polyneuropathy E10.42 and Tinea unguium B35.[address] [facility] [address] 10/16/2024 Arden Lezama Type 1 diabetes mellitus with diabetic polyneuropathy E10.42 and Tinea unguium B35.[address] [facility] [address] 01/15/2025 Arden Lezama Type 1 diabetes mellitus with diabetic polyneuropathy E10.42 ; Tinea unguium B35.1 ; Ingrown nail L60.0 and Xerosis of skin L85.[address] [address] 07/02/2024 [facility] [address] [facility] [address] [place] [address] 01/11/2025 Arden Lezama Assessments Encounter Date Diagnosis (ICD Code) Assessment Notes Treatment Notes Treatment Clinical Notes Section Notes 07/10/2024 Type 1 diabetes mellitus with diabetic polyneuropathy (ICD-10 - E10.42) 07/10/2024 Tinea unguium (ICD-10 - B35.1) 10/16/2024 Type 1 diabetes mellitus with diabetic polyneuropathy (ICD-10 - E10.42) 10/16/2024 Tinea unguium (ICD-10 - B35.1) 01/15/2025 Type 1 diabetes mellitus with diabetic polyneuropathy (ICD-10 - E10.42) 01/15/2025 Tinea unguium (ICD-10 - B35.1) 01/15/2025 Ingrown nail (ICD-10 - L60.0) 01/15/2025 Xerosis of skin (ICD-10 - L85.3) Plan Of Treatment Pending Test Test Name Order Date Hemoglobin A1c 10/29/2014 Hemoglobin A1c 08/08/2015 91504-CSJKPHM NAIL, 6 OR MORE 08/08/2015 25102-DZGPUXE NAIL, 6 OR MORE 03/12/2016 66358-JPNTPLM NAIL, 6 OR MORE 05/28/2016 23404-AKHPOFG NAIL, 6 OR MORE 08/27/2016 16082-IHJEYEU NAIL, 6 OR MORE 12/31/2016 86359-ROYEXJK NAIL, 6 OR MORE 04/08/2017 86365-JRZUKJD NAIL, 6 OR MORE 07/12/2017 84225-OWVBBAJ NAIL, 6 OR MORE 10/11/2017 80048-RQDKWFX NAIL, 6 OR MORE 06/13/2018 70817-ZDDQGDH NAIL, 6 OR MORE 09/12/2018 74305-XPEWSNN NAIL, 6 OR MORE 12/12/2018 36474-KJIVMPC NAIL, 6 OR MORE 03/20/2019 60311-DZXOWCW NAIL, 6 OR MORE 07/06/2019 85404-ZORMJZG NAIL, 6 OR MORE 10/30/2019 62897-PZSPLAK NAIL, 6 OR MORE 05/02/2020 67308-PKGOIIZ NAIL, 6 OR MORE 08/01/2020 49083-KIXMISD NAIL, 6 OR MORE 01/09/2021 19031-EIHHGOQ NAIL, 6 OR MORE 04/03/2021 65048-XEJWCYF NAIL, 6 OR MORE 07/03/2021 89236-WGDXJSR NAIL, 6 OR MORE 09/15/2021 79163-NBMOXGD NAIL, 6 OR MORE 12/01/2021 05186-ELPWUFJ NAIL, 6 OR MORE 02/23/2022 07518-MSLFSYE NAIL, 6 OR MORE 05/28/2022 49187-QDYXPMZ NAIL, 6 OR MORE 09/07/2022 50766-YLAKQAJ NAIL, 6 OR MORE 02/15/2023 84146-BTRWCFX NAIL, 6 OR MORE 05/06/2023 77728-NQCLTAH NAIL, 6 OR MORE 07/12/2023 33953-MFENLDR NAIL, 6 OR MORE 10/11/2023 78166-GQRAEWS NAIL, 6 OR MORE 01/03/2024 50560-WGTRPQT NAIL, 6 OR MORE 03/27/2024 56045-EQAHVWO NAIL, 6 OR MORE 07/10/2024 38361-REWKQGQ NAIL, 6 OR MORE 10/16/2024 60218-DFABDPE NAIL, 6 OR MORE 10/31/2020 70396-LZLHLFV NAIL, 6 OR MORE 01/15/2025 31765-MRZKYHG NAIL, 6 OR MORE 02/03/2018 37244-BRCHIVT NAIL, 6 OR MORE 11/11/2015 37833-KCZQXYU NAIL, 6 OR MORE 05/09/2015 07334-ZEJKKLO NAIL, 6 OR MORE 01/29/2020 31128-JKURRQH NAIL, 6 OR MORE 12/03/2022 97619-LGVYXZO NAIL, 1-5 08/11/2012 16388-VCQUXUH NAIL, 07-0110/29/2014 73513-UFUPVON NAIL, 07-0101/31/2015 90502-BQDMBCH NAIL, 07-0103/19/2011 76720-WSYSIJE NAIL, 07-0107/23/2011 94517-YYKIOBO NAIL, 07-0110/22/2011 71456-XRIZBNW NAIL, 07-0103/07/2012 17415-JHSODVR NAIL, 07-0105/23/2012 82032-UELXGJQ NAIL, 07-0111/03/2012 34667-KLPMQUW NAIL, 07-0103/23/2013 99139-TQSAXPZ NAIL, 07-0107/06/2013 67444-TBVWUQV NAIL, 07-0109/25/2013 93011-NGUKIXN NAIL, 07-0101/01/2014 83059-ROSCDBL NAIL, 07-0104/26/2014 20801-OTYMCXA NAIL, 07-0107/30/2014 36130-Zsxftfiz Plate 07/30/2014 09759-Kmliugrj Plate 05/23/2012 69223-Yubnusxt Plate 07/23/2011 06970-Civvdgza Plate 03/19/2011 91291-Qopnnbxg Plate 08/08/2015 30057-Aexhkqvb Plate 09/12/2018 90190-Kbbajlra Plate 12/31/2016 65082-Ejvgbklz Plate 04/08/2017 17106-Bvdpbnva Plate 08/27/2016 05480-Etktqttd Plate 03/27/2024 83346-Lahtlyrz Plate 05/06/2023 04089-Pvsujcpb Plate 01/03/2024 76886-Jwqyrlgt Plate 07/12/2023 26160-Sevlymnx Plate 09/07/2022 92573-Brattske Plate 05/28/2022 96044-Carbjtbs Plate 02/23/2022 59583-Ejbtapze Plate 12/01/2021 64198-Djkivnvg Plate 09/15/2021 59214-Uxpdwrwv Plate 07/03/2021 14301-Ryfxcqnx Plate 04/03/2021 84352-Hsllzbif Plate 01/09/2021 35175-Qgyaebak Plate 08/01/2020 77648-Vxiylpvp Plate 05/02/2020 59715-Wrlyadxo Plate 10/30/2019 57920-Jbmfrwcj Plate 07/06/2019 43019-Mlbutbkq Plate 03/20/2019 15888-Lnbsavfj Plate 06/13/2018 67563-Whbpxmrd Plate 12/12/2018 63554-Gyyujzku Plate 01/29/2020 32192-Vmldjyuj Plate 12/03/2022 55287-Jupprrqn Plate 02/03/2018 79336-Dxhdyjpp Plate 11/11/2015 65998-Vnhrcxlg Plate 01/15/2025 96882-Mkvdpknn Plate 10/31/2020 97991-Wniujwox Plate Each Additional 12/2020 68269-Dvlidaef Plate Each Additional 03/2018 11615-Vwnmiuqj Plate Each Additional 81778-Ojvrjumg Plate Each Additional 09/2019 03319-Fakicdpl Plate Each Additional 62163-Ganqcgpa Plate Each Additional 81705-Njblvrld Plate Each Additional 04882-Ixetjhrl Plate Each Additional 03/2020 18930-Rpkjutoe Plate Each Additional 10/2019 50995-Sjjniebh Plate Each Additional 11/2019 24048-Qmustojj Plate Each Additional 10/2020 78921-Korglwyr Plate Each Additional 86445-Nncviial Plate Each Additional 01/2021 98035-Rpvcrdyy Plate Each Additional 12/2021 17533-Qaocnlmv Plate Each Additional 76911-Tjhbjcma Plate Each Additional 12/2021 03713-Rrufqlqu Plate Each Additional 46217-Tfooomjt Plate Each Additional 05/2016 77294-BYFC SKIN LESIONS, 2 TO 4 03/12/20 16 86737-CXXD SKIN LESIONS, 2 TO 4 08/28/19 17 34608-TSMB SKIN LESIONS, 2 TO 4 05/28/20 16 17186-JPVR SKIN LESIONS, 2 TO 4 02/01/20 15 23729-OZEZ SKIN LESIONS, 2 TO 4 10/30/19 15 46932-DUYI SKIN LESIONS, 2 TO 4 08/08/19 16 24690-VZTX SKIN LESIONS, 2 TO 4 09/13/19 19 47339-QVUB SKIN LESIONS, 2 TO 4 12/13/19 19 59105-MOXB SKIN LESIONS, 2 TO 4 06/13/20 18 54005-AMPV SKIN LESIONS, 2 TO 4 10/12/19 18 01213-MRVX SKIN LESIONS, 2 TO 4 01/01/20 17 43210-ZTGK SKIN LESIONS, 2 TO 4 04/08/20 17 28553-HSDA SKIN LESIONS, 2 TO 4 07/12/19 18 66450-GJAF SKIN LESIONS, 2 TO 4 07/23/19 12 65117-OSBB SKIN LESIONS, 2 TO 4 10/22/19 12 79149-OXED SKIN LESIONS, 2 TO 4 03/07/20 12 90001-EIAH SKIN LESIONS, 2 TO 4 03/19/20 11 52215-EUUE SKIN LESIONS, 2 TO 4 05/23/20 12 78650-QHNA SKIN LESIONS, 2 TO 4 07/30/19 15 13172-PPBQ SKIN LESIONS, 2 TO 4 04/26/20 14 75846-HYUP SKIN LESIONS, 2 TO 4 01/02/20 14 67869-KQTJ SKIN LESIONS, 2 TO 4 09/26/19 14 70894-NNKH SKIN LESIONS, 2 TO 4 07/06/19 14 00196-VMKT SKIN LESIONS, 2 TO 4 03/23/20 13 65386-VLGS SKIN LESIONS, 2 TO 4 11/04/19 13 06074-DQGE SKIN LESIONS, 2 TO 4 12/02/19 22 04379-PEZR SKIN LESIONS, 2 TO 4 02/24/20 22 14999-CUZI SKIN LESIONS, 2 TO 4 05/28/20 90392-FLFX SKIN LESIONS, 2 TO 4 09/16/19 22 76410-MHVE SKIN LESIONS, 2 TO 4 07/03/19 22 22092-CIYR SKIN LESIONS, 2 TO 4 09/08/19 23 99570-LHJN SKIN LESIONS, 2 TO 4 02/16/20 23 52746-IIYA SKIN LESIONS, 2 TO 4 07/12/19 24 93541-RPKZ SKIN LESIONS, 2 TO 4 05/06/20 23 84187-QVQG SKIN LESIONS, 2 TO 4 03/27/20 24 26878-AITN SKIN LESIONS, 2 TO 4 01/03/20 24 73891-LFDZ SKIN LESIONS, 2 TO 4 10/11/19 24 97385-FVDT SKIN LESIONS, 2 TO 4 04/03/20 21 18385-EZCH SKIN LESIONS, 2 TO 4 01/10/20 21 56356-FTQK SKIN LESIONS, 2 TO 4 08/01/19 21 76181-MIWP SKIN LESIONS, 2 TO 4 11/06/20 20 37287-YXNA SKIN LESIONS, 2 TO 4 10/30/19 20 94497-IABK SKIN LESIONS, 2 TO 4 07/06/19 20 66845-BSKO SKIN LESIONS, 2 TO 4 03/20/20 19 78318-NIOX SKIN LESIONS, 2 TO 4 01/29/20 20 97260-UZVD SKIN LESIONS, 2 TO 4 08/11/19 13 47817-LICU SKIN LESIONS, 2 TO 4 12/04/19 23 79806-HWVQ SKIN LESIONS, 2 TO 4 11/11/19 16 99811-AXCZ SKIN LESIONS, 2 TO 4 05/09/20 15 10719-PAAJ SKIN LESIONS, 2 TO 4 01/16/20 25 16764-SUPQ SKIN LESIONS, 2 TO 4 11/01/19 21 98957-UJKP SKIN LESIONS, 2 TO 4 02/04/20 18 46139-KDDJ SKIN LESIONS, 2 TO 4 10/17/19 25 18111-RGAN SKIN LESIONS, 2 TO 4 07/10/19 25 25062-MNXP NAIL(S) 08/11/2012 55607-ETVM NAIL(S) 11/03/2012 07610-QLJU NAIL(S) 03/23/2013 21728-UVUA NAIL(S) 07/06/2013 53729-IGWM NAIL(S) 09/25/2013 39966-JAIJ NAIL(S) 01/01/2014 08689-KAYX NAIL(S) 04/26/2014 05317-JTQV NAIL(S) 07/30/2014 43802-WNTH NAIL(S) 05/23/2012 07580-QXTB NAIL(S) 03/07/2012 42608-RYNU NAIL(S) 07/23/2011 68537-JPGW NAIL(S) 10/22/2011 28513-XCLS NAIL(S) 03/19/2011 76919-OUCC NAIL(S) 10/29/2014 26673-SNFY NAIL(S) 01/31/2015 Next Appt Details Provider Name:Arden Lezama , 04/19/2025 09:30:00 AM, [address] [facility], [place], [address], Insurance Providers Payer Name Payer Address Payer Phone Subscriber Number Group Number Insured Name Patient Relationship to Insured Coverage Start Date Coverage End Date Medicare National [employer] [address] [place] [address] [phone] [id number] Stuart Alvarado Self - patient is the insured 2 [employer] [facility] [address] [place] [address] [phone] [id number] Stuart Alvarado Self - patient is the [...] failure 6 days 09/13 22 [facility] congestive heart fa ilure 5 days 1 day at [facility] then transferred to [facility] 04/2022 [facility] ER-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 03/09/2013 Patient went to [facility] ER for DVT. 06/2012
--- OUTSIDE RECORDS SUMMARY | 2025-04-01 18:14 | XMS_ITS | Clinical Summary ---
Author Organization [facility] Address [address] [facility] [address] [address] [address] [place] [address] Phone Care Team Providers Care [employer] Name Role Phone Shannon Keller MD Primary Care Provider [phone]- [phone] Allergies Active Allergy Reactions Criticality Noted Date [...] Visit [facility] [address] [place] [address] Gabino Esposito MD Stage 3a chronic kidney [...] Visit [facility] [address] [place] [address] Gabino Esposito MD [address] [facility] [address] [place] [address] Health Maintenance Due Date Last [...] Recently Relevant to Health Maintenance Insurance Medicare [facility] Medicare [facility] Care Teams [employer] Relationship Specialty Start Date End Date Shannon Keller MD [address] [place] [id number] PCP - General Internal Medicine 04/13/22
--- OUTSIDE RECORDS SUMMARY | 2025-04-01 18:15 | XMS_ITS | Encounter Summary ---
Author Organization [facility] Address [address] [facility] [address] [place] [address] Phone Care Team Providers Care Digital Print Operator Name Role Phone Shannon Keller MD Primary Care Provider [phone]- [phone] Encounter Details Date Type Department Care Team (Late st Contact Info) Description 01/25/2024 Office Communication [facility] [address] [facility] [address] [place] [address] Gabino Esposito MD [address] [facility] [address] [place] [address] Social History Tobacco Use Types [...] Visit [facility] [address] [place] [address] Gabino Esposito MD [address] [facility] [address] [place] [address] documented as of this encounter Visit Diagnoses Not on filedocumented in this encounter Care Teams Digital Print Operator Relationship Specialty Start Date End Date Shannon Keller MD [facility] [place] [address] PCP - General Internal Medicine 04/13/22 documented as of this encounter
--- OUTSIDE RECORDS SUMMARY | 2025-05-19 20:00 | XMS_ITS | Clinical Summary ---
Author Organization Unknown Care Team Providers Care Tail Sawyer Name Role Phone HANNA HAAS, [place] BROOKS Unavailable Unavaila mark SRINIVASAN RN, SCOTT Unavailable Unavailable EDWIN PT, KYRA Unavailable Unavailable SVEN OT, GEORGINA Unavailable Unavailabl e Payers Payer Name Policy Type Policy Number Effective Date Expira tion Date MEDICARE - [place] - PDGM [id number] Problems Condition Name Condition Details Condition Category Status Onset Date Resolution Date Last Treatment Date Treating Clinician Comments COVID-19 Active 03-11 00:00: 00 METABOLIC ENCEPHALOPAT HY Active 03-11 00:00: 00 ELEVATED WHITE BLOOD CELL COUNT, UNSPECIFIED Active 03-11 00:00: 00 NONINFECTIVE GASTROENTERI TIS AND COLITIS, UNSPECIFIED Active 03-11 00:00: 00 ANEMIA, UNSPECIFIED Active 03-11 00:00: 00 CHRONIC DIASTOLIC (CONGESTIVE) HEART FAILURE Active 03-11 00:00: 00 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 S Active 03-11 00:00: 00 MYELOFIBROSI S Active 03-11 00:00: 00 ATHSCL HEART DISEASE OF [place] CORONARY ARTERY W/O ANG PCTRS Active 03-11 00:00: 00 ABDOMINAL AORTIC ANEURYSM, WITHOUT RUPTURE, UNSPECIFIED Active 03-11 00:00: 00 ESSENTIAL (PRIMARY) HYPERTENSION Active 03-11 00:00: 00 GASTRO-ESOPH AGEAL REFLUX DIS WITH ESOPHAGITIS, WITHOUT BLEED Active 03-11 00:00: 00 GENERALIZED ANXIETY DISORDER Active 03-11 00:00: 00 HYPERLIPIDEM IA, UNSPECIFIED Active 03-11 00:00: 00 Allergies, Adverse Reactions, Alerts Allergy [...] to adverse reactions Active 03-22 13:49: 32 Immunizations Ordered Immunization Name Filled Immunization Name Date Status Comments Refusal Reason INFLUENZA, TIV (INACTIVATED) 2025-03-20 00:00:00 SHINGLES, TIV (INACTIVATED) 2023-03-09 00:00:00 COVID-19, COVID-19 2022 00:00:00 PNEUMOCOCCAL (PPV), PPV 2022 00:00:00 Vital Signs Vital Name Observation Time Observation Value Commen ts Temperature 2025-03-29 12:08:00.000 98.1 [degF] Temperature 2025-03-27 11:13:00.000 97.9 [degF] Temperature 2025-03-26 13:20:00.000 96.6 [degF] Temperature 2025-03-22 09:19:00.000 97.3 [degF] BMI (%) 2025-03-22 09:19:00.000 19 kg/m2 Height 2025-03-22 09:19:00.000 66 [in_us] Pulse 2025-03-29 12:08:00.000 67 /min Pulse 2025-03-27 11:13:00.000 65 /min Pulse 2025-03-26 13:20:00.000 72 /min Pulse 2025-03-22 09:19:00.000 63 /min O2 Saturation (%) 2025-03-27 11:13:00.000 100 % O2 Saturation (%) 2025-03-26 13:20:00.000 98 % O2 Saturation (%) 2025-03-22 09:19:00.000 94 % Respirations 2025-03-29 12:08:00.000 18 /min Respirations 2025-03-27 11:13:00.000 18 /min Respirations 2025-03-26 13:20:00.000 20 /min Respirations 2025-03-22 09:19:00.000 20 /min Weight (lbs) 2025-03-27 11:15:00.000 122 [lb_av] Weight (lbs) 2025-03-22 09:19:00.000 120 [lb_av] Systolic Blood Pressure 2025-03-29 12:08:00.000 112 mm [Hg] Systolic Blood Pressure 2025-03-27 11:13:00.000 122 mm [Hg] Systolic Blood Pressure 2025-03-26 13:20:00.000 132 mm [Hg] Systolic Blood Pressure 2025-03-22 09:19:00.000 142 mm [Hg] Diastolic Blood Pressure 2025-03-29 12:08:00.000 [...] PHYSICIAN/PROVIDER OF ANY CONCERNS.] Future Scheduled Test PATIENT MIN S A [...] MAINTAIN SITUATIONAL AWARENESS AND WILL NOTIFY CLINICAL ELECTION ASSISTANT AND PHYSICIAN/PROVIDER WITH ANY CHANGE IN CONDITION. [code = SKILLED NURSE TO PERFORM ENVIRONMENTAL SAFETY RISK ASSESSMENT AND FALL RISK ASSESSMENT AND PROVIDE INSTRUCTION TO IMPLEMENT ENVIRONMENTAL SAFETY AND FALL PREVENTION STRATEGIES THROUGHOUT THE CERTIFICATION PERIOD. SKILLED NURSE WILL MAINTAIN SITUATIONAL AWARENESS AND WILL NOTIFY CLINICAL ELECTION ASSISTANT AND PHYSICIAN/PROVIDER WITH ANY CHANGE IN CONDITION.] [...] FEELINGS.] Future Scheduled Test SKILLED NU RSE TO [...] CARE.] Future Scheduled Test SKILLED NU RSE FOR [...] IN MANAGEMENT OF CAD.] Future Scheduled Test SKILLED NU RSE FOR O/A AND SKILLED TEACHING RELATED TO SIGNS AND SYMPTOMS AND MANAGEMENT OF ANEMIA. [code = SKILLED NURSE FOR O/A AND SKILLED TEACHING RELATED TO SIGNS AND SYMPTOMS AND MANAGEMENT OF ANEMIA.] Future Scheduled Test SKILLED NU RSE TO PROVIDE TEACHING/REINFORCEMENT RELATED TO URINARY INCONTINENCE. [code = SKILLED NURSE TO PROVIDE TEACHING/REINFORCEMENT RELATED TO URINARY INCONTINENCE.] Future Scheduled Test SKILLED NU RSE FOR [...] SYMPTOMS HYPO/HYPERGLYCEMIA TO REPORT.] Future Scheduled Test SKILLED NU RSE TO [...] LOG.] Future Scheduled Test SKILLED NU RSE TO INSTRUCT PATIENT/CAREGIVER ON S/S OF NEUROPATHY AND METHODS TO MANAGE. [code = SKILLED NURSE TO INSTRUCT PATIENT/CAREGIVER ON S/S OF NEUROPATHY AND METHODS TO MANAGE.] Future Scheduled Test SKILLED NU RSE FOR [...] OF POTENTIAL SIDE EFFECTS.] Future Scheduled Test PHYSICAL T HERAPIST TO EVALUATE PATIENT FOR GAIT TRAINING AND STRENGTHENING [code = PHYSICAL THERAPIST TO EVALUATE PATIENT FOR GAIT TRAINING AND STRENGTHENING] Future Scheduled Test OCCUPATION AL THERAPIST TO EVALUATE PATIENT FOR ADL MANAGEMENT [code = OCCUPATIONAL THERAPIST TO EVALUATE PATIENT FOR ADL MANAGEMENT] Future Scheduled Test PHYSICAL T HERAPIST TO [...] THERAPY EVALUATION (03/26/25) PATIENT IS A FORGETFUL TAZLINA 80 YO MALE WITH PHYSICAL THERAPY REFERRAL AFTER RECENT [facility], MD DX: COVID 19+ COMPLICATED BY METABOLIC ENCEPHALOPATHY. PATIENT TRANSITIONED TO 2 DAY SNF STAY (03/19 - 03/21) PATIENT NOT SATISFIED WITH CARE AND REQUESTED D/C HOME. PMH: MYELOFIBROSIS (BEING [place]RE[place] [facility] [place] [facility] [place] RECEIVING MONTHLY INJECTIONS), MICROCYTIC ANEMIA, [...] WHO SLEEPS OVERNIGHT) AND SISTER JIMBO AND JENNIFER (VISITING [facility] RODRIGUE[facility] 3.5 HRS -) CURRENTLY PROVIDING / CARE. OUTDOOR STAIRS: 3 STAIRS WITH RAIL, [...] THERAPY EVALUATION (03/26/25) PATIENT IS A FORGETFUL TAZLINA 80 YO MALE WITH PHYSICAL THERAPY REFERRAL AFTER RECENT [facility] HOSPITALIZATION, DX: COVID 19+ COMPLICATED BY METABOLIC ENCEPHALOPATHY. PATIENT TRANSITIONED TO 2 DAY SNF STAY (03/19 - 03/21) PATIENT NOT SATISFIED WITH CARE AND REQUESTED D/C HOME. PMH: MYELOFIBROSIS (BEING TREATED BY [place] [facility] [place] [facility] [place] RECEIVING MONTHLY INJECTIONS), MICROCYTIC ANEMIA, [...] WHO SLEEPS OVERNIGHT) AND SISTER JIMBO AND SCRAPER TENDER (VISITING [facility] RODRIGUE[facility] 3.5 HRS -) CURRENTLY [...] GRAB HANDLE INSTALLATION FOR INDOOR STEP [facility] PRESENT SPOKE WITH MELANI OF MD [...] MYELOFIBROSIS (BEING TREATED BY [facility] [place] [facility] [place] RECEIVING MONTHLY INJECTIONS), MICROCYTIC ANEMIA, JAC2 MUTATION POSITIVE, ANXIETY, DEPRESSION, HTN, CHF, HLD, GERD, DM, 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 HE HAS VERY CLOSE FRIENDS THAT STAY OVERNIGHT WELL FOUNDRY MOLDER DURING THE DAY. HE STATES THAT HE [...] BUT IS ONGOING. MAY BENEFIT FROM A FOUNDATION DRILL OPERATOR AND/OR SOCK AIDE. PRECAUTIONS/RESTRICTIONS: HIGH FALL RISK [...] TUB TRANSFER TODAY DUE TO FATIGUE MEAL PREP-FAMILY/SCRAPER TENDER LAUNDRY-FAMILY/SCRAPER TENDER HOUSEKEEPING-FAMILY/SCRAPER TENDER PET CARE-INTACT FUNCTIONAL MOBILITY-USES A MULTI LEVEL [...] POTENTIAL AEB HIS MOTIVATION TO RETURN TO OF. 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 HE HAS VERY CLOSE FRIENDS THAT STAY OVERNIGHT WELL FOUNDRY MOLDER DURING THE DAY. HE STATES THAT HE [...] BUT IS ONGOING. MAY BENEFIT FROM A FOUNDATION DRILL OPERATOR AND/OR SOCK AIDE. PRECAUTIONS/RESTRICTIONS: HIGH FALL RISK [...] TUB TRANSFER TODAY DUE TO FATIGUE MEAL PREP-FAMILY/SCRAPER TENDER LAUNDRY-FAMILY/SCRAPER TENDER HOUSEKEEPING-FAMILY/SCRAPER TENDER PET CARE-INTACT FUNCTIONAL MOBILITY-USES A MULTI LEVEL [...] CARE WILL BE ESTABLISHED THAT MEETS PATIENT'S FCI NEEDS AND INCLUDES PATIENT GOAL FOR HOME HEALTH. Goal Provider Goal - PATIENT/CAREGIVER WILL VERBALIZE [...] OF THE EPISODE. Goal Provider Goal - SYMPTOMS OF ANXIETY ARE IDENTIFIED AND INTERVENTIONS INITIATED TO ENABLE PATIENT TO UNDERSTAND AND MANAGE FEELINGS THROUGHOUT EPISODE. Goal Provider Goal - PATIENT/CAREGIVER WILL VERBALIZE/DEMONSTRATE UNDERSTANDING OF THE MANAGEMENT OF DEPRESSION THROUGHOUT THE CERTIFICATION PERIOD AND SYMPTOMS ARE IDENTIFIED AND MANAGED TO MAINTAIN PATIENT SAFETY IN THE HOME. Goal Provider Goal - PATIENT / CAREGIVER WILL VERBALIZE UNDERSTANDING OF BARRIERS PREVENTING PROPER CARE AND DEMONSTRATE MEASURES TO ELIMINATE THOSE BARRIERS DURING THIS EPISODE. Goal Provider Goal - PATIENT/CAREGIVER WILL [...] THE CERTIFICATION PERIOD. Goal Provider Goal - PATIENT/CARGIVER WILL VERBALIZE UNDERSTANDING OF ANEMIA INCLUDING SIGNS AND SYMPTOMS, MANAGEMENT OF COMPLICATIONS, AND PRESCRIBED TREATMENT REGIMEN BY END OF EPISODE. Goal Provider Goal - PATIENT / CAREGIVER WILL VERBALIZE UNDERSTANDING OF EFFECTS OF URINARY INCONTINENCE BY THE END OF THE CERTIFICATION PERIOD. Goal Provider Goal - PATIENT/CAREGIVER WILL VERBALIZE/DEMONSTRATE KNOWLEDGE OF DIABETIC MANAGEMENT. CHANGES IN DIABETIC STATUS WILL BE IDENTIFIED AND REPORTED TO PHYSICIAN FOR PROMPT INTERVENTION THROUGHOUT THE CERTIFICATION PERIOD. Goal Provider Goal - BLOOD SUGAR READING WILL BE OBTAINED ORDERED THROUGHOUT CERTIFICATION PERIOD. Goal Provider Goal - PATIENT/CAREGIVER WILL VERBALIZE S/S OF NEUROPATHY AND METHODS TO MANAGE BY END OF CERTIFICATION PERIOD. Goal Provider Goal - CHANGES IN NEUROLOGIC STATUS WILL BE IDENTIFIED AND REPORTED TO THE PHYSICIAN FOR PROMPT INTERVENTION OF ASSOCIATED RISK. PATIENT/CAREGIVER WILL VERBALIZE/DEMONSTRATE APPROPRIATE SAFETY MEASURES TO PREVENT INJURY BY THE END OF THE CERTIFICATION PERIOD. Goal Provider Goal - PATIENT/CAREGIVER WILL VERBALIZE/DEMONSTRATE ABILITY TO MANAGE HIP AND NEUROPATHY PAIN WHILE MAINTAINING SAFETY THROUGHOUT THE EPISODE. Goal Provider Goal - PATIENT/CAREGIVER WILL VERBALIZE/DEMONSTRATE MANAGEMENT OF MYELOFIBROSIS CANCER/NEOPLASM DISEASE AND THE SIDE EFFECTS OF TREATMENTS DURING THIS EPISODE. Goal Provider Goal - A PHYSICAL THERAPY EVALUATION TO BE COMPLETED WITH RECOMMENDATIONS AND/OR WRITTEN PLAN OF TREATMENT ESTABLISHED FOR PHYSICIAN S SIGNATURE. Goal Provider Goal - OCCUPATIONAL THERAPY EVALUATION TO BE COMPLETED WITH RECOMMENDATIONS AND WRITTEN PLAN OF TREATMENT ESTABLISHED FOR THE PHYSICIAN S SIGNATURE. Goal Provider Goal - PHYSICAL THERAPY EVALUATION [...] Notes <paragraph>[Visit Date: 2024 by GEORGINA MACHUCA OT]:</paragraph><paragraph>SKILLED OT ROB COMPLETED THIS DATE 03/29</paragraph><paragraph></paragraph><paragraph>REASON FOR REFERRAL: PATIENT IS A 80 YEAR OLD MALE REFERRED TO HOME OT SERVICES S/P HOSPITALIZATION AND STR STAY FOR COVID+ AND COMPLICATED BY METABOLIC ENCEPHALOPATHY. PATIENT TRANSITIONED TO 2 DAY SNF STAY (03/19 - 03/21) PATIENT NOT SATISFIED WITH CARE AND REQUESTED D/C HOME. 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 HE ALSO REPORTS A NEW ONSET OF LEFT FOOT DROP OF UNKNOWN REASON. </paragraph><paragraph></paragraph><paragraph>OCCUPATIONAL PROFILE/HOME ENVIRONMENT/PLOF: PATIENT LIVES IN A [facility] WITH 24 HOUR ASSISTANCE. HE HAS VERY CLOSE FRIENDS THAT STAY OVERNIGHT WELL FOUNDRY MOLDER DURING THE DAY. HE STATES THAT HE WAS GETTING AROUND WITH NO AD. HE DID HIS OWN PERSONAL CARE WITH SOME ASSISTANCE FROM HIS CAREGIVERS. HE WOULD USE HIS SCOOTER OUTSIDE. HE NEEDED ASSIST FOR STAIR MANAGEMENT. HIS CAREGIVERS DID THE HOMEMAKER. HE DID STATE THAT HE WOULD DRIVE SHORT DISTANCE HOWEVER THE DATE OF THIS WAS VERY UNCLEAR AND HE WAS NOT SURE.</paragraph><paragraph></paragraph><paragraph>EQUIPMENT AVAILABLE: SHOWER CHAIR WITH NO BACK, GRAB BARS, HAND HELD SHOWER, HAS A COMMODE FOR NIGHT USE, SCOOTER, MULTI WHEELED WALKER, CANE. </paragraph><paragraph></paragraph><paragraph>EQUIPMENT RECOMMENDED: NONE AT THIS TIME BUT IS ONGOING. MAY BENEFIT FROM A FOUNDATION DRILL OPERATOR AND/OR SOCK AIDE. </paragraph><paragraph></paragraph><paragraph>PRECAUTIONS/RESTRICTIONS: HIGH FALL RISK </paragraph><paragraph></paragraph><paragraph>VITALS: STABLE </paragraph><paragraph></paragraph><paragraph>SENSATION: REPORTS NUMBNESS IN BOTH FEET DUE TO NEUROPATHY AND IS GETTING OCCASIONAL NUMBNESS IN HIS HANDS NOW. HE WAS ABLE TO DISTINGUISH DP/LT IN HIS HANDS THIS DATE BUT REPORTS SOMETIMES HE CAN NOT </paragraph><paragraph></paragraph><paragraph>PAIN: BOTH FEET AND HIPS VARIES FROM 6-10/10 </paragraph><paragraph></paragraph><paragraph>INTEGUMENTARY: SKIN APPEARS TO BE FRAGILE</paragraph><paragraph></paragraph><paragraph>NEUROLOGICAL/TONE: WNL</paragraph><paragraph></paragraph><paragraph>VISUAL: INTACT</paragraph><paragraph></paragraph><paragraph>COGNITION: ALERT AND ORIENTED X3, DOES DEM SOME STM LOSS </paragraph><paragraph></paragraph><paragraph>CLOF:</paragraph><paragraph></para graph ><paragraph>TOILETING- CTG TO SPV; TXFR-SPV TO CTG </paragraph><paragraph></paragraph><paragraph>BATHING- UBB: SPV TO ASSIST WITH HIS BACK; LBB: MIN A OVERALL ; TXFR-IN/OUT OF THE SHOWER WITH CTG TO OCCASSIONAL MIN A </paragraph><paragraph></paragraph><paragraph>DRESSING- UBD SETUP ; LBD MIN A TO GET CLOTHING OVER HIS FEET</paragraph><paragraph></paragraph><paragraph>SELF FEEDING-INDEP</paragraph><paragraph></paragraph><paragraph>GROOMING-SETUP</tara raph> <paragraph></paragraph><paragraph>FUNCTIONAL TRANSFERS-FROM RECLINER CHAIR WITH MIN A TODAY; ON/OFF TOILET WITH MIN A. DECLINED TUB TRANSFER TODAY DUE TO FATIGUE </paragraph><paragraph></paragraph><paragraph>MEAL PREP-FAMILY/SCRAPER TENDER</paragraph><paragraph></paragraph><paragraph>LAUNDRY-FAMILY/SCRAPER TENDER< /para graph><paragraph></paragraph><paragraph>HOUSEKEEPING- FAMILY/SCRAPER TENDER</paragraph><paragraph ></paragraph><paragraph>PET CARE-INTACT</paragraph><paragraph></paragraph><paragraph>FUNCTIONAL MOBILITY- USES A MULTI LEVEL WALKER IN THE HOME, HE NEEDS SPV FOR MOBILITY </paragraph><paragraph></paragraph><paragraph>HAYDEE SCORE: 61/100 INDICTIVE OF MODERATELY DEPENDENT </paragraph><paragraph></paragraph><paragraph>COORDINATION: WFL</paragraph><paragraph></paragraph><paragraph>ROM: LUE & RUE BUE WFL</paragraph><paragraph></paragraph><paragraph>STRENGTH: LUE:4-/5 RUE 4-/5</paragraph><paragraph></paragraph><paragraph>FUNCTIONAL ACTIVITY TOLERANCE:</paragraph><paragraph></paragraph><paragraph>FUNCTIONAL REACH TEST: UNABLE TO TEST </paragraph><paragraph></paragraph><paragraph>STANDING BALANCE: STATIC:FAIR ; DYNAMIC: FAIR-</paragraph><paragraph></paragraph><paragraph>SITTING BALANCE: STATIC GOOD ; DYNAMIC GOOD</paragraph><paragraph></paragraph><paragraph>CLINICAL IMPRESSION: PATIENT PRESENTS WITH IMPAIRED FUNCTIONAL TRANSFERS, IMPAIRED FUNCTIONAL MOBILITY, IMPAIRED STRENGTH, PRESENCE OF PAIN, IMPAIRED COGNITION/PROBLEM SOLVING, IMPAIRED FUNCTIONAL ACTIVITY TOLERANCE/SOB/FATIGUE, IMPAIRED FUNCTIONAL BALANCE, ALL RESULTING IN INABILITY TO SAFELY PARTICIPATE IN SELF CARE AND OCCUPATIONS OF CHOICE WITHOUT ASSISTANCE.</paragraph><paragraph></paragraph><paragraph>REHAB POTENTIAL: PATIENT DEMONSTRATES GOOD REHAB POTENTIAL AEB HIS MOTIVATION TO RETURN TO OF. HE ALSO HAS GOOD SUPPORT SYSTEM </paragraph><paragraph></paragraph><paragraph>PATIENT IS CURRENTLY DEMONSTRATING ADL/IADL SKILLS BELOW FUNCTIONAL [...] INDEP WITH SELF CARE TASKS WITHIN HOME ENVIRONMENT.</paragraph><paragraph></paragraph><paragraph>PATIENT`S GOAL IS TO INCREASE HIS OVERALL STRENGTH, ENDURANCE/ACTIVITY TOLERANCE AND BALANCE IN ORDER TO INDEPENDENCE WITH ADLS AND MOBILITY TO DECREASE DEPENDENCY ON CAREGIVERS.</paragraph> Encounters Start Date/Time End Date/Time Encounter Type Admission Type Attending [facility] Care Department Encounter ID Discharge Date Discharge Status Discharge Condition Discharge Reason Percent Goals Met 2025-03-22 00:00:00 2025-05-20 00:00:00 Outpatient NEW ADMISSION SCOTT SRINIVASAN [facility] [id number] 10.42
== END 2025-04-01 15:56 | disposition home or self-care (01) ==
LOC: HO.US 15:55
PROVIDERS: PCP Internal Medicine; Visit Provider Nurse Practitioner Family
DX: M79.672 Pain in left foot (principal); M79.662 Pain in left lower leg
CPT/HCPCS: 93971

== ENCOUNTER → 2025-04-01 15:57 | Outpatient (BNV) | payer MEDICARE, SELFPAY | PROVIDERS: PCP Internal Medicine; Visit Provider Radiology Diagnostic Radiology | DX: M79.662 Pain in left lower leg (principal) | CPT/HCPCS: 93971 ==

== ENCOUNTER 2025-04-08 07:50 | Outpatient (AMB) | payer MEDICARE, SELFPAY ==
--- OUTSIDE RECORDS SUMMARY | 2024-07-03 04:45 | XMS_ITS ---
Author Organization [facility] Address [address] [place] [address] Care Team Providers Care Photographic Equipment Inspector Name Role Phone Krishna HAAS, Keiry Ingram Primary Care Provider Un available Arden Lezama Unavailable [phone] Encounters Encounter Location Date Provider Diagnosis [address] [address] 07/03/2024 Arden Lezama Plan Of Treatment Next Appt Details Provider Name:Arden Lezama , 04/19/2025 09:30:00 AM, [address] [place], [address], Progress Notes * Stuart MCLEOD ODOB:[birth year] (80 yo M)Acc No.[id number]:07/03/2024 Progress Note Patient: Shannon LOUISDacia Stuart Kathy Provider: Florentin Lezama DPM :1945 A ge:79 Y S ex:Male Date:07/03/2024 Address:[address] [place] [address] [place], [id number] Pcp:Divina Polanco Subjective: * Chief Complaints: * * Medical History: Objective: * Vitals: Assessment: Plan: * Treatment: * Images: * The named appointment provid er may or may not be the originator of this progress note, and it is not deemed complete until electronically signed by the appointment provider. Sign off status: Pending * Provider: Florentin Lezama DPM Date: 0 07/03/2024 Generated for Silva liang/Jovan/Valerio on: 1 07:54 AM EDT
--- OUTSIDE RECORDS SUMMARY | 2025-01-11 09:30 | XMS_ITS ---
Author Organization [facility] Address [address] [facility] [place] [id number] Care Team Providers Care Full Stack Web Developer Name Role Phone Krishna HAAS, Keiry Ingram Primary Care Provider Un available Arden Lezama Unavailable [phone] Allergies Allergen (clinical drug ingredient) Drug/Non Drug [...] (FN) Shellfish-derived Products hives Drug Allergy Active Medications Medication SIG (Take, Route, Frequency, Duration) Notes Start Date End Date Status LORazepam PRN Active Carvedilol Active Creon 12652-10417 UNIT Orally Active Fludrocortisone Acetate 0.1 MG Orally Active Furosemide Active Ammonium Lactate 12 % 1 application to affected area Externally to feet Twice a day; Duration: 30 days Active Ativan 0.5 MG 1 tablet at bedtime as needed Orally Once a day Active NovoLOG FlexPen 100 UNIT/ML Subcutaneous Not-Taking Atorvastatin Calcium 40 MG 2 Orally 3 times a week Acti ve Grazyna 4-12.5 MG/5ML 5 ml as needed Orall y every 4 hrs Not-Taking ASO Ankle/Foot Stablizing AFO As directed Wear Daily; Duration: as needed 12/12/2018 Active Gabapentin 100 MG 1 capsule Orally Thr ee times a day Active Vitamin D Active Extra Depth Orthopedic Shoes (1 Pair) with Customized Heat Molded Multidensity Innersoles (3 Pair) as directed Dx: IDDM/Polyneuropathy (E10.42), Hammertoe Foot Deformity (M20.41,M20.42), Preulcerative Skin Lesion(s) (L85.1) 03/27/2024 Active Lisinopril 2.5 MG 1 tablet Orally Once a day Not-Taking Meclizine HCl 25 MG as directed Orally O nce a day Active NovoLOG 6UNITS Activ e Vitamin B 12 Active Omeprazole 20 MG 1 capsule Orally Onc e a day; Duration: 30 day(s) Active Tresiba FlexTouch 100 UNIT/ML Subcutaneous Active Encounters Encounter Location Date Provider Diagnosis [facility] [address] [address] 01/11/2025 Arden Lezama Plan Of Treatment Next Appt Details Provider Name:Arden Lezama , 04/19/2025 09:30:00 AM, [address] [place] [address], [phone], Progress Notes * Stuart MCLEOD ODOB:[birth year] (80 yo M)Acc No.[id number]:01/11/2025 Progress Note Patient: Stuart CONNER Provider: Florentin Lezama DPM :1945 A ge:79 Y S ex:Male Date:01/11/2025 Address:[address] [place], [place] [address] Pcp:Divina Polanco Subjective: * Chief Complaints: * * Medical History: T ransfusions, Mumps, Measles, Chicken pox, Gall bladder problems, Vertigo, Reflux, Deep vein thrombosis, Cataracts, type II diabetes, Cancer - Leukemia, Congestive heart failure. * Medications: T aking Ammonium Lactate 12 % Cream 1 application to affected area Externally to feet Twice a day , Taking Ativan 0.5 MG Tablet 1 tablet at bedtime as needed Orally Once a day , Taking Atorvastatin Calcium 40 MG Tablet 2 Orally 3 times a week , Taking Carvedilol , Taking Creon 73334-42244 UNIT Capsule Delayed Release Particles Orally , Taking Fludrocortisone Acetate 0.1 MG Tablet Orally , Taking Furosemide , Taking LORazepam PRN , Taking NovoLOG 6UNITS , Taking Meclizine HCl 25 MG Tablet Chewable as directed Orally Once a day , Taking Omeprazole 20 MG Capsule Delayed Release 1 capsule Orally Once a day , Taking Tresiba FlexTouch 100 UNIT/ML Solution Pen-injector Subcutaneous , Taking Vitamin B 12 , Taking Vitamin D , Taking ASO Ankle/Foot Stablizing AFO As directed Wear Daily , Taking Gabapentin 100 MG Capsule 1 capsule Orally Three times a day , Taking Extra Depth Orthopedic Shoes (1 Pair) with Customized Heat Molded Multidensity Innersoles (3 Pair) as directed Dx: IDDM/Polyneuropathy (E10.42), Hammertoe Foot Deformity (M20.41,M20.42), Preulcerative Skin Lesion(s) (L85.1) , Not-Taking/PRN Lisinopril 2.5 MG Tablet 1 tablet Orally Once a day , Not-Taking/PRN NovoLOG FlexPen 100 UNIT/ML Solution Pen-injector Subcutaneous , Not-Taking/PRN Grazyna 4-12.5 MG/5ML Syrup 5 ml as needed Orally every 4 hrs * Allergies: C ipro: hives, Levaquin: hives, Flagyl: hives, Shrimp Flavor: hives, Codeine: itchy, Percodan: hives, Shellfish-derived Products: hives, Nicotine: hives, Penicillin: itchy, Percocet: hives. Objective: * Vitals: Assessment: Plan: * Treatment: * Images: * The named appointment provid er may or may not be the originator of this progress note, and it is not deemed complete until electronically signed by the appointment provider. Sign off status: Pending * Provider: Florentin Lezama DPM Date: 0 01/11/2025 Generated for Silva liang/Jovan/Valerio on: 07:54 AM EDT
--- OUTSIDE RECORDS SUMMARY | 2025-04-08 07:54 | XMS_ITS | Patient Health Record ---
Author Organization [facility] Address [address] [place] [address] Care Team Providers Care Glazier Stained Glass Name Role Phone Krishna HAAS, Keiry Ingram Primary Care Provider Un available Teja, Arden Unavailable [phone] Allergies Allergen (clinical drug ingredient) Drug/Non Drug [...] Preulcerative Skin Lesion(s) (L85.1) 03/27/2024 Active Creon 90761-41205 UNIT Orally Active Gabapentin 100 MG 1 [...] Problem Acquired hammer toe of right foot (0847429196834592 ) Other hammer toe(s) (acquired), right foot (M20.41) Active confirmed Response to treatment, Improvemen t Problem Acquired hammer toe of left foot (8342806394065481 ) Other hammer toe(s) (acquired), left foot (M20.42) Active confirmed Response to treatment, Improvemen t Problem Polyneuropathy due to diabetes mellitus type I (553187754) Type 1 diabetes mellitus with diabetic polyneuropathy (E10.42) Active confirmed Vital Signs Blood pressure diastolic 60 mm Hg 01/15/2025 Height 5 ft 6 in in 01/15/2025 Blood pressure systolic 126 mm Hg 01/15/2025 Weight 124 lbs 01/15/2025 BMI 20.01 kg/m2 01/15/2025 Procedures Procedure Date Ordered Date Performed Result Body Sit e 88774-KRXOGYD NAIL, 6 OR MORE 07/10/2024 N/A 46497-YFTP SKIN LESIONS, 2 TO 4 07/10/2024 N/A 79817-RRGGNUQ NAIL, 6 OR MORE 10/16/2024 N/A 66843-GWYL SKIN LESIONS, 2 TO 4 10/16/2024 N/A 56616-NOBMCAA NAIL, 6 OR MORE 01/15/2025 N/A 19809-Vhumnwyp Plate 01/15/2025 N/A 77058-ZBQE SKIN LESIONS, 2 TO 4 01/15/2025 N/A Encounters Encounter Location Date Provider Diagnosis [facility] [address] [address] 07/10/2024 Arden Lezama Type 1 diabetes mellitus with diabetic polyneuropathy E10.42 and Tinea unguium B35.[address] [facility] [address] 10/16/2024 Arden Lezama Type 1 diabetes mellitus with diabetic polyneuropathy E10.42 and Tinea unguium B35.[address] [facility] [address] 01/15/2025 Arden Lezama Type 1 diabetes mellitus with diabetic polyneuropathy E10.42 ; Tinea unguium B35.1 ; Ingrown nail L60.0 and Xerosis of skin L85.[address] [address] 07/02/2024 [facility] [address] [facility] [address] [place] [address] 01/11/2025 Arden Lezama Assessments Encounter Date Diagnosis [...] Date Hemoglobin A1c 10/29/2014 Hemoglobin A1c 08/08/2015 49366-CAPHOBZ NAIL, 6 OR MORE 05/09/2015 75471-QMLZVIF NAIL, 6 OR MORE 11/11/2015 26679-LIDMKIS NAIL, 6 OR MORE 08/08/2015 53739-IJZSABA NAIL, 6 OR MORE 03/12/2016 32271-CJTKJIS NAIL, 6 OR MORE 05/28/2016 21252-VABXYMS NAIL, 6 OR MORE 08/27/2016 10141-MDRBNLN NAIL, 6 OR MORE 12/31/2016 50709-EHTMVZS NAIL, 6 OR MORE 04/08/2017 46295-UHOHLVU NAIL, 6 OR MORE 07/12/2017 81527-UHBTVTS NAIL, 6 OR MORE 10/11/2017 44057-ROQTUCX NAIL, 6 OR MORE 02/03/2018 01048-MWJXCIR NAIL, 6 OR MORE 06/13/2018 18857-BLQPWEQ NAIL, 6 OR MORE 09/12/2018 93519-FJLUGRD NAIL, 6 OR MORE 12/12/2018 60893-YNTFNTF NAIL, 6 OR MORE 03/20/2019 38999-ITMASCD NAIL, 6 OR MORE 07/06/2019 49513-SSPHQFT NAIL, 6 OR MORE 10/30/2019 95965-XLQZFYR NAIL, 6 OR MORE 01/29/2020 53169-KHZOSPC NAIL, 6 OR MORE 05/02/2020 47331-OUGGEGV NAIL, 6 OR MORE 08/01/2020 97989-CHYXKDI NAIL, 6 OR MORE 10/31/2020 68381-YMAIYUY NAIL, 6 OR MORE 01/09/2021 73952-NJPIPHC NAIL, 6 OR MORE 04/03/2021 84260-XIPQTAO NAIL, 6 OR MORE 07/03/2021 61438-SJCFATG NAIL, 6 OR MORE 09/15/2021 23346-GTOULCA NAIL, 6 OR MORE 12/01/2021 70142-KQNXCVW NAIL, 6 OR MORE 02/23/2022 75344-MVLFRQT NAIL, 6 OR MORE 05/28/2022 59385-GNTHZBV NAIL, 6 OR MORE 09/07/2022 02419-YZITACH NAIL, 6 OR MORE 12/03/2022 19492-IBXODGK NAIL, 6 OR MORE 02/15/2023 99742-XNZLMPL NAIL, 6 OR MORE 05/06/2023 16978-WHKTOAT NAIL, 6 OR MORE 07/12/2023 12651-QMNCJPS NAIL, 6 OR MORE 10/11/2023 83956-NISDNHD NAIL, 6 OR MORE 01/03/2024 35111-VTOKUBS NAIL, 6 OR MORE 03/27/2024 26566-GMOKALV NAIL, 6 OR MORE 07/10/2024 07670-UWQLBAL NAIL, 6 OR MORE 10/16/2024 63679-IJEROGF NAIL, 6 OR MORE 01/15/2025 52613-ANVPKYJ NAIL, 1-5 01/31/2015 19303-GHZZVZX NAIL, 07-0104/26/2014 72334-DBAEVDE NAIL, 07-0110/29/2014 17631-WTWQZBP NAIL, 07-0103/19/2011 60114-AFBFGFZ NAIL, 07-0107/23/2011 80206-MDBOVGX NAIL, 07-0110/22/2011 36442-UPAQNRW NAIL, 07-0103/07/2012 10370-MNEEUMX NAIL, 07-0105/23/2012 69536-UPAGJXD NAIL, 07-0108/11/2012 18052-VEPJCTB NAIL, 07-0111/03/2012 23322-VCNZOAH NAIL, 07-0103/23/2013 69268-TLWZPTK NAIL, 07-0107/06/2013 22868-JLZYJNG NAIL, 07-0109/25/2013 97867-AQKXZQE NAIL, 07-0101/01/2014 33750-FGHITJM NAIL, 07-0107/30/2014 58596-Gwtuvxha Plate 07/30/2014 82019-Shuhsmta Plate 05/23/2012 87053-Ybwouhoj Plate 07/23/2011 31822-Eoyiiqoc Plate 03/19/2011 72621-Mulnetky Plate 11/11/2015 22166-Nghrnqek Plate 12/31/2016 40336-Zpatcgbd Plate 04/08/2017 59338-Mmtpvexu Plate 08/27/2016 99306-Yfzzopaq Plate 08/08/2015 15940-Vsbzlqrt Plate 12/01/2021 43327-Tonbfwqs Plate 09/15/2021 26308-Emtmchck Plate 07/03/2021 34129-Ddeexvmv Plate 04/03/2021 56849-Rcfsdwoe Plate 01/09/2021 24347-Ikypmami Plate 10/31/2020 94129-Fpjsjdjk Plate 08/01/2020 18677-Aejzlfre Plate 05/02/2020 83824-Bgzltqtz Plate 01/29/2020 10611-Lmmxzhun Plate 10/30/2019 06621-Ycizxbge Plate 07/06/2019 67462-Llrpixbg Plate 03/20/2019 34046-Adoyyqcn Plate 09/12/2018 01742-Mfuxahgk Plate 06/13/2018 90851-Uefitnjh Plate 12/12/2018 56352-Zpnhcobk Plate 02/03/2018 40053-Motklddr Plate 01/15/2025 75100-Sivskhet Plate 03/27/2024 64559-Jzndsxyz Plate 05/06/2023 91200-Cahphuoz Plate 01/03/2024 34420-Wifvvxtr Plate 07/12/2023 04736-Jhozjsmj Plate 12/03/2022 53627-Bqabcgzi Plate 09/07/2022 99873-Wnhwyaqe Plate 05/28/2022 62063-Rbmdzhzu Plate 02/23/2022 05849-Jgjtkzaa Plate Each Additional 03/2018 80162-Bhufgfpz Plate Each Additional 00562-Rompnbbu Plate Each Additional 69902-Wtfgyfhb Plate Each Additional 23695-Yjiybedp Plate Each Additional 57349-Qrjpzkeb Plate Each Additional 03/2020 16829-Eryslxdk Plate Each Additional 10/2019 88263-Qeywzmgf Plate Each Additional 09/2019 79440-Jjjehasc Plate Each Additional 11/2019 89810-Qjnpsxwj Plate Each Additional 10/2020 23115-Sankuxdy Plate Each Additional 12/2020 63083-Ytmcixnb Plate Each Additional 51082-Ehblqjjo Plate Each Additional 01/2021 32363-Cntoahdw Plate Each Additional 12/2021 38696-Kprxupst Plate Each Additional 46224-Zurzlzky Plate Each Additional 12/2021 86110-Hxvkjbpl Plate Each Additional 05/2016 78857-Vrydvvdv Plate Each Additional 08360-VDPA SKIN LESIONS, 2 TO 4 11/11/19 16 50797-XOXD SKIN LESIONS, 2 TO 4 05/09/20 15 34640-LFQG SKIN LESIONS, 2 TO 4 08/08/19 16 44500-KZAU SKIN LESIONS, 2 TO 4 10/30/19 15 68557-GOVK SKIN LESIONS, 2 TO 4 04/26/20 14 61108-NZCP SKIN LESIONS, 2 TO 4 02/01/20 15 24899-VAMI SKIN LESIONS, 2 TO 4 03/12/20 16 99799-MYWP SKIN LESIONS, 2 TO 4 08/28/19 17 36289-DDGI SKIN LESIONS, 2 TO 4 05/28/20 16 10276-IBYQ SKIN LESIONS, 2 TO 4 01/01/20 17 40497-DXQQ SKIN LESIONS, 2 TO 4 04/08/20 17 46660-UPQD SKIN LESIONS, 2 TO 4 07/12/19 18 76371-FSGP SKIN LESIONS, 2 TO 4 07/23/19 12 42093-WNSE SKIN LESIONS, 2 TO 4 10/22/19 12 22052-PSOB SKIN LESIONS, 2 TO 4 03/07/20 12 02737-ONEO SKIN LESIONS, 2 TO 4 03/19/20 11 21472-YSAV SKIN LESIONS, 2 TO 4 05/23/20 12 69809-PKSO SKIN LESIONS, 2 TO 4 07/30/19 15 53244-XEOY SKIN LESIONS, 2 TO 4 01/02/20 14 87095-WKOW SKIN LESIONS, 2 TO 4 09/26/19 14 96447-CVNO SKIN LESIONS, 2 TO 4 07/06/19 14 58199-LDQI SKIN LESIONS, 2 TO 4 03/23/20 13 04943-GABP SKIN LESIONS, 2 TO 4 11/04/19 13 08563-MEGO SKIN LESIONS, 2 TO 4 08/11/19 13 96482-ECPN SKIN LESIONS, 2 TO 4 12/02/19 22 57604-OSCA SKIN LESIONS, 2 TO 4 09/16/19 22 07596-ZCHV SKIN LESIONS, 2 TO 4 07/03/19 22 11731-RSDR SKIN LESIONS, 2 TO 4 04/03/20 21 45954-OCKF SKIN LESIONS, 2 TO 4 01/10/20 21 92174-OPZQ SKIN LESIONS, 2 TO 4 11/01/19 21 90786-ZPMF SKIN LESIONS, 2 TO 4 08/01/19 21 15401-HNSQ SKIN LESIONS, 2 TO 4 05/02/20 20 61519-SPZZ SKIN LESIONS, 2 TO 4 01/29/20 20 71750-ADHA SKIN LESIONS, 2 TO 4 10/30/19 20 76160-YBVS SKIN LESIONS, 2 TO 4 07/06/19 20 81941-WRRM SKIN LESIONS, 2 TO 4 03/20/20 19 51162-SAID SKIN LESIONS, 2 TO 4 09/13/19 19 76236-ZUZU SKIN LESIONS, 2 TO 4 12/13/19 19 86294-MZUZ SKIN LESIONS, 2 TO 4 06/13/20 18 92451-YTND SKIN LESIONS, 2 TO 4 02/04/20 18 87688-QJNM SKIN LESIONS, 2 TO 4 10/12/19 18 71051-LTSK SKIN LESIONS, 2 TO 4 02/24/20 22 88550-WZKK SKIN LESIONS, 2 TO 4 05/28/20 21035-TLJQ SKIN LESIONS, 2 TO 4 09/08/19 23 04354-ZAQV SKIN LESIONS, 2 TO 4 12/04/19 23 45066-QXRU SKIN LESIONS, 2 TO 4 07/12/19 24 81354-KEUP SKIN LESIONS, 2 TO 4 10/11/19 24 36584-MEQP SKIN LESIONS, 2 TO 4 05/06/20 23 45796-MEDW SKIN LESIONS, 2 TO 4 02/16/20 23 13245-JOMR SKIN LESIONS, 2 TO 4 01/03/20 24 95869-JQKB SKIN LESIONS, 2 TO 4 03/27/20 24 24979-TFRR SKIN LESIONS, 2 TO 4 07/10/19 32132-NQJD SKIN LESIONS, 2 TO 4 01/16/20 66864-TRBT SKIN LESIONS, 2 TO 4 10/17/19 25 05618-VMYB NAIL(S) 08/11/2012 74005-XLDZ NAIL(S) 11/03/2012 75362-LYCN NAIL(S) 03/23/2013 37859-HNSD NAIL(S) 07/06/2013 35631-HXCA NAIL(S) 09/25/2013 37077-CRBD NAIL(S) 01/01/2014 73603-NGXO NAIL(S) 07/30/2014 80762-TAOO NAIL(S) 05/23/2012 50705-DYKX NAIL(S) 03/07/2012 11199-TXFH NAIL(S) 07/23/2011 88922-CKBK NAIL(S) 10/22/2011 77537-MEAB NAIL(S) 03/19/2011 08706-VVAT NAIL(S) 01/31/2015 95730-YOAD NAIL(S) 04/26/2014 75109-JLCD NAIL(S) 10/29/2014 Next Appt Details Provider Name:Arden Lezama , 04/19/2025 09:30:00 AM, [address] [facility], [place], [address], Insurance Providers Payer Name Payer Address Payer Phone Subscriber Number Group Number Insured Name Patient Relationship to Insured Coverage Start Date Coverage End Date Medicare National Govt Sv[employer] [address] [place] [address] [phone] [id number] Stuart Alvarado Self - patient is the insured 2 [employer] [facility] [address] [place] [address] [id number] Stuart Alvarado Self - patient is the insured Medical (General) History Medical History History ICD Code transfusions mumps measles chicken pox gall bladder problems vertigo reflux deep vein thrombosis Cataracts type II diabetes Cancer - Leukemia Congestive heart failure Surgical History Surgery Date(Month/Year) whipple procedure 2010 hemorrhoidectomy 06/2014 stent put in 06/12/2016 cataract surgery left 08/2020, Hospitalization History Reason Date(Month/Year) [facility]- Pneumonia/ flu 08/2024 [facility]- Pneumonia 07/02/2024 [facility]- Blockage 11/2023 [facility] Ulcer 09/2023 [facility]-congestive heart failure 6 days 09/13 22 [facility]- congestive heart fa ilure 5 days 1 day at [facility] then transferred to [facility] 04/2022 [facility] ER-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 03/09/2013 Patient went to [facility] ER for DVT. 06/2012
--- OUTSIDE RECORDS SUMMARY | 2025-04-08 07:54 | XMS_ITS | Patient Health Record ---
Author Organization [facility] Address [address] [place] [address] Care Team Providers Care Latent Fingerprint Examiner Name Role Phone Krishna HAAS, Keiry Primary Care Provider Noble Cr [phone] Allergies Allergen (clinical drug ingredient) Drug/Non Drug [...] MOUTH EVERY DAY NEEDED FOR ALLERGIC SYMPTOMS Oral; Duration: 90 Active Torsemide 20 MG TAKE 2 TABLETS BY MOUTH EVERY DAY Oral; Duration: 90 Active Admelog SoloStar 100 UNIT/ML Subcutaneous; Duration: 90 Active Gabapentin 100 MG Oral; Duration: 30 Active Creon 23715-90104 UNIT TAKE 2 CAPSULES BY MOUITH 15-30MIN BEFORE MEAL AND 1 CAP 15-30MIN BEFORE A SNACK *ONLY*; Duration: 30 Active Metoprolol Succinate ER 25 MG Oral; Duration: 90 Act shade Carafate 1 GM 1 tablet on an empty stomach Orally Twice a day 30 to 60 minutes before breakfast and dinner; Duration: 90 days Please review with patient as [...] TAKE 1 TABLET BY MOUTH EVERY DAY Oral; Duration: 90 Active Albuterol Sulfate HFA 108 (90 Base) MCG/ACT 2 puffs as needed Inhalation every 6 hrs Active Vitamin D3 50 MCG (2000 UT) TAKE 1 CAPSULE BY MOUTH EVERY DAY Oral; Duration: 90 Active Immunizations Vaccine Route Administration Date [...] Problem Status W/U Status Risk Notes Problem Screening for malignant neoplasm of colon (541270345) Encounter for screening for malignant neoplasm of colon (Z12.11) Active confirmed Problem History of adenomatous polyp of colon (854724861) History of adenomatous polyp of colon (Z86.010) Active confirmed Problem Weight loss (931730814) Weight loss (R63.4) Active confirmed Problem Alcohol-induced chronic pancreatitis (223806750) 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 Problem Intestinal malabsorption (032185556) Intestinal malabsorption, 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) Active confirmed Problem Gastrojejunal ulcer without hemorrhage, without perforation AND without obstruction (37093445) Anastomotic ulcer (K28.9) Active confirmed Problem Gastrointestinal hemorrhage (27486438) UGI bleed (K92.2) Active confirmed Problem Alcoholic cirrhosis of liver (540653555) Alcoholic cirrhosis of liver (K70.30) Active confirmed Problem Right upper quadrant pain (740847438) Abdominal pain, RUQ (R10.11) Active confirmed Problem Gastroesophageal reflux disease (483294095) GERD (gastroesophagea l reflux disease) (K21.9) Active confirmed Problem Pancreatic insufficiency (17792708) Pancreatic insufficiency (K86.89) Active confirmed Problem Candidiasis of the esophagus (83818364) Candidiasis, esophageal (B37.81) Active confirmed Vital Signs Blood pressure diastolic 77 mm Hg 11/29/2024 Height 67 in 11/29/2024 Blood pressure systolic 111 mm Hg 11/29/2024 Weight 134 lbs 11/29/2024 BMI 20.99 kg/m2 11/29/2024 Encounters Encounter Location Date Provider Diagnosis [facility] [address] [place] [address] 11/29/2024 Noble Manzo Alcohol-induced chronometer repairer dionte pancreatitis K86.0 ; Pancreatic insufficiency K86.89 ; Weight loss R63.4 ; Candidiasis, esophageal B37.81 and GERD (gastroesophageal reflux disease) K21.9 [facility] [address] [place] [address] 11/29/2024 Noble Manzo Assessments Encounter Date Diagnosis (ICD Code) Assessment [...] to follow-up with the GI doctor at [facility] at this time in regard to [...] to follow-up with the GI doctor at [facility] at this time in regard to [...] to follow-up with the GI doctor at [facility] at this time in regard to [...] follow up with the GI doctor at [facility] for the next endoscopy Overall, Anita appears reasonably well considering everything he has been through in the past and over the last few months. It does seem that he is clinically improving with the treatment for his described Ximena esophagitis. I did advise him to follow-up with the GI doctor at [facility] at this time in regard to [...] disease) (ICD-10 - K21.9) Need path from [facility] upper endo in 07/2024, and the upper endo and path reports from end of 10/2024 Overall, Anita appears reasonably well considering everything he has been through in the past and over the last few months. It does seem that he is clinically improving with the treatment for his described Ximena esophagitis. I did advise him to follow-up with the GI doctor at [facility] at this time in regard to [...] Provider Name:Noble Manzo , 12/03/2025 09:10:00 AM, [address] [place] [address], [address], [place], [address], Insurance Providers Payer Name Payer Address Payer Phone Subscriber Number Group Number Insured Name Patient Relationship to Insured Coverage Start Date Coverage End Date MEDICARE OF [place] [address] [place] [address] [phone] [id number] REKHAZULMA ANITA Pederson Self - patient is the insured [employer] ATT[employer] CLAIMS [address] [place] [address] [id number] REKHAZULMA PedersonANITA Self - patient is the insured Medical (General) History Medical History History ICD Code Colonoscopy 09-03-1998--hyperplastic poly ps GERD with Goins's esophagus-last EGD w asin 2006--no dysplasia-small HH History of bleeding ulcers > 30 yrs ago Diverticulitis 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 His upper endoscopy revealed some nonbleeding gastric remnant ulcers and erosions, as well as an anastomotic ulcer with a visible vessel that was treated with epinephrine and a clip. He was on a baby aspirin at that time which was subsequently stopped, Ximena esophagitis - - hosp italizations at [facility] in 2024 for pneumonia and what he reports as fungal esophagitis. He underwent an upper endoscopy in July and October 2024 at [facility]. Myelofibrosis-Dr. Olivera Surgical History Surgery Date(Month/Year) Hemorrhoids with Dr. 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
--- OUTSIDE RECORDS SUMMARY | 2025-04-08 07:55 | XMS_ITS | Encounter Summary ---
Author Organization [facility] Address [address] [facility] [address] [place] [address] Phone Care Team Providers Care General Warehouse Associate Name Role Phone Shannon Keller MD Primary Care Provider [phone] Encounter Details Date Type Department Care Team (Late st Contact Info) Description 01/25/2024 Office Communication [facility] [address] [facility] [address] [place] [address] Gabino Esposito MD [address] [facility] [address] [place] [address] Social History Tobacco Use Types [...] [facility] [address] [place] [address] Gabino Esposito MD [address] [facility] [address] [place] [address] documented as of this encounter Visit Diagnoses Not on filedocumented in this encounter Care Teams General Warehouse Associate Relationship Specialty Start Date End Date Shannon Keller MD [facility] [place] [address] PCP - General Internal Medicine 04/13/22 documented as of this encounter
--- OUTSIDE RECORDS SUMMARY | 2025-04-08 07:55 | XMS_ITS | Clinical Summary ---
Author Organization [facility] Address [address] [address] [facility] [address] [place] [address] Phone Care Team Providers Care Fashion Model Name Role Phone Shannon Keller MD Primary Care Provider [phone] Allergies Active Allergy Reactions Criticality Noted Date [...] Visit [facility] [address] [place] [address] Gabino Esposito MD [address] [facility] [address] [place] [address] Health Maintenance Due Date Last [...] Recently Relevant to Health Maintenance Insurance Medicare [facility] Medicare [facility] Care Teams Fashion Model Relationship Specialty Start Date End Date Shannon Keller MD [address] [place] [address] PCP - General Internal Medicine 04/13/22
--- NOTE | 2025-04-08 08:16 | MHC.PC.OV ---
Vital Signs 04/08/25 08:17 Height 5 ft 6 in Weight 123 lb BMI 19.9 BP 108/64 Blood Pressure Location Lt brachial Position Sitting Pulse 65 Pulse Source Pulse Oximeter Temp 97.6 F Temp Source Oral Pulse Oximetry (%) 98 Oxygen Delivery Method Room Air Intake Visit Reasons: 3 month follow up DM - see comments Cone Operator Required: No Allergies codeine (CODEINE) Allergy (Intermediate, Verified 04/08/25 08:19) RASH nicotine Allergy (Intermediate, Verified 04/08/25 08:19) NICOTINE PATCH- RASH, hives Penicillins Allergy (Intermediate, Verified 04/08/25 08:19) HIVES oxycodone (Percocet) Allergy (Unknown, Verified 04/08/25 08:19) rash, itching meperidine Allergy (Verified 04/08/25 08:19) Itching Medication List - Last Reconciled 04/08/25 by Keiry Keller MD Admelog SoloStar U-100 Insulin (insulin lispro) 3 - 5 units (0.03 - 0.05 mL) subcut TID NS albuterol sulfate 90 mcg/actuation 2 puffs inhalation Q4H PRN allopurinol 100 mg PO DAILY aspirin 81 mg PO DAILY B [id number] 106 mg iron- 1 mg 1 tab PO DAILY blood sugar diagnostic 3 times a day blood sugar diagnostic (FreeStyle Lite Strips) As directed three times a day blood-glucose meter (FreeStyle Lite Meter kit) As directed 3x/day carvedilol 1 tab PO BID cholecalciferol (vitamin D3) 50 mcg PO DAILY cyanocobalamin (vitamin B-12) (Vitamin B-12) 500 mcg PO DAILY [Diabetic shoes & 3 pair inserts as directed] flash glucose scanning reader (FreeStyle Ramiro 2 Jamison) As directed flash glucose sensor (FreeStyle Ramiro 2 Sensor kit) As directed change every 14 days fluticasone propionate 50 mcg/actuation 1 spray intranasal DAILY PRN gabapentin 100 mg PO TID PRN insulin degludec (Tresiba FlexTouch U-100 insulin) 7 units subcut DAILY lancets As directed hzwibm-vlcymsix-futvbaj (pork) 24,000-76,000 -120,000 unit (Creon) 1 cap PO TIDAC loratadine 10 mg PO DAILY PRN metoprolol succinate ER 12.5 mg PO DAILY omeprazole 40 mg PO DAILY pen needle, diabetic USE TO INJECT 4 TIMES A DAY sennosides (senna) 8.6 mg PO BID PRN sucralfate 1 g PO BID torsemide 20 mg PO Q2D Tobacco use date assessed: 04/08/25 Fall risk assessment: No Falls in past year Last assessed Fall Risk: 04/08/25 Dental Screening Dental Screen Date: 04/08/25 Did you have a dental visit in the last 12 months?: No Did you have a dental problem in the last 6 months where you did not have access to dental care?: No Was dental information given to patient?: Patient declined [facility] Medical History (Updated 04/08/25 @ 09:09 by Keiry Keller MD) Gout Cellulitis of toe of left foot Skin lesion of cheek Difficulty walking Anemia in CKD (chronic kidney disease) History of upper gastrointestinal bleeding Peripheral neuropathy Dyspepsia Generalized anxiety disorder Cigarette smoker one half pack a day or less Hemolytic anemia Squamous cell carcinoma of skin Skin lesion of left arm Ascending aortic aneurysm Atherosclerotic cardiovascular disease Acute diastolic (congestive) heart failure Congestive heart failure Eczema of left external ear Macrocytic anemia Positional lightheadedness Depression, major, recurrent, moderate Benign prostatic hyperplasia Fatigue after COVID-19 vaccination Tubular adenoma of colon GERD (gastroesophageal reflux disease) Peripheral vascular disease Degenerative disc disease, cervical Hypertension Dyslipidemia senior living (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 Social History Household Members: Spouse Housing: House Do you presently have visiting nurse or other home services: No Alcohol intake: former Patient Tobacco Use Status: Current everyday Tobacco user Tobacco use type: Cigarette Cigarette Packs Per Day: 1 Years Smoked: 50+ Packs Per Year: 0 e-Cigarette/Vaping Use: Never Used service: No Current occupational status: retired Cognitive needs: No Hearing needs: Yes Vision needs: No Questionnaire Thrive Questionnaire Date Thrive assessed: 03/27/25 I am a: Parent/Caregiver What is your living situation today?: I choose not to answer this question Within the past 12 months, did the food you bought not last and you didn't have the money to get more?: I choose not to answer this question Within the past 12 months, did you worry whether your food would run out before you got money to buy more?: I choose not to answer this question Do you have trouble paying for medicines?: I choose not to answer this question Do you have trouble getting transportation to medical appointments?: I choose not to answer this question Do you have trouble paying your heating and electricity bill?: I choose not to answer this question Do you have trouble taking care of your child, family member or friend?: I choose not to answer this question Do you have trouble with day-to-day activities such as bathing, preparing meals, shopping, managing finances, etc.?: I choose not to answer this question Are you currently unemployed and looking for a job?: I choose not to answer this question Are you interested in more education?: I choose not to answer this question Please select the resources that you would like help with: None Currently or been in a relationship where the following occur: I choose not to answer THRIVE Score: 0 DAVINA-7 AMB Questionnaire DAVINA-7 Date DAVINA - 7 assessed: 04/08/25 Feeling nervous, anxious, or on edge: 0 = Not at all Not being able to stop or control worryin = Not at all Worrying too much about different things: 0 = Not at all Trouble relaxin = Not at all Being so restless that it is hard to sit still: 0 = Not at all Becoming easily annoyed or irritable: 0 = Not at all Feeling afraid as if something awful might happen: 0 = Not at all Total DAVINA-7 score (0-4 normal; 5-9 mild; 10-14 moderate; 15-21 severe): 0 Source: Developed by Drs. Noble Lofton, Gali B.W. Hubert Louise and colleagues, with an educational sabiha from [employer]. Physical exam (Primary Care) Vital Signs: Last Vital Signs Temp 97.6 F 04/08/25 08:17 Pulse 65 04/08/25 08:17 BP 108/64 04/08/25 08:17 Pulse Ox 98 04/08/25 08:17 Oxygen Delivery Method Room Air 04/08/25 08:17 BMI result Body Mass Index 19.9 Tobacco/Smoking Status: Tobacco use Status Tobacco use date assessed 04/08/25 04/08/25 08:27 Patient Tobacco Use Status Current everyday Tobacco 04/08/25 08:27 Tobacco use type Cigarette 04/08/25 08:16 e-Cigarette/Vaping Use Never Used 04/08/25 08:16 Thrive Assessment: Date of Thrive Assessment Date Thrive assessed 03/27/25 04/08/25 08:16 Currently or been in a relationship where the following occur: I choose not to answer Results AMB Hemoglobin A1c AMB Hemoglobin A1c 5.9 % Last Edit by Cassandra Pena CMA on 04/08/25 08:44 Results Reviewed Results Reviewed: Laboratory Last Values Hgb A1c (Clinic) 5.9 % (4.0-6.0) 04/08/25 08:41 Coding Diagnoses Cellulitis of toe of left foot L03.032 Diabetes-pancreatic exocrine dysfunction syndrome E13.9 Gout M10.9 Assessment & Plan Assessment & Plan (1) Cellulitis of toe of left foot: Code(s): L03.032 - Cellulitis of left toe Category: Medical (2) Diabetes-pancreatic exocrine dysfunction syndrome: Code(s): E13.9 - Other specified diabetes mellitus without complications Category: Medical (3) Gout: Code(s): M10.9 - Gout, unspecified Category: Medical Orders: Orders AMB Hemoglobin A1c Today E13.9 - Other specified diabetes mellitus without complications, Z13.9 - Encounter for screening, unspecified Medications: New cephalexin 500 mg PO Q8H 30 caps 0RF 10 days L03.032 - Cellulitis of left toe
[2025-04-08 08:17] VITALS: BP 108/64; PULSE 65; TEMP 36.4; O2SAT 98; BMI 19.9
--- OUTSIDE RECORDS SUMMARY | 2025-05-19 20:00 | XMS_ITS | Clinical Summary ---
Author Organization Unknown Care Team [facility]iders [facility] Name Role Phone HANNA HAAS, [place] BROOKS Unavailable Unavaila mark SRINIVASAN RN, SCOTT Unavailable Unavailable EDWIN PT, KYRA Unavailable Unavailable AYAKA JUNIORN, KERI Unavailable Unavailable KOSCINSKI OT, GEORGINA Unavailable Unavailabl e Payers Payer Name Policy Type Policy Number Effective Date Expira tion Date [place]IC[place] - [place] [id number] Problems Condition Name Condition Details Condition Category Status Onset Date Resolution Date Last Treatment Date Treating Clinician Comments METABOLIC ENCEPHALOPAT HY Active 06-27 00:00: 00 HYPERTENSIVE HEART DISEASE WITH HEART FAILURE Active 06-27 00:00: 00 CHRONIC DIASTOLIC (CONGESTIVE) HEART FAILURE Active 06-27 00:00: 00 UNSPECIFIED SYSTOLIC (CONGESTIVE) HEART FAILURE Active 06-27 00:00: 00 TYPE 2 DIABETES MELLITUS WITH DIABETIC NEUROPATHY, UNSP Active 06-27 00:00: 00 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 Active 06-27 00:00: 00 CHRONIC MYELOPROLIFE RATIVE DISEASE Active 06-27 00:00: 00 ANEMIA IN NEOPLASTIC DISEASE Active 06-27 00:00: 00 ABDOMINAL AORTIC ANEURYSM, WITHOUT RUPTURE, UNSPECIFIED Active 06-27 00:00: 00 ANXIETY DISORDER, UNSPECIFIED Active 06-27 00:00: 00 ATHSCL HEART DISEASE OF [place] CORONARY ARTERY W/O ANG PCTRS Active 06-27 00:00: 00 DEPRESSION, UNSPECIFIED Active 06-27 00:00: 00 GASTRO-ESOPH AGEAL REFLUX DISEASE WITHOUT ESOPHAGITIS Active 06-27 00:00: 00 ELEVATED WHITE BLOOD CELL COUNT, UNSPECIFIED Active 06-27 00:00: 00 NICOTINE DEPENDENCE, CIGARETTES, UNCOMPLICATE D Active 06-27 00:00: 00 UNSPECIFIED HEARING LOSS, LEFT EAR Active 06-27 00:00: 00 POST-TRAUMAT IC STRESS DISORDER, UNSPECIFIED Active 06-27 00:00: 00 ALCOHOL ABUSE, UNCOMPLICATE D Active 06-27 00:00: 00 HYPERLIPIDEM IA, UNSPECIFIED Active 06-27 00:00: 00 ACQUIRED TOTAL ABSENCE OF PANCREAS Active 06-27 00:00: 00 COMMUNITY LIFE DIRECTOR (CURRENT) USE OF ASPIRIN Active 06-27 00:00: 00 Problems related to health literacy Active 06-27 00:00: 00 ACQUIRED ABSENCE OF STOMACH [PART OF] Active 06-27 00:00: 00 PERSONAL HISTORY OF MALIGNANT NEOPLASM OF PANCREAS Active 06-27 00:00: 00 PERSONAL HISTORY OF COVID-19 Active 06-27 00:00: 00 PRESENCE OF OTHER SPECIFIED FUNCTIONAL IMPLANTS Active 06-27 00:00: 00 Allergies, Adverse Reactions, Alerts Allergy Name Allergy Type Status Severity Reaction(s) Onset Date Inactive Date Treating Clinician Comments CODEINE Propensity to adverse reactions Active 03-22 13:48: 45 OXYCODONE Propensity to adverse reactions Active 03-22 13:48: 51 PERCODAN Propensity to adverse reactions Active 03-22 13:48: 57 PERCOCET Propensity to adverse reactions Active 03-22 13:49: 03 PENICILLIN Propensity to adverse reactions Active 03-22 13:49: 09 FLAGYL Propensity to adverse reactions Active 03-22 13:49: 24 LEVOFLOXACIN HYDRATE Propensity to adverse reactions Active 03-22 13:49: 32 Medications Ordered Medication Name Filled Medication Name Start Date Stop Date Current Medication? Ordering Clinician Indication Dosage Frequency Signature (SIG) Comments Components metoprolol succinate ER 25 mg tablet,exte nded release 24 hr 02-22 00:00: 00 Yes [id number] 0.5 tablet DAILY AT BEDTIME 0.5 tablet DAILY AT BEDTIME (route: oral) Med Classific ation: Cardiovas cular Therapy Agents omeprazole 40 mg capsule,del ayed release 02-22 00:00: 00 Yes [id number] 40 mg EVERY DAY 40 mg EVERY DAY (route: oral) Med Classific ation: Gastroint estinal Therapy Agents torsemide 20 mg tablet 02-22 00:00: 00 Yes [id number] 1 tablet EVERY DAY 1 tablet EVERY DAY (route: oral) Med Classific ation: Cardiovas cular Therapy Agents Vitamin D3 50 mcg (2,000 unit) capsule 02-22 00:00: 00 03-22 23:59 :00 No [id number] Per instruc tions EVERY DAY Per instructio ns EVERY DAY (route: oral) Med Classific ation: Electroly te Balance-N utritiona l Products albuterol sulfate HFA 90 mcg/actuati on aerosol inhaler 03-21 00:00: 00 Yes [id number] 2 puff NEEDED 2 puff NEEDED (route: inhalation ) Med Classific ation: Respirato ry Therapy Agents aspirin 81 mg tablet 03-21 00:00: 00 Yes [id number] 1 tablet DAILY 1 tablet DAILY (route: oral) Med Classific ation: Hematolog ical Agents Colace 100 mg capsule 03-21 00:00: 00 Yes [id number] 1 capsule 2 TIMES DAILY 1 capsule 2 TIMES DAILY (route: oral) Med Classific ation: Gastroint estinal Therapy Agents Creon 24,000-76,0 00-120,000 unit capsule,del ayed release 03-21 00:00: 00 Yes [id number] 2 capsule 3 TIMES DAILY 2 capsule 3 TIMES DAILY (route: oral) Med Classific ation: Gastroint estinal Therapy Agents fluticasone 500 mcg-salmete rol 50 mcg/dose blistr powdr for inhalation 03-21 00:00: 00 Yes [id number] 1 inhalat ion NEEDED 1 inhalation NEEDED (route: inhalation ) Med Classific ation: Respirato ry Therapy Agents gabapentin 100 mg capsule 03-21 00:00: 00 Yes [id number] 1 capsule 2 TIMES DAILY 1 capsule 2 TIMES DAILY (route: oral) Med Classific ation: Central Nervous System Agents insulin lispro (U-100) 100 unit/mL subcutaneou s solution 03-21 00:00: 00 Yes [id number] Per instruc tions BEFORE MEALS Per instructio ns BEFORE MEALS (route: subcutaneo us) Med Classific ation: Endocrine loratadine 10 mg tablet 03-21 00:00: 00 Yes [id number] 1 tablet DAILY 1 tablet DAILY (route: oral) Med Classific ation: Respirato ry Therapy Agents multivitami n tablet 03-21 00:00: 00 Yes [id number] 1 tablet DAILY 1 tablet DAILY (route: oral) Med Classific ation: Electroly te Balance-N utritiona l Products pantoprazol e 40 mg tablet,uche yed release 03-21 00:00: 00 Yes [id number] 1 tablet 2 TIMES DAILY 1 tablet 2 TIMES DAILY (route: oral) Med Classific ation: Gastroint estinal Therapy Agents thiamine HCl (vitamin B1) 100 mg tablet 03-21 00:00: 00 Yes [id number] 1 tablet DAILY 1 tablet DAILY (route: oral) Med Classific ation: Electroly te Balance-N utritiona l Products Tresiba FlexTouch U-100 insulin 100 unit/mL (3 mL) subcutaneou s pen 03-21 00:00: 00 Yes [id number] 4 unit DAILY 4 unit DAILY (route: subcutaneo us) Med Classific ation: Endocrine Tylenol 325 mg tablet 03-21 00:00: 00 Yes [id number] 2 tablet NEEDED 2 tablet NEEDED (route: oral) Med Classific ation: Analgesic , Anti-infl ammatory or Antipyret ic Vitamin B-12 1,000 mcg tablet 03-21 00:00: 00 Yes [id number] 1 tablet DAILY 1 tablet DAILY (route: oral) Med Classific ation: Electroly te Balance-N utritiona l Products Vitamin D2 1,250 mcg (50,000 unit) capsule 03-21 00:00: 00 Yes [id number] 1 capsule WEEKLY 1 capsule WEEKLY (route: oral) Med Classific ation: Electroly te Balance-N utritiona l Products Immunizations Ordered Immunization Name Filled Immunization Name Date Status Comments Refusal Reason INFLUENZA, TIV (INACTIVATED) 2025-03-20 00:00:00 SHINGLES, TIV (INACTIVATED) 2023-03-09 00:00:00 COVID-19, COVID-19 2022 00:00:00 PNEUMOCOCCAL (PPV), PPV 2022 00:00:00 Vital Signs Vital Name Observation Time Observation Value Commen ts Temperature 2025-04-05 12:51:00.000 97.3 [degF] Temperature 2025-04-04 12:02:00.000 98.4 [degF] Temperature 2025-04-02 12:42:00.000 96.6 [degF] Temperature 2025-03-29 12:08:00.000 98.1 [degF] Temperature 2025-03-27 11:13:00.000 97.9 [degF] Temperature 2025-03-26 13:20:00.000 96.6 [degF] Temperature 2025-03-22 09:19:00.000 97.3 [degF] BMI (%) 2025-03-22 09:19:00.000 19 kg/m2 Height 2025-03-22 09:19:00.000 66 [in_us] Pulse 2025-04-05 12:51:00.000 65 /min Pulse 2025-04-04 12:02:00.000 78 /min Pulse 2025-04-02 12:42:00.000 68 /min Pulse 2025-03-29 12:08:00.000 67 /min Pulse 2025-03-27 11:13:00.000 65 /min Pulse 2025-03-26 13:20:00.000 72 /min Pulse 2025-03-22 09:19:00.000 63 /min O2 Saturation (%) 2025-04-04 12:02:00.000 97 % O2 Saturation (%) 2025-04-02 12:51:00.000 98 % O2 Saturation (%) 2025-03-27 11:13:00.000 100 % O2 Saturation (%) 2025-03-26 13:20:00.000 98 % O2 Saturation (%) 2025-03-22 09:19:00.000 94 % Respirations 2025-04-05 12:51:00.000 18 /min Respirations 2025-04-04 12:02:00.000 18 /min Respirations 2025-04-02 12:42:00.000 18 /min Respirations 2025-03-29 12:08:00.000 18 /min Respirations 2025-03-27 11:13:00.000 18 /min Respirations 2025-03-26 13:20:00.000 20 /min Respirations 2025-03-22 09:19:00.000 20 /min Weight (lbs) 2025-04-04 19:03:00.000 122 [lb_av] Weight (lbs) 2025-03-27 11:15:00.000 122 [lb_av] Weight (lbs) 2025-03-22 09:19:00.000 120 [lb_av] Systolic Blood Pressure 2025-04-05 12:51:00.000 117 mm [Hg] Systolic Blood Pressure 2025-04-04 12:02:00.000 138 mm [Hg] Systolic Blood Pressure 2025-04-02 12:42:00.000 112 mm [Hg] Systolic Blood Pressure 2025-03-29 12:08:00.000 112 mm [Hg] Systolic Blood Pressure 2025-03-27 11:13:00.000 122 mm [Hg] Systolic Blood Pressure 2025-03-26 13:20:00.000 132 mm [Hg] Systolic Blood Pressure 2025-03-22 09:19:00.000 142 mm [Hg] Diastolic Blood Pressure 2025-04-05 12:51:00.000 68 mm [Hg] Diastolic Blood Pressure 2025-04-04 12:02:00.000 88 mm [Hg] Diastolic Blood Pressure 2025-04-02 12:42:00.000 70 mm [Hg] Diastolic Blood Pressure 2025-03-29 12:08:00.000 68 mm [Hg] Diastolic Blood Pressure 2025-03-27 11:13:00.000 64 mm [Hg] Diastolic Blood Pressure 2025-03-26 13:20:00.000 68 mm [Hg] Diastolic Blood Pressure 2025-03-22 09:19:00.000 68 mm [Hg] Plan of Treatment Planned Activity Planned Date Details Comments Future Scheduled Test SKILLED NU RSE TO EVALUATE PATIENT, IDENTIFY PRIMARY AND CO-MORBID CONDITIONS CODED PER CODING GUIDELINES, AND DEVELOP PATIENT SPECIFIC PLAN OF CARE THAT INCLUDES PATIENT GOAL FOR HOME HEALTH. [code = SKILLED NURSE TO EVALUATE PATIENT, IDENTIFY PRIMARY AND CO-MORBID CONDITIONS CODED PER CODING GUIDELINES, AND DEVELOP PATIENT SPECIFIC PLAN OF CARE THAT INCLUDES PATIENT GOAL FOR HOME HEALTH.] Future Scheduled Test SKILLED NU RSE TO PROVIDE TEACHING/REINFORCEMENT RELATED TO URINARY INCONTINENCE. [code = SKILLED NURSE TO PROVIDE TEACHING/REINFORCEMENT RELATED TO URINARY INCONTINENCE.] Future Scheduled Test SKILLED NU RSE TO ASSESS ANXIETY AND PROVIDE ASSISTANCE TO PATIENT FOR UNDERSTANDING AND MANAGEMENT OF FEELINGS. [code = SKILLED NURSE TO ASSESS ANXIETY AND PROVIDE ASSISTANCE TO PATIENT FOR UNDERSTANDING AND MANAGEMENT OF FEELINGS.] Future Scheduled Test SKILLED NU RSE FOR O/A AND TEACHING RELATED TO MYELOFIBROSIS INCLUDING SIGNS AND SYMPTOMS OF DISEASE PROGRESSION, TREATMENT, AND MANAGEMENT OF POTENTIAL SIDE EFFECTS. [code = SKILLED NURSE FOR O/A AND TEACHING RELATED TO MYELOFIBROSIS INCLUDING SIGNS AND SYMPTOMS OF DISEASE PROGRESSION, TREATMENT, AND MANAGEMENT OF POTENTIAL SIDE EFFECTS.] Future Scheduled Test SKILLED NU RSE FOR O/A, TEACHING RELATED TO GERD FOR EARLY IDENTIFICATION OF EXACERBATION OF DISEASE PROCESS. [code = SKILLED NURSE FOR O/A, TEACHING RELATED TO GERD FOR EARLY IDENTIFICATION OF EXACERBATION OF DISEASE PROCESS.] Future Scheduled Test OCCUPATION AL THERAPIST TO EVALUATE PATIENT FOR ADL MANAGEMENT [code = OCCUPATIONAL THERAPIST TO EVALUATE PATIENT FOR ADL MANAGEMENT] Future Scheduled Test SKILLED NU RSE FOR O/A OF RESPIRATORY SYSTEM TO IDENTIFY CHANGES ASSOCIATED WITH EXACERBATION AND TO PROVIDE SKILLED TEACHING ON MANAGEMENT OF COVID 19 PROCESS. [code = SKILLED NURSE FOR O/A OF RESPIRATORY SYSTEM TO IDENTIFY CHANGES ASSOCIATED WITH EXACERBATION AND TO PROVIDE SKILLED TEACHING ON MANAGEMENT OF COVID 19 PROCESS.] Future Scheduled Test SKILLED NU RSE TO INSTRUCT/REINFORCE MEASURES TO PREVENT BARRIERS TO CARE. [code = SKILLED NURSE TO INSTRUCT/REINFORCE MEASURES TO PREVENT BARRIERS TO CARE.] Future Scheduled Test SKILLED NU RSE TO OBTAIN BLOOD SUGAR PRN FOR SIGNS AND SYMPTOMS OF HYPO/HYPERGLYCEMIA. IF OBTAINED BY PATIENT/CAREGIVER PRIOR TO VISIT AND PATIENT IS NOT SYMPTOMATIC, SKILLED NURSE TO RECORD READING FROM PATIENT LOG. [code = SKILLED NURSE TO OBTAIN BLOOD SUGAR PRN FOR SIGNS AND SYMPTOMS OF HYPO/HYPERGLYCEMIA. IF OBTAINED BY PATIENT/CAREGIVER PRIOR TO VISIT AND PATIENT IS NOT SYMPTOMATIC, SKILLED NURSE TO RECORD READING FROM PATIENT LOG.] Future Scheduled Test SKILLED NU RSE FOR O/A OF MUSCULOSKELETAL STATUS AND TEACHING ON MEASURES TO MANAGE HIP AND NEUROPATHY PAIN AND TO MAINTAIN SAFETY WITH ACTIVITY [code = SKILLED NURSE FOR O/A OF MUSCULOSKELETAL STATUS AND TEACHING ON MEASURES TO MANAGE HIP AND NEUROPATHY PAIN AND TO MAINTAIN SAFETY WITH ACTIVITY] Future Scheduled Test SKILLED NU RSE FOR O/A TO IDENTIFY CHANGES ASSOCIATED WITH METABOLIC ENCEPHALOPATHY AND PROVIDE INSTRUCTION RELATED TO SAFETY MEASURES TO PREVENT INJURY SECONDARY TO IMPAIRED NEUROLOGICAL STATUS. SKILLED NURSE TO REPORT SIGNIFICANT CHANGES OF NEUROLOGIC STATUS TO PHYSICIAN FOR EARLY INTERVENTION. [code = SKILLED NURSE FOR O/A TO IDENTIFY CHANGES ASSOCIATED WITH METABOLIC ENCEPHALOPATHY AND PROVIDE INSTRUCTION RELATED TO SAFETY MEASURES TO PREVENT INJURY SECONDARY TO IMPAIRED NEUROLOGICAL STATUS. SKILLED NURSE TO REPORT SIGNIFICANT CHANGES OF NEUROLOGIC STATUS TO PHYSICIAN FOR EARLY INTERVENTION.] Future Scheduled Test SKILLED NU RSE FOR O/A AND SKILLED TEACHING IN MANAGEMENT OF CAD. [code = SKILLED NURSE FOR O/A AND SKILLED TEACHING IN MANAGEMENT OF CAD.] Future Scheduled Test PHYSICAL T HERAPIST TO EVALUATE PATIENT FOR GAIT TRAINING AND STRENGTHENING [code = PHYSICAL THERAPIST TO EVALUATE PATIENT FOR GAIT TRAINING AND STRENGTHENING] Future Scheduled Test SKILLED NU RSE TO PROVIDE TEACHING ON SIGNS AND SYMPTOMS AND MANAGEMENT OF HYPERTENSION. [code = SKILLED NURSE TO PROVIDE TEACHING ON SIGNS AND SYMPTOMS AND MANAGEMENT OF HYPERTENSION.] Future Scheduled Test SKILLED NU RSE FOR O/A, TEACHING AND SELF-MANAGEMENT RELATED TO HEART FAILURE. INSTRUCT PATIENT/CAREGIVER ON SIGNS AND SYMPTOMS OF EXACERBATION TO REPORT AND IMPORTANCE OF OBTAINING AND RECORDING DAILY WEIGHT AND/OR MEASUREMENTS. SN OR TRAINED PATIENT/CAREGIVER TO OBTAIN WEIGHT DAILY AND WEIGHT GAIN OF 2 LBS OVERNIGHT OR 5 LBS IN 1 WEEK TO BE REPORTED TO PHYSICIAN/PROVIDER. [code = SKILLED NURSE FOR O/A, TEACHING AND SELF-MANAGEMENT RELATED TO HEART FAILURE. INSTRUCT PATIENT/CAREGIVER ON SIGNS AND SYMPTOMS OF EXACERBATION TO REPORT AND IMPORTANCE OF OBTAINING AND RECORDING DAILY WEIGHT AND/OR MEASUREMENTS. SN OR TRAINED PATIENT/CAREGIVER TO OBTAIN WEIGHT DAILY AND WEIGHT GAIN OF 2 LBS OVERNIGHT OR 5 LBS IN 1 WEEK TO BE REPORTED TO PHYSICIAN/PROVIDER.] Future Scheduled Test SKILLED NU RSE FOR O/A AND SKILLED TEACHING RELATED TO SIGNS AND SYMPTOMS AND MANAGEMENT OF ANEMIA. [code = SKILLED NURSE FOR O/A AND SKILLED TEACHING RELATED TO SIGNS AND SYMPTOMS AND MANAGEMENT OF ANEMIA.] Future Scheduled Test SKILLED NU RSE FOR O/A AND TEACHING OF DIABETIC MANAGEMENT INCLUDING BLOOD SUGAR MONITORING/USE OF GLUCOMETER, DIABETIC DIET, LOWER EXTREMITY SKIN INSPECTION, PROPER SKIN/FOOT CARE, AND SIGNS AND SYMPTOMS HYPO/HYPERGLYCEMIA TO REPORT. [code = SKILLED NURSE FOR O/A AND TEACHING OF DIABETIC MANAGEMENT INCLUDING BLOOD SUGAR MONITORING/USE OF GLUCOMETER, DIABETIC DIET, LOWER EXTREMITY SKIN INSPECTION, PROPER SKIN/FOOT CARE, AND SIGNS AND SYMPTOMS HYPO/HYPERGLYCEMIA TO REPORT.] Future Scheduled Test PATIENT MIN S A RISK OF HOSPITALIZATION AND ED USE. SKILLED NURSE TO ESTABLISH SUPPORT MEASURES TO MINIMIZE RISK OF HOSPITALIZATION AND ED USE, AND INSTRUCT PATIENT/CAREGIVER ON METHODS TO REDUCE AVOIDABLE HOSPITALIZATION AND ED USE. [code = PATIENT HAS A RISK OF HOSPITALIZATION AND ED USE. SKILLED NURSE TO ESTABLISH SUPPORT MEASURES TO MINIMIZE RISK OF HOSPITALIZATION AND ED USE, AND INSTRUCT PATIENT/CAREGIVER ON METHODS TO REDUCE AVOIDABLE HOSPITALIZATION AND ED USE.] Future Scheduled Test SKILLED NU RSE TO PROVIDE INSTRUCTION TO PATIENT/CAREGIVER RELATED TO DISCHARGE PLANNING. [code = SKILLED NURSE TO PROVIDE INSTRUCTION TO PATIENT/CAREGIVER RELATED TO DISCHARGE PLANNING.] Future Scheduled Test SKILLED NU RSE TO PERFORM ENVIRONMENTAL SAFETY RISK ASSESSMENT AND FALL RISK ASSESSMENT AND PROVIDE INSTRUCTION TO IMPLEMENT ENVIRONMENTAL SAFETY AND FALL PREVENTION STRATEGIES THROUGHOUT THE CERTIFICATION PERIOD. SKILLED NURSE WILL MAINTAIN SITUATIONAL AWARENESS AND WILL NOTIFY CLINICAL RIVETER PORTABLE MACHINE AND PHYSICIAN/PROVIDER WITH ANY CHANGE IN CONDITION. [code = SKILLED NURSE TO PERFORM ENVIRONMENTAL SAFETY RISK ASSESSMENT AND FALL RISK ASSESSMENT AND PROVIDE INSTRUCTION TO IMPLEMENT ENVIRONMENTAL SAFETY AND FALL PREVENTION STRATEGIES THROUGHOUT THE CERTIFICATION PERIOD. SKILLED NURSE WILL MAINTAIN SITUATIONAL AWARENESS AND WILL NOTIFY CLINICAL RIVETER PORTABLE MACHINE AND PHYSICIAN/PROVIDER WITH ANY CHANGE IN CONDITION.] Future Scheduled Test SKILLED NU RSE FOR OBSERVATION AND ASSESSMENT OF PATIENT S PAIN LEVEL AND EFFECTIVENESS OF PAIN MANAGEMENT REGIMEN. SKILLED NURSE TO INSTRUCT PATIENT/CAREGIVER REGARDING PHARMACOLOGIC AND NON-PHARMACOLOGIC PAIN CONTROL MEASURES. SKILLED NURSE TO REPORT TO PHYSICIAN IF PAIN LEVEL IS OUTSIDE OF ESTABLISHED PARAMETERS. [code = SKILLED NURSE FOR OBSERVATION AND ASSESSMENT OF PATIENT S PAIN LEVEL AND EFFECTIVENESS OF PAIN MANAGEMENT REGIMEN. SKILLED NURSE TO INSTRUCT PATIENT/CAREGIVER REGARDING PHARMACOLOGIC AND NON-PHARMACOLOGIC PAIN CONTROL MEASURES. SKILLED NURSE TO REPORT TO PHYSICIAN IF PAIN LEVEL IS OUTSIDE OF ESTABLISHED PARAMETERS.] Future Scheduled Test SKILLED NU RSE TO ASSESS PATIENT'S SKIN INTEGRITY AND INSTRUCT PATIENT/CAREGIVER ON MEASURES TO PREVENT PRESSURE ULCERS. [code = SKILLED NURSE TO ASSESS PATIENT'S SKIN INTEGRITY AND INSTRUCT PATIENT/CAREGIVER ON MEASURES TO PREVENT PRESSURE ULCERS.] Future Scheduled Test SKILLED NU RSE TO PROVIDE ASSESSMENT AND TEACHING/REINFORCEMENT OF MANAGEMENT OF DEPRESSION INCLUDING DISEASE PROCESS, MEDICATION MANAGEMENT, COPING SKILLS AND IDENTIFY CHANGES ASSOCIATED WITH DEPRESSIVE DISORDERS FOR EARLY INTERVENTION. [code = SKILLED NURSE TO PROVIDE ASSESSMENT AND TEACHING/REINFORCEMENT OF MANAGEMENT OF DEPRESSION INCLUDING DISEASE PROCESS, MEDICATION MANAGEMENT, COPING SKILLS AND IDENTIFY CHANGES ASSOCIATED WITH DEPRESSIVE DISORDERS FOR EARLY INTERVENTION.] Future Scheduled Test SKILLED NU RSE TO INSTRUCT PATIENT/CAREGIVER ON S/S OF NEUROPATHY AND METHODS TO MANAGE. [code = SKILLED NURSE TO INSTRUCT PATIENT/CAREGIVER ON S/S OF NEUROPATHY AND METHODS TO MANAGE.] Future Scheduled Test SKILLED NU RSE TO REVIEW PATIENT MEDICATIONS (PRESCRIPTION/OTC). INSTRUCT PATIENT/CAREGIVER ON ALL MEDICATIONS INCLUDING PURPOSE, WHEN TO TAKE, IMPORTANCE OF MEDICATION ADHERENCE, MONITORING OF EFFECTIVENESS, ADVERSE DRUG REACTIONS, POSSIBLE SIDE EFFECTS, AND WHEN TO NOTIFY AGENCY OR PHYSICIAN/PROVIDER OF ANY CONCERNS. [code = SKILLED NURSE TO REVIEW PATIENT MEDICATIONS (PRESCRIPTION/OTC). INSTRUCT PATIENT/CAREGIVER ON ALL MEDICATIONS INCLUDING PURPOSE, WHEN TO TAKE, IMPORTANCE OF MEDICATION ADHERENCE, MONITORING OF EFFECTIVENESS, ADVERSE DRUG REACTIONS, POSSIBLE SIDE EFFECTS, AND WHEN TO NOTIFY AGENCY OR PHYSICIAN/PROVIDER OF ANY CONCERNS.] Future Scheduled Test PHYSICAL T HERAPIST TO EVALUATE PATIENT SECONDARY TO FUNCTIONAL DEFICITS/SAFETY CONCERNS. PHYSICAL THERAPIST TO ASSESS BEST PRACTICE INTERVENTIONS TO ASSIST PATIENTS TO IMPROVE OR STABILIZE MEDICAL STATUS AND PREVENT RE-HOSPITALIZATION. MEASURES INCLUDING REVIEW AND IDENTIFICATION OF CONCERNS FOR THE FOLLOWING AREAS: DEPRESSION, DRUG REGIMEN, DIABETIC FOOT CARE, ENVIRONMENTAL SAFETY ISSUES AND FALLS, PRESSURE ULCERS, PAIN, AND DISEASE MANAGEMENT. PHYSICAL THERAPY TO ESTABLISH /UPGRADE/DOWNGRADE THERAPEUTIC EXERCISE PROGRAM AND INSTRUCT PATIENT/CAREGIVER ON EXERCISE PRECAUTIONS WITH WRITTEN HOME PROGRAM. MAY INCLUDE PROM, AAROM, AROM, RROM APPROPRIATE TO IMPROVE FUNCTIONAL STRENGTH AND RANGE OF MOTION. PHYSICAL THERAPY TO INSTRUCT PATIENT/CAREGIVER ON BED MOBILITY TECHNIQUES TO IMPROVE PATIENT MOBILITY AND POSITIONING TECHNIQUES IN ORDER TO INCREASE PATIENT S COMFORT AND DECREASE RISK OF SKIN BREAKDOWN. PHYSICAL THERAPY TO INSTRUCT PATIENT/CAREGIVER ON SAFE TRANSFER TECHNIQUES USING PROPER BODY MECHANICS AND EQUIPMENT. PHYSICAL THERAPY TO INSTRUCT PATIENT/CAREGIVER ON GAIT TRAINING TECHNIQUES USING APPROPRIATE ASSISTIVE DEVICE, PROPER BODY MECHANICS TO IMPROVE MOBILITY, AND PREVENT INJURY OF PATIENT AND/OR CAREGIVER. PHYSICAL THERAPY TO ASSESS AND RECOMMEND HOME SAFETY ADAPTATIONS AND EDUCATE PATIENT /CAREGIVER ON FALL PREVENTION STRATEGIES. PHYSICAL THERAPY FOR OBSERVATION AND ASSESSMENT OF PAIN, EFFECTIVENESS OF PAIN MANAGEMENT REGIMEN AND SKILLED TEACHING RELATED TO PAIN MANAGEMENT. THERAPIST TO REPORT INCREASED PAIN LEVEL TO PHYSICIAN FOR PROMPT INTERVENTION. PHYSICAL THERAPY TO INSTRUCT PATIENT/CAREGIVER ON BALANCE AND BALANCE STRATEGIES TO IMPROVE SAFE MOBILITY AND REDUCE RISK FOR FALL AND INJURY SUMMARY OF THERAPY EVAL/ASSESSMENT FINDINGS AND REASON(S) SKILLS OF A THERAPIST ARE INDICATED: PHYSICAL THERAPY EVALUATION (03/26/25) PATIENT IS A FORGETFUL [place] 80 YO MALE WITH PHYSICAL THERAPY REFERR[place] [facility] [facility] DX: COVID 19+ COMPLICATED BY METABOLIC ENCEPHALOPATHY. PATIENT TRANSITIONED TO 2 DAY SNF STAY (03/19 - 03/21) PATIENT NOT SATISFIED WITH CARE AND REQUESTED D/C HOME. PMH: MYELOFIBROSIS (BEING TREATED BY [facility] [place] RECEIVING MONTHLY INJECTIONS), MICROCYTIC ANEMIA, JAC2 MUTATION POSITIVE, ANXIETY, DEPRESSION, HTN, CHF, HLD, GERD, DM, WHIPPLE PROCEDURE ON CREON, ENTERITIS, AND CAD. PATIENT CURRENTLY SMOKES CIGARETTES, APPROX 1/2 PACK DAY. PATIENT REPORTS SIGNIFICANT BILAT LE NEUROPATHY PAIN AND WORSENING LEFT FOOT DROP, HAS VISITED MULTIPLE NEUROLOGISTS. FALL HISTORY: NO RECENT FALLS PLOF: MOD I WITH TRANSFERS AND AMB, RECEIVED DAILY ASSISTANCE FROM FAMILY WITH ADLS/IADLS PATIENT LIVES IN SINGLE FAMILY HOME WITH SUPPORTIVE FAMILY (NEPHEW KEITH WHO SLEEPS OVERNIGHT) AND SISTER JIMBO AND PANTOGRAPH SETTER (VISITING [employer] RODRIGUEZ 3.5 HRS -) CURRENTLY PROVIDING 17/01 CARE. OUTDOOR STAIRS: 3 STAIRS WITH RAIL, 1 THRESHOLD STEP WITH GRAB HANDLE, 1 INDOOR STEP TO NEGOTIATE. CLOF: DME: POWER WHEELCHAIR, FWW, ROLLATOR, BEDSIDE COMMODE, GRAB HANDLE BY DOOR SAFETY RECOMMENDATIONS: DECREASE BED HEIGHT, BED RAIL ACQUISITION, USE AD WITH ALL TRANSFERS AND AMB, REMOVAL OF LOOSE RUG IN BEDROOM HAZARDOUS, GRAB HANDLE INSTALLATION FOR INDOOR STEP VISITING [employer] PANTOGRAPH SETTER LAKSHMI PRESENT SPOKE WITH MELANI OF [facility]'S OFFICE, MELANI INFORMED PATIENT MISSED TODAY'S PROCRIT INJECTION, RESCHEDULED FOR 03/29/25 AT 9:45 AM WITH NEPHEW KEITH PRESENT. PATIENT HAS [facility] FOLLOWUP 04/23, PATIENT REPORTS 8/10 BILAT LE FEET NEUROPATHY PAIN AND BILAT HIP PAIN. WITH LIGHT TOUCH SENSORY TESTING, PATIENT REPORTED PAIN INCREASED TO 10/10. PATIENT REPORTS GABAPENTIN NOT EFFECTIVE RELIEVING PAIN, IS NOT TAKING TYLENOL. ENCOURAGED PATIENT TO START TAKING TYLENOL FOR PAIN RELIEF, VERBALIZED UNDERSTANDING. BILAT LE LE ROM WFL EXCEPT 0 DEGREES OF AROM LEFT DORSIFLEXION AND DIMINISHED BILAT HIP ROM ( 10 DEGREES SUPINE HIP FLEX, 0 DEGREES HIP ABD). BILAT LE STRENGTH HIPS: 2-/5, KNEES 3+/5, ANKLES L: 1/5, R: 3+/5. TO INCREASE BILAT LE STRENGTH, INSTRUCTED PATIENT IN BILAT LE THER EXER: R DORSIFLEX X 10, BILAT PLANTARFLEX X 10, KNEE EXT X 5 (PATIENT REPORTS INCREASED HIP PAIN WITH COMPLETION), AAROM HIP FLEX X 5. DISPENSED HEP SHEET. PATIENT ABLE TO COMPLETE SUPINE -->SIT WITH SUPERVISION, VERBAL CUES TO MAX SAFETY, RECOMMEND BED RAIL TO MAX SAFETY. PATIENT COMPLETED SIT-->STAND FROM ROCKING RECLINER WITH MOD A AND HANDHELD ASSIST, PATIENT RESISTANT TO USING AD (RECOMMEND FWW) WITH COMPLETION. PATIENT ABLE TO TRANSFER ON -->OFF BED WITH CGA, VERBAL CUES FOR ROLLATOR POSITIONING. STATIC STAND = FAIR-. PATIENT AMB 6' X 2 FROM RECLINER --> INDOOR STEP WITH CGA AND USE OF STURDY FURNITURE, PATIENT RESISTANT TO USING AD (RECOMMEND FWW) WITH COMPLETION. PATIENT ASCENDED/DESCENDED 1 THRESHOLD STEP WITH CGA AND VERBAL CUES FOR UE SUPPORT AND LE SEQUENCING, PATIENT RESISTANT TO USING AD (RECOMMEND FWW). PATIENT AMB 20' X 2 WITH ROLLATOR AND CGA, DEMO DIMINISHED BILAT STEPS WITH RIGHT LE ADVANCEMENT WITH NO CLEARANCE LEFT LE. PATIENT PRESENTS WITH THE FOLLOWING DEFICITS: BILAT LE PAIN, BILAT LE WEAKNESS, DECREASED ENDURANCE, INCLUDING LEFT FOOT DROP, RESULTING IN DIFFICULTY WITH BED MOBILITY, TRANSFERS, AMB AND STAIR NEGOTIATION. [facility] THERAPY FREQ 1X6WKS TO ADDRESS DEFICITS, MAX SAFETY AND FUNCTIONAL LEVEL IN HOME IN ENVIRONMENT WITH BED MOBILITY TRAINING, TRANSFER TRAINING, GAIT TRAINING, INSTRUCT IN THER EXER, ESTABLISH HEP, STAIR NEGOTIATION. PATIENT AND CG KEITH INFORMED ABOUT PHYSICAL THERAPY POC INCLUDING FREQ, VERBALIZED ACCEPTANCE. MD NOTIFIED ABOUT PATIENT STATUS AND POC. BARRIER TO PATIENT ACHIEVING GOALS ARE SEVERE BILAT LE PAIN AND CONTINUING TO SMOKE. CONTINUE GOALS FROM PHYSICAL THERAPY EVALUATION WITH EXPECTED DATE OF COMPLETION SPECIFIED ON ORDER FREQUENCY AND DURATION. [code = PHYSICAL THERAPIST TO EVALUATE PATIENT SECONDARY TO FUNCTIONAL DEFICITS/SAFETY CONCERNS. PHYSICAL THERAPIST TO ASSESS BEST PRACTICE INTERVENTIONS TO ASSIST PATIENTS TO IMPROVE OR STABILIZE MEDICAL STATUS AND PREVENT RE-HOSPITALIZATION. MEASURES INCLUDING REVIEW AND IDENTIFICATION OF CONCERNS FOR THE FOLLOWING AREAS: DEPRESSION, DRUG REGIMEN, DIABETIC FOOT CARE, ENVIRONMENTAL SAFETY ISSUES AND FALLS, PRESSURE ULCERS, PAIN, AND DISEASE MANAGEMENT. PHYSICAL THERAPY TO ESTABLISH /UPGRADE/DOWNGRADE THERAPEUTIC EXERCISE PROGRAM AND INSTRUCT PATIENT/CAREGIVER ON EXERCISE PRECAUTIONS WITH WRITTEN HOME PROGRAM. MAY INCLUDE PROM, AAROM, AROM, RROM APPROPRIATE TO IMPROVE FUNCTIONAL STRENGTH AND RANGE OF MOTION. PHYSICAL THERAPY TO INSTRUCT PATIENT/CAREGIVER ON BED MOBILITY TECHNIQUES TO IMPROVE PATIENT MOBILITY AND POSITIONING TECHNIQUES IN ORDER TO INCREASE PATIENT S COMFORT AND DECREASE RISK OF SKIN BREAKDOWN. PHYSICAL THERAPY TO INSTRUCT PATIENT/CAREGIVER ON SAFE TRANSFER TECHNIQUES USING PROPER BODY MECHANICS AND EQUIPMENT. PHYSICAL THERAPY TO INSTRUCT PATIENT/CAREGIVER ON GAIT TRAINING TECHNIQUES USING APPROPRIATE ASSISTIVE DEVICE, PROPER BODY MECHANICS TO IMPROVE MOBILITY, AND PREVENT INJURY OF PATIENT AND/OR CAREGIVER. PHYSICAL THERAPY TO ASSESS AND RECOMMEND HOME SAFETY ADAPTATIONS AND EDUCATE PATIENT /CAREGIVER ON FALL PREVENTION STRATEGIES. PHYSICAL THERAPY FOR OBSERVATION AND ASSESSMENT OF PAIN, EFFECTIVENESS OF PAIN MANAGEMENT REGIMEN AND SKILLED TEACHING RELATED TO PAIN MANAGEMENT. THERAPIST TO REPORT INCREASED PAIN LEVEL TO PHYSICIAN FOR PROMPT INTERVENTION. PHYSICAL THERAPY TO INSTRUCT PATIENT/CAREGIVER ON BALANCE AND BALANCE STRATEGIES TO IMPROVE SAFE MOBILITY AND REDUCE RISK FOR FALL AND INJURY SUMMARY OF THERAPY EVAL/ASSESSMENT FINDINGS AND REASON(S) SKILLS OF A THERAPIST ARE INDICATED: PHYSICAL THERAPY EVALUATION (03/26/25) PATIENT IS A FORGETFUL [place] 80 YO MALE WITH PHYSICAL THERAPY REFERRAL [place] [facility] DX: COVID 19+ COMPLICATED BY METABOLIC ENCEPHALOPATHY. PATIENT TRANSITIONED TO 2 DAY SNF STAY (03/19 - 03/21) PATIENT NOT SATISFIED WITH CARE AND REQUESTED D/C HOME. PMH: MYELOFIBROSIS (BEING TREATED BY [facility] [place] [facility] [place] WITH [place] RECEIVING MONTHLY INJECTIONS), MICROCYTIC ANEMIA, JAC2 MUTATION POSITIVE, ANXIETY, DEPRESSION, HTN, CHF, HLD, GERD, DM, WHIPPLE PROCEDURE ON CREON, ENTERITIS, AND CAD. PATIENT CURRENTLY SMOKES CIGARETTES, APPROX 1/2 PACK DAY. PATIENT REPORTS SIGNIFICANT BILAT LE NEUROPATHY PAIN AND WORSENING LEFT FOOT DROP, HAS VISITED MULTIPLE NEUROLOGISTS. FALL HISTORY: NO RECENT FALLS PLOF: MOD I WITH TRANSFERS AND AMB, RECEIVED DAILY ASSISTANCE FROM FAMILY WITH ADLS/IADLS PATIENT LIVES IN SINGLE FAMILY HOME WITH SUPPORTIVE FAMILY (NEPHEW KEITH WHO SLEEPS OVERNIGHT) AND SISTER JIMBO AND PANTOGRAPH SETTER (VISITING WAYLON RODRIGUEZ 3.5 HRS -) CURRENTLY PROVIDING 17/01 CARE. OUTDOOR STAIRS: 3 STAIRS WITH RAIL, 1 THRESHOLD STEP WITH GRAB HANDLE, 1 INDOOR STEP TO NEGOTIATE. CLOF: DME: POWER WHEELCHAIR, FWW, ROLLATOR, BEDSIDE COMMODE, GRAB HANDLE BY DOOR SAFETY RECOMMENDATIONS: DECREASE BED HEIGHT, BED RAIL ACQUISITION, USE AD WITH ALL TRANSFERS AND AMB, REMOVAL OF LOOSE RUG IN BEDROOM HAZARDOUS, GRAB HANDLE INSTALLATION FOR INDOOR STEP VISITING WAYLON MARTINS PRESENT SPOKE WITH MELANI OF MD SOL[facility]'S OFFICE, MELANI INFORMED PATIENT MISSED TODAY'S PROCRIT INJECTION, RESCHEDULED FOR 03/29/25 AT 9:45 AM WITH NEPHEW KEITH PRESENT. PATIENT HAS [facility] FOLLOWUP 04/23, PATIENT REPORTS 8/10 BILAT LE FEET NEUROPATHY PAIN AND BILAT HIP PAIN. WITH LIGHT TOUCH SENSORY TESTING, PATIENT REPORTED PAIN INCREASED TO 10/10. PATIENT REPORTS GABAPENTIN NOT EFFECTIVE RELIEVING PAIN, IS NOT TAKING TYLENOL. ENCOURAGED PATIENT TO START TAKING TYLENOL FOR PAIN RELIEF, VERBALIZED UNDERSTANDING. BILAT LE LE ROM WFL EXCEPT 0 DEGREES OF AROM LEFT DORSIFLEXION AND DIMINISHED BILAT HIP ROM ( 10 DEGREES SUPINE HIP FLEX, 0 DEGREES HIP ABD). BILAT LE STRENGTH HIPS: 2-/5, KNEES 3+/5, ANKLES L: 1/5, R: 3+/5. TO INCREASE BILAT LE STRENGTH, INSTRUCTED PATIENT IN BILAT LE THER EXER: R DORSIFLEX X 10, BILAT PLANTARFLEX X 10, KNEE EXT X 5 (PATIENT REPORTS INCREASED HIP PAIN WITH COMPLETION), AAROM HIP FLEX X 5. DISPENSED HEP SHEET. PATIENT ABLE TO COMPLETE SUPINE -->SIT WITH SUPERVISION, VERBAL CUES TO MAX SAFETY, RECOMMEND BED RAIL TO MAX SAFETY. PATIENT COMPLETED SIT-->STAND FROM ROCKING RECLINER WITH MOD A AND HANDHELD ASSIST, PATIENT RESISTANT TO USING AD (RECOMMEND FWW) WITH COMPLETION. PATIENT ABLE TO TRANSFER ON -->OFF BED WITH CGA, VERBAL CUES FOR ROLLATOR POSITIONING. STATIC STAND = FAIR-. PATIENT AMB 6' X 2 FROM RECLINER --> INDOOR STEP WITH CGA AND USE OF STURDY FURNITURE, PATIENT RESISTANT TO USING AD (RECOMMEND FWW) WITH COMPLETION. PATIENT ASCENDED/DESCENDED 1 THRESHOLD STEP WITH CGA AND VERBAL CUES FOR UE SUPPORT AND LE SEQUENCING, PATIENT RESISTANT TO USING AD (RECOMMEND FWW). PATIENT AMB 20' X 2 WITH ROLLATOR AND CGA, DEMO DIMINISHED BILAT STEPS WITH RIGHT LE ADVANCEMENT WITH NO CLEARANCE LEFT LE. PATIENT PRESENTS WITH THE FOLLOWING DEFICITS: BILAT LE PAIN, BILAT LE WEAKNESS, DECREASED ENDURANCE, INCLUDING LEFT FOOT DROP, RESULTING IN DIFFICULTY WITH BED MOBILITY, TRANSFERS, AMB AND STAIR NEGOTIATION. SKILLED [facility] PH[facility] THERAP[facility] FREQ 1X6WKS TO ADDRESS DEFICITS, MAX SAFETY AND FUNCTIONAL LEVEL IN HOME IN ENVIRONMENT WITH BED MOBILITY TRAINING, TRANSFER TRAINING, GAIT TRAINING, INSTRUCT IN THER EXER, ESTABLISH HEP, STAIR NEGOTIATION. PATIENT AND CG KEITH INFORMED ABOUT PHYSICAL THERAPY POC INCLUDING FREQ, VERBALIZED ACCEPTANCE. MD NOTIFIED ABOUT PATIENT STATUS AND POC. BARRIER TO PATIENT ACHIEVING GOALS ARE SEVERE BILAT LE PAIN AND CONTINUING TO SMOKE. CONTINUE GOALS FROM PHYSICAL THERAPY EVALUATION WITH EXPECTED DATE OF COMPLETION SPECIFIED ON ORDER FREQUENCY AND DURATION.] Future Scheduled Test OCCUPATION AL THERAPIST TO EVALUATE PATIENT SECONDARY TO FUNCTIONAL DEFICITS/SAFETY CONCERNS IDENTIFIED DURING EVALUATION OCCUPATIONAL THERAPY TO ESTABLISH /UPGRADE/DOWNGRADE THERAPEUTIC EXERCISE PROGRAM AND INSTRUCT PATIENT/CAREGIVER ON EXERCISE PRECAUTIONS WITH WRITTEN HOME PROGRAM. MAY INCLUDE BUE PROM, AAROM, AROM, RROM APPROPRIATE TO IMPROVE FUNCTIONAL STRENGTH AND/OR RANGE OF MOTION. OCCUPATIONAL THERAPY TO INSTRUCT PATIENT/CAREGIVER ON SAFE TRANSFER TECHNIQUES USING PROPER BODY MECHANICS AND EQUIPMENT TO ENHANCE PARTICIPATION IN ADL S. OCCUPATIONAL THERAPY TO INSTRUCT PATIENT/CAREGIVER ON BALANCE AND BALANCE STRATEGIES TO IMPROVE SAFETY DURING ACTIVITIES OF DAILY LIVING AND REDUCE RISK OF INJURIES AND FALLS. OCCUPATIONAL THERAPY TO PROVIDE PATIENT/CAREGIVER WITH INSTRUCTIONS AND RECOMMENDATIONS TO IMPROVE ADL S INCLUDING BATHING/DRESSING WHILE USING APPROPRIATE ADAPTIVE DEVICES RECOMMENDED. SUMMARY OF THERAPY EVAL/ASSESSMENT FINDINGS AND REASON(S) SKILLS OF A THERAPIST ARE INDICATED: SKILLED OT EVAL COMPLETED THIS DATE 03/29 REASON FOR REFERRAL: PATIENT IS A 80 YEAR OLD MALE REFERRED TO HOME OT SERVICES S/P HOSPITALIZATION AND STR STAY FOR COVID+ AND COMPLICATED BY METABOLIC ENCEPHALOPATHY. PATIENT TRANSITIONED TO 2 DAY SNF STAY (03/19 - 03/21) PATIENT NOT SATISFIED WITH CARE AND REQUESTED D/C HOME. HE NOW HAS BEEN REFERRED FOR OT SERVICES TO [facility] WITH ADLS AND IADLS TO RETURN TO [facility] PMHX: MYELOFIBROSIS (BEING TREATED BY [facility] AT [facility] [place] WITH PATIENT RECEIVING MONTHLY INJECTIONS), MICROCYTIC ANEMIA, JAC2 MUTATION POSITIVE, ANXIETY, DEPRESSION, HTN, CHF, HLD, GERD, DM, WHIPPLE PROCEDURE ON CREON, ENTERITIS, AND CAD, [place], NO HEARING AIDES HOMEBOUND STATUS: PATIENT QUALIFIES FOR IN HOME SERVICES DUE TO INABILITY TO SAFELY LEAVE HOME WITHOUT ASSISTANCE LEAVING HOME CAUSES CONSIDERABLE AND TAXING EFFORT D/T RECENT HOSPITALIZATION/2 DAY SNF STAY FOR COVID+ AND METABOLIC ENCEPHALOPATY WHICH AFFECTED HIS OVERALL STRENGTH AND ENDURANCE. HE ALSO REPORTS A NEW ONSET OF LEFT FOOT DROP OF UNKNOWN REASON. OCCUPATIONAL PROFILE/HOME ENVIRONMENT/PLOF: PATIENT LIVES IN A [facility] WITH 24 HOUR ASSISTANCE. HE HAS VERY CLOSE FRIENDS THAT STAY OVERNIGHT WELL JEWELRY SALES COORDINATOR DURING THE DAY. HE STATES THAT HE WAS GETTING AROUND WITH NO AD. HE DID HIS OWN PERSONAL CARE WITH SOME ASSISTANCE FROM HIS CAREGIVERS. HE WOULD USE HIS SCOOTER OUTSIDE. HE NEEDED ASSIST FOR STAIR MANAGEMENT. HIS CAREGIVERS DID THE HOMEMAKER. HE DID STATE THAT HE WOULD DRIVE SHORT DISTANCE HOWEVER THE DATE OF THIS WAS VERY UNCLEAR AND HE WAS NOT SURE. EQUIPMENT AVAILABLE: SHOWER CHAIR WITH NO BACK, GRAB BARS, HAND HELD SHOWER, HAS A COMMODE FOR NIGHT USE, SCOOTER, MULTI WHEELED WALKER, CANE. EQUIPMENT RECOMMENDED: NONE AT THIS TIME BUT IS ONGOING. MAY BENEFIT FROM A GIFT SHOP CLERK AND/OR SOCK AIDE. PRECAUTIONS/RESTRICTIONS: HIGH FALL RISK VITALS: STABLE SENSATION: REPORTS NUMBNESS IN BOTH FEET DUE TO NEUROPATHY AND IS GETTING OCCASIONAL NUMBNESS IN HIS HANDS NOW. HE WAS ABLE TO DISTINGUISH DP/LT IN HIS HANDS THIS DATE BUT REPORTS SOMETIMES HE CAN NOT PAIN: BOTH FEET AND HIPS VARIES FROM 6-10/10 INTEGUMENTARY: SKIN APPEARS TO BE FRAGILE NEUROLOGICAL/TONE: WNL VISUAL: INTACT COGNITION: ALERT AND ORIENTED X3, DOES DEM SOME STM LOSS CLOF: TOILETING- CTG TO SPV; TXFR-SPV TO CTG BATHING- UBB: SPV TO ASSIST WITH HIS BACK; LBB: MIN A OVERALL ; TXFR-IN/OUT OF THE SHOWER WITH CTG TO OCCASSIONAL MIN A DRESSING- UBD SETUP ; LBD MIN A TO GET CLOTHING OVER HIS FEET SELF FEEDING-INDEP GROOMING-SETUP FUNCTIONAL TRANSFERS-FROM RECLINER CHAIR WITH MIN A TODAY; ON/OFF TOILET WITH MIN A. DECLINED TUB TRANSFER TODAY DUE TO FATIGUE MEAL PREP-FAMILY/PANTOGRAPH SETTER LAUNDRY-FAMILY/PANTOGRAPH SETTER HOUSEKEEPING-FAMILY/PANTOGRAPH SETTER PET CARE-INTACT FUNCTIONAL MOBILITY-USES A MULTI LEVEL WALKER IN THE HOME, HE NEEDS SPV FOR MOBILITY HAYDEE SCORE: 61/100 INDICTIVE OF MODERATELY DEPENDENT COORDINATION: WFL ROM: LUE RUE BUE WFL STRENGTH: LUE:4-/5 RUE 4-/5 FUNCTIONAL ACTIVITY TOLERANCE: FUNCTIONAL REACH TEST: UNABLE TO TEST STANDING BALANCE: STATIC:FAIR ; DYNAMIC: FAIR- SITTING BALANCE: STATIC GOOD ; DYNAMIC GOOD CLINICAL IMPRESSION: PATIENT PRESENTS WITH IMPAIRED FUNCTIONAL TRANSFERS, IMPAIRED FUNCTIONAL MOBILITY, IMPAIRED STRENGTH, PRESENCE OF PAIN, IMPAIRED COGNITION/PROBLEM SOLVING, IMPAIRED FUNCTIONAL ACTIVITY TOLERANCE/SOB/FATIGUE, IMPAIRED FUNCTIONAL BALANCE, ALL RESULTING IN INABILITY TO SAFELY PARTICIPATE IN SELF CARE AND OCCUPATIONS OF CHOICE WITHOUT ASSISTANCE. REHAB POTENTIAL: PATIENT DEMONSTRATES GOOD REHAB POTENTIAL AEB HIS MOTIVATION TO RETURN TO PLOF. HE ALSO HAS GOOD SUPPORT SYSTEM PATIENT IS CURRENTLY DEMONSTRATING ADL/IADL SKILLS BELOW FUNCTIONAL BASELINE AND WOULD BENEFIT FROM HOME OT SERVICES (1WK6) TO TRAIN IN COMPENSATORY/ADAPTIVE TECHNIQUES, TRAIN IN SAFE FUNCTIONAL MOBILITY/ FUNCTIONAL BALANCE TO REDUCE RISK OF FALLS AND PROMOTE OVERALL SAFETY WITH FUNCTIONAL TASKS, TRAIN IN ECTS/TASK SIMPLIFICATION/MODIFICATIONS TO REDUCE SOB/FATIGUE AND MAX INDEP PARTICIPATION, TRAIN IN SAFE FUNCTIONAL TRANSFERS USING DME APPROPRIATE, ESTABLISH HEP FOR FACILITATING UB STRENGTH TO ASSIST WITH SAFE FUNCTIONAL TRANSFERS AND ADLS/IADLS, TRAIN IN PAIN MGMT. TECHNIQUES/STRATEGIES TO REDUCE DISCOMFORT WITH FUNCTIONAL TASKS, TRAIN IN PROPER BODY MECHANICS TO FACILITATE SAFE PERFORMANCE OF ADLS/IADLS AND PROVIDE ONGOING PATIENT EDUCATION TO MAX OVERALL SAFETY AND INDEP WITH SELF CARE TASKS WITHIN HOME ENVIRONMENT. PATIENT`S GOAL IS TO INCREASE HIS OVERALL STRENGTH, ENDURANCE/ACTIVITY TOLERANCE AND BALANCE IN ORDER TO INDEPENDENCE WITH ADLS AND MOBILITY TO DECREASE DEPENDENCY ON CAREGIVERS. [code = OCCUPATIONAL THERAPIST TO EVALUATE PATIENT SECONDARY TO FUNCTIONAL DEFICITS/SAFETY CONCERNS IDENTIFIED DURING EVALUATION OCCUPATIONAL THERAPY TO ESTABLISH /UPGRADE/DOWNGRADE THERAPEUTIC EXERCISE PROGRAM AND INSTRUCT PATIENT/CAREGIVER ON EXERCISE PRECAUTIONS WITH WRITTEN HOME PROGRAM. MAY INCLUDE BUE PROM, AAROM, AROM, RROM APPROPRIATE TO IMPROVE FUNCTIONAL STRENGTH AND/OR RANGE OF MOTION. OCCUPATIONAL THERAPY TO INSTRUCT PATIENT/CAREGIVER ON SAFE TRANSFER TECHNIQUES USING PROPER BODY MECHANICS AND EQUIPMENT TO ENHANCE PARTICIPATION IN ADL S. OCCUPATIONAL THERAPY TO INSTRUCT PATIENT/CAREGIVER ON BALANCE AND BALANCE STRATEGIES TO IMPROVE SAFETY DURING ACTIVITIES OF DAILY LIVING AND REDUCE RISK OF INJURIES AND FALLS. OCCUPATIONAL THERAPY TO PROVIDE PATIENT/CAREGIVER WITH INSTRUCTIONS AND RECOMMENDATIONS TO IMPROVE ADL S INCLUDING BATHING/DRESSING WHILE USING APPROPRIATE ADAPTIVE DEVICES RECOMMENDED. SUMMARY OF THERAPY EVAL/ASSESSMENT FINDINGS AND REASON(S) SKILLS OF A THERAPIST ARE INDICATED: SKILLED OT EVAL COMPLETED THIS DATE 03/29 REASON FOR REFERRAL: PATIENT IS A 80 YEAR OLD MALE REFERRED TO HOME OT SERVICES S/P HOSPITALIZATION AND STR STAY FOR COVID+ AND COMPLICATED BY METABOLIC ENCEPHALOPATHY. PATIENT TRANSITIONED TO 2 DAY SNF STAY (03/19 - 03/21) PATIENT NOT SATISFIED WITH CARE AND REQUESTED D/C HOME. HE NOW HAS BEEN REFERRED FOR OT SERVICES TO [facility] WITH ADLS AND IADLS TO RETURN TO [facility] PMHX: MYELOFIBROSIS (BEING TREATED BY [facility] AT [facility] [place] WITH PATIENT RECEIVING MONTHLY INJECTIONS), MICROCYTIC ANEMIA, JAC2 MUTATION POSITIVE, ANXIETY, DEPRESSION, HTN, CHF, HLD, GERD, DM, WHIPPLE PROCEDURE ON CREON, ENTERITIS, AND CAD, [place], NO HEARING AIDES HOMEBOUND STATUS: PATIENT QUALIFIES FOR IN HOME SERVICES DUE TO INABILITY TO SAFELY LEAVE HOME WITHOUT ASSISTANCE LEAVING HOME CAUSES CONSIDERABLE AND TAXING EFFORT D/T RECENT HOSPITALIZATION/2 DAY SNF STAY FOR COVID+ AND METABOLIC ENCEPHALOPATY WHICH AFFECTED HIS OVERALL STRENGTH AND ENDURANCE. HE ALSO REPORTS A NEW ONSET OF LEFT FOOT DROP OF UNKNOWN REASON. OCCUPATIONAL PROFILE/HOME ENVIRONMENT/PLOF: PATIENT LIVES IN A [facility] WITH 24 HOUR ASSISTANCE. HE HAS VERY CLOSE FRIENDS THAT STAY OVERNIGHT WELL JEWELRY SALES COORDINATOR DURING THE DAY. HE STATES THAT HE WAS GETTING AROUND WITH NO AD. HE DID HIS OWN PERSONAL CARE WITH SOME ASSISTANCE FROM HIS CAREGIVERS. HE WOULD USE HIS SCOOTER OUTSIDE. HE NEEDED ASSIST FOR STAIR MANAGEMENT. HIS CAREGIVERS DID THE HOMEMAKER. HE DID STATE THAT HE WOULD DRIVE SHORT DISTANCE HOWEVER THE DATE OF THIS WAS VERY UNCLEAR AND HE WAS NOT SURE. EQUIPMENT AVAILABLE: SHOWER CHAIR WITH NO BACK, GRAB BARS, HAND HELD SHOWER, HAS A COMMODE FOR NIGHT USE, SCOOTER, MULTI WHEELED WALKER, CANE. EQUIPMENT RECOMMENDED: NONE AT THIS TIME BUT IS ONGOING. MAY BENEFIT FROM A GIFT SHOP CLERK AND/OR SOCK AIDE. PRECAUTIONS/RESTRICTIONS: HIGH FALL RISK VITALS: STABLE SENSATION: REPORTS NUMBNESS IN BOTH FEET DUE TO NEUROPATHY AND IS GETTING OCCASIONAL NUMBNESS IN HIS HANDS NOW. HE WAS ABLE TO DISTINGUISH DP/LT IN HIS HANDS THIS DATE BUT REPORTS SOMETIMES HE CAN NOT PAIN: BOTH FEET AND HIPS VARIES FROM 6-10/10 INTEGUMENTARY: SKIN APPEARS TO BE FRAGILE NEUROLOGICAL/TONE: WNL VISUAL: INTACT COGNITION: ALERT AND ORIENTED X3, DOES DEM SOME STM LOSS CLOF: TOILETING- CTG TO SPV; TXFR-SPV TO CTG BATHING- UBB: SPV TO ASSIST WITH HIS BACK; LBB: MIN A OVERALL ; TXFR-IN/OUT OF THE SHOWER WITH CTG TO OCCASSIONAL MIN A DRESSING- UBD SETUP ; LBD MIN A TO GET CLOTHING OVER HIS FEET SELF FEEDING-INDEP GROOMING-SETUP FUNCTIONAL TRANSFERS-FROM RECLINER CHAIR WITH MIN A TODAY; ON/OFF TOILET WITH MIN A. DECLINED TUB TRANSFER TODAY DUE TO FATIGUE MEAL PREP-FAMILY/PANTOGRAPH SETTER LAUNDRY-FAMILY/PANTOGRAPH SETTER HOUSEKEEPING-FAMILY/PANTOGRAPH SETTER PET CARE-INTACT FUNCTIONAL MOBILITY-USES A MULTI LEVEL WALKER IN THE HOME, HE NEEDS SPV FOR MOBILITY HAYDEE SCORE: 61/100 INDICTIVE OF MODERATELY DEPENDENT COORDINATION: WFL ROM: LUE RUE BUE WFL STRENGTH: LUE:4-/5 RUE 4-/5 FUNCTIONAL ACTIVITY TOLERANCE: FUNCTIONAL REACH TEST: UNABLE TO TEST STANDING BALANCE: STATIC:FAIR ; DYNAMIC: FAIR- SITTING BALANCE: STATIC GOOD ; DYNAMIC GOOD CLINICAL IMPRESSION: PATIENT PRESENTS WITH IMPAIRED FUNCTIONAL TRANSFERS, IMPAIRED FUNCTIONAL MOBILITY, IMPAIRED STRENGTH, PRESENCE OF PAIN, IMPAIRED COGNITION/PROBLEM SOLVING, IMPAIRED FUNCTIONAL ACTIVITY TOLERANCE/SOB/FATIGUE, IMPAIRED FUNCTIONAL BALANCE, ALL RESULTING IN INABILITY TO SAFELY PARTICIPATE IN SELF CARE AND OCCUPATIONS OF CHOICE WITHOUT ASSISTANCE. REHAB POTENTIAL: PATIENT DEMONSTRATES GOOD REHAB POTENTIAL AEB HIS MOTIVATION TO RETURN TO [facility]. HE ALSO HAS GOOD SUPPORT SYSTEM PATIENT IS CURRENTLY DEMONSTRATING ADL/IADL SKILLS BELOW FUNCTIONAL BASELINE AND WOULD BENEFIT FROM HOME OT SERVICES (1WK6) TO TRAIN IN COMPENSATORY/ADAPTIVE TECHNIQUES, TRAIN IN SAFE FUNCTIONAL MOBILITY/ FUNCTIONAL BALANCE TO REDUCE RISK OF FALLS AND PROMOTE OVERALL SAFETY WITH FUNCTIONAL TASKS, TRAIN IN ECTS/TASK SIMPLIFICATION/MODIFICATIONS TO REDUCE SOB/FATIGUE AND MAX INDEP PARTICIPATION, TRAIN IN SAFE FUNCTIONAL TRANSFERS USING DME APPROPRIATE, ESTABLISH HEP FOR FACILITATING UB STRENGTH TO ASSIST WITH SAFE FUNCTIONAL TRANSFERS AND ADLS/IADLS, TRAIN IN PAIN MGMT. TECHNIQUES/STRATEGIES TO REDUCE DISCOMFORT WITH FUNCTIONAL TASKS, TRAIN IN PROPER BODY MECHANICS TO FACILITATE SAFE PERFORMANCE OF ADLS/IADLS AND PROVIDE ONGOING PATIENT EDUCATION TO MAX OVERALL SAFETY AND INDEP WITH SELF CARE TASKS WITHIN HOME ENVIRONMENT. PATIENT`S GOAL IS TO INCREASE HIS OVERALL STRENGTH, ENDURANCE/ACTIVITY TOLERANCE AND BALANCE IN ORDER TO INDEPENDENCE WITH ADLS AND MOBILITY TO DECREASE DEPENDENCY ON CAREGIVERS.] Goal Patient Goal - GET STRONGER Goal Provider Goal - A PLAN OF CARE WILL BE ESTABLISHED THAT MEETS PATIENT'S FDC NEEDS AND INCLUDES PATIENT GOAL FOR HOME HEALTH. Goal Provider Goal - PATIENT / CAREGIVER WILL VERBALIZE UNDERSTANDING OF EFFECTS OF URINARY INCONTINENCE BY THE END OF THE CERTIFICATION PERIOD. Goal Provider Goal - SYMPTOMS OF ANXIETY ARE IDENTIFIED AND INTERVENTIONS INITIATED TO ENABLE PATIENT TO UNDERSTAND AND MANAGE FEELINGS THROUGHOUT EPISODE. Goal Provider Goal - PATIENT/CAREGIVER WILL VERBALIZE/DEMONSTRATE MANAGEMENT OF MYELOFIBROSIS CANCER/NEOPLASM DISEASE AND THE SIDE EFFECTS OF TREATMENTS DURING THIS EPISODE. Goal Provider Goal - EXACERBATIONS OF GASTROINTESTINAL DISEASE WILL BE PROMPTLY IDENTIFIED AND INTERVENTIONS IMPLEMENTED TO MINIMIZE RISKS TO PATIENT BY END OF EPISODE. Goal Provider Goal - OCCUPATIONAL THERAPY EVALUATION TO BE COMPLETED WITH RECOMMENDATIONS AND WRITTEN PLAN OF TREATMENT ESTABLISHED FOR THE PHYSICIAN S SIGNATURE. Goal Provider Goal - PATIENT/CAREGIVER WILL VERBALIZE/DEMONSTRATE MANAGEMENT OF COVID 19 PROCESS. CHANGES IN RESPIRATORY STATUS WILL BE IDENTIFIED AND REPORTED TO PHYSICIAN FOR PROMPT INTERVENTION THROUGHOUT THE CERTIFICATION PERIOD. Goal Provider Goal - PATIENT / CAREGIVER WILL VERBALIZE UNDERSTANDING OF BARRIERS PREVENTING PROPER CARE AND DEMONSTRATE MEASURES TO ELIMINATE THOSE BARRIERS DURING THIS EPISODE. Goal Provider Goal - BLOOD SUGAR READING WILL BE OBTAINED ORDERED THROUGHOUT CERTIFICATION PERIOD. Goal Provider Goal - PATIENT/CAREGIVER WILL VERBALIZE/DEMONSTRATE ABILITY TO MANAGE HIP AND NEUROPATHY PAIN WHILE MAINTAINING SAFETY THROUGHOUT THE EPISODE. Goal Provider Goal - CHANGES IN NEUROLOGIC STATUS WILL BE IDENTIFIED AND REPORTED TO THE PHYSICIAN FOR PROMPT INTERVENTION OF ASSOCIATED RISK. PATIENT/CAREGIVER WILL VERBALIZE/DEMONSTRATE APPROPRIATE SAFETY MEASURES TO PREVENT INJURY BY THE END OF THE CERTIFICATION PERIOD. Goal Provider Goal - PATIENT/CAREGIVER WILL VERBALIZE/DEMONSTRATE THE ABILITY TO MANAGE CAD AND EXACERBATIONS WILL BE IDENTIFIED FOR EARLY INTERVENTION THROUGHOUT THE CERTIFICATION PERIOD. Goal Provider Goal - A PHYSICAL THERAPY EVALUATION TO BE COMPLETED WITH RECOMMENDATIONS AND/OR WRITTEN PLAN OF TREATMENT ESTABLISHED FOR PHYSICIAN S SIGNATURE. Goal Provider Goal - PATIENT/CAREGIVER WILL VERBALIZE SIGNS AND SYMPTOMS OF HYPERTENSION AND WILL BE ABLE TO DEMONSTRATE ABILITY TO MANAGE EXACERBATION BY END OF THE EPISODE. Goal Provider Goal - PATIENT/CAREGIVER WILL VERBALIZE/DEMONSTRATE KNOWLEDGE AND MANAGEMENT OF HEART FAILURE DISEASE PROCESS BY END OF EPISODE. Goal Provider Goal - PATIENT/CARGIVER WILL VERBALIZE UNDERSTANDING OF ANEMIA INCLUDING SIGNS AND SYMPTOMS, MANAGEMENT OF COMPLICATIONS, AND PRESCRIBED TREATMENT REGIMEN BY END OF EPISODE. Goal Provider Goal - PATIENT/CAREGIVER WILL VERBALIZE/DEMONSTRATE KNOWLEDGE OF DIABETIC MANAGEMENT. CHANGES IN DIABETIC STATUS WILL BE IDENTIFIED AND REPORTED TO PHYSICIAN FOR PROMPT INTERVENTION THROUGHOUT THE CERTIFICATION PERIOD. Goal Provider Goal - PATIENT WILL HAVE SUPPORT MEASURES ESTABLISHED TO PREVENT HOSPITALIZATION AND ED USE AND PATIENT/CAREGIVER WILL VERBALIZE/DEMONSTRATE METHODS TO REDUCE AVOIDABLE HOSPITALIZATION AND ED USE BY END OF EPISODE. Goal Provider Goal - PATIENT/CAREGIVER WILL VERBALIZE UNDERSTANDING OF DISCHARGE PLANNING INSTRUCTIONS BY DATE OF DISCHARGE. Goal Provider Goal - PATIENT/CAREGIVER WILL VERBALIZE/DEMONSTRATE EFFECTIVE ENVIRONMENTAL SAFETY AND FALL PREVENTION STRATEGIES, WILL REMAIN SAFE IN THE COMMUNITY, AND WILL BE FREE OF DANGER TO SELF AND OTHERS THROUGHOUT THE CERTIFICATION PERIOD. Goal Provider Goal - PATIENT/CAREGIVER WILL DEMONSTRATE UNDERSTANDING OF PHARMACOLOGIC AND NONPHARMACOLOGIC PAIN CONTROL MEASURES AND PATIENT WILL HAVE IMPROVEMENT IN PAIN INTERFERING WITH ACTIVITY EVIDENCED BY PAIN AT A LEVEL THAT IS ACCEPTABLE TO THE PATIENT AND PAIN LEVEL WITHIN ESTABLISHED PARAMETERS BY END OF CERTIFICATION PERIOD. Goal Provider Goal - PATIENT/CAREGIVER WILL VERBALIZE UNDERSTANDING OF PRESSURE ULCER PREVENTION BY END OF THE EPISODE. Goal Provider Goal - PATIENT/CAREGIVER WILL VERBALIZE/DEMONSTRATE UNDERSTANDING OF THE MANAGEMENT OF DEPRESSION THROUGHOUT THE CERTIFICATION PERIOD AND SYMPTOMS ARE IDENTIFIED AND MANAGED TO MAINTAIN PATIENT SAFETY IN THE HOME. Goal Provider Goal - PATIENT/CAREGIVER WILL VERBALIZE S/S OF NEUROPATHY AND METHODS TO MANAGE BY END OF CERTIFICATION PERIOD. Goal Provider Goal - PATIENT/CAREGIVER WILL VERBALIZE UNDERSTANDING OF EDUCATION PROVIDED ON MEDICATIONS BY THE END OF THE CERTIFICATION PERIOD. Goal Provider Goal - PHYSICAL THERAPY EVALUATION TO BE COMPLETED WITH RECOMMENDATIONS AND/OR WRITTEN TREATMENT PLAN OF CARE ESTABLISHED FOR THE PHYSICIAN S SIGNATURE PATIENT/CAREGIVER VERBALIZES UNDERSTANDING OF THE INITIAL BEST PRACTICE RECOMMENDATIONS. PHYSICIAN TO BE NOTIFIED APPROPRIATE FOR ANY CHANGES OR COMPLICATIONS THROUGHOUT THE CERTIFICATION PERIOD. PATIENT/CAREGIVER WILL PERFORM THERAPEUTIC EXERCISE/S AND DEMONSTRATE PARTICIPATION IN A HOME PROGRAM. PATIENT/CAREGIVER WILL DEMONSTRATE IMPROVED BED MOBILITY TECHNIQUES. PATIENT/CAREGIVER WILL DEMONSTRATE SAFE TRANSFERS USING APPROPRIATE ASSISTIVE DEVICE, BODY MECHANICS AND EQUIPMENT. PATIENT/CAREGIVER WILL DEMONSTRATE IMPROVED GAIT TECHNIQUES TO MINIMIZE RISK OF INJURY. PATIENT/CAREGIVER WILL DEMONSTRATE/VERBALIZE UNDERSTANDING OF RECOMMENDATIONS TO INCREASE SAFETY IN THE HOME AND FALL PREVENTION. INCREASED PAIN OR INEFFECTIVE PAIN CONTROL MEASURES WILL BE IDENTIFIED AND PROMPTLY REPORTED TO THE PHYSICIAN. PATIENT/CAREGIVER WILL DEMONSTRATE EFFECTIVE PAIN MANAGEMENT. PATIENT/CAREGIVER WILL DEMONSTRATE IMPROVED BALANCE AND REDUCE THE RISK OF FALLS AND INJURY. PHYSICAL THERAPY REASSESSMENT WILL BE COMPLETED WITH ESTABLISHMENT OF CONTINUED POC. Goal Provider Goal - OCCUPATIONAL THERAPIST TO EVALUATE PATIENT SECONDARY TO FUNCTIONAL DEFICITS/SAFETY CONCERNS IDENTIFIED DURING EVALUATION. PATIENT/CAREGIVER WILL PERFORM THERAPEUTIC EXERCISE/S AND DEMONSTRATE PARTICIPATION IN A HOME PROGRAM. PATIENT/CAREGIVER WILL DEMONSTRATE SAFE TRANSFERS USING APPROPRIATE ASSISTIVE DEVICE, BODY MECHANICS AND EQUIPMENT. PATIENT/CAREGIVER WILL DEMONSTRATE IMPROVED BALANCE AND REDUCE THE RISK OF FALLS AND INJURY. PATIENT/CAREGIVER WILL DEMONSTRATE IMPROVED ABILITY TO PERFORM ACTIVITIES OF DAILY LIVING. Progress Notes Progress Notes <paragraph>[Visit Date: 2024 by GEORGINA MACHUCA OT]:</paragraph><paragraph>PATIENT WAS SEEN THIS DATE FOR EDUCATION IN UE HEP WITH AND W/O RESISTANCE. HE WAS PROVIDED WITH YELLOW THERABAND THIS DATE. HE WAS ABLE TO TEACHBACK 3 EXERCISES WITH 75% ACCURACY. HE NEEDS CUES THROUGHOUT NOT TO HOLD HIS BREATHE AND TO COUNT OUT LOUD. CAN TOLERATE 5-7 REPS. HE DOES REPORT INCREASED FATIGUE WITH THE LUE DUE TO AN OLD SHOULDER INJURY. HE CONTINUES TO HAVE PAIN IN HIS LEFT FOOT RELATED TO GOUT. MILD EDEMA NOTED. HE ANSWERED NO TO FALLS, NO NEW MEDICATIONS AND NO EXPOUSURE TO COVID. TOLERATED SESSION WELL THIS DATE.</paragraph> Encounters Start Date/Time End Date/Time Encounter Type Admission Type Attending Clinicians [facility] Care Department Encounter ID Discharge Date Discharge Status Discharge Condition Discharge Reason Percent Goals Met 2025-03-22 00:00:00 2025-05-20 00:00:00 Outpatient NEW ADMISSION [facility] [id number] 21.88
== END 2025-04-08 09:11 | disposition home or self-care (01) ==
LOC: HO.HMCC 07:51
PROVIDERS: PCP Internal Medicine; Visit Provider Internal Medicine
DX: Z13.9 Encounter for screening, unspecified (principal); E13.9 Other specified diabetes mellitus without complications

== ENCOUNTER → 2025-04-08 07:50 | Outpatient (BNVA) | payer MEDICARE, SELFPAY | PROVIDERS: PCP Internal Medicine; Visit Provider Internal Medicine | DX: L03.032 Cellulitis of left toe (principal); E13.9 Other specified diabetes mellitus without complications; M10.9 Gout, unspecified; Z79.899 Other long term (current) drug therapy | CPT/HCPCS: 83036; 96127; 99212 ==

== ENCOUNTER → 2025-04-15 23:59 | Outpatient (BNV) | payer MEDICARE, SELFPAY | PROVIDERS: PCP Internal Medicine; Visit Provider Internal Medicine | DX: G93.41 Metabolic encephalopathy (principal); I11.0 Hypertensive heart disease with heart failure; I50.32 Chronic diastolic (congestive) heart failure; I50.20 Unspecified systolic (congestive) heart failure | CPT/HCPCS: G0180 ==

== ENCOUNTER 2025-04-26 09:03 | Outpatient (RCR) | payer MEDICARE, SELFPAY | END 2025-04-26 16:55 | disposition home or self-care (01) | LOC: HO.WCC 09:03 | PROVIDERS: PCP Internal Medicine; Visit Provider Surgery Surgical Oncology | DX: E11.621 Type 2 diabetes mellitus with foot ulcer (principal); L97.522 Non-pressure chronic ulcer of other part of left foot with fat layer exposed; I70.245 Atherosclerosis of native arteries of left leg with ulceration of other part of foot; E11.51 Type 2 diabetes mellitus with diabetic peripheral angiopathy without gangrene; E11.40 Type 2 diabetes mellitus with diabetic neuropathy, unspecified; M10.071 Idiopathic gout, right ankle and foot; F17.210 Nicotine dependence, cigarettes, uncomplicated | CPT/HCPCS: 99213 ==